=== PATIENT | male | born 1945 | race Caucasian/White ===

== ENCOUNTER → 2017-12-03 | Outpatient (CLI) | payer OTHER ==
[~2017-12-03] MED LIST: AMLO5TAB2 PO; OMEP20TA93 PO
== END ==
LOC: CPRE 09:49
PROVIDERS: ATTEND Orthopaedic Surgery
DX: T84.53XA Infection and inflammatory reaction due to internal right knee prosthesis, initial encounter (principal)

== ENCOUNTER 2017-12-12 07:06 | Inpatient (IN) | payer OTHER, MEDICARE ==
[~2017-12-12] VITALS: Ht 180.3 cm; Wt 95.4 kg
[2017-12-12] MEDS ORDERED: ceFAZolin 2 GM in NS 100 ML IV SCH (07:45)
[2017-12-12] MEDS ORDERED: DEXAMETHASONE SOD PHOS 20 MG/5 ML VIAL IV PUSH ONE (07:45)
[2017-12-12] MEDS ORDERED: CHLORHEXIDINE GLUCONATE 4% SOLN 120 ML BTL TOPICAL SCH (07:45)
[2017-12-12] MEDS ORDERED: SODIUM CHLORID 0.9% 500 ML IV PRN (07:45)
[2017-12-12] MEDS ORDERED: CHLORHEXIDINE GLUCONATE 2 % 1 PACK (2 CLOTHS) TOPICAL PRN (07:45)
[2017-12-12] MEDS ORDERED: LACTATED RINGER'S 1000 ML IV PRN (07:45)
[2017-12-12] MEDS ORDERED: POVIDONE IODINE 7.5% SCRUB 118 ML BOTTLE TOPICAL SCH (07:45)
[2017-12-12] MEDS ORDERED: POVIDONE IODINE 5% (ANTISEPSIS KIT) 4 APPLICATIONS EACH NARE PRN (07:45)
[2017-12-12] MEDS ORDERED: ROPIVACAINE PERI-ARTICULAR INJECTION. P-ARTICULR SCH ×5 (07:45)
[2017-12-12] MEDS ORDERED: TRANEXAMIC ACID INJ 890 MG in SODIUM CHLORIDE 0.9% INJ 100 ML IV SCH ×2 (07:45→15:00)
[2017-12-12] MEDS ORDERED: METOPROLOL TARTRATE 25 MG TAB PO PRN (07:45)
[2017-12-12] MEDS ORDERED: ceFAZolin 2 GM PREMIX 50 ML ONE (07:56)
[2017-12-12 09:29] VITALS: PULSE 87
[2017-12-12] MEDS ORDERED: MIDAZOLAM HCL 5 MG/5 ML VIAL ONE (09:33)
[2017-12-12] MEDS ORDERED: GENTAMICIN SULFATE 80 MG/2 ML VIAL ONE (09:49)
[2017-12-12] MEDS: VANCOMYCIN 1 GM/200 ML PREMIX ON-CALL IV SCH ×2 (10:06→10:08)
[2017-12-12] MEDS ORDERED: VANCOMYCIN HCL 1000 MG VIAL ONE (12:55)
[2017-12-12] MEDS ORDERED: MORPHINE SULFATE 4 MG/ML INJ IV PUSH PRN (14:15)
[2017-12-12] MEDS ORDERED: MAGNESIUM HYDROXIDE SUSP 30 ML CUP PO PRN (14:15)
[2017-12-12] MEDS ORDERED: NALOXONE HCL 0.4 MG/ML AMP IV PUSH PRN (14:15)
[2017-12-12] MEDS ORDERED: diphenhydrAMINE HCL 50 MG/ML VIAL IV PUSH PRN (14:15)
[2017-12-12] MEDS ORDERED: ONDANSETRON HCL 4 MG/2 ML VIAL IVP PRN (14:15)
[2017-12-12] MEDS ORDERED: BISACODYL 10 MG SUPP RECTAL PRN (14:15)
[2017-12-12] MEDS ORDERED: ALUMINUM/MAGNESIUM/SIMETH 30 ML CUP PO PRN (14:15)
[2017-12-12] MEDS ORDERED: ACETAMINOPHEN/HYDROcodone 325 MG/5 MG TAB PO PRN ×2 (14:15)
[2017-12-12] MEDS ORDERED: Post-op Orders (for Pharmacy) XX ONE (14:15)
--- NOTE | 2017-12-12 14:17 | PD.OP ---
cc: Cyrus Gomez MD Operative Report Date of Surgery: December 12, 2017 Preoperative Diagnosis: Right knee status post antibiotic spacer for TKA infection with stiffness Postoperative Diagnosis: Same Procedure: Right knee revision total knee arthroplasty. Right knee quadricepsplasty. Anesthesia: Adductor canal block and general Surgeon: Cyrus Gomez Software Engineer Advisor(s): LEILANI Dockery The surgical procedure was assisted by my Advanced Registered Nurse Practitioner. My CREDIT CARD ASSOCIATE presence was necessary throughout this case for the manipulation and positioning of the surgical extremity. My CREDIT CARD ASSOCIATE was assisting me throughout the duration of this procedure. The skill set of an Advance Registered Nurse Practitioner was medically necessary to complete this procedure. During the surgical case, the digital cartographic technician was working at the back table and the Advance Registered Nurse Practitioner was directly assisting me. Operation and Findings: See full operative note for details. Dict#: [id number] Cyrus Gomez MD December 12, 2017 14:17
[2017-12-12] MEDS ORDERED: PANTOPRAZOLE SOD 20 MG DELAYED RELEASE TAB PO PRN (14:30)
--- NOTE | 2017-12-12 15:07 | MP ---
cc: Cyrus Gomez MD DATE OF OPERATION: 12/12/2017 PREOPERATIVE DIAGNOSIS: Right knee status post antibiotic spacer for total knee arthroplasty infection with stiffness. POSTOPERATIVE DIAGNOSIS: Right knee status post antibiotic spacer for total knee arthroplasty infection with stiffness. PROCEDURE PERFORMED: 1. Right knee revision total knee arthroplasty. 2. Right knee quadriceps plasty. ANESTHESIA: Adductor canal block and general. SURGEON: Cyrus Gomez MD COMPRESSION MOLDING MACHINE SETTER: LEILANI Dockery The surgical procedure was assisted by my Advanced Registered Nurse Practitioner. My LEADERSHIP INTERN presence was necessary throughout this case for the manipulation and positioning of the surgical extremity. My LEADERSHIP INTERN was assisting me throughout the duration of this procedure. The skill set of an Advanced Registered Nurse Practitioner was medically necessary to complete this procedure. During the surgical case, the surgical orderly was working at the back table and the Advanced Registered Nurse Practitioner was directly assisting me. TOURNIQUET TIME: 80 minutes. IMPLANTS: DePuy TC3 revision total knee arthroplasty. 1. Femur was Sigma TC3 size 4 with a neutral adapter bolt, femoral adapter 5 degrees, distal augment 8 mm on the medial side, posterior augment 8 mm on the lateral side. [place] femoral sleeve, full porous, 46 mm. [place] stem, fluted, 115 x 18 mm. 2. Tibia rotating platform MBT revision system size 4, cemented with metaphyseal sleeve, porous, 53 with universal stem, fluted, 75 x 20 and rotating platform polyethylene size 4, which is a 12.5 thickness along with a cobalt chrome single cable. DESCRIPTION OF PROCEDURE: The patient was brought back to the operative theater. General anesthesia was administered after adductor canal block had been performed. The right lower extremity was prepped and draped in the usual sterile fashion. The leg was exsanguinated, tourniquet was raised. We made standard incision through the previous incision, which was curvilinear anteriorly. We reflected the flap laterally. We incised through deep tissue, found no fluid within the joint. No signs of infection. There were significant adhesions noted throughout the knee with significant adhesions of the quadriceps onto the anterior aspect of the femur with some heterotopic bone in that area. We did perform a quadriceps plasty after making a medial parapatellar arthrotomy. We reflected the quadriceps so that it was no longer significantly adherent to the distal femur. This did take quite a bit of dissection proximally and also even medially and laterally. We had to be careful as we got down towards the adductor canal region. We had full mobilization. As we were mobilizing the patella, we did perform a lateral release; however, we started to see that the patellar tendon was starting to begin to avulse from the tibial tubercle, and at this point, we did not have near enough mobilization or have adequate visualization. Therefore, we decided to move forward with an osteotomy of the proximal tibia. Osteotomy was performed with multiple drill holes through the tibial tubercle, and then we finished this with an osteotome, and we broke off a triangular wedge of the tubercle and this allowed us then to reflect the extensor mechanism out of position so we could obtain better visualization. We then removed the cement spacers off of the femur and the tibia. We found just a little bit of fluid behind each one of these, and we did send this for final culture. We took 2 samples, which were swabs, but then we also took a sample of tissue and sent this for pathology analysis, and the pathologist felt that there were no signs of acute inflammation. Ultimately, there were really no soft tissues that looked grossly inflamed and this was likely just some of the membrane that had been sitting behind the cement spacer. There was no destruction of any of the soft tissues. However, there was quite significant thickening of the tissues. We did need to reflect the gutters medially and laterally. We made sure to protect the medial and lateral collateral ligaments at all times. We went on to prepare the proximal tibia using reamers, and then we resected just a little bit of bone off of the previous osteotomy of the proximal tibia. This was done with the guide in the tibial shaft. We punched the proximal tibia for placement of the metaphyseal sleeve. We ended up going one size larger than our previous revision component in the metaphyseal sleeve on the tibia. We kept trial in position and then turned our attention to the distal femur. We did a distal femoral resection of just a couple millimeters past the previous resection and started to get some good bone distally. We created the chamfer cut. We did need augments as described in the component section of the dictation, and this was determined from the cuts off of the guide. We tested the knee using the epicondylar axis for rotation and found good fit of the component. Note that we did also ream into the femoral shaft and then also punched for the metaphyseal sleeve and got good fit with these, and then we trialed all the components together. The 12.5 mm thickness polyethylene gave full extension. The patient does have stiffness of the knee to flexion as to be expected. Wounds were thoroughly irrigated. Note that we did drop the tourniquet about fpc through this procedure. Hemostasis was achieved. We cemented in the final components in the appropriate rotation. We went with a 12.5 mm polyethylene. We repaired the osteotomy using a single cobalt chrome cable around the proximal tibia. Note that we were very careful as far as dissection proximally to make sure that we did not injure the peroneal nerve. With the knee in full extension, we tightened the cable. This gave excellent compression and anatomic reduction of the osteotomy site. We did augment this with a single Synthes 3.5 screw as well, which had very good purchase. The patient's range of motion was from 0 to about 80 degrees, then he started getting quite tight. We did do some repair over the lateral retinacular region, which did help produce some further stability on the lateral side of the knee. We closed the arthrotomy site with #2 Stratafix, with 2 of those. The patellofemoral joint had good tracking. I felt no instability about the knee through the range of motion. Initially, we thought about putting a drain in, but there was no active drainage. We decided to not put a drain in. We closed the skin with 2-0 Vicryl and telma. Overall, total blood loss was probably about 400 mL. POSTOPERATIVE PLAN: We will have the patient in a canvas knee splint for ambulation, and he can weightbear as tolerated within the canvas knee splint. Then, he will be able to remove the knee splint in order to work on range of motion exercises of the knee. DVT prophylaxis will be SCDs, HARPAL hose, early mobilization, Lovenox, followed by aspirin. MD BEATRICE Pepper/JEROME , 02:17 PM , 03:06 PM
[2017-12-12] MEDS: SODIUM CHLOR 0.9% 1000 ML INJ 1,000 ML IV SCH (15:10)
[2017-12-12] MEDS ORDERED: DO NOT ADM ANY ANTICOAGULANT DRUGS PRN (15:15)
--- NOTE | 2017-12-12 15:34 | RADRPT ---
EXAM DATE/TIME: 12/12/2017 14:52 [facility] COMPARISON: No previous studies available for comparison. INDICATIONS : Post op right knee surgery. MEDICAL HISTORY : none known SURGICAL HISTORY : none known ENCOUNTER: Initial ACUITY: 1 day PAIN SCORE: 0/10 LOCATION: Right knee FINDINGS: AP and lateral views of the knee following arthroplasty reveals a prosthesis in anatomic alignment. There is long stemmed femoral and tibial prosthesis. Fracture is not appreciated. Surgical drain is evident CONCLUSION: Status post total knee arthroplasty. Gustabo Garay MD FACR on December 12, 2017 at 15:31 Board Certified Radiologist. This report was verified electronically.
[2017-12-12] MEDS ORDERED: WALKER WHEELS/F1 MIS (15:47)
[2017-12-12] MEDS ORDERED: COMMODE 3-IN-11 MIS (15:47)
[2017-12-12] MEDS ORDERED: *morphine SULFATE 8 MG/ML PERIprocedure ONLY ONE ×2 (16:13→17:01)
[2017-12-12 20:00] VITALS: BP 125/86; PULSE 103; RESP 17; TEMP 97.1; O2SAT 96
--- NOTE | 2017-12-12 20:26 | PD.CONS ---
HPI Service [facility] Consult Requested By Dr Gomez Reason for Consult Medical management. 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 The patient presents again with repeated infection in the right knee (. The patient has been placed spacers with antibiotics and had been on IV antibiotics including vancomycin, Bactrim and rifampin as per patient's report. The patient is now admitted for elective right knee revision of the total knee arthroplasty and right knee quadricepsplasty. The patient is status post surgical procedure, states pain is very well controlled now is 2/10 intensity, pain is localized to the right knee, nonradiating. Moving extremity makes it worst. Lying is still on pain medications improved pain. The patient denies any chest pain, shortness of breath, nausea, vomiting, abdominal pain, dysuria. Review of Systems As per HPI, other systems reviewed by me and negative. Past Family Social History Allergies: Coded Allergies: No Known Allergies (Verified , 12/12/17) Past Medical History Hypertension Past Surgical History Previous orthopedic surgeries including arthroscopic surgery of the right knee. Previous placement of antibiotic disc and posterior right total knee replacement on 2011. Reported Medications Omeprazole 20 Mg Tab 20 Mg PO DAILY PRN Amlodipine (Amlodipine Besylate) 5 Mg Tab 5 Mg PO DAILY Active Ordered Medications Current Medications Medications (Trade) Dose Ordered Sig/Cj Route Start Time Stop Time Status Last Admin Lactated Ringer's 1,000 ml @ 30 mls/hr Q24H PRN IV 12/12/17 07:45 12/15/17 07:44 12/12/17 08:00 Sodium Chloride 500 ml @ 30 mls/hr [id number] PRN IV 12/12/17 07:45 12/15/17 07:44 (Lopressor) 25 mg [employer] PRN PO 12/12/17 07:45 12/15/17 07:44 (Betadine 5% Antisepsis Kit) 1 applic [employer] PRN EACH NARE 12/12/17 07:45 12/15/17 07:44 12/12/17 08:00 (Chlorhexidine 2% Cloth) 3 pack [employer] PRN TOPICAL 12/12/17 07:45 12/15/17 07:44 12/12/17 08:00 (Betadine 7.5% Scrub) 1 applic ONCE TOPICAL 12/12/17 07:45 12/15/17 07:44 12/12/17 08:00 (Hibiclens 4% Top Soln) 1 applic ONCE TOPICAL 12/12/17 07:45 12/15/17 07:44 Ropivacaine 24.63 ml/Ketorolac Tromethamine 30 mg/Epinephrine HCl 0.5 mg/ Clonidine 80 mcg/ Sodium Chloride 100 ml @ 200 mls/hr ONCE P-ARTICULR 12/12/17 07:45 12/13/17 07:44 12/12/17 13:01 Vancomycin/Sodium Chloride 200 ml @ 200 mls/hr [employer] IV 12/12/17 07:45 12/15/17 07:44 12/12/17 10:08 Cefazolin Sodium 2000 mg/Sodium Chloride 100 ml @ 200 mls/hr [employer] IV 12/12/17 07:45 12/15/17 07:44 12/12/17 10:07 (Norvasc) 5 mg DAILY PO 12/13/17 09:00 (Protonix) 20 mg DAILY PRN PO 12/12/17 14:30 Sodium Chloride 1,000 ml @ 100 mls/hr Q10H IV 12/12/17 14:30 12/12/17 15:10 Cefazolin Sodium 1000 mg/Sodium Chloride 100 ml @ 200 mls/hr Q6H IV 12/12/17 16:00 12/13/17 04:29 12/12/17 16:12 (Decadron Inj) 10 mg ONCE ONCE IV 12/13/17 07:45 12/13/17 07:46 (Lovenox Inj) 40 mg Q24H SQ 12/13/17 13:30 12/22/17 13:31 ([place] 5-325 Mg) 1 tab Q4H PRN PO 12/12/17 14:15 ([place] 5-325 Mg) 2 tab Q4H PRN PO 12/12/17 14:15 Tranexamic Acid 890 mg/Sodium Chloride 108.9 ml @ 200 mls/hr UNSCH IV 12/12/17 15:00 12/12/17 21:00 12/12/17 15:20 (Theragran M Tab) 1 tab BID PO 12/13/17 21:00 02/11/18 20:59 (Zofran Inj) 4 mg Q6H PRN IVP 12/12/17 14:15 (Colace) 100 mg BID PO 12/13/17 21:00 (Mag-Al Plus Susp Liq) 30 ml Q6H PRN PO 12/12/17 14:15 (Ambien) 5 mg HS PRN PO 12/12/17 21:00 (Dulcolax Supp) 10 mg DAILY PRN RECTAL 12/12/17 14:15 (Milk Of Magnesia Liq) 30 ml DAILY PRN PO 12/12/17 14:15 (Narcan Inj) 0.4 mg UNSCH PRN IV PUSH 12/12/17 14:15 (Benadryl Inj) 25 mg Q6H PRN IV PUSH 12/12/17 14:15 (Morphine Inj) 2 mg Q3H PRN IV PUSH 12/12/17 14:15 ([facility] [place] [facility]) ALL NURSING DEPARTME... UNSCH PRN .XX 12/12/17 15:15 12/13/17 15:14 Family History Father of an DE at age 62 also had a CVA. Social History Denies smoking, drinking alcohol or using illicit drugs. Physical Exam Vital Signs Vital Signs Date Time Temp Pulse Resp B/P (MAP) Pulse Ox O2 Delivery O2 Flow Rate FiO2 12/12/17 17:30 97.9 102 12 118/79 (92) 94 Room Air 12/12/17 16:45 101 12 119/81 (94) 100 Nasal Cannula 2 12/12/17 16:30 102 12 128/80 (96) 100 Nasal Cannula 2 12/12/17 16:15 101 12 127/79 (95) 100 Nasal Cannula 2 12/12/17 16:00 101 14 127/77 (94) 100 Nasal Cannula 2 12/12/17 15:45 101 13 126/77 (93) 100 Nasal Cannula 3 12/12/17 15:30 100 14 124/79 (94) 100 Nasal Cannula 3 12/12/17 15:15 100 14 114/76 (89) 100 Nasal Cannula 3 12/12/17 15:00 100 13 115/77 (90) 100 Nasal Cannula 3 12/12/17 14:45 100 12 110/74 (86) 96 Nasal Cannula 3 12/12/17 14:36 97.7 102 14 126/76 (93) 96 Nasal Cannula 3 12/12/17 10:05 100 Nasal Cannula 2 12/12/17 10:01 83 18 142/82 (102) 97 12/12/17 09:29 87 12/12/17 09:29 98 Nasal Cannula 2 12/12/17 08:19 98.7 90 20 138/95 (109) 97 Physical Exam GENERAL: This is a well-nourished, well-developed patient, in no apparent distress. SKIN: No rashes, ecchymoses or lesions. Cool and dry. HEAD: Atraumatic. Normocephalic. No temporal or scalp tenderness. EYES: Pupils equal round and reactive. Extraocular motions intact. No scleral icterus. No injection or drainage. ENT: Nose without bleeding, purulent drainage or septal hematoma. Throat without erythema, tonsillar hypertrophy or exudate. Uvula midline. Airway patent. NECK: Trachea midline. No JVD or lymphadenopathy. Supple, nontender, no meningeal signs. CARDIOVASCULAR: Regular rate and rhythm without murmurs, gallops, or rubs. RESPIRATORY: Clear to auscultation. Breath sounds equal bilaterally. No wheezes , rales, or rhonchi. GASTROINTESTINAL: Abdomen soft, non-tender, nondistended. No hepato-splenomegaly , or palpable masses. No guarding. MUSCULOSKELETAL: Extremities without clubbing, cyanosis, or edema. No joint tenderness, effusion, or edema noted. No calf tenderness. Negative Homans sign bilaterally. Right knee moderately swollen and tender to palpation. Range of motion limited due to pain. NEUROLOGICAL: Awake and alert. Cranial nerves II through XII intact. Motor and sensory grossly within normal limits. Five out of 5 muscle strength in all muscle groups. Normal speech. Laboratory Date/Time Source Procedure Growth Status 12/12/17 12:00 Abscess Knee Fungal Smear Pending Received 12/12/17 12:00 Abscess Knee Fungal Culture Pending Received Imaging Last Impressions Knee X-Ray 12/12/17 7981 Signed Impressions: Service Date/Time: Tuesday, December 12, 2017 14:52 - CONCLUSION: Status post total knee arthroplasty. Gustabo Garay MD FACR Assessment and Plan Problem List: (1) Status post revision of total knee ICD Code: Z96.659 - Presence of unspecified artificial knee joint (2) HTN (hypertension) ICD Code: I10 - Essential (primary) hypertension Assessment and Plan The patient status post right knee revision total knee arthroplasty. Right knee quadricepsplasty. Management as per orthopedic surgery recommendations. Patient currently in pain control with [place]. Continue home antihypertensive medications. The patient is on amlodipine 5 mg p.o. daily and monitor vital signs. DVT prophylaxis as per orthopedic surgery Code Status Full code Discussed Condition With Patient. Problem Qualifiers (1) Status post revision of total knee: Qualified Codes: Z96.651 - Presence of right artificial knee joint Israel Espinoza MD December 12, 2017 20:26
[2017-12-12] MEDS ORDERED: ZOLPIDEM TARTRATE 5 MG TAB PO PRN (21:00)
[2017-12-13] VITALS: BP 120/60; PULSE 99; RESP 19; TEMP 98.1; O2SAT 95
[2017-12-13] MEDS: SODIUM CHLOR 0.9% 1000 ML INJ 1,000 ML IV SCH ×3 (00:30→20:30)
[2017-12-13 04:00] VITALS: BP 129/71; PULSE 105; RESP 19; TEMP 98.3; O2SAT 97
[2017-12-13 06:46] LABS: HEMOGLOBIN 9.5 GM/DL (13.0-17.0); MEAN CELL VOLUME 87.7 FL (80.0-100.0); MEAN CORPUSCULAR HEMOGLOBIN 28.8 PG (27.0-34.0); MEAN CORPUSCULAR HGB CONC 32.8 % (32.0-36.0); MEAN PLATELET VOLUME 8.3 FL (7.0-11.0); PLATELET COUNT 241 TH/MM3 (150-450); RED BLOOD COUNT 3.31 MIL/MM3 (4.50-5.90); RED CELL DISTRIBUTION WIDTH 14.2 % (11.6-17.2); WHITE BLOOD COUNT 13.4 TH/MM3 (4.0-11.0)
[2017-12-13] MEDS: amLODIPine BESYLATE 5 MG TAB PO SCH (07:24)
[2017-12-13] MEDS ORDERED: DEXAMETHASONE SOD PHOS 20 MG/5 ML VIAL IV ONE (07:45)
[2017-12-13 08:08] VITALS: BP 143/81; PULSE 112; RESP 20; TEMP 98.8; O2SAT 20
[2017-12-13 11:42] VITALS: BP 126/69; PULSE 119; RESP 20; TEMP 97.1; O2SAT 94
[2017-12-13] MEDS ORDERED: ENOXAPARIN SODIUM 40 MG/0.4 ML SYRINGE SQ SCH (13:30)
--- NOTE | 2017-12-13 14:25 | HHI.PR ---
Subjective Remarks bp controlled Denies cp/sob pain controlled Denies nausea Denies diarrhea tachycardic Objective Vitals Vital Signs Date Time Temp Pulse Resp B/P (MAP) Pulse Ox O2 Delivery O2 Flow Rate FiO2 12/13/17 11:42 97.1 119 20 126/69 (88) 94 12/13/17 08:08 98.8 112 20 143/81 (101) 20 12/13/17 04:00 98.3 105 19 129/71 (90) 97 12/13/17 00:00 98.1 99 19 120/60 (80) 95 12/12/17 20:00 97.1 103 17 125/86 (99) 96 12/12/17 17:30 97.9 102 12 118/79 (92) 94 Room Air 12/12/17 16:45 101 12 119/81 (94) 100 Nasal Cannula 2 12/12/17 16:30 102 12 128/80 (96) 100 Nasal Cannula 2 12/12/17 16:15 101 12 127/79 (95) 100 Nasal Cannula 2 12/12/17 16:00 101 14 127/77 (94) 100 Nasal Cannula 2 12/12/17 15:45 101 13 126/77 (93) 100 Nasal Cannula 3 12/12/17 15:30 100 14 124/79 (94) 100 Nasal Cannula 3 12/12/17 15:15 100 14 114/76 (89) 100 Nasal Cannula 3 12/12/17 15:00 100 13 115/77 (90) 100 Nasal Cannula 3 12/12/17 14:45 100 12 110/74 (86) 96 Nasal Cannula 3 12/12/17 14:36 97.7 102 14 126/76 (93) 96 Nasal Cannula 3 I/O 12/12/17 12/12/17 12/12/17 12/13/17 12/13/17 12/13/17 07:00 15:00 23:00 07:00 15:00 23:00 Intake Total 3650 ml 300 ml 1100 ml Output Total 1150 ml 150 ml 400 ml Balance 2500 ml 150 ml 700 ml Intake IV Total 300 ml 1100 ml Other 3650 ml Output Urine Total 750 ml 150 ml 400 ml Estimated Blood Loss 400 ml # Bowel Movements 0 Result Diagram: 12/13/17 0535 Imaging Last Impressions Knee X-Ray 12/12/17 1402 Signed Impressions: Service Date/Time: Tuesday, December 12, 2017 14:52 - CONCLUSION: Status post total knee arthroplasty. Gustabo Garay MD FACR Objective Remarks AAOX3 Clear lungs BL Good pedal pulse BL, good capillary refill No edema in lower extremities Right knee with moderately swollen A/P Problem List: (1) Status post revision of total knee ICD Code: Z96.659 - Presence of unspecified artificial knee joint Plan: Management as per orthopedic surgery. Pain control as per orthopedic surgery. (2) HTN (hypertension) ICD Code: I10 - Essential (primary) hypertension Plan: Continue amlodipine 5 minutes p.o. daily. BP seems to be stable. (3) Tachycardia ICD Code: R00.0 - Tachycardia, unspecified Plan: Check EKG. Assessment and Plan DVT prophylaxis: Lovenox subcu. Problem Qualifiers (1) Status post revision of total knee: Qualified Codes: Z96.651 - Presence of right artificial knee joint Israel Espinoza MD December 13, 2017 14:25
[2017-12-13 20:00] VITALS: BP 114/74; PULSE 102; RESP 17; TEMP 98.7; O2SAT 95
--- NOTE | 2017-12-13 20:40 | HHI.FF ---
Face to Face Verification Diagnosis: (1) Status post revision of total knee Physical Therapy Gait training, Transfer training, bed to chair Knee: Total knee Right LE Weight Bearing: WB as tolerated Right LE Range of Motion: Active ROM Additional Instructions Patient should wear knee immobilizer while WB. and can take it off for AROM when nonweightbearing. Nursing Nursing: Alice teaching, Dressing changes Dressing Changes: Daily dressing change I have seen patient Imtiaz Thapa on 12/13/17. My clinical findings support the need for the requested home health care services because: Limited ability to care for self High risk of falls I certify that my clinical findings support that this patient is homebound because: Post-op weakness Unsteady gait/balance Rylan Peterson December 13, 2017 20:40
--- NOTE | 2017-12-13 20:46 | PD.ORT.PN ---
Subjective Post Op Day #: 1 Subjective Remarks Patient is resting comfortably in bed with minimal pain to the right knee. Objective Vitals Vital Signs Date Time Temp Pulse Resp B/P (MAP) Pulse Ox O2 Delivery O2 Flow Rate FiO2 12/13/17 11:42 97.1 119 20 126/69 (88) 94 12/13/17 08:08 98.8 112 20 143/81 (101) 20 12/13/17 04:00 98.3 105 19 129/71 (90) 97 12/13/17 00:00 98.1 99 19 120/60 (80) 95 I/O 12/12/17 12/12/17 12/12/17 12/13/17 12/13/17 12/13/17 07:00 15:00 23:00 07:00 15:00 23:00 Intake Total 3650 ml 300 ml 1100 ml 600 ml Output Total 1150 ml 150 ml 400 ml 1200 ml Balance 2500 ml 150 ml 700 ml -600 ml Intake Oral 600 ml IV Total 300 ml 1100 ml Other 3650 ml Output Urine Total 750 ml 150 ml 400 ml 1200 ml Estimated Blood Loss 400 ml # Voids 6 # Bowel Movements 0 Result Diagram: 12/13/17 0535 Procedures Right knee revision TKA Right knee quadricepsplasty Objective Remarks Patients Dressing is C/D/I. EHL/TA/G intact. 2+ pedal pulse. Calf is soft and nontender. + SILT distally. Assessment & Plan Ortho Post Op Day #: 1 Problem List: Assessment and Plan POD #1: Right knee revision TKA Right knee quadricepsplasty 1. WBAT with use of knee immobilizer. Can remove knee immobilizer for AROM. 2. Daily dressing changes starting POD #2. 3. Ice to the right knee PRN 4. Stable for discharge home with home health on Sunday. 5. F/U in the office with Dr. Gomez or LEILANI Burnham as previously scheduled. 6. We will follow intraoperative cultures. No growth as of 24 hours. Rylan Peterson December 13, 2017 20:46
[2017-12-13] MEDS: MULTIVITAMINS/MINERALS THERAPEUTIC TAB PO SCH (21:02)
[2017-12-13] MEDS: DOCUSATE SODIUM 100 MG CAP PO SCH (21:02)
[2017-12-14] VITALS: BP 116/74; PULSE 102; RESP 16; TEMP 98.3; O2SAT 94
[2017-12-14 06:12] LABS: HEMATOCRIT 25.8 % (39.0-51.0); HEMOGLOBIN 8.7 GM/DL (13.0-17.0); MEAN CORPUSCULAR HEMOGLOBIN 29.8 PG (27.0-34.0); MEAN CORPUSCULAR HGB CONC 33.8 % (32.0-36.0); MEAN PLATELET VOLUME 8.5 FL (7.0-11.0); PLATELET COUNT 202 TH/MM3 (150-450); RED BLOOD COUNT 2.93 MIL/MM3 (4.50-5.90); RED CELL DISTRIBUTION WIDTH 14.5 % (11.6-17.2); WHITE BLOOD COUNT 10.6 TH/MM3 (4.0-11.0)
[2017-12-14 06:51] LABS: BICARBONATE 25.4 MEQ/L (21.0-32.0); CALCIUM 7.2 MG/DL (8.5-10.1); CREATININE 1.24 MG/DL (0.60-1.30)
[2017-12-14 07:07] LABS: TOTAL PROTEIN 5.6 GM/DL (6.4-8.2)
[2017-12-14 08:00] VITALS: BP 128/86; PULSE 76; RESP 16; TEMP 98.4; O2SAT 95
[2017-12-14] MEDS: DOCUSATE SODIUM 100 MG CAP PO SCH (08:25)
[2017-12-14] MEDS: amLODIPine BESYLATE 5 MG TAB PO SCH (08:25)
[2017-12-14] MEDS: MULTIVITAMINS/MINERALS THERAPEUTIC TAB PO SCH (08:25)
[2017-12-14 17:00] VITALS: BP 171/91; PULSE 48; RESP 16; TEMP 97.6; O2SAT 100
--- NOTE | 2017-12-15 08:41 | EKG ---
Date Performed: 12/13/2017 Time Performed: 15:54:04 PTAGE: 72 years EKG: SINUS TACHYCARDIA WITH FREQUENT VENTRICULAR PREMATURE COMPLEXES RIGHT BUNDLE BRANCH BLOCK A BNORMAL ECG NO PREVIOUS TRACING DOCTOR: Naty Reese Interpretating Date/Time 12/15/2017 08:39:18
--- NOTE | 2017-12-16 15:07 | HHI.DS ---
Discharge Summary Admission Date December 12, 2017 at 07:06 Discharge Date: December 14, 2017 Admitting Diagnosis Right revision total knee arthroplasty Diagnosis: (1) Status post revision of total knee Diagnosis: Principal ICD Codes: Z96.659 - Presence of unspecified artificial knee joint Procedures Right knee revision TKA Right knee quadricepsplasty Brief History This is a 72 year old male patient CBC/BMP: 12/14/17 0448 12/14/17 0448 Significant Findings Laboratory Tests Test 12/14/17 04:48 Red Blood Count 2.93 MIL/MM3 (4.50-5.90) Hemoglobin 8.7 GM/DL (13.0-17.0) Hematocrit 25.8 % (39.0-51.0) Blood Urea Nitrogen 29 MG/DL (7-18) Random Glucose 117 MG/DL (74-106) Total Protein 5.6 GM/DL (6.4-8.2) Calcium Level 7.2 MG/DL (8.5-10.1) Chloride Level 111 MEQ/L (98-107) Estimat Glomerular Filtration Rate 57 ML/MIN (>89) Protein Corrected Calcium 8.0 MG/DL (8.5-10.1) PE at Discharge Patients Dressing is C/D/I. EHL/TA/G intact. 2+ pedal pulse. Calf is soft and nontender. + SILT distally. Hospital Course The patient was admitted to the hospital for removal of the previous antibiotic spacer and application of revision hardware for the right knee. The patient is WBAT on the RLE with the use of a knee immobilizer. Patient can come out of the knee immobilizer for AROM. The patient is on a regular diet. The patient is on Lovenox followed by ASA for DVT prophylaxis. The patient was discharged home with home health and will f/u in the office with Dr. Avila or LEILANI Burnham as previously scheduled. Pt Condition on Discharge: Stable Discharge Disposition: Disch w/ Home Health Serv Discharge Instructions Diet Instructions: As Tolerated, No Restrictions Activities You Can Perform: See Additionl Instruction Activities to Avoid: Strenuous Activity Additional Activity Instruc.: WBAT in Knee Immobilizer. Can come out of Knee Immobilizer for AROM Follow up Referrals: Appointment for Follow Up @ [facility] New Medications: Commode 3-in-1 (Commode 3-in-1) 1 Mis Mis EA .XX DIRECTED, #1 0 Refills Walker with Front Wheels (Walker with Front Wheels) 1 Mis Mis EA .XX DIRECTED, #1 0 Refills Continued Medications: Amlodipine (Amlodipine) 5 Mg Tab 5 MG PO DAILY for Blood Pressure Management, #30 TAB 0 Refills Omeprazole (Omeprazole) 20 Mg Tab 20 MG PO DAILY PRN for REFLUX, #30 TAB 0 Refills Rylan Peterson December 16, 2017 15:07
== END 2017-12-14 10:18 | disposition home health service (06) | DRG 468 ==
LOC: HSDI 07:06 → N06B 17:43
PROVIDERS: ADMIT Orthopaedic Surgery; ATTEND Orthopaedic Surgery
PROC: 0SPC08Z Removal of Spacer from Right Knee Joint, Open Approach (ICD-10-PCS; 2017-12-12)
PROC: 0KNQ0ZZ Release Right Upper Leg Muscle, Open Approach (ICD-10-PCS; 2017-12-12)
PROC: 3E0T3BZ Introduction of Anesthetic Agent into Peripheral Nerves and Plexi, Percutaneous Approach (ICD-10-PCS; 2017-12-12)
PROC: 0SRC0J9 Replacement of Right Knee Joint with Synthetic Substitute, Cemented, Open Approach (ICD-10-PCS; principal; 2017-12-12 10:15)
DX: Z47.33 Aftercare following explantation of knee joint prosthesis (principal); I10 Essential (primary) hypertension; R00.0 Tachycardia, unspecified; Z86.14 Personal history of Methicillin resistant Staphylococcus aureus infection
CPT/HCPCS: 73560; 80048; 84155; 85027; 86850; 86900; 86901; 87015; 87070; 87102; 87116; 87205; 87206; 88305; 88311; 88331; 93005; 94150; J0690; J0735; J1100; J1580; J1650; J1885; J2250; J2270; J2405; J2795; J3010; J3370; J7030; J7120

== ENCOUNTER 2018-01-09 08:34 | Inpatient (IN) | payer OTHER, MEDICARE ==
[~2018-01-09] VITALS: Ht 180.3 cm; Wt 81.9 kg
[~2018-01-09 08:34] MED LIST changes: +COMMODE 3-IN-11 MIS; +WALKER WHEELS/F1 MIS
[2018-01-09] MEDS ORDERED: CHLORHEXIDINE GLUCONATE 4% SOLN 120 ML BTL TOPICAL SCH (09:15)
[2018-01-09] MEDS ORDERED: CHLORHEXIDINE GLUCONATE 2 % 1 PACK (2 CLOTHS) TOPICAL PRN (09:15)
[2018-01-09] MEDS ORDERED: POVIDONE IODINE 5% (ANTISEPSIS KIT) 4 APPLICATIONS EACH NARE PRN (09:15)
[2018-01-09] MEDS ORDERED: LACTATED RINGER'S 1000 ML IV PRN (09:15)
[2018-01-09] MEDS ORDERED: METOPROLOL TARTRATE 25 MG TAB PO PRN (09:15)
[2018-01-09] MEDS ORDERED: DEXAMETHASONE SOD PHOS 20 MG/5 ML VIAL IV PUSH ONE (09:15)
[2018-01-09] MEDS ORDERED: ceFAZolin 2 GM PREMIX 50 ML IV SCH (09:15)
[2018-01-09] MEDS ORDERED: SODIUM CHLORID 0.9% 500 ML IV PRN (09:15)
[2018-01-09] MEDS ORDERED: POVIDONE IODINE 7.5% SCRUB 118 ML BOTTLE TOPICAL SCH (09:15)
--- NOTE | 2018-01-09 09:20 | HHI.DCPOC ---
Discharge Care Plan Diagnosis: (1) Infection of total right knee replacement Your Health Problems Are: Difficulty with ADL Swelling Leg Swelling Goals to Promote Your Health * To prevent worsening of your condition and complications * To maintain your health at the optimal level Directions to Meet Your Goals Take your medications as prescribed Follow your dietary instruction Follow activity as directed Keep your appointments as scheduled Take your immunizations and boosters as scheduled If your symptoms worsen call your PCP, if no PCP go to Urgent Care Center or Emergency Room Smoking is Dangerous to Your Health. Avoid second hand smoke Call the 24-hour hour crisis hotline for domestic abuse at Rylan Peterson Jan 09, 2018 09:20
[2018-01-09] MEDS ORDERED: ACETAMINOPHEN 1000 MG/100 ML 100 ML IV ONE (09:21)
--- NOTE | 2018-01-09 09:21 | HHI.FF ---
Face to Face Verification Diagnosis: (1) Infection of total right knee replacement Physical Therapy Gait training, Transfer training, bed to chair Knee: Total knee Right LE Weight Bearing: WB as tolerated Right LE Range of Motion: Active ROM Nursing Nursing: Alice teaching, Dressing changes Dressing Changes: Daily dressing change I have seen patient Imtiaz Thapa on 01/09/18. My clinical findings support the need for the requested home health care services because: Limited ability to care for self High risk of falls Injectable med education/admin I certify that my clinical findings support that this patient is homebound because: Post-op weakness Unsteady gait/balance Rylan Peterson Jan 09, 2018 09:21
[2018-01-09] MEDS ORDERED: ceFAZolin INJ 1,000 MG VIAL ONE (09:38)
[2018-01-09] MEDS ORDERED: GENTAMICIN SULFATE 80 MG/2 ML VIAL ONE (09:38)
[2018-01-09] MEDS ORDERED: VANCOMYCIN HCL 1000 MG VIAL ONE ×2 (09:46→11:55)
[2018-01-09] MEDS ORDERED: MINERAL OIL 10 ML VIAL ONE (09:52)
[2018-01-09] MEDS ORDERED: NEOMYCIN/POLYMYXIN 1 ML G.U. IRRIGANT ONE (09:53)
[2018-01-09] MEDS ORDERED: KETAMINE HCL 500 MG/10 ML VIAL ONE (10:15)
[2018-01-09] MEDS: SODIUM CHLOR 0.9% 1000 ML INJ 1,000 ML IV SCH ×2 (12:03→21:34)
[2018-01-09] MEDS ORDERED: MAGNESIUM HYDROXIDE SUSP 30 ML CUP PO PRN (12:15)
[2018-01-09] MEDS ORDERED: ALUMINUM/MAGNESIUM/SIMETH 30 ML CUP PO PRN (12:15)
[2018-01-09] MEDS ORDERED: NALOXONE HCL 0.4 MG/ML AMP IV PUSH PRN (12:15)
[2018-01-09] MEDS ORDERED: MORPHINE SULFATE 4 MG/ML INJ IV PUSH PRN (12:15)
[2018-01-09] MEDS ORDERED: Post-op Orders (for Pharmacy) XX ONE (12:15)
[2018-01-09] MEDS ORDERED: diphenhydrAMINE HCL 50 MG/ML VIAL IV PUSH PRN (12:15)
[2018-01-09] MEDS ORDERED: ACETAMINOPHEN/HYDROcodone 325 MG/5 MG TAB PO PRN ×2 (12:15)
[2018-01-09] MEDS ORDERED: TRANEXAMIC ACID INJ 870 MG in SODIUM CHLORIDE 0.9% INJ 100 ML IV SCH (12:15)
[2018-01-09] MEDS ORDERED: BISACODYL 10 MG SUPP RECTAL PRN (12:15)
--- NOTE | 2018-01-09 12:20 | PD.OP ---
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 My SWIMMING POOL PLASTERER HELPER presence was necessary throughout this case for the manipulation and positioning of the surgical extremity. My SWIMMING POOL PLASTERER HELPER was assisting me throughout the duration of this procedure. The skill set of an Advance Registered Nurse Practitioner was medically necessary to complete this procedure. During the surgical case, the surgical coordinator was working at the back table and the Advance Registered Nurse Practitioner was directly assisting me. Operation and Findings: Justification for procedure: Please see my office notes which are in the chart for further details. Essentially this patient had previous MRSA culture positive revision total knee arthroplasty and had undergone removal of the prosthesis with antibiotic spacer on July 282016. He underwent a revision total knee replacement with quadricepsplasty on December 12, 2017. The patient was followed very closely in the office and developed postoperative effusions. These were drained in the office. They started out having an appearance of hematoma and then change the fluid consistent more with seroma. The patient's knee was drained a two days ago and the fluid was becoming cloudy. This was sent for analysis showing gram-positive cocci in pairs along with significant amount of white cells. The patient's blood serum markers show significant inflammation as well. He was developing fevers. He understood the risks and benefits of surgical management. Antibiotics were held. The patient was brought back to the operative theater. General anesthesia was administered. Antibiotics were given after cultures were obtained. We made incision through the previous anteromedial incision. We identified approximately 600 cc of seropurulent fluid. We took multiple swab cultures at this point. Antibiotics were given. This fluid was completely evacuated. We found that the previous medial arthrotomy site was completely healed. The screw and cerclage wire were identified around the tibial tubercle and looked good. The previous lateral release was still open which communicated to the joint. This gave us an arthrotomy site for access to the joint. The visualized portion of the femoral component, polyethylene, and proximal tibial component were intact. There is normal alignment. I did not visualize any significant necrotic tissues. We debrided using a lap pad around all of the soft tissues, including deep within the joint. There was inflammatory type granulation tissue on the anterior aspect of the extensor mechanism and the underlying skin. This was well adherent to these tissues. There were no loculated areas of this infection. We then irrigated with 6 L of fluid throughout all the soft tissues and deep within the joint. We exchanged instruments and changed gloves and put new drapes down. We used a whole new clean table. We created 20 cc of stimulan beads that we placed 2 g of vancomycin into them. We put these beads within the joint including the medial gutter and then also into the larger lateral gutter region. We placed 2 drains. One was deep within the joint and the other was in the lateral gutter by the soft tissues more superficial. We closed skin with 2-0 Monocryl and telma. We sutured in the drains. Postoperative plan is for infectious disease consultation. We will have further discussions with the patient to discuss his treatment options are available at this time. He does already understand that eradication of this infection may be extremely difficult or even potentially impossible. We were discussed further options such as arthrotomy with repeat debridement and antibiotic beads, removal of the prosthesis and placement of permanent versus temporary cement spacer, etc. The patient may require chronic suppressive antibiotics, since this was the third failed revision due to infection. Cyrus Gomez MD Jan 09, 2018 12:20
[2018-01-09] MEDS ORDERED: ENOX40IN SQ (12:24)
[2018-01-09] MEDS ORDERED: ASPI-183 PO (12:24)
[2018-01-09] MEDS ORDERED: NORC5TAB PO (12:24)
[2018-01-09] MEDS ORDERED: DO NOT ADM ANY ANTICOAGULANT DRUGS PRN (12:45)
--- NOTE | 2018-01-09 12:54 | PD.CONS ---
HPI Service [facility] Consult Requested By Reason for Consult medical management Primary Care Physician Nereyda Cheung MD Diagnoses: History of Present Illness patient is a 72 y/o male with history of hypertension, s/p right knee revision total knee arthroplasty about a month ago underwent right knee arthrotomy and I/ D today due to right knee infection. he was sedated at the time of my evaluation. patient was seen with the RN at the bedside. reportedly he was tachycardic earlier this morning which has resolved. no other acute issues reported. Review of Systems ROS Limitations: Clinical Condition (sedated from the surgery.) Past Family Social History Allergies: Coded Allergies: No Known Allergies (Verified , 01/09/18) Past Medical History hypertension Past Surgical History right knee revision total knee arthroplasty last month. Reported Medications amlodipine. aspirin. Active Ordered Medications Inpatient Medications Acetaminophen/ Hydrocodone Bitart ([place] 5-325 Mg) 2 tab Q4H PRN PO PAIN SCALE 5 TO 10; Start 01/09/18 at 12:15; Status UNV Al Hydrox/Mg Hydrox/Simethicone (Mag-Al Plus Susp Liq) 30 ml Q6H PRN PO INDIGESTION; Start 01/09/18 at 12:15; Status UNV Amlodipine Besylate (Norvasc) 5 mg DAILY PO ; Start 01/10/18 at 09:00 Bisacodyl (Dulcolax Supp) 10 mg DAILY PRN NC CONSTIPATION; Start 01/09/18 at 12: 15; Status UNV Cefazolin Sodium 1000 mg/Sodium Chloride 100 ml @ 200 mls/hr Q6H IV ; Start 01/09/18 at 12:15; Stop 01/10/18 at 00:44; Status UNV Cefazolin Sodium/ Dextrose 50 ml @ 100 mls/hr PORTFOLIO SPECIALIST IV ; Start 01/09/18 at 09 :15; Stop 01/12/18 at 09:14 Chlorhexidine Gluconate (Chlorhexidine 2% Cloth) 3 pack PORTFOLIO SPECIALIST PRN TOPICAL SEE LABEL COMMENTS Last administered on 01/09/18at 09:00; Start 01/09/18 at 09:15; Stop 01/12/18 at 09:14 Chlorhexidine Gluconate (Hibiclens 4% Top Soln) 1 applic ONCE TOPICAL ; Start at 09:15; Stop 01/12/18 at 09:14 Dexamethasone Sodium Phosphate (Decadron Inj) 10 mg ONCE ONCE IV PUSH Last administered on 01/09/18at 09:38; Start 01/09/18 at 09:15; Stop 01/09/18 at 09:16; Status DC Diphenhydramine HCl (Benadryl Inj) 25 mg Q6H PRN IV PUSH ITCHING; Start at 12:15; Status UNV Docusate Sodium (Colace) 100 mg BID PO ; Start 01/10/18 at 21:00; Status UNV Enoxaparin Sodium (Lovenox Inj) 40 mg Q24H SQ ; Start 01/09/18 at 12:15; Stop at 12:16; Status UNV Lactated Ringer's 1,000 ml @ 30 mls/hr Q24H PRN IV SEE LABEL COMMENTS Last administered on 01/09/18at 09:30; Start 01/09/18 at 09:15; Stop 01/12/18 at 09:14 Magnesium Hydroxide (Milk Of Magnesia Liq) 30 ml DAILY PRN PO CONSTIPATION; Start 01/09/18 at 12:15; Status UNV Metoprolol Tartrate (Lopressor) 25 mg PORTFOLIO SPECIALIST PRN PO SEE LABEL COMMENTS; Start 01/09/18 at 09:15; Stop 01/12/18 at 09:14 Miscellaneous Information [place] ALL NURSING DEPARTME... UNSCH PRN .XX SEE LABEL COMMENTS; Start 01/09/18 at 12:45; Stop 01/10/18 at 12:44 Miscellaneous Information [place] STAT ONCE XX ; Start 01/09/18 at 12:15; Stop 01/09/18 at 12:16; Status UNV Morphine Sulfate (Morphine Inj) 2 mg Q3H PRN IV PUSH pain greater than 5; Start 01/09/18 at 12:15; Status UNV Multivitamins/ Minerals Therapeutic (Theragran M Tab) 1 tab BID PO ; Start at 21:00; Stop 03/11/18 at 20:59; Status UNV Naloxone HCl (Narcan Inj) 0.4 mg UNSCH PRN IV PUSH RESPIRATORY RATE LESS THAN 10; Start 01/09/18 at 12:15; Status UNV Ondansetron HCl (Zofran Inj) 4 mg Q6H PRN IVP NAUSEA OR VOMITING; Start at 12:15; Status UNV Pantoprazole Sodium (Protonix) 20 mg DAILY PRN PO REFLUX; Start 01/09/18 at 12: 30 Povidone Iodine (Betadine 5% Antisepsis Kit) 1 applic PORTFOLIO SPECIALIST PRN EACH NARE SEE LABEL COMMENTS Last administered on 01/09/18at 09:42; Start 01/09/18 at 09:15; Stop 01/12/18 at 09:14 Povidone Iodine (Betadine 7.5% Scrub) 1 applic ONCE TOPICAL ; Start 01/09/18 at 09:15; Stop 01/12/18 at 09:14 Sodium Chloride 1,000 ml @ 100 mls/hr Q10H IV ; Start 01/09/18 at 12:03; Status UNV Tranexamic Acid / Sodium Chloride 100 ml @ 200 mls/hr UNSCH IV ; Start 01/09/18 at 12:15; Stop 01/09/18 at 12:44; Status UNV Vancomycin HCl 1000 mg/Sodium Chloride 250 ml @ 250 mls/hr DAILY IV ; Start 01/10/18 at 09:00; Status UNV Zolpidem Tartrate (Ambien) 5 mg HS PRN PO SLEEP; Start 01/09/18 at 12:15; Status UNV Family History could not be obtained. Social History no smoking/ drinking per medical record. Physical Exam Vital Signs Vital Signs Date Time Temp Pulse Resp B/P (MAP) Pulse Ox O2 Delivery O2 Flow Rate FiO2 01/09/18 09:33 99.4 107 20 139/81 (100) 100 Physical Exam GENERAL: This is a well-nourished, well-developed patient, in no apparent distress. SKIN: No rashes, ecchymoses or lesions. Cool and dry. HEAD: Atraumatic. Normocephalic. No temporal or scalp tenderness. EYES: Pupils equal round and reactive. Extraocular motions intact. No scleral icterus. No injection or drainage. ENT: Nose without bleeding, purulent drainage or septal hematoma. Throat without erythema, tonsillar hypertrophy or exudate. Uvula midline. Airway patent. NECK: Trachea midline. No JVD or lymphadenopathy. Supple, nontender, no meningeal signs. CARDIOVASCULAR: Regular rate and rhythm without murmurs, gallops, or rubs. RESPIRATORY: Clear to auscultation. Breath sounds equal bilaterally. No wheezes , rales, or rhonchi. GASTROINTESTINAL: Abdomen soft, non-tender, nondistended. No hepato-splenomegaly , or palpable masses. No guarding. MUSCULOSKELETAL: right knee/ leg covered with clean dressing. NEUROLOGICAL: Awake and alert. Cranial nerves II through XII intact. Motor and sensory grossly within normal limits. Five out of 5 muscle strength in all muscle groups. Normal speech. Assessment and Plan Assessment and Plan A/P - s/p right knee arthrotomy and I/D- patient is s/p right knee revision right total knee arthroplasty about a month ago. continue with IV antibiotics and pain control- ID consulted- f/u with ortho. -hypertension; resumed amlodipine- will monitor and adjust the regimen as needed. -DVT prophylaxis; subq Lovenox- per ortho. thank you for the consult. Discussed Condition With the RN. Nacho Alexander MD Jan 09, 2018 12:54
[2018-01-09] MEDS ORDERED: ONDANSETRON ODT 4 MG TAB PO PRN (14:30)
[2018-01-09 16:00] VITALS: BP 132/64; PULSE 72; RESP 18; TEMP 97.6; O2SAT 100
[2018-01-09 20:00] VITALS: BP 120/69; PULSE 96; RESP 18; TEMP 98.9; O2SAT 97
[2018-01-10] VITALS: BP 101/56; PULSE 94; RESP 18; TEMP 97.8; O2SAT 95
[2018-01-10] MEDS: SODIUM CHLOR 0.9% 1000 ML INJ 1,000 ML IV SCH ×2 (00:18→21:01)
[2018-01-10 04:00] VITALS: BP 100/69; PULSE 85; RESP 18; TEMP 97.8; O2SAT 96
[2018-01-10 07:46] LABS: HEMATOCRIT 21.2 % (39.0-51.0); HEMOGLOBIN 7.4 GM/DL (13.0-17.0); MEAN CELL VOLUME 85.8 FL (80.0-100.0); MEAN CORPUSCULAR HEMOGLOBIN 29.7 PG (27.0-34.0); MEAN CORPUSCULAR HGB CONC 34.6 % (32.0-36.0); MEAN PLATELET VOLUME 8.3 FL (7.0-11.0); PLATELET COUNT 352 TH/MM3 (150-450); RED BLOOD COUNT 2.47 MIL/MM3 (4.50-5.90); RED CELL DISTRIBUTION WIDTH 15.1 % (11.6-17.2); WHITE BLOOD COUNT 12.9 TH/MM3 (4.0-11.0)
[2018-01-10 08:00] VITALS: BP 130/84; PULSE 89; RESP 18; TEMP 98.4; O2SAT 98
[2018-01-10 08:16] LABS: BICARBONATE 21.4 MEQ/L (21.0-32.0); CALCIUM 8.1 MG/DL (8.5-10.1); CREATININE 1.27 MG/DL (0.60-1.30)
[2018-01-10] MEDS: amLODIPine BESYLATE 5 MG TAB PO SCH (09:06)
[2018-01-10] MEDS: PANTOPRAZOLE SOD 20 MG DELAYED RELEASE TAB PO PRN (09:08)
[2018-01-10] MEDS: VANCOMYCIN INJ 1,000 MG in SODIUM CHLOR 0.9% 250 ML INJ 250 ML IV SCH ×2 (09:08→09:32)
--- NOTE | 2018-01-10 11:10 | HHI.PR ---
Subjective Remarks in no acute distress. looks comfortable and pain is controlled. no fever. Objective Vitals Vital Signs Date Time Temp Pulse Resp B/P (MAP) Pulse Ox O2 Delivery O2 Flow Rate FiO2 01/10/18 08:00 98.4 89 18 130/84 (99) 98 01/10/18 04:00 97.8 85 18 100/69 (79) 96 01/10/18 00:00 97.8 94 18 101/56 (71) 95 01/09/18 20:00 98.9 96 18 120/69 (86) 97 01/09/18 16:19 87 20 133/55 (81) 92 01/09/18 16:00 97.6 72 18 132/64 (86) 100 01/09/18 13:00 95 20 108/69 (82) 96 Nasal Cannula 3 01/09/18 12:45 91 20 112/68 (83) 94 Nasal Cannula 3 01/09/18 12:38 97.7 93 20 105/58 (74) 94 Nasal Cannula 3 I/O 01/09/18 01/09/18 01/09/18 01/10/18 01/10/18 01/10/18 07:00 15:00 23:00 07:00 15:00 23:00 Intake Total 1900 ml 920 ml Output Total 300 ml 560 ml 70 ml Balance 1600 ml 360 ml -70 ml Intake Oral 420 ml IV Total 1900 ml 500 ml Output Urine Total 200 ml 500 ml Drainage Total 60 ml 70 ml Estimated Blood Loss 100 ml # Voids 1 2 # Bowel Movements 1 Result Diagram: 01/10/18 0559 01/10/18 0559 Objective Remarks GENERAL: This is a well-nourished, well-developed patient, in no apparent distress. CARDIOVASCULAR: Regular rate and regular rhythm without murmurs, gallops, or rubs. RESPIRATORY: Clear to auscultation. Breath sounds equal bilaterally. No wheezes , rales, or rhonchi. GASTROINTESTINAL: Abdomen soft, non-tender, nondistended. Normal, active bowel sounds MUSCULOSKELETAL:right lower extremity covered with clean dressing with drain in place. NEURO: Alert & Oriented x4 to person, place, time, situation. Moves all ext x4 Medications and IVs Inpatient Medications Acetaminophen/ Hydrocodone Bitart ([place] 5-325 Mg) 2 tab Q4H PRN PO PAIN SCALE 5 TO 10; Start 01/09/18 at 12:15 Al Hydrox/Mg Hydrox/Simethicone (Mag-Al Plus Susp Liq) 30 ml Q6H PRN PO INDIGESTION; Start 01/09/18 at 12:15 Amlodipine Besylate (Norvasc) 5 mg DAILY PO Last administered on 01/10/18at 09:06 ; Start 01/10/18 at 09:00 Bisacodyl (Dulcolax Supp) 10 mg DAILY PRN RECTAL Severe constipation; Start 01/09/18 at 12:15 Cefazolin Sodium 1000 mg/Sodium Chloride 100 ml @ 200 mls/hr Q6H IV Last administered on 01/10/18at 05:25; Start 01/09/18 at 18:00; Stop 01/10/18 at 06:29; Status DC Cefazolin Sodium/ Dextrose 50 ml @ 100 mls/hr CONTRACTOR GENERAL ENGINEERING IV ; Start 01/09/18 at 09 :15; Stop 01/12/18 at 09:14 Chlorhexidine Gluconate (Chlorhexidine 2% Cloth) 3 pack CONTRACTOR GENERAL ENGINEERING PRN TOPICAL SEE LABEL COMMENTS Last administered on 01/09/18at 09:00; Start 01/09/18 at 09:15; Stop 01/12/18 at 09:14 Chlorhexidine Gluconate (Hibiclens 4% Top Soln) 1 applic ONCE TOPICAL ; Start at 09:15; Stop 01/12/18 at 09:14 Dexamethasone Sodium Phosphate (Decadron Inj) 10 mg ONCE ONCE IV PUSH Last administered on 01/09/18at 09:38; Start 01/09/18 at 09:15; Stop 01/09/18 at 09:16; Status DC Diphenhydramine HCl (Benadryl Inj) 25 mg Q6H PRN IV PUSH ITCHING; Start at 12:15 Docusate Sodium (Colace) 100 mg BID PO ; Start 01/10/18 at 21:00 Enoxaparin Sodium (Lovenox Inj) 40 mg Q24H SQ ; Start 01/10/18 at 12:00; Stop at 12:01 Lactated Ringer's 1,000 ml @ 30 mls/hr Q24H PRN IV SEE LABEL COMMENTS Last administered on 01/09/18at 09:30; Start 01/09/18 at 09:15; Stop 01/12/18 at 09:14 Magnesium Hydroxide (Milk Of Magnesia Liq) 30 ml DAILY PRN PO Mild-moderate constipation; Start 01/09/18 at 12:15 Metoprolol Tartrate (Lopressor) 25 mg CONTRACTOR GENERAL ENGINEERING PRN PO SEE LABEL COMMENTS; Start 01/09/18 at 09:15; Stop 01/12/18 at 09:14 Miscellaneous Information ([facility] [place] Nursing Information) ALL NURSING DEPARTME... UNSCH PRN .XX SEE LABEL COMMENTS; Start 01/09/18 at 12:45; Stop 01/10/18 at 12:44 Miscellaneous Information ([facility] Post-op Orders (for Pharmacy)) STAT ONCE XX ; Start 01/09/18 at 12:15; Stop 01/09/18 at 14:28; Status DC Morphine Sulfate (Morphine Inj) 2 mg Q3H PRN IV PUSH pain greater than 5; Start 01/09/18 at 12:15 Multivitamins/ Minerals Therapeutic (Theragran M Tab) 1 tab BID PO ; Start at 21:00; Stop 03/11/18 at 20:59 Naloxone HCl (Narcan Inj) 0.4 mg UNSCH PRN IV PUSH RESPIRATORY RATE LESS THAN 10; Start 01/09/18 at 12:15 Ondansetron HCl (Zofran Odt) 4 mg Q6H PRN PO NAUSEA OR VOMITING; Start at 14:30 Pantoprazole Sodium (Protonix) 20 mg DAILY PRN PO REFLUX Last administered on at 09:08; Start 01/09/18 at 12:30 Povidone Iodine (Betadine 5% Antisepsis Kit) 1 applic CONTRACTOR GENERAL ENGINEERING PRN EACH NARE SEE LABEL COMMENTS Last administered on 01/09/18at 09:42; Start 01/09/18 at 09:15; Stop 01/12/18 at 09:14 Povidone Iodine (Betadine 7.5% Scrub) 1 applic ONCE TOPICAL ; Start 01/09/18 at 09:15; Stop 01/12/18 at 09:14 Sodium Chloride 1,000 ml @ 100 mls/hr Q10H IV Last administered on 01/10/18at 00 :18; Start 01/09/18 at 12:03 Tranexamic Acid 870 mg/Sodium Chloride 108.7 ml @ 200 mls/hr UNSCH IV ; Start 01/09/18 at 12:15; Stop 01/09/18 at 18:00; Status DC Vancomycin HCl 1000 mg/Sodium Chloride 250 ml @ 250 mls/hr DAILY IV Last administered on 01/10/18at 09:32; Start 01/10/18 at 09:00 Zolpidem Tartrate (Ambien) 5 mg HS PRN PO SLEEP; Start 01/09/18 at 12:15 A/P Assessment and Plan A/P - right knee infection; s/p right knee arthrotomy and I/D on 01/09/18- patient is s/p right knee revision right total knee arthroplasty about a month ago. continue with IV antibiotics and pain control- ID consulted- f/u with ortho. -anemia; acute on chronic- post-op; will monitor for now; CBC tomorrow. -hypertension; resumed amlodipine- will monitor and adjust the regimen as needed. -DVT prophylaxis; subq Lovenox- per ortho. Nacho Alexander MD Jan 10, 2018 11:10
[2018-01-10] MEDS: ENOXAPARIN SODIUM 40 MG/0.4 ML SYRINGE SQ SCH (11:23)
[2018-01-10 12:00] VITALS: BP 143/65; PULSE 97; RESP 18; TEMP 98.3; O2SAT 96
--- NOTE | 2018-01-10 14:47 | PD.ID.CON ---
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 He was followed off abx x 2 months , got negative nuclear scan and was cleared for a new prosthesis beginning of December. End of December pt developped swelling, rednees and then fever up to 102 last weekend, admitted to hosp and has his knee I+D with retention of prosthesis yday Started on Vanco. c/o GI issues on rifampin (GERD- like smx) 3/3 op cultures are growing MRSA No fever WBC is 12.9 Review of Systems Except as stated in HPI: all other systems reviewed are Neg Past Family Social History Allergies: Coded Allergies: No Known Allergies (Verified , 01/09/18) Past Medical History hypertension Past Surgical History as above Active Ordered Medications Medications where reviewed in EMR Antibiotics Include: vancomycin Family History reviewed non contributory Social History No Tobacco. Ever Occ socila ETOH. No Illicit Drugs. Very athletic, exersices regularly Physical Exam Vital Signs Vital Signs Date Time Temp Pulse Resp B/P (MAP) Pulse Ox O2 Delivery O2 Flow Rate FiO2 01/10/18 12:00 98.3 97 18 143/65 (91) 96 01/10/18 08:00 98.4 89 18 130/84 (99) 98 01/10/18 04:00 97.8 85 18 100/69 (79) 96 01/10/18 00:00 97.8 94 18 101/56 (71) 95 01/09/18 20:00 98.9 96 18 120/69 (86) 97 01/09/18 16:19 87 20 133/55 (81) 92 01/09/18 16:00 97.6 72 18 132/64 (86) 100 Physical Exam CONSTITUTIONAL/GENERAL: This is an adequately nourished patient, in no apparent distress. TUBES/LINES/DRAINS: SKIN: No jaundice, rashes, or lesions. Skin temperature appropriate. Not diaphoretic. HEAD: Atraumatic. Normocephalic. EYES: Pupils equal and round and reactive. Extraocular motions intact. No scleral icterus. No injection or drainage. Fundi not examined. ENT: Hearing grossly normal. Nose without bleeding or purulent drainage. Throat without visible erythema, exudates, masses, or lesions. NECK: Trachea midline. Supple, nontender. No palpable thyroid enlargement or nodularity. CARDIOVASCULAR: Regular rate and rhythm without murmurs, gallops, or rubs. No JVD. Peripheral pulses symmetric. RESPIRATORY/CHEST: Symmetric, unlabored respirations. Clear to auscultation. Breath sounds equal bilaterally. No wheezes, rales, or rhonchi. GASTROINTESTINAL: Abdomen soft, non-tender, nondistended. No hepato-splenomegaly , or palpable masses. No guarding. Bowel sounds present. GENITOURINARY: Without palpable bladder distension. MUSCULOSKELETAL: Extremities without clubbing, cyanosis, or edema. RLE surg dressing with JPs x [address] with serosangious d/c No joint tenderness or effusion noted. No calf tenderness. No mottling or clubbing. LYMPHATICS: No palpable cervical or supraclavicular adenopathy. NEUROLOGICAL: Awake and alert. Motor and sensory grossly within normal limits. Follows commands. Cognitively sharp. Moves all extremities. PSYCHIATRIC: No obvious anxiety/depression. no apparent hallucinations or other psychotic thought process. Laboratory Laboratory Tests Test 01/10/18 05:59 White Blood Count 12.9 Red Blood Count 2.47 Hemoglobin 7.4 Hematocrit 21.2 Mean Corpuscular Volume 85.8 Mean Corpuscular Hemoglobin 29.7 Mean Corpuscular Hemoglobin Concent 34.6 Red Cell Distribution Width 15.1 Platelet Count 352 Mean Platelet Volume 8.3 Blood Urea Nitrogen 25 Creatinine 1.27 Random Glucose 151 Calcium Level 8.1 Sodium Level 144 Potassium Level 4.5 Chloride Level 112 Carbon Dioxide Level 21.4 Anion Gap 11 Estimat Glomerular Filtration Rate 56 Date/Time Source Procedure Growth Status 01/09/18 11:30 Abscess Knee Fungal Smear - Final NO FUNGAL ELEMENTS SEEN. 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 Failed - cont vanco ADD RIFAMPIN - will see how pt toelrates it this time MRI anticipate lenghy Iv abx followed by oral suppression PICC CRP ESR Aixa Pierce MD Jan 10, 2018 14:47
[2018-01-10 16:00] VITALS: BP 126/62; PULSE 86; RESP 18; TEMP 97.5; O2SAT 98
--- NOTE | 2018-01-10 18:45 | PD.ORT.PN ---
Subjective Post Op Day #: 1 Subjective Remarks Patient was seen on stretcher leaving elevator on his way to the an MRI ordered by Dr. Pierce. Patient states his pain and fevers are better today. Objective Vitals Vital Signs Date Time Temp Pulse Resp B/P (MAP) Pulse Ox O2 Delivery O2 Flow Rate FiO2 01/10/18 16:00 97.5 86 18 126/62 (83) 98 01/10/18 12:00 98.3 97 18 143/65 (91) 96 01/10/18 08:00 98.4 89 18 130/84 (99) 98 01/10/18 04:00 97.8 85 18 100/69 (79) 96 01/10/18 00:00 97.8 94 18 101/56 (71) 95 01/09/18 20:00 98.9 96 18 120/69 (86) 97 I/O 01/09/18 01/09/18 01/09/18 01/10/18 01/10/18 01/10/18 07:00 15:00 23:00 07:00 15:00 23:00 Intake Total 1900 ml 920 ml Output Total 300 ml 560 ml 70 ml Balance 1600 ml 360 ml -70 ml Intake Oral 420 ml IV Total 1900 ml 500 ml Output Urine Total 200 ml 500 ml Drainage Total 60 ml 70 ml Estimated Blood Loss 100 ml # Voids 1 2 # Bowel Movements 1 Result Diagram: 01/10/18 0559 01/10/18 0559 Procedures Right knee arthrotomy with irrigation and debridement and application of antibiotic beads Objective Remarks Dressing is C/D/I. EHL/TA/G intact. 2+ pedal pulse. Calf is soft and nontender. Drains x 2 are intact and draining a small amount of serosanguineous drainage. + SILT distally. CKS in place. Intraoperative cultures positive for MRSA. Assessment & Plan Ortho Post Op Day #: 1 Problem List: Assessment and Plan POD #1: Right knee arthrotomy with irrigation and debridement and application of antibiotic beads 1. WBAT RLE 2. Lovenox followed by ASA for DVT prophylaxis 3. Ice to the right knee PRN 4. ID to manage ABX. Intraoperative cultures positive for MRSA. 5. Will change dressing on Sunday. Maintain drains until less drainage. 6. Will discuss plan of care Sunday with patient. We may need to bring patient back to the operative theatre for additional surgery including irrigation, debridement, possible polyethylene exchange, and possible removal of hardware and placement of ABX spacer. Will evaluate MRI that was ordered by ID to assess for osteomyelitis. 7. Will follow anemia for need for transfusion. Rylan Peterson Jan 10, 2018 18:45
[2018-01-10 20:00] VITALS: BP 117/68; PULSE 96; RESP 17; TEMP 98; O2SAT 97
[2018-01-10] MEDS: DOCUSATE SODIUM 100 MG CAP PO SCH (21:00)
[2018-01-10] MEDS: RIFAMPIN 150 MG CAP PO SCH (21:04)
[2018-01-10] MEDS: MULTIVITAMINS/MINERALS THERAPEUTIC TAB PO SCH (21:04)
[2018-01-11] VITALS: BP 133/55; PULSE 97; RESP 16; TEMP 97.8; O2SAT 97
[2018-01-11] MEDS: ZOLPIDEM TARTRATE 5 MG TAB PO PRN ×2 (00:33→23:38)
[2018-01-11] MEDS: SODIUM CHLOR 0.9% 1000 ML INJ 1,000 ML IV SCH ×2 (00:34→21:08)
[2018-01-11 07:24] LABS: HEMATOCRIT 22.7 % (39.0-51.0); HEMOGLOBIN 7.4 GM/DL (13.0-17.0); MEAN CELL VOLUME 86.2 FL (80.0-100.0); MEAN CORPUSCULAR HEMOGLOBIN 28.2 PG (27.0-34.0); MEAN CORPUSCULAR HGB CONC 32.7 % (32.0-36.0); MEAN PLATELET VOLUME 7.8 FL (7.0-11.0); PLATELET COUNT 417 TH/MM3 (150-450); RED BLOOD COUNT 2.64 MIL/MM3 (4.50-5.90); RED CELL DISTRIBUTION WIDTH 15.2 % (11.6-17.2); WHITE BLOOD COUNT 15.9 TH/MM3 (4.0-11.0)
[2018-01-11 08:00] VITALS: BP 130/83; PULSE 70; RESP 18; TEMP 97.7; O2SAT 98
[2018-01-11 08:43] VITALS: O2SAT 98
[2018-01-11] MEDS: PANTOPRAZOLE SOD 20 MG DELAYED RELEASE TAB PO PRN ×2 (08:55→21:04)
[2018-01-11] MEDS: RIFAMPIN 150 MG CAP PO SCH ×2 (08:56→21:05)
[2018-01-11] MEDS: amLODIPine BESYLATE 5 MG TAB PO SCH (08:56)
[2018-01-11] MEDS: MULTIVITAMINS/MINERALS THERAPEUTIC TAB PO SCH ×2 (08:57→21:05)
[2018-01-11] MEDS: DOCUSATE SODIUM 100 MG CAP PO SCH ×2 (08:59→21:00)
--- NOTE | 2018-01-11 11:38 | HHI.PR ---
Subjective Remarks in no acute distress. looks comfortable. pain is controlled. no fever. Objective Vitals Vital Signs Date Time Temp Pulse Resp B/P (MAP) Pulse Ox O2 Delivery O2 Flow Rate FiO2 01/11/18 08:43 98 21 01/11/18 08:00 97.7 70 18 130/83 (99) 98 01/11/18 00:00 97.8 97 16 133/55 (81) 97 01/10/18 20:00 98.0 96 17 117/68 (84) 97 01/10/18 16:00 97.5 86 18 126/62 (83) 98 01/10/18 12:00 98.3 97 18 143/65 (91) 96 I/O 01/10/18 01/10/18 01/10/18 01/11/18 01/11/18 01/11/18 07:00 15:00 23:00 07:00 15:00 23:00 Intake Total 450 ml Output Total 70 ml 40 ml 400 ml Balance -70 ml -40 ml 50 ml Intake Oral 450 ml Output Urine Total 400 ml Drainage Total 70 ml 40 ml Result Diagram: 01/11/18 0600 01/10/18 0559 Objective Remarks GENERAL: This is a well-nourished, well-developed patient, in no apparent distress. CARDIOVASCULAR: Regular rate and regular rhythm without murmurs, gallops, or rubs. RESPIRATORY: Clear to auscultation. Breath sounds equal bilaterally. No wheezes , rales, or rhonchi. GASTROINTESTINAL: Abdomen soft, non-tender, nondistended. Normal, active bowel sounds MUSCULOSKELETAL:right lower extremity covered with clean dressing with drain in place. NEURO: Alert & Oriented x4 to person, place, time, situation. Moves all ext x4 Medications and IVs Inpatient Medications Acetaminophen/ Hydrocodone Bitart ([place] 5-325 Mg) 2 tab Q4H PRN PO PAIN SCALE 5 TO 10; Start 01/09/18 at 12:15 Al Hydrox/Mg Hydrox/Simethicone (Mag-Al Plus Susp Liq) 30 ml Q6H PRN PO INDIGESTION; Start 01/09/18 at 12:15 Amlodipine Besylate (Norvasc) 5 mg DAILY PO Last administered on 01/11/18at 08:56 ; Start 01/10/18 at 09:00 Bisacodyl (Dulcolax Supp) 10 mg DAILY PRN RECTAL Severe constipation; Start 01/09/18 at 12:15 Cefazolin Sodium 1000 mg/Sodium Chloride 100 ml @ 200 mls/hr Q6H IV Last administered on 01/10/18at 05:25; Start 01/09/18 at 18:00; Stop 01/10/18 at 06:29; Status DC Cefazolin Sodium/ Dextrose 50 ml @ 100 mls/hr [employer] CYT[employer]CH[employer] IV ; Start 01/09/18 at 09 :15; Stop 01/12/18 at 09:14 Chlorhexidine Gluconate (Chlorhexidine 2% Cloth) 3 pack [employer]IOR CYTOTECHNOLOGIST PRN TOPICAL SEE LABEL COMMENTS Last administered on 01/09/18at 09:00; Start 01/09/18 at 09:15; Stop 01/12/18 at 09:14 Chlorhexidine Gluconate (Hibiclens 4% Top Soln) 1 applic ONCE TOPICAL ; Start at 09:15; Stop 01/12/18 at 09:14 Dexamethasone Sodium Phosphate (Decadron Inj) 10 mg ONCE ONCE IV PUSH Last administered on 01/09/18at 09:38; Start 01/09/18 at 09:15; Stop 01/09/18 at 09:16; Status DC Diphenhydramine HCl (Benadryl Inj) 25 mg Q6H PRN IV PUSH ITCHING; Start at 12:15 Docusate Sodium (Colace) 100 mg BID PO ; Start 01/10/18 at 21:00 Enoxaparin Sodium (Lovenox Inj) 40 mg Q24H SQ Last administered on 01/10/18at 11: 23; Start 01/10/18 at 12:00; Stop 01/19/18 at 12:01 Lactated Ringer's 1,000 ml @ 30 mls/hr Q24H PRN IV SEE LABEL COMMENTS Last administered on 01/09/18at 09:30; Start 01/09/18 at 09:15; Stop 01/12/18 at 09:14 Magnesium Hydroxide (Milk Of Magnesia Liq) 30 ml DAILY PRN PO Mild-moderate constipation; Start 01/09/18 at 12:15 Metoprolol Tartrate (Lopressor) 25 mg [employer]ENIOR CYTOTECHNOLOGIST PRN PO SEE LABEL COMMENTS; Start 01/09/18 at 09:15; Stop 01/12/18 at 09:14 Miscellaneous Information ([facility] Nursing Information) ALL NURSING DEPARTME... UNSCH PRN .XX SEE LABEL COMMENTS; Start 01/09/18 at 12:45; Stop 01/10/18 at 12:44 ; Status DC Miscellaneous Information ([facility] Post-op Orders (for Pharmacy)) STAT ONCE XX ; Start 01/09/18 at 12:15; Stop 01/09/18 at 14:28; Status DC Morphine Sulfate (Morphine Inj) 2 mg Q3H PRN IV PUSH pain greater than 5; Start 01/09/18 at 12:15 Multivitamins/ Minerals Therapeutic (Theragran M Tab) 1 tab BID PO Last administered on 01/11/18at 08:57; Start 01/10/18 at 21:00; Stop 03/11/18 at 20:59 Naloxone HCl (Narcan Inj) 0.4 mg UNSCH PRN IV PUSH RESPIRATORY RATE LESS THAN 10; Start 01/09/18 at 12:15 Ondansetron HCl (Zofran Odt) 4 mg Q6H PRN PO NAUSEA OR VOMITING; Start at 14:30 Pantoprazole Sodium (Protonix) 20 mg DAILY PRN PO REFLUX Last administered on at 08:55; Start 01/09/18 at 12:30 Povidone Iodine (Betadine 5% Antisepsis Kit) 1 applic [employer]IOR CYTOTECHNOLOGIST PRN EACH NARE SEE LABEL COMMENTS Last administered on 01/09/18at 09:42; Start 01/09/18 at 09:15; Stop 01/12/18 at 09:14 Povidone Iodine (Betadine 7.5% Scrub) 1 applic ONCE TOPICAL ; Start 01/09/18 at 09:15; Stop 01/12/18 at 09:14 Rifampin (Rifampin) 300 mg Q12HR PO Last administered on 01/11/18at 08:56; Start 01/10/18 at 21:00 Sodium Chloride 1,000 ml @ 100 mls/hr Q10H IV Last administered on 01/10/18at 21 :01; Start 01/09/18 at 12:03 Tranexamic Acid 870 mg/Sodium Chloride 108.7 ml @ 200 mls/hr UNSCH IV ; Start 01/09/18 at 12:15; Stop 01/09/18 at 18:00; Status DC Vancomycin HCl 1000 mg/Sodium Chloride 250 ml @ 250 mls/hr DAILY IV Last administered on 01/10/18at 09:32; Start 01/10/18 at 09:00 Zolpidem Tartrate (Ambien) 5 mg HS PRN PO SLEEP Last administered on 01/11/18at 00:33; Start 01/09/18 at 12:15 A/P Assessment and Plan A/P - right knee infection; s/p right knee arthrotomy and I/D on 01/09/18- patient is s/p right knee revision right total knee arthroplasty about a month ago. wound culture with MRSA- continue with IV antibiotics and pain control- ID consulted- f/u with ortho. -anemia; acute on chronic- post-op; will monitor for now. -hypertension; resumed amlodipine- will monitor and adjust the regimen as needed. -DVT prophylaxis; subq Lovenox- per ortho. Discharge Planning when cleared by ortho and ID. Nacho Alexander MD Jan 11, 2018 11:38
[2018-01-11 12:00] VITALS: BP 137/72; PULSE 110; RESP 18; O2SAT 99
[2018-01-11] MEDS: ENOXAPARIN SODIUM 40 MG/0.4 ML SYRINGE SQ SCH (12:00)
--- NOTE | 2018-01-11 15:10 | PD.ORT.PN ---
Subjective Subjective Remarks Patient is feeling much better. He has been ambulating around the room. He has some slight soreness in his back from sitting in bed. He feels like the knee has improved significantly since having surgery. Objective Vitals Vital Signs Date Time Temp Pulse Resp B/P (MAP) Pulse Ox O2 Delivery O2 Flow Rate FiO2 01/11/18 12:00 110 18 137/72 (93) 99 01/11/18 08:43 98 21 01/11/18 08:00 97.7 70 18 130/83 (99) 98 01/11/18 00:00 97.8 97 16 133/55 (81) 97 01/10/18 20:00 98.0 96 17 117/68 (84) 97 01/10/18 16:00 97.5 86 18 126/62 (83) 98 I/O 01/10/18 01/10/18 01/10/18 01/11/18 01/11/18 01/11/18 07:00 15:00 23:00 07:00 15:00 23:00 Intake Total 450 ml Output Total 70 ml 40 ml 400 ml Balance -70 ml -40 ml 50 ml Intake Oral 450 ml Output Urine Total 400 ml Drainage Total 70 ml 40 ml Result Diagram: 01/11/18 0600 01/10/18 0559 Procedures Right knee arthrotomy with irrigation and debridement and application of antibiotic beads Objective Remarks Dressing is C/D/I. EHL/TA/G intact. 2+ pedal pulse. Calf is soft and nontender. Drains x 2 are intact and draining a small amount of essentially serous drainage. + SILT distally. CKS in place. Intraoperative cultures positive for MRSA. Assessment & Plan Assessment and Plan POD #2: Right knee arthrotomy with irrigation and debridement and application of antibiotic beads 1. WBAT RLE 2. Lovenox followed by ASA for DVT prophylaxis 3. Okay for gentle range of motion of the right knee. 4. Anemia was being followed by the internal medicine physician. The hematocrit has come up. They would like to continue with observation. 4. ID to manage ABX. Intraoperative cultures positive for MRSA. 5. Change dressing today on Sunday. Drains will be DC'd tomorrow on Sunday. 6. We discussed multiple options for recurrent infection including repeat arthrotomy with placement of antibiotic beads again versus resection arthroplasty with implantation of antibiotic spacer. Patient understands potential risks for ongoing infection since he is failed two previous two-stage revisions for infection. 7. If the antibiotics are arranged for tomorrow then okay to DC home tomorrow. 8. Discharge prescriptions are on the chart. Cyrus Gomez MD Jan 11, 2018 15:10
[2018-01-11 16:00] VITALS: BP 138/69; PULSE 75; RESP 18; TEMP 98; O2SAT 98
--- NOTE | 2018-01-11 18:40 | HHI.IDPN ---
Subjective Subjective Remarks MRI cancelled. too much metallic hardware Pt is doing OK grew out MRSDA Vanco SARWAT is 2 no fever tolerates rifampin Antibiotics vanco rifampin Allergies: Coded Allergies: No Known Allergies (Verified , 01/09/18) Objective . Vital Signs Date Time Temp Pulse Resp B/P (MAP) Pulse Ox O2 Delivery O2 Flow Rate FiO2 01/11/18 16:00 98.0 75 18 138/69 (92) 98 01/11/18 12:00 110 18 137/72 (93) 99 01/11/18 08:43 98 21 01/11/18 08:00 97.7 70 18 130/83 (99) 98 01/11/18 00:00 97.8 97 16 133/55 (81) 97 01/10/18 20:00 98.0 96 17 117/68 (84) 97 . Laboratory Tests Test 01/10/18 05:59 01/10/18 16:00 01/11/18 06:00 White Blood Count 12.9 TH/MM3 15.9 TH/MM3 Red Blood Count 2.47 MIL/MM3 2.64 MIL/MM3 Hemoglobin 7.4 GM/DL 7.4 GM/DL Hematocrit 21.2 % 22.7 % Mean Corpuscular Volume 85.8 FL 86.2 FL Mean Corpuscular Hemoglobin 29.7 PG 28.2 PG Mean Corpuscular Hemoglobin Concent 34.6 % 32.7 % Red Cell Distribution Width 15.1 % 15.2 % Platelet Count 352 TH/MM3 417 TH/MM3 Mean Platelet Volume 8.3 FL 7.8 FL Erythrocyte Sedimentation Rate GREATER THAN 140 mm/hr Laboratory Tests Test 01/10/18 05:59 01/10/18 16:00 Blood Urea Nitrogen 25 MG/DL Creatinine 1.27 MG/DL Random Glucose 151 MG/DL Calcium Level 8.1 MG/DL Sodium Level 144 MEQ/L Potassium Level 4.5 MEQ/L Chloride Level 112 MEQ/L Carbon Dioxide Level 21.4 MEQ/L Anion Gap 11 MEQ/L Estimat Glomerular Filtration Rate 56 ML/MIN C-Reactive Protein 11.40 MG/DL Microbiology Date/Time Source Procedure Growth Status 01/09/18 11:30 Abscess Knee Fungal Smear - Final NO FUNGAL ELEMENTS SEEN. Resulted 01/09/18 11:30 Abscess Knee Fungal Culture Pending Resulted 01/09/18 11:30 Abscess Knee Acid Fast Stain - Final NO ACID FAST BACILLI SEEN Resulted 01/09/18 11:30 Abscess Knee Mycobacterial Culture Pending Resulted 01/09/18 11:30 Abscess Knee Gram Stain - Final Complete 01/09/18 11:30 Wound Culture - Final S. Aureus Mrsa Complete 01/09/18 11:30 Abscess Knee Fungal Smear - Final NO FUNGAL ELEMENTS SEEN. Resulted 01/09/18 11:30 Abscess Knee Fungal Culture Pending Resulted 01/09/18 11:30 Abscess Knee Acid Fast Stain - Final NO ACID FAST BACILLI SEEN Resulted 01/09/18 11:30 Abscess Knee Mycobacterial Culture Pending Resulted 01/09/18 11:30 Abscess Knee Gram Stain - Final Complete 01/09/18 11:30 Wound Culture - Final S. Aureus Mrsa Complete 01/09/18 11:30 Abscess Knee Fungal Smear - Final NO FUNGAL ELEMENTS SEEN. Resulted 01/09/18 11:30 Abscess Knee Fungal Culture Pending Resulted 01/09/18 11:30 Abscess Knee Acid Fast Stain - Final NO ACID FAST BACILLI SEEN Resulted 01/09/18 11:30 Abscess Knee Mycobacterial Culture Pending Resulted 01/09/18 11:30 Abscess Knee Gram Stain - Final Complete 01/09/18 11:30 Wound Culture - Final S. Aureus Mrsa Complete Physical Exam CONSTITUTIONAL/GENERAL: This is an adequately nourished patient, in no apparent distress. TUBES/LINES/DRAINS: SKIN: No jaundice, rashes, or lesions. Skin temperature appropriate. Not diaphoretic. ENT: Hearing grossly normal. Nose without bleeding or purulent drainage. Throat without visible erythema, exudates, masses, or lesions. CARDIOVASCULAR: Regular rate and rhythm without murmurs, gallops, or rubs. No JVD. Peripheral pulses symmetric. RESPIRATORY/CHEST: Symmetric, unlabored respirations. Clear to auscultation. Breath sounds equal bilaterally. No wheezes, rales, or rhonchi. GASTROINTESTINAL: Abdomen soft, non-tender, nondistended. No hepato-splenomegaly , or palpable masses. No guarding. Bowel sounds present. MUSCULOSKELETAL: Extremities without clubbing, cyanosis, or edema. RLE surg dressing with JPs x [address] with serosangious d/c No joint tenderness or effusion noted. No calf tenderness. No mottling or clubbing. NEUROLOGICAL: Awake and alert. Motor and sensory grossly within normal limits. Follows commands. Cognitively sharp. Moves all extremities. PSYCHIATRIC: No obvious anxiety/depression. no apparent hallucinations or other psychotic thought process. 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 Multiple treatment failures with vancomycin SARWAT of 2 to vancomycin This is potentially a nieto threatening infection MRI not possible 2/2 metallic articfact, nuclear scan 2 weeks ago negative, no need to repeat Probably underlying osteomyelitis Multiple revisions of TKA. Failed - change vancomycin to daptomycin 10-12 mg/kg cont RIFAMPIN - fu CBC, CMP, total CKs cure rate much higher with 2 stage procedure anticipate lenghy Iv abx followed by oral suppression PICC pt will víctor to follow by ID specialist. He does not want to go back to Dr Talley. He scheduled dora with Dr Carranza on 01/24 Aixa Pierce MD Jan 11, 2018 18:40
--- NOTE | 2018-01-11 18:47 | HHI.FF ---
Infusion Therapy Location of Infusion Therapy: [facility] IV Infusion Order Patient Information Patient Weight 90.7 kg Diagnosis: Coded Allergies: No Known Allergies (Verified , 01/09/18) Administer Medication Daptomycin 1 gram IV q 24 hours Start Treatment: Jan 11, 2018 Stop Treatment: Mar 07, 2018 Additional Information Venous access: PICC Line Additional Instructions [x] Peripheral flush and dressing changes per protocol [x] Implanted port and central pipeline superintendent division: * Implanted port: 10 ml Normal Saline followed by 5 ml Heparin 100 units/ml Heparin flush after each use and monthly to maintain. [] May leave port accessed during therapy. [] May leave peripheral site accessed for duration of therapy. [x] If patient has SOB or respiratory distress, check oxygen saturation. If less than 90% or clinical signs of respiratory distress, administer oxygen at 2 L/min. via nasal cannula and notify physician. [x] Anaphylaxis/Reaction orders: * Stop infusion. * Keep IV line open with saline flush. * Notify physician. * Monitor vital signs every 15 minutes until symptoms resolve. * Check Oxygen saturation; Oxygen at 2 L/min. via nasal cannula if less than 90% or clinical signs of respiratory distress. * Administer diphenhydramine (Benadryl) 25 mg IV STAT, (unless patient has received as pre-med). May repeat once, if necessary. * Solu-Cortef 250 mg IVP over 30-60 seconds, use 100 mg vials for each dissolution. * Epinephrine (1mg/1 ml) 0.3 mg subcutaneously or IVP now with any signs of respiratory distress. * Check with physician for new additional pre-med orders if patient is re- challenged or re-treated. [x] May remove PICC line when treatment complete, after confirming with Physician. [x] If the patient is admitted to the hospital, the ED, or transferred via [facility] , complete transfer form including medication reconciliation order sheet. Laboratory Tests Weekly Labs: CBC w/diff, CMP, CRP, SED Rate, Serum CK Levels Aixa Pierce MD Jan 11, 2018 18:47
[2018-01-11] MEDS ORDERED: DAPT500P IV (18:48)
[2018-01-11] MEDS ORDERED: SOLU250I IV PUSH (18:48)
[2018-01-11] MEDS ORDERED: EPIN1INJ21 IV PUSH (18:48)
[2018-01-11] MEDS ORDERED: EPIN1INJ21 SQ (18:48)
[2018-01-11] MEDS ORDERED: RIFA300C2 PO (18:49)
[2018-01-11 20:00] VITALS: BP 128/84; PULSE 93; RESP 18; TEMP 98; O2SAT 98
[2018-01-11] MEDS: DAPTOmycin INJ 1,000 MG in SODIUM CHLORIDE 0.9% INJ 100 ML IV SCH (21:05)
[2018-01-12 04:00] VITALS: BP 127/71; PULSE 109; RESP 20; TEMP 101; O2SAT 94
[2018-01-12] MEDS: ACETAMINOPHEN 325 MG TAB PO PRN ×2 (04:50→15:34)
[2018-01-12 05:07] LABS: BILIRUBIN, URINE NEG (NEG); BLOOD, URINE NEG (NEG); GLUCOSE,URINE NEG (NEG); KETONE, URINE NEG (NEG); NITRITE,URINE NEG (NEG); URINE COLOR LIGHT-YELLOW (YELLW/STRAW); URINE LEUKOCYTE ESTERASE NEG (NEG)
--- NOTE | 2018-01-12 07:44 | PD.ORT.PN ---
Subjective Subjective Remarks POD 3 s/p I&D washout of right knee doing well. pain controlled. states doing well Objective Vitals Vital Signs Date Time Temp Pulse Resp B/P (MAP) Pulse Ox O2 Delivery O2 Flow Rate FiO2 01/12/18 04:00 101.0 109 20 127/71 (89) 94 01/11/18 20:00 98.0 93 18 128/84 (99) 98 01/11/18 16:00 98.0 75 18 138/69 (92) 98 01/11/18 12:00 110 18 137/72 (93) 99 01/11/18 08:43 98 21 01/11/18 08:00 97.7 70 18 130/83 (99) 98 I/O 01/11/18 01/11/18 01/11/18 01/12/18 01/12/18 01/12/18 07:00 15:00 23:00 07:00 15:00 23:00 Intake Total 450 ml 250 ml Output Total 400 ml 5 ml 200 ml Balance 50 ml 245 ml -200 ml Intake Oral 450 ml IV Total 250 ml Output Urine Total 400 ml 200 ml Drainage Total 5 ml # Voids 5 Result Diagram: 01/11/18 0600 01/10/18 0559 Procedures Right knee arthrotomy with irrigation and debridement and application of antibiotic beads Objective Remarks Dressing is C/D/I. EHL/TA/G intact. 2+ pedal pulse. Calf is soft and nontender. Drains x 2 are intact and draining a small amount of essentially serous drainage. + SILT distally. CKS in place. Intraoperative cultures positive for MRSA. Assessment & Plan Assessment and Plan POD #3: Right knee arthrotomy with irrigation and debridement and application of antibiotic beads 1. WBAT RLE 2. Lovenox followed by ASA for DVT prophylaxis 3. Okay for gentle range of motion of the right knee. 4. Anemia was being followed by the internal medicine physician. The hematocrit has come up. They would like to continue with observation. 4. ID to manage ABX. Intraoperative cultures positive for MRSA. 5. Change dressing today on Sunday. Drains DC'd today at bedside. 6. We discussed multiple options for recurrent infection including repeat arthrotomy with placement of antibiotic beads again versus resection arthroplasty with implantation of antibiotic spacer. Patient understands potential risks for ongoing infection since he is failed two previous two-stage revisions for infection. 7. DC home when Abx arranged by infectious disease. 8. Discharge prescriptions are on the chart. Ervin Box/First [employer] WARNER Jan 12, 2018 07:44
[2018-01-12 07:55] VITALS: BP 116/78; PULSE 73; RESP 20; TEMP 98.7; O2SAT 98
[2018-01-12] MEDS: amLODIPine BESYLATE 5 MG TAB PO SCH (08:18)
[2018-01-12] MEDS: MULTIVITAMINS/MINERALS THERAPEUTIC TAB PO SCH ×2 (08:18→20:47)
[2018-01-12] MEDS: RIFAMPIN 150 MG CAP PO SCH ×2 (08:18→20:46)
[2018-01-12] MEDS: DOCUSATE SODIUM 100 MG CAP PO SCH ×2 (08:19→20:47)
[2018-01-12 08:24] LABS: HEMATOCRIT 28.2 % (39.0-51.0); HEMOGLOBIN 9.1 GM/DL (13.0-17.0); MEAN CELL VOLUME 84.5 FL (80.0-100.0); MEAN CORPUSCULAR HEMOGLOBIN 27.4 PG (27.0-34.0); MEAN CORPUSCULAR HGB CONC 32.4 % (32.0-36.0); MEAN PLATELET VOLUME 8.2 FL (7.0-11.0); PLATELET COUNT 594 TH/MM3 (150-450); RED BLOOD COUNT 3.33 MIL/MM3 (4.50-5.90); WHITE BLOOD COUNT 16.8 TH/MM3 (4.0-11.0)
[2018-01-12 08:26] LABS: ALBUMIN 2.4 GM/DL (3.4-5.0); ALKALINE PHOSPHATASE 98 U/L (45-117); ALT (GPT) 56 U/L (12-78); AST (GOT) 31 U/L (15-37); BICARBONATE 21.6 MEQ/L (21.0-32.0); CALCIUM 8.3 MG/DL (8.5-10.1); CHLORIDE 105 MEQ/L (98-107); CREATININE 1.31 MG/DL (0.60-1.30); GLOMERULAR FILTRATION RATE 54 ML/MIN (>89); GLUCOSE,RANDOM 99 MG/DL (74-106); SODIUM (NA) 140 MEQ/L (136-145); TOTAL BILIRUBIN ADULT 0.4 MG/DL (0.2-1.0); TOTAL PROTEIN 6.6 GM/DL (6.4-8.2)
[2018-01-12 08:35] LABS: BLOOD UREA NITROGEN 22 MG/DL (7-18)
[2018-01-12] MEDS: SODIUM CHLOR 0.9% 1000 ML INJ 1,000 ML IV SCH ×2 (08:58→20:03)
--- NOTE | 2018-01-12 10:35 | HHI.PR ---
Subjective Remarks in no acute distress. pain is controlled. had a fever spike earlier today. Objective Vitals Vital Signs Date Time Temp Pulse Resp B/P (MAP) Pulse Ox O2 Delivery O2 Flow Rate FiO2 01/12/18 07:55 98.7 73 20 116/78 (91) 98 01/12/18 04:00 101.0 109 20 127/71 (89) 94 01/11/18 20:00 98.0 93 18 128/84 (99) 98 01/11/18 16:00 98.0 75 18 138/69 (92) 98 01/11/18 12:00 110 18 137/72 (93) 99 I/O 01/11/18 01/11/18 01/11/18 01/12/18 01/12/18 01/12/18 07:00 15:00 23:00 07:00 15:00 23:00 Intake Total 450 ml 250 ml Output Total 400 ml 5 ml 200 ml Balance 50 ml 245 ml -200 ml Intake Oral 450 ml IV Total 250 ml Output Urine Total 400 ml 200 ml Drainage Total 5 ml # Voids 5 Result Diagram: 01/12/18 0723 01/12/18 0723 Objective Remarks GENERAL: This is a well-nourished, well-developed patient, in no apparent distress. CARDIOVASCULAR: Regular rate and regular rhythm without murmurs, gallops, or rubs. RESPIRATORY: Clear to auscultation. Breath sounds equal bilaterally. No wheezes , rales, or rhonchi. GASTROINTESTINAL: Abdomen soft, non-tender, nondistended. Normal, active bowel sounds MUSCULOSKELETAL:right lower extremity covered with clean dressing - NEURO: Alert & Oriented x4 to person, place, time, situation. Moves all ext x4 Medications and IVs Inpatient Medications Acetaminophen (Tylenol) 650 mg Q4H PRN PO fever Last administered on 01/12/18at 04:50; Start 01/12/18 at 04:15 Acetaminophen/ Hydrocodone Bitart ([place] 5-325 Mg) 2 tab Q4H PRN PO PAIN SCALE 5 TO 10; Start 01/09/18 at 12:15 Al Hydrox/Mg Hydrox/Simethicone (Mag-Al Plus Susp Liq) 30 ml Q6H PRN PO INDIGESTION; Start 01/09/18 at 12:15 Amlodipine Besylate (Norvasc) 5 mg DAILY PO Last administered on 01/12/18at 08:18 ; Start 01/10/18 at 09:00 Bisacodyl (Dulcolax Supp) 10 mg DAILY PRN RECTAL Severe constipation; Start 01/09/18 at 12:15 Cefazolin Sodium 1000 mg/Sodium Chloride 100 ml @ 200 mls/hr Q6H IV Last administered on 01/10/18at 05:25; Start 01/09/18 at 18:00; Stop 01/10/18 at 06:29; Status DC Cefazolin Sodium/ Dextrose 50 ml @ 100 mls/hr BULL BUCKER IV ; Start 01/09/18 at 09 :15; Stop 01/12/18 at 09:14; Status DC Chlorhexidine Gluconate (Chlorhexidine 2% Cloth) 3 pack BULL BUCKER PRN TOPICAL SEE LABEL COMMENTS Last administered on 01/09/18at 09:00; Start 01/09/18 at 09:15; Stop 01/12/18 at 09:14; Status DC Chlorhexidine Gluconate (Hibiclens 4% Top Soln) 1 applic ONCE TOPICAL ; Start at 09:15; Stop 01/12/18 at 09:14; Status DC Daptomycin 1000 mg/Sodium Chloride 100 ml @ 200 mls/hr Q24H IV Last administered on 01/11/18at 21:05; Start 01/11/18 at 21:00 Dexamethasone Sodium Phosphate (Decadron Inj) 10 mg ONCE ONCE IV PUSH Last administered on 01/09/18at 09:38; Start 01/09/18 at 09:15; Stop 01/09/18 at 09:16; Status DC Diphenhydramine HCl (Benadryl Inj) 25 mg Q6H PRN IV PUSH ITCHING; Start at 12:15 Docusate Sodium (Colace) 100 mg BID PO ; Start 01/10/18 at 21:00 Enoxaparin Sodium (Lovenox Inj) 40 mg Q24H SQ Last administered on 01/11/18at 12: 00; Start 01/10/18 at 12:00; Stop 01/19/18 at 12:01 Lactated Ringer's 1,000 ml @ 30 mls/hr Q24H PRN IV SEE LABEL COMMENTS Last administered on 01/09/18at 09:30; Start 01/09/18 at 09:15; Stop 01/12/18 at 09:14; Status DC Magnesium Hydroxide (Milk Of Magnesia Liq) 30 ml DAILY PRN PO Mild-moderate constipation; Start 01/09/18 at 12:15 Metoprolol Tartrate (Lopressor) 25 mg BULL BUCKER PRN PO SEE LABEL COMMENTS; Start 01/09/18 at 09:15; Stop 01/12/18 at 09:14; Status DC Miscellaneous Information ([facility] Nursing Information) ALL NURSING DEPARTME... UNSCH PRN .XX SEE LABEL COMMENTS; Start 01/09/18 at 12:45; Stop 01/10/18 at 12:44 ; Status DC Miscellaneous Information ([facility] Post-op Orders (for Pharmacy)) STAT ONCE XX ; Start 01/09/18 at 12:15; Stop 01/09/18 at 14:28; Status DC Morphine Sulfate (Morphine Inj) 2 mg Q3H PRN IV PUSH pain greater than 5; Start 01/09/18 at 12:15 Multivitamins/ Minerals Therapeutic (Theragran M Tab) 1 tab BID PO Last administered on 01/12/18at 08:18; Start 01/10/18 at 21:00; Stop 03/11/18 at 20:59 Naloxone HCl (Narcan Inj) 0.4 mg UNSCH PRN IV PUSH RESPIRATORY RATE LESS THAN 10; Start 01/09/18 at 12:15 Ondansetron HCl (Zofran Odt) 4 mg Q6H PRN PO NAUSEA OR VOMITING; Start at 14:30 Pantoprazole Sodium (Protonix) 20 mg DAILY PRN PO REFLUX Last administered on at 21:04; Start 01/09/18 at 12:30 Povidone Iodine (Betadine 5% Antisepsis Kit) 1 applic BULL BUCKER PRN EACH NARE SEE LABEL COMMENTS Last administered on 01/09/18at 09:42; Start 01/09/18 at 09:15; Stop 01/12/18 at 09:14; Status DC Povidone Iodine (Betadine 7.5% Scrub) 1 applic ONCE TOPICAL ; Start 01/09/18 at 09:15; Stop 01/12/18 at 09:14; Status DC Rifampin (Rifampin) 300 mg Q12HR PO Last administered on 01/12/18at 08:18; Start 01/10/18 at 21:00 Sodium Chloride 1,000 ml @ 100 mls/hr Q10H IV Last administered on 01/11/18at 21 :08; Start 01/09/18 at 12:03 Tranexamic Acid 870 mg/Sodium Chloride 108.7 ml @ 200 mls/hr UNSCH IV ; Start 01/09/18 at 12:15; Stop 01/09/18 at 18:00; Status DC Vancomycin HCl 1000 mg/Sodium Chloride 250 ml @ 250 mls/hr DAILY IV Last administered on 01/10/18at 09:32; Start 01/10/18 at 09:00; Stop 01/11/18 at 18:42; Status DC Zolpidem Tartrate (Ambien) 5 mg HS PRN PO SLEEP Last administered on 01/11/18at 23:38; Start 01/09/18 at 12:15 A/P Assessment and Plan A/P - right knee infection; s/p right knee arthrotomy and I/D on 01/09/18- patient is s/p right knee revision right total knee arthroplasty about a month ago. wound culture with MRSA- continue with IV antibiotics; currently on Daptomycin and Po Rifampin- continue with pain control- ID consulted- f/u with ortho. -anemia; acute on chronic- post-op; stable- will monitor for now. -hypertension; resumed amlodipine- will monitor and adjust the regimen as needed. -DVT prophylaxis; subq Lovenox- per ortho. Discharge Planning when cleared by ortho and ID. Nacho Alexander MD Jan 12, 2018 10:35
[2018-01-12 11:47] VITALS: BP 116/68; PULSE 102; RESP 20; TEMP 99.5; O2SAT 97
[2018-01-12] MEDS: ENOXAPARIN SODIUM 40 MG/0.4 ML SYRINGE SQ SCH (11:50)
[2018-01-12 15:53] VITALS: BP 137/92; PULSE 102; RESP 20; TEMP 101.1; O2SAT 96
[2018-01-12 20:00] VITALS: BP 120/70; PULSE 94; RESP 17; TEMP 99.3; O2SAT 94
[2018-01-12] MEDS: DAPTOmycin INJ 1,000 MG in SODIUM CHLORIDE 0.9% INJ 100 ML IV SCH (20:47)
--- NOTE | 2018-01-12 21:50 | HHI.IDPN ---
Subjective Subjective Remarks MRI cancelled. too much metallic hardware Pt is febrile x 2 days grew out MRSA Vanco SARWAT is 2 Antibiotics dapto rifampin Allergies: Coded Allergies: No Known Allergies (Verified , 01/09/18) Objective . Vital Signs Date Time Temp Pulse Resp B/P (MAP) Pulse Ox O2 Delivery O2 Flow Rate FiO2 01/12/18 20:00 99.3 94 17 120/70 (87) 94 01/12/18 15:53 101.1 102 20 137/92 (107) 96 01/12/18 11:47 99.5 102 20 116/68 (84) 97 01/12/18 07:55 98.7 73 20 116/78 (91) 98 01/12/18 04:00 101.0 109 20 127/71 (89) 94 01/12/18 01/12/18 01/13/18 15:00 23:00 07:00 Intake Total 480 ml Output Total 400 ml Balance 80 ml Intake Oral 480 ml Output Urine Total 400 ml # Bowel Movements 1 . Laboratory Tests Test 01/11/18 06:00 01/12/18 07:23 White Blood Count 15.9 TH/MM3 16.8 TH/MM3 Red Blood Count 2.64 MIL/MM3 3.33 MIL/MM3 Hemoglobin 7.4 GM/DL 9.1 GM/DL Hematocrit 22.7 % 28.2 % Mean Corpuscular Volume 86.2 FL 84.5 FL Mean Corpuscular Hemoglobin 28.2 PG 27.4 PG Mean Corpuscular Hemoglobin Concent 32.7 % 32.4 % Red Cell Distribution Width 15.2 % 15.0 % Platelet Count 417 TH/MM3 594 TH/MM3 Mean Platelet Volume 7.8 FL 8.2 FL Hematology Comments Laboratory Tests Test 01/12/18 07:23 Blood Urea Nitrogen 22 MG/DL Creatinine 1.31 MG/DL Random Glucose 99 MG/DL Total Protein 6.6 GM/DL Albumin 2.4 GM/DL Calcium Level 8.3 MG/DL Alkaline Phosphatase 98 U/L Aspartate Amino Transf (AST/SGOT) 31 U/L Alanine Aminotransferase (ALT/SGPT) 56 U/L Total Bilirubin 0.4 MG/DL Sodium Level 140 MEQ/L Potassium Level 3.6 MEQ/L Chloride Level 105 MEQ/L Carbon Dioxide Level 21.6 MEQ/L Anion Gap 13 MEQ/L Estimat Glomerular Filtration Rate 54 ML/MIN Total Creatine Kinase 29 U/L C-Reactive Protein 5.70 MG/DL Microbiology Date/Time Source Procedure Growth Status 01/12/18 12:34 Blood Peripheral Aerobic Blood Culture Pending Received 01/12/18 12:34 Blood Peripheral Anaerobic Blood Culture Pending Received 01/12/18 12:29 Blood Peripheral Aerobic Blood Culture Pending Received 01/12/18 12:29 Blood Peripheral Anaerobic Blood Culture Pending Received Physical Exam CONSTITUTIONAL/GENERAL: This is an adequately nourished patient, in no apparent distress. TUBES/LINES/DRAINS: SKIN: No jaundice, rashes, or lesions. Skin temperature appropriate. Not diaphoretic. ENT: Hearing grossly normal. Nose without bleeding or purulent drainage. Throat without visible erythema, exudates, masses, or lesions. CARDIOVASCULAR: Regular rate and rhythm without murmurs, gallops, or rubs. No JVD. Peripheral pulses symmetric. RESPIRATORY/CHEST: Symmetric, unlabored respirations. Clear to auscultation. Breath sounds equal bilaterally. No wheezes, rales, or rhonchi. GASTROINTESTINAL: Abdomen soft, non-tender, nondistended. No hepato-splenomegaly , or palpable masses. No guarding. Bowel sounds present. MUSCULOSKELETAL: Extremities without clubbing, cyanosis, or edema. RLE Thigh previous SAL is draining large amount of pus Lower part of incision also with dehisence , large amount of purosangious d/c NEUROLOGICAL: Awake and alert. Motor and sensory grossly within normal limits. Follows commands. Cognitively sharp. Moves all extremities. PSYCHIATRIC: No obvious anxiety/depression. no apparent hallucinations or other psychotic thought process. 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 Multiple treatment failures with vancomycin SARWAT of 2 to vancomycin This is a limb threatening infection MRI not possible 2/2 metallic articfact, nuclear scan 2 weeks ago negative, no need to repeat Probably underlying osteomyelitis Multiple revisions of TKA. Failed Failed I+D Fever, suspect sepsis from the knee Worsening leukocytosis - cont daptomycin 10-12 mg/kg + RIFAMPIN - - fu CBC, CMP, total CKs it appears the prosthesis needs to come out Blood clx x2 ? CT knee Aixa Pierce MD Jan 12, 2018 21:49
[2018-01-13] VITALS (7 sets, daily range): BP systolic 113–137; BP diastolic 67–82; PULSE 95–109; RESP 18–20; TEMP 97.9–100.7; O2SAT 95–97
[2018-01-13] MEDS: SODIUM CHLOR 0.9% 1000 ML INJ 1,000 ML IV SCH ×2 (06:03→11:57)
--- NOTE | 2018-01-13 07:15 | PD.ORT.PN ---
Subjective Subjective Remarks POD 4 s/p I&D washout of right knee doing well. pain controlled. states doing well Objective Vitals Vital Signs Date Time Temp Pulse Resp B/P (MAP) Pulse Ox O2 Delivery O2 Flow Rate FiO2 01/13/18 04:59 97.9 97 20 137/82 (100) 95 01/13/18 00:20 100.2 103 20 131/82 (98) 97 01/12/18 20:00 99.3 94 17 120/70 (87) 94 01/12/18 15:53 101.1 102 20 137/92 (107) 96 01/12/18 11:47 99.5 102 20 116/68 (84) 97 01/12/18 07:55 98.7 73 20 116/78 (91) 98 I/O 01/12/18 01/12/18 01/12/18 01/13/18 01/13/18 01/13/18 07:00 15:00 23:00 07:00 15:00 23:00 Intake Total 480 ml Output Total 200 ml 400 ml 600 ml Balance -200 ml 80 ml -600 ml Intake Oral 480 ml Output Urine Total 200 ml 400 ml 600 ml # Voids 5 # Bowel Movements 1 Result Diagram: 01/12/18 0723 01/12/18 0723 Procedures Right knee arthrotomy with irrigation and debridement and application of antibiotic beads Objective Remarks Dressing is C/D/I. EHL/TA/G intact. 2+ pedal pulse. Calf is soft and nontender. Drains x 2 are intact and draining a small amount of essentially serous drainage. + SILT distally. CKS in place. Intraoperative cultures positive for MRSA. Assessment & Plan Assessment and Plan POD #4: Right knee arthrotomy with irrigation and debridement and application of antibiotic beads 1. WBAT RLE 2. Lovenox followed by ASA for DVT prophylaxis 3. Okay for gentle range of motion of the right knee. 4. Anemia was being followed by the internal medicine physician. The hematocrit has come up. They would like to continue with observation. 4. ID to manage ABX. Intraoperative cultures positive for MRSA. 5. Change dressing today on Sunday. Drains DC'd today at bedside. 6. We discussed multiple options for recurrent infection including repeat arthrotomy with placement of antibiotic beads again versus resection arthroplasty with implantation of antibiotic spacer. Patient understands potential risks for ongoing infection since he is failed two previous two-stage revisions for infection. 7. DC home when Abx arranged by infectious disease. 8. Discharge prescriptions are on the chart. 9. Infx Dz hesitant to place picc line yesterday due to fevers being present. will re-eval today. Ervin Box/[employer] WARNER Jan 13, 2018 07:15
[2018-01-13] MEDS: DOCUSATE SODIUM 100 MG CAP PO SCH ×2 (07:42→21:00)
[2018-01-13] MEDS: MULTIVITAMINS/MINERALS THERAPEUTIC TAB PO SCH ×2 (07:58→21:31)
[2018-01-13] MEDS: amLODIPine BESYLATE 5 MG TAB PO SCH (07:58)
[2018-01-13] MEDS: RIFAMPIN 150 MG CAP PO SCH ×2 (07:58→21:33)
[2018-01-13 09:26] LABS: BICARBONATE 26.4 MEQ/L (21.0-32.0); CALCIUM 8.3 MG/DL (8.5-10.1); CREATININE 1.29 MG/DL (0.60-1.30)
[2018-01-13] MEDS: ENOXAPARIN SODIUM 40 MG/0.4 ML SYRINGE SQ SCH (11:57)
[2018-01-13] MEDS: ACETAMINOPHEN 325 MG TAB PO PRN (11:57)
--- NOTE | 2018-01-13 14:36 | HHI.PR ---
Subjective Remarks The patient still having fevers. T-max of 100.7. Complains of pain in right knee which is controlled. WBC noted to be trending up. Objective Vitals Vital Signs Date Time Temp Pulse Resp B/P (MAP) Pulse Ox O2 Delivery O2 Flow Rate FiO2 01/13/18 12:30 109 20 116/74 (88) 95 01/13/18 11:57 100.7 01/13/18 08:00 98.6 102 20 113/67 (82) 97 01/13/18 04:59 97.9 97 20 137/82 (100) 95 01/13/18 00:20 100.2 103 20 131/82 (98) 97 01/12/18 20:00 99.3 94 17 120/70 (87) 94 01/12/18 15:53 101.1 102 20 137/92 (107) 96 I/O 01/12/18 01/12/18 01/12/18 01/13/18 01/13/18 01/13/18 07:00 15:00 23:00 07:00 15:00 23:00 Intake Total 480 ml Output Total 200 ml 400 ml 600 ml Balance -200 ml 80 ml -600 ml Intake Oral 480 ml Output Urine Total 200 ml 400 ml 600 ml # Voids 5 # Bowel Movements 1 Result Diagram: 01/12/18 0723 01/13/18 0833 Objective Remarks GENERAL: This is a well-nourished, well-developed patient, in no apparent distress. CARDIOVASCULAR: Regular rate and regular rhythm without murmurs, gallops, or rubs. RESPIRATORY: Clear to auscultation. Breath sounds equal bilaterally. No wheezes , rales, or rhonchi. GASTROINTESTINAL: Abdomen soft, non-tender, nondistended. Normal, active bowel sounds MUSCULOSKELETAL:right lower extremity covered with clean dressing - NEURO: Alert & Oriented x4 to person, place, time, situation. 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 ICD Code: T84.53XA - Infection and inflammatory reaction due to internal right knee prosthesis, initial encounter Plan: s/p right knee arthrotomy and I/D on 01/09/18- patient is s/p right knee revision right total knee arthroplasty about a month ago. wound culture with MRSA- continue with IV antibiotics; currently on Daptomycin and Po Rifampin- continue with pain control- ID consulted- f/u with ortho. Surgical options discussed by orthopedic surgery with patient. The pelvic surgery has cleared the patient to be discharged on antibiotics as per infectious disease recommendations. Probably underlying osteomyelitis. Multiple revisions of TKA have failed. Patient has worsening leukocytosis, fever and sepsis suspected from the right knee. I do recommend continuation of daptomycin plus rifampin. Follow-up further ID recommendations. (2) HTN (hypertension) ICD Code: I10 - Essential (primary) hypertension Plan: Blood pressure seems to be stable. Continue amlodipine. Continue to monitor vital signs. (3) Status post revision of total knee ICD Code: Z96.659 - Presence of unspecified artificial knee joint Plan: As above. Assessment and Plan DVT prophylaxis. Lovenox and aspirin as per orthopedic surgery. Discharge Planning Continue to monitor and the medical floor. The patient still having fevers. Patient will need to be cleared by infectious disease prior to discharge. Problem Qualifiers (1) HTN (hypertension): Qualified Codes: I10 - Essential (primary) hypertension (2) Status post revision of total knee: Qualified Codes: Z96.651 - Presence of right artificial knee joint Israel Espinoza MD Jan 13, 2018 14:36
[2018-01-13] MEDS ORDERED: IOHEXOL 350 MG/ML 10 ML VIAL (for RAD DIAG) IVCONTRAST ONE (19:20)
--- NOTE | 2018-01-13 19:47 | RADRPT ---
EXAM DATE: 01/13/2018 7:27 PM EDT AGE/SEX: 72 years / Male INDICATIONS: Right knee pain. CLINICAL DATA: This is the patient's initial encounter. Patient reports that signs and symptoms have been present for 1 day and indicates a pain score of 5/10. MEDICAL/SURGICAL HISTORY: Hypertension. . knee surgery RADIATION DOSE: 21.86 CTDI (mGy) COMPARISON: No prior exams available for comparison. TECHNIQUE: Multiple contiguous axial images were acquired using a multirow detector CT scanner after the intravenous administration of 93 ml Omnipaque 350 (iohexol) nonionic water-soluble contrast as a single exam dose. Multiplanar reconstruction was performed in the sagittal and coronal planes. Usi ng automated exposure control and adjustment of the mA and/or kV according to patient size, radiation dose was kept as low as reasonably achievable to obtain optimal diagnostic quality images. FINDINGS: There are postoperative changes of right total knee replacement. Skin telma are present anteriorly. There are antibiotic beads present anterior and lateral to the distal femur. There is a sheath like area enhancing fluid in the anterior subcutaneous tissues beneath the skin sta ples. This measures up to about 1 cm in thickness and extends over a length of up to about 12 cm. Thi s could represent a subcutaneous abscess given the presence of multiple locules of air. Portions of the proximal tibia are obscured by hardware. There is also pretibial fluid and some locul ated air also measuring about a centimeter in thickness and extending over a length of around 6 cm. C hronic periosteal reaction is noted in the distal femur. CONCLUSION: 1. There is loculated fluid in the anterior distal thigh predominantly beneath the skin telma that has some rim enhancement and multiple locules of air and could represent a subcutaneous abscess. Sim ilar fluid collection is also present in the anterior pretibial soft tissues also worrisome for infec tion. There is previous total knee replacement with antibiotic beads present in the soft tissues. Electronically signed by: Eriberto Ramon MD 01/13/2018 7:46 PM EDT
[2018-01-13] MEDS: DAPTOmycin INJ 1,000 MG in SODIUM CHLORIDE 0.9% INJ 100 ML IV SCH (21:31)
[2018-01-14 00:30] VITALS: BP 128/80; PULSE 83; RESP 18; TEMP 99.3; O2SAT 98
[2018-01-14] MEDS: SODIUM CHLOR 0.9% 1000 ML INJ 1,000 ML IV SCH ×3 (02:03→23:04)
[2018-01-14 05:08] VITALS: BP 120/75; PULSE 93; RESP 18; TEMP 98.4; O2SAT 95
[2018-01-14 07:00] VITALS: BP 127/79; PULSE 104; RESP 18; TEMP 98.6; O2SAT 95
[2018-01-14] MEDS: DOCUSATE SODIUM 100 MG CAP PO SCH ×2 (08:09→21:16)
[2018-01-14] MEDS: MULTIVITAMINS/MINERALS THERAPEUTIC TAB PO SCH ×2 (08:10→21:16)
[2018-01-14] MEDS: amLODIPine BESYLATE 5 MG TAB PO SCH (08:10)
[2018-01-14] MEDS: RIFAMPIN 150 MG CAP PO SCH ×2 (08:11→21:16)
[2018-01-14 11:12] LABS: AUTOMATED NEUTROPHIL # 11.3 TH/MM3 (1.8-7.7); BASOPHIL # 0.1 TH/MM3 (0-0.2); BASOPHIL % 0.4 % (0.0-2.0); EOSINOPHIL # 0.2 TH/MM3 (0-0.4); EOSINOPHIL % 1.4 % (0.0-4.0); HEMATOCRIT 25.9 % (39.0-51.0); HEMOGLOBIN 8.5 GM/DL (13.0-17.0); LYMPH % 10.8 % (9.0-44.0); LYMPHOCYTE # 1.5 TH/MM3 (1.0-4.8); MEAN CELL VOLUME 84.7 FL (80.0-100.0); MEAN CORPUSCULAR HEMOGLOBIN 27.7 PG (27.0-34.0); MEAN CORPUSCULAR HGB CONC 32.7 % (32.0-36.0); MEAN PLATELET VOLUME 7.6 FL (7.0-11.0); MONO % 4.7 % (0.0-8.0); MONOCYTE # 0.6 TH/MM3 (0-0.9); NEUT % 82.7 % (16.0-70.0); PLATELET COUNT 637 TH/MM3 (150-450); RED BLOOD COUNT 3.06 MIL/MM3 (4.50-5.90); RED CELL DISTRIBUTION WIDTH 14.9 % (11.6-17.2); WHITE BLOOD COUNT 13.7 TH/MM3 (4.0-11.0)
[2018-01-14] MEDS: ENOXAPARIN SODIUM 40 MG/0.4 ML SYRINGE SQ SCH (11:31)
[2018-01-14 11:51] LABS: ALBUMIN 2.1 GM/DL (3.4-5.0); BICARBONATE 25.8 MEQ/L (21.0-32.0); BLOOD UREA NITROGEN 18 MG/DL (7-18); CALCIUM 8.2 MG/DL (8.5-10.1); CHLORIDE 103 MEQ/L (98-107); GLOMERULAR FILTRATION RATE 74 ML/MIN (>89); GLUCOSE,RANDOM 80 MG/DL (74-106); MAGNESIUM 2.2 MG/DL (1.5-2.5); SODIUM (NA) 139 MEQ/L (136-145)
[2018-01-14 11:53] VITALS: BP 116/61; PULSE 104; RESP 18; TEMP 98.9; O2SAT 97
[2018-01-14 11:54] LABS: ALKALINE PHOSPHATASE 94 U/L (45-117); ALT (GPT) 34 U/L (12-78); AST (GOT) 14 U/L (15-37); PHOSPHORUS 2.8 MG/DL (2.5-4.9); TOTAL BILIRUBIN ADULT 0.3 MG/DL (0.2-1.0); TOTAL PROTEIN 6.3 GM/DL (6.4-8.2)
[2018-01-14 11:55] LABS: LYMPHOCYTES 8 % (9-44); MONOCYTES 7 % (0-8); MYELOCYTES 1 % (0-0); NEUTROPHIL # MANUAL DIFF 11.5 TH/MM3 (1.8-7.7); OVALOCYTES 1+ (NORMAL); POLYS (SEG NEUTROPHILS) 83 % (16-70)
--- NOTE | 2018-01-14 12:51 | PD.ORT.PN ---
Subjective Post Op Day #: 5 Subjective Remarks Patient states he ran low grade fevers over the weekend but states this is better today. Patient states the pain in his knee is improving. Objective Vitals Vital Signs Date Time Temp Pulse Resp B/P (MAP) Pulse Ox O2 Delivery O2 Flow Rate FiO2 01/14/18 11:53 98.9 104 18 116/61 (79) 97 01/14/18 07:00 98.6 104 18 127/79 (95) 95 01/14/18 05:08 98.4 93 18 120/75 (90) 95 01/14/18 00:30 99.3 83 18 128/80 (96) 98 01/13/18 20:10 99.2 95 18 113/69 (84) 97 01/13/18 16:00 98.9 96 20 125/72 (89) 97 I/O 01/13/18 01/13/18 01/13/18 01/14/18 01/14/18 01/14/18 07:00 15:00 23:00 07:00 15:00 23:00 Intake Total 480 ml Output Total 600 ml 300 ml 200 ml 100 ml 400 ml Balance -600 ml 180 ml -200 ml -100 ml -400 ml Intake Oral 480 ml Output Urine Total 600 ml 300 ml 200 ml 100 ml 400 ml # Voids 1 # Bowel Movements 1 Result Diagram: 01/14/18 0853 01/14/18 0853 Procedures Right knee arthrotomy with irrigation and debridement and application of antibiotic beads Objective Remarks Dressing is C/D/I. EHL/TA/G intact. 2+ pedal pulse. Calf is soft and nontender. + SILT distally. Minimal erythema. Intraoperative cultures positive for MRSA. Assessment & Plan Ortho Post Op Day #: 5 Problem List: Assessment and Plan POD #5: Right knee arthrotomy with irrigation and debridement and application of antibiotic beads 1. WBAT RLE 2. Lovenox followed by ASA for DVT prophylaxis. Hold Lovenox on 01/15/18 until 23 hours post op from Sunday's surgery. 3. Okay for gentle range of motion of the right knee. 4. Anemia being followed by the internal medicine physician. H&H stable today. They would like to continue with observation. 4. ID to manage ABX. Intraoperative cultures positive for MRSA. 5. Change dressing daily. 6. We discussed multiple options for recurrent infection including repeat arthrotomy with placement of antibiotic beads again versus resection arthroplasty with implantation of antibiotic spacer. Patient understands potential risks for ongoing infection since he is failed two previous two-stage revisions for infection. Consultation today with Dr. Pierce regarding plan of care. 7. No picc line as of today. Plan will be to keep patient in the hospital for return surgery on Sunday. Ortho to follow. Patient will be NPO after midnight Sunday. Rylan Peterson Jan 14, 2018 12:51
--- NOTE | 2018-01-14 14:04 | HHI.PR ---
Subjective Remarks Pain controlled, the patient denies chest pain or shortness of breath. No further fevers reported as per RN. The patient denies chills. Objective Vitals Vital Signs Date Time Temp Pulse Resp B/P (MAP) Pulse Ox O2 Delivery O2 Flow Rate FiO2 01/14/18 11:53 98.9 104 18 116/61 (79) 97 01/14/18 07:00 98.6 104 18 127/79 (95) 95 01/14/18 05:08 98.4 93 18 120/75 (90) 95 01/14/18 00:30 99.3 83 18 128/80 (96) 98 01/13/18 20:10 99.2 95 18 113/69 (84) 97 01/13/18 16:00 98.9 96 20 125/72 (89) 97 I/O 01/13/18 01/13/18 01/13/18 01/14/18 01/14/18 01/14/18 07:00 15:00 23:00 07:00 15:00 23:00 Intake Total 480 ml Output Total 600 ml 300 ml 200 ml 100 ml 400 ml Balance -600 ml 180 ml -200 ml -100 ml -400 ml Intake Oral 480 ml Output Urine Total 600 ml 300 ml 200 ml 100 ml 400 ml # Voids 1 # Bowel Movements 1 Result Diagram: 01/14/18 0853 01/14/18 0853 Imaging Last Impressions Lower Extremity CT 01/13/18 0000 Signed Impressions: CONCLUSION: 1. There is loculated fluid in the anterior distal thigh predominantly beneath the skin telma that has some rim enhancement and multiple locules of air and could represent a subcutaneous abscess. Similar fluid collection is also prese nt in the anterior pretibial soft tissues also worrisome for infection. There i s previous total knee replacement with antibiotic beads present in the soft tis sues. Objective Remarks GENERAL: This is a well-nourished, well-developed patient, in no apparent distress. CARDIOVASCULAR: Regular rate and regular rhythm without murmurs, gallops, or rubs. RESPIRATORY: Clear to auscultation. Breath sounds equal bilaterally. No wheezes , rales, or rhonchi. GASTROINTESTINAL: Abdomen soft, non-tender, nondistended. Normal, active bowel sounds MUSCULOSKELETAL:right lower extremity covered with clean dressing - NEURO: Alert & Oriented x4 to person, place, time, situation. 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 ICD Code: T84.53XA - Infection and inflammatory reaction due to internal right knee prosthesis, initial encounter Plan: s/p right knee arthrotomy and I/D on 01/09/18- patient is s/p right knee revision right total knee arthroplasty about a month ago. wound culture with MRSA- continue with IV antibiotics; currently on Daptomycin and Po Rifampin- continue with pain control- ID consulted- f/u with ortho. Surgical options discussed by orthopedic surgery with patient. The pelvic surgery has cleared the patient to be discharged on antibiotics as per infectious disease recommendations. Probably underlying osteomyelitis. Multiple revisions of TKA have failed. Patient has worsening leukocytosis, fever and sepsis suspected from the right knee. ID recommends continuation of daptomycin plus rifampin. Follow-up further ID recommendations. 01/14 continue antibiotics as per ID recommendation. CT of the right lower extremity shows a loculated fluid in the anterior distal thigh predominantly beneath the skin telma that has some enhancement and multiple locules of air could represent a subcutaneous abscess. There is a similar fluid collection in the anterior pretibial soft tissues. Orthopedic surgery is planning to take the patient for repeat surgical intervention on Sunday. N.p.o. on Sunday night. (2) HTN (hypertension) ICD Code: I10 - Essential (primary) hypertension Plan: Blood pressure seems to be stable. Continue amlodipine. Continue to monitor vital signs. (3) Status post revision of total knee ICD Code: Z96.659 - Presence of unspecified artificial knee joint Plan: As above. Assessment and Plan DVT prophylaxis. Lovenox and aspirin as per orthopedic surgery. Discharge Planning Continue to monitor and the medical floor. Patient for repeat surgical procedure on Sunday. Problem Qualifiers (1) HTN (hypertension): Qualified Codes: I10 - Essential (primary) hypertension (2) Status post revision of total knee: Qualified Codes: Z96.651 - Presence of right artificial knee joint Israel Espinoza MD Jan 14, 2018 14:04
[2018-01-14] MEDS: ACETAMINOPHEN 325 MG TAB PO PRN (15:30)
[2018-01-14 16:13] VITALS: BP 111/71; PULSE 95; RESP 18; TEMP 99.3; O2SAT 97
[2018-01-14 20:00] VITALS: BP 118/57; PULSE 93; RESP 18; TEMP 98.5; O2SAT 97
[2018-01-14] MEDS: DAPTOmycin INJ 1,000 MG in SODIUM CHLORIDE 0.9% INJ 100 ML IV SCH (21:16)
--- NOTE | 2018-01-14 23:47 | HHI.IDPN ---
Subjective Subjective Remarks CT reviewed with radiolist yday: large amount of fluid collection with air + cont to have low grade fever co pain large amount of drainage Antibiotics dapto rifampin Allergies: Coded Allergies: No Known Allergies (Verified , 01/09/18) Objective . Vital Signs Date Time Temp Pulse Resp B/P (MAP) Pulse Ox O2 Delivery O2 Flow Rate FiO2 01/14/18 20:00 98.5 93 18 118/57 (77) 97 01/14/18 16:13 99.3 95 18 111/71 (84) 97 01/14/18 11:53 98.9 104 18 116/61 (79) 97 01/14/18 07:00 98.6 104 18 127/79 (95) 95 01/14/18 05:08 98.4 93 18 120/75 (90) 95 01/14/18 00:30 99.3 83 18 128/80 (96) 98 01/14/18 01/14/18 01/15/18 15:00 23:00 07:00 Output Total 400 ml Balance -400 ml Output Urine Total 400 ml # Voids 1 . Laboratory Tests Test 01/14/18 08:53 White Blood Count 13.7 TH/MM3 Red Blood Count 3.06 MIL/MM3 Hemoglobin 8.5 GM/DL Hematocrit 25.9 % Mean Corpuscular Volume 84.7 FL Mean Corpuscular Hemoglobin 27.7 PG Mean Corpuscular Hemoglobin Concent 32.7 % Red Cell Distribution Width 14.9 % Platelet Count 637 TH/MM3 Mean Platelet Volume 7.6 FL Neutrophils (%) (Auto) 82.7 % Lymphocytes (%) (Auto) 10.8 % Monocytes (%) (Auto) 4.7 % Eosinophils (%) (Auto) 1.4 % Basophils (%) (Auto) 0.4 % Neutrophils # (Auto) 11.3 TH/MM3 Lymphocytes # (Auto) 1.5 TH/MM3 Monocytes # (Auto) 0.6 TH/MM3 Eosinophils # (Auto) 0.2 TH/MM3 Basophils # (Auto) 0.1 TH/MM3 CBC Comment AUTO DIFF Differential Total Cells Counted 100 Neutrophils % (Manual) 83 % Lymphocytes % 8 % Monocytes % 7 % Eosinophils % 1 % Neutrophils # (Manual) 11.5 TH/MM3 Myelocytes 1 % Differential Comment FINAL DIFF MANUAL Platelet Estimate HIGH Platelet Morphology Comment NORMAL Ovalocytes 1+ Laboratory Tests Test 01/13/18 08:33 01/14/18 08:53 Blood Urea Nitrogen 19 MG/DL 18 MG/DL Creatinine 1.29 MG/DL 1.00 MG/DL Random Glucose 114 MG/DL 80 MG/DL Calcium Level 8.3 MG/DL 8.2 MG/DL Sodium Level 139 MEQ/L 139 MEQ/L Potassium Level 4.2 MEQ/L 4.1 MEQ/L Chloride Level 103 MEQ/L 103 MEQ/L Carbon Dioxide Level 26.4 MEQ/L 25.8 MEQ/L Anion Gap 10 MEQ/L 10 MEQ/L Estimat Glomerular Filtration Rate 55 ML/MIN 74 ML/MIN Total Protein 6.3 GM/DL Albumin 2.1 GM/DL Phosphorus Level 2.8 MG/DL Magnesium Level 2.2 MG/DL Alkaline Phosphatase 94 U/L Aspartate Amino Transf (AST/SGOT) 14 U/L Alanine Aminotransferase (ALT/SGPT) 34 U/L Total Bilirubin 0.3 MG/DL Microbiology Date/Time Source Procedure Growth Status 01/12/18 12:34 Blood Peripheral Aerobic Blood Culture - Preliminary NO GROWTH IN 2 DAYS Resulted 01/12/18 12:34 Blood Peripheral Anaerobic Blood Culture - Preliminary NO GROWTH IN 2 DAYS Resulted 01/12/18 12:29 Blood Peripheral Aerobic Blood Culture - Preliminary NO GROWTH IN 2 DAYS Resulted 01/12/18 12:29 Blood Peripheral Anaerobic Blood Culture - Preliminary NO GROWTH IN 2 DAYS Resulted Physical Exam CONSTITUTIONAL/GENERAL: This is an adequately nourished patient, in no apparent distress. TUBES/LINES/DRAINS: SKIN: No jaundice, rashes, or lesions. Skin temperature appropriate. Not diaphoretic. ENT: Hearing grossly normal. Nose without bleeding or purulent drainage. Throat without visible erythema, exudates, masses, or lesions. CARDIOVASCULAR: Regular rate and rhythm without murmurs, gallops, or rubs. No JVD. Peripheral pulses symmetric. RESPIRATORY/CHEST: Symmetric, unlabored respirations. Clear to auscultation. Breath sounds equal bilaterally. No wheezes, rales, or rhonchi. GASTROINTESTINAL: Abdomen soft, non-tender, nondistended. No hepato-splenomegaly , or palpable masses. No guarding. Bowel sounds present. MUSCULOSKELETAL: Extremities without clubbing, cyanosis, or edema. RLE Lower part of incision also with dehisence wound appears very deep, very large amount of purosangious d/c NEUROLOGICAL: Awake and alert. Motor and sensory grossly within normal limits. Follows commands. Cognitively sharp. Moves all extremities. PSYCHIATRIC: No obvious anxiety/depression. no apparent hallucinations or other psychotic thought process. 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 Failed Failed I+D Fever, suspect sepsis from the knee Worsening leukocytosis - cont daptomycin 10-12 mg/kg + RIFAMPIN - - fu CBC, CMP, total CKs it appears the prosthesis needs to come out in order to control the infection. Failuer to source control may result into further infection speread with possiblity of endocarditis , spine infx Blood clx x2 repeat wound clx dw Dr Gomez: reconstruction may not be feasible, in this case pt will end up with arthrodesis vs Aixa Martinez MD Jan 14, 2018 23:46
[2018-01-15] MEDS: ACETAMINOPHEN 325 MG TAB PO PRN (00:28)
[2018-01-15 00:32] VITALS: TEMP 99.2
[2018-01-15] MEDS: ZOLPIDEM TARTRATE 5 MG TAB PO PRN (00:59)
[2018-01-15 04:00] VITALS: BP 125/80; PULSE 94; RESP 18; TEMP 98; O2SAT 96
[2018-01-15 08:00] VITALS: BP 133/82; PULSE 85; RESP 17; TEMP 97.8; O2SAT 99
[2018-01-15] MEDS: SODIUM CHLOR 0.9% 1000 ML INJ 1,000 ML IV SCH ×2 (08:03→17:18)
[2018-01-15] MEDS: DOCUSATE SODIUM 100 MG CAP PO SCH ×2 (09:00→21:01)
[2018-01-15] MEDS: amLODIPine BESYLATE 5 MG TAB PO SCH (09:52)
[2018-01-15] MEDS: MULTIVITAMINS/MINERALS THERAPEUTIC TAB PO SCH ×2 (09:52→21:00)
[2018-01-15] MEDS: RIFAMPIN 150 MG CAP PO SCH ×2 (09:53→21:00)
[2018-01-15 12:00] VITALS: BP 140/98; PULSE 95; RESP 19; TEMP 98.6; O2SAT 96
--- NOTE | 2018-01-15 13:20 | HHI.PR ---
Subjective Remarks Patient c/o swelling and pain in right knee. Denies fevers or chills. Denies diarrhea Denies cp/sob eating well. Objective Vitals Vital Signs Date Time Temp Pulse Resp B/P (MAP) Pulse Ox O2 Delivery O2 Flow Rate FiO2 01/15/18 08:00 97.8 85 17 133/82 (99) 99 01/15/18 04:00 98.0 94 18 125/80 (95) 96 01/15/18 00:32 99.2 01/14/18 20:00 98.5 93 18 118/57 (77) 97 01/14/18 16:13 99.3 95 18 111/71 (84) 97 I/O 01/14/18 01/14/18 01/14/18 01/15/18 01/15/18 01/15/18 07:00 15:00 23:00 07:00 15:00 23:00 Intake Total 300 ml Output Total 100 ml 400 ml 50 ml Balance -100 ml -400 ml 250 ml IV Total 300 ml Output Urine Total 100 ml 400 ml 50 ml # Voids 1 2 Result Diagram: 01/14/18 0853 01/14/18 0853 Imaging Last 72 hours Impressions Lower Extremity CT 01/13/18 0000 Signed Impressions: CONCLUSION: 1. There is loculated fluid in the anterior distal thigh predominantly beneath the skin telma that has some rim enhancement and multiple locules of air and could represent a subcutaneous abscess. Similar fluid collection is also prese nt in the anterior pretibial soft tissues also worrisome for infection. There i s previous total knee replacement with antibiotic beads present in the soft tis sues. Objective Remarks GENERAL: This is a well-nourished, well-developed patient, in no apparent distress. CARDIOVASCULAR: Regular rate and regular rhythm without murmurs, gallops, or rubs. RESPIRATORY: Clear to auscultation. Breath sounds equal bilaterally. No wheezes , rales, or rhonchi. GASTROINTESTINAL: Abdomen soft, non-tender, nondistended. Normal, active bowel sounds MUSCULOSKELETAL:right lower extremity with wound with purulent drainage over lower incision. Swollen, tender and warm to palpation. NEURO: Alert & Oriented x4 to person, place, time, situation. 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 ICD Code: T84.53XA - Infection and inflammatory reaction due to internal right knee prosthesis, initial encounter (2) HTN (hypertension) ICD Code: I10 - Essential (primary) hypertension (3) Status post revision of total knee ICD Code: Z96.659 - Presence of unspecified artificial knee joint Assessment and Plan (1) Infection of total right knee replacement ICD Code: T84.53XA - Infection and inflammatory reaction due to internal right knee prosthesis, initial encounter Plan: s/p right knee arthrotomy and I/D on 01/09/18- patient is s/p right knee revision right total knee arthroplasty about a month ago. wound culture with MRSA- continue with IV antibiotics; currently on Daptomycin and Po Rifampin- continue with pain control- ID consulted- f/u with ortho. Surgical options discussed by orthopedic surgery with patient. The pelvic surgery has cleared the patient to be discharged on antibiotics as per infectious disease recommendations. Probably underlying osteomyelitis. Multiple revisions of TKA have failed. Patient has worsening leukocytosis, fever and sepsis suspected from the right knee. ID recommends continuation of daptomycin plus rifampin. Follow-up further ID recommendations. 01/14 continue antibiotics as per ID recommendation. CT of the right lower extremity shows a loculated fluid in the anterior distal thigh predominantly beneath the skin telma that has some enhancement and multiple locules of air could represent a subcutaneous abscess. There is a similar fluid collection in the anterior pretibial soft tissues. Orthopedic surgery is planning to take the patient for repeat surgical intervention on Sunday. N.p.o. on Sunday night. (2) HTN (hypertension) ICD Code: I10 - Essential (primary) hypertension Plan: Blood pressure seems to be stable. Continue amlodipine. Continue to monitor vital signs. (3) Status post revision of total knee ICD Code: Z96.659 - Presence of unspecified artificial knee joint Plan: As above. DVT prophylaxis. Lovenox and aspirin as per orthopedic surgery. Discharge Planning Continue to monitor and the medical floor. Patient for repeat surgical procedure on Sunday. Problem Qualifiers (1) HTN (hypertension): Qualified Codes: I10 - Essential (primary) hypertension (2) Status post revision of total knee: Qualified Codes: Z96.651 - Presence of right artificial knee joint Israel Espinoza MD Jan 15, 2018 13:20
[2018-01-15 16:00] VITALS: BP 128/74; PULSE 78; RESP 19; TEMP 98.4; O2SAT 98
--- NOTE | 2018-01-15 18:15 | PD.ORT.PN ---
Subjective Subjective Remarks Patient is feeling good with no pain about the knee but he is having drainage from the knee. Objective Vitals Vital Signs Date Time Temp Pulse Resp B/P (MAP) Pulse Ox O2 Delivery O2 Flow Rate FiO2 01/15/18 12:00 98.6 95 19 140/98 (112) 96 01/15/18 08:00 97.8 85 17 133/82 (99) 99 01/15/18 04:00 98.0 94 18 125/80 (95) 96 01/15/18 00:32 99.2 01/14/18 20:00 98.5 93 18 118/57 (77) 97 I/O 01/14/18 01/14/18 01/14/18 01/15/18 01/15/18 01/15/18 07:00 15:00 23:00 07:00 15:00 23:00 Intake Total 300 ml Output Total 100 ml 400 ml 50 ml Balance -100 ml -400 ml 250 ml IV Total 300 ml Output Urine Total 100 ml 400 ml 50 ml # Voids 1 2 Result Diagram: 01/14/18 0853 01/14/18 0853 Procedures Right knee arthrotomy with irrigation and debridement and application of antibiotic beads Objective Remarks Dressing is C/D/I. EHL/TA/G intact. 2+ pedal pulse. Calf is soft and nontender. + SILT distally. Mild erythema about the distal calf. There is 2+ pitting edema. Intraoperative cultures positive for MRSA. Assessment & Plan Assessment and Plan POD #6: Right knee arthrotomy with irrigation and debridement and application of antibiotic beads 1. WBAT RLE 2. Hold Lovenox on 01/15/18 until 23 hours post op from Sunday's surgery. 3. Anemia being followed by the internal medicine physician. H&H stable today. They would like to continue with observation. 4. ID to manage ABX. Intraoperative cultures positive for MRSA. 5. Change dressing daily. 6. I had an extensive conversation with the patient today about his future treatment options for the knee. I did explain to the patient that I had an opportunity to consult an outside revision knee specialist with whom I reviewed the entire clinical course of this patient from his first surgeries to current surgery. I discussed with the patient the option of recurrent debridement with polyethylene exchange and chronic suppressive antibiotics. However, since the patient is draining from the knee the chance of this type of procedure does have significant failure rate. At this point the patient says that he wants to try to move on from this problem as soon as possible with as definitive of a treatment as possible. Therefore, the patient has chosen not to have the repeat arthrotomy with polyethylene exchange and retention of the prosthesis. The patient wants to move forward with removal of the entire prosthesis with debridement for osteomyelitis and implantation of antibiotic spacer with antibiotic beads. The patient understands that it is my opinion and also the opinion of the outside revision specialist that following this procedure this patient would not be potentially reconstructable for further knee replacement implantation. He understands that this antibiotic spacer would potentially be a permanent implant in the patient. He understands that there is an option of a knee arthrodesis as well. This could be contemplated in the future if the patient has complete eradication of his infection. It is possible the patient could continue to have ongoing pain/infection even despite the current proposed procedure tomorrow. If that were to happen he could require further debridements in the near future, with exchanges of antibiotic spacer. He understands the risks and general management. He understands risks include injury to nerves, blood vessels, bleeding, continued infection, instability of the knee,, blood clots, wound complications, pulmonary embolus, heart attack, stroke, and . The patient wants to move forward with surgical management tomorrow. Cyrus Gomez MD Jan 15, 2018 18:15
[2018-01-15] MEDS ORDERED: METOPROLOL TARTRATE 25 MG TAB PO PRN (19:15)
[2018-01-15] MEDS ORDERED: LACTATED RINGER'S 1000 ML IV PRN (19:15)
[2018-01-15] MEDS ORDERED: CHLORHEXIDINE GLUCONATE 2 % 1 PACK (2 CLOTHS) TOPICAL PRN (19:15)
[2018-01-15] MEDS ORDERED: POVIDONE IODINE 5% (ANTISEPSIS KIT) 4 APPLICATIONS EACH NARE PRN (19:15)
[2018-01-15] MEDS ORDERED: SODIUM CHLORID 0.9% 500 ML IV PRN (19:15)
[2018-01-15 20:00] VITALS: BP 121/76; PULSE 91; RESP 20; TEMP 98.4; O2SAT 99
[2018-01-15] MEDS: DAPTOmycin INJ 1,000 MG in SODIUM CHLORIDE 0.9% INJ 100 ML IV SCH (20:57)
[2018-01-16] VITALS (9 sets, daily range): BP systolic 83–128; BP diastolic 51–88; PULSE 88–110; RESP 15–24; TEMP 98–99.2; O2SAT 94–100
[2018-01-16] MEDS: SODIUM CHLOR 0.9% 1000 ML INJ 1,000 ML IV SCH ×2 (04:03→08:29)
[2018-01-16 07:20] LABS: AUTOMATED NEUTROPHIL # 7.3 TH/MM3 (1.8-7.7); BASOPHIL % 0.5 % (0.0-2.0); EOSINOPHIL # 0.4 TH/MM3 (0-0.4); EOSINOPHIL % 3.8 % (0.0-4.0); HEMATOCRIT 23.5 % (39.0-51.0); LYMPHOCYTE # 1.5 TH/MM3 (1.0-4.8); MEAN CELL VOLUME 84.4 FL (80.0-100.0); MEAN CORPUSCULAR HEMOGLOBIN 28.6 PG (27.0-34.0); MEAN CORPUSCULAR HGB CONC 33.9 % (32.0-36.0); MEAN PLATELET VOLUME 7.4 FL (7.0-11.0); MONO % 7.2 % (0.0-8.0); MONOCYTE # 0.7 TH/MM3 (0-0.9); NEUT % 73.5 % (16.0-70.0); PLATELET COUNT 583 TH/MM3 (150-450); RED BLOOD COUNT 2.79 MIL/MM3 (4.50-5.90); RED CELL DISTRIBUTION WIDTH 15.2 % (11.6-17.2); WHITE BLOOD COUNT 9.9 TH/MM3 (4.0-11.0)
[2018-01-16 07:33] LABS: ALT (GPT) 40 U/L (12-78); AST (GOT) 19 U/L (15-37); BICARBONATE 25.9 MEQ/L (21.0-32.0); BLOOD UREA NITROGEN 17 MG/DL (7-18); CALCIUM 8.2 MG/DL (8.5-10.1); CHLORIDE 105 MEQ/L (98-107); CREATININE 1.04 MG/DL (0.60-1.30); GLOMERULAR FILTRATION RATE 70 ML/MIN (>89); GLUCOSE,RANDOM 88 MG/DL (74-106); SODIUM (NA) 140 MEQ/L (136-145)
[2018-01-16 07:35] LABS: ALKALINE PHOSPHATASE 78 U/L (45-117); TOTAL BILIRUBIN ADULT 0.2 MG/DL (0.2-1.0); TOTAL PROTEIN 6.2 GM/DL (6.4-8.2)
[2018-01-16] MEDS: MULTIVITAMINS/MINERALS THERAPEUTIC TAB PO SCH ×2 (08:23→19:46)
[2018-01-16] MEDS: RIFAMPIN 150 MG CAP PO SCH ×2 (08:23→19:46)
[2018-01-16] MEDS: amLODIPine BESYLATE 5 MG TAB PO SCH (08:24)
[2018-01-16] MEDS: DOCUSATE SODIUM 100 MG CAP PO SCH ×2 (08:24→21:00)
[2018-01-16] MEDS ORDERED: VANCOMYCIN HCL 1000 MG VIAL ONE (08:34)
[2018-01-16] MEDS ORDERED: ceFAZolin 2 GM PREMIX 50 ML ONE (08:36)
[2018-01-16] MEDS ORDERED: GENTAMICIN SULFATE 80 MG/2 ML VIAL ONE ×2 (09:33→12:08)
--- NOTE | 2018-01-16 11:08 | HHI.PR ---
Subjective Remarks Deferred entry, the patient was seen at 9 AM prior to surgical procedure. The patient denies fevers or chills. Pain is controlled Denies chest pain or shortness of breath. Objective Vitals Vital Signs Date Time Temp Pulse Resp B/P (MAP) Pulse Ox O2 Delivery O2 Flow Rate FiO2 01/16/18 08:34 98.4 91 128/88 (101) 96 01/16/18 00:00 98.7 90 22 119/65 (83) 01/15/18 20:00 98.4 91 20 121/76 (91) 99 01/15/18 16:00 98.4 78 19 128/74 (92) 98 01/15/18 12:00 98.6 95 19 140/98 (112) 96 I/O 01/15/18 01/15/18 01/15/18 01/16/18 01/16/18 01/16/18 07:00 15:00 23:00 07:00 15:00 23:00 Intake Total 300 ml 240 ml Output Total 50 ml 300 ml Balance 250 ml -60 ml Intake Oral 240 ml IV Total 300 ml Output Urine Total 50 ml 300 ml # Voids 2 0 Result Diagram: 01/16/18 0555 01/16/18 0555 Imaging Last Impressions Lower Extremity CT 01/13/18 0000 Signed Impressions: CONCLUSION: 1. There is loculated fluid in the anterior distal thigh predominantly beneath the skin telma that has some rim enhancement and multiple locules of air and could represent a subcutaneous abscess. Similar fluid collection is also prese nt in the anterior pretibial soft tissues also worrisome for infection. There i s previous total knee replacement with antibiotic beads present in the soft tis sues. Objective Remarks GENERAL: This is a well-nourished, well-developed patient, in no apparent distress. CARDIOVASCULAR: Regular rate and regular rhythm without murmurs, gallops, or rubs. RESPIRATORY: Clear to auscultation. Breath sounds equal bilaterally. No wheezes , rales, or rhonchi. GASTROINTESTINAL: Abdomen soft, non-tender, nondistended. Normal, active bowel sounds MUSCULOSKELETAL:right lower extremity with wound with purulent drainage over lower incision. Swollen, tender and warm to palpation. NEURO: Alert & Oriented x4 to person, place, time, situation. 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 ICD Code: T84.53XA - Infection and inflammatory reaction due to internal right knee prosthesis, initial encounter (2) HTN (hypertension) ICD Code: I10 - Essential (primary) hypertension (3) Status post revision of total knee ICD Code: Z96.659 - Presence of unspecified artificial knee joint Assessment and Plan (1) Infection of total right knee replacement ICD Code: T84.53XA - Infection and inflammatory reaction due to internal right knee prosthesis, initial encounter Plan: s/p right knee arthrotomy and I/D on 01/09/18- patient is s/p right knee revision right total knee arthroplasty about a month ago. Wound culture with MRSA- continue with IV antibiotics; currently on Daptomycin and Po Rifampin- continue with pain control- ID consulted- f/u with ortho. ID was consulted. Patient with probably underlying osteomyelitis status post multiple revisions of total knee arthroplasty have failed. Patient was found to be worsening with worsening leukocytosis, fever and sepsis suspected from the right knee. ID recommended continuation of IV daptomycin and rifampin. CT of the right lower extremity showed a loculated fluid in the anterior distal thigh predominantly beneath the skin telma that has some enhancement and multiple locules of air that could represent a subcutaneous abscess. Also similar fluid collection was found in the anterior pretibial soft tissues. Orthopedic surgery discussed options with patient who chose to have the hardware removed.Probably underlying osteomyelitis. Multiple revisions of TKA have failed. 01/16 patient is for OR today. (2) HTN (hypertension) Plan: Blood pressure seems to be stable. Continue amlodipine. Continue to monitor vital signs. (3) Status post revision of total knee ICD Code: Z96.659 - Presence of unspecified artificial knee joint Plan: As above. DVT prophylaxis. Lovenox and aspirin as per orthopedic surgery. Discharge Planning For Or today. Problem Qualifiers (1) HTN (hypertension): Qualified Codes: I10 - Essential (primary) hypertension (2) Status post revision of total knee: Qualified Codes: Z96.651 - Presence of right artificial knee joint Israel Espinoza MD Jan 16, 2018 11:08
[2018-01-16] MEDS ORDERED: PHENYLEPH/NS 1000 MCG/10 ML SYR IV ONE (12:00)
[2018-01-16] MEDS ORDERED: PROPOFOL 200 MG/20 ML AMP IV ONE (12:00)
[2018-01-16] MEDS ORDERED: LIDOCAINE HCL 1% PF 5 ML SYRINGE OTHER ONE (12:00)
[2018-01-16] MEDS ORDERED: ROCURONIUM INJ 50 MG/5 ML SYRINGE IV PUSH ONE (12:00)
[2018-01-16] MEDS ORDERED: METOPROLOL TARTRATE 5 MG/5 ML VIAL IV ONE (12:00)
[2018-01-16] MEDS ORDERED: LACTATED RINGER'S 1000 ML INJ 1,000 ML IV ONE (12:00)
[2018-01-16] MEDS ORDERED: ePHEDrine/NS 25 MG/5 ML SYRINGE IV ONE (12:00)
[2018-01-16] MEDS ORDERED: ONDANSETRON HCL 4 MG/2 ML VIAL IV ONE (12:00)
[2018-01-16] MEDS ORDERED: DEXAMETHASONE SOD PHOS 4 MG/ML VIAL IV ONE (12:00)
[2018-01-16 12:38] LABS: HEMATOCRIT 21.7 % (39.0-51.0); HEMOGLOBIN 7.2 GM/DL (13.0-17.0)
[2018-01-16] MEDS ORDERED: TRANEXAMIC ACID INJ 1,000 MG in SODIUM CHLORIDE 0.9% INJ 100 ML IV SCH (13:30)
[2018-01-16] MEDS ORDERED: *morphine SULFATE 8 MG/ML PERIprocedure ONLY ONE ×2 (13:43→14:01)
--- NOTE | 2018-01-16 13:47 | PD.OP ---
cc: Cyrus Gomez MD Operative Report Date of Surgery: Jan 16, 2018 Preoperative Diagnosis: Right knee recurrent infection status post revision total knee arthroplasty. Postoperative Diagnosis: Same Procedure: Right knee resection arthroplasty of revision knee replacement, with implantation of antibiotic cement spacer and antibiotic beads Surgeon: Cyrus Gomez Shop Supervisor(s): LEILANI Dockery The surgical procedure was assisted by my Advanced Registered Nurse Practitioner. My QUILL LAYER presence was necessary throughout this case for the manipulation and positioning of the surgical extremity. My QUILL LAYER was assisting me throughout the duration of this procedure. The skill set of an Advance Registered Nurse Practitioner was medically necessary to complete this procedure. During the surgical case, the plumbing service technician was working at the back table and the Advance Registered Nurse Practitioner was directly assisting me. Operation and Findings: The surgery was part of a planned, staged procedure for the right knee. Please see my progress notes from yesterday for description of decision making involved with the type of surgery to move forward with. Note that this was a team approach including infectious disease as well. The patient was brought back to the operative theater. General anesthesia was administered. The patient was draining from the inferior portion of the wound. The rest of the wound was intact. The right lower extremity was prepped and draped in usual sterile fashion. We went and made incision through the previous incision. We took 3 cultures of the fluid that was within the superficial tissue. This fluid was seropurulent. There was approximately 30 cc of fluid. The previous granulation tissue of the soft tissues superficially looked less inflamed. I did not find any specific abscess. Previous antibiotic beads were identified and evacuated. We removed the previous screw from the tibial tubercle osteotomy along with the cerclage wire. The osteotomy site remained intact during the case but did not appear to be completely healed. After removing the cerclage wire the extensor mechanism was found to be very tenuous and avulsed even with very gentle handling. We lifted up the flap of the extensor mechanism, by creating a medial parapatellar arthrotomy incision with previous lateral release noted.. The knee replacement was found to be intact. We removed the tibial component followed by the femoral component in standard fashion with osteotomes. We lost very little bone from doing this. We found that the posterior capsular tissue did have some moderate inflammatory tissue. We debrided this all. We took a culture from the tibia and from the femur in the metaphyseal region. No purulence or overt signs of infection were noted here. We thoroughly debrided all of the exposed bone including the intramedullary canal using brushes, curettes, rongeur, and sharp debridement. There was no overtly necrotic tissue. We irrigated with 6 L of saline with antibiotics at this point. the patient was given intravenous antibiotics. At this time we all exchanged gowns, gloves, and applied new drapes and covering around the lower extremity. We used all new instruments. We sized the tibia and femur for the antibiotic spacer. We placed approximately 15 cc of stimulan with vancomycin into the femur which was performed into oval bullets , and the remaining 5 cc was placed into the tibial shaft region. We had another batch of 20 cc of stimulant with vancomycin that we later placed into the lateral pouch region. We used 4 g of vancomycin into 4 bags of cement which was used to cement in the antibiotic spacer. The spacer used was a large remedy tibial component with a single wedge and a large femoral component. The patient had full extension with good stability to varus and valgus stress testing with the spacer in place. Note that we did cement in 2 PDS sutures into the tibial component which was used for extensor mechanism repair. Tourniquet was released and hemostasis was achieved. We did again irrigate the knee. The beads were placed as previously described laterally. We closed the medial parapatellar arthrotomy site. We found that the skin swelled quite a bit during the surgery and we were unable to close the wound other than some small areas proximally and distally. The patient did have exposed anterior tibia at the bottom of the wound by the tubercle region. We applied a wound VAC anteriorly. After surgery, I contacted Dr. Wright, plastic surgeon, to ask for him to help establish a plan of care as far as wound coverage for the knee. The patient will be toe-touch weightbearing. The patient will be in a knee immobilizer at all times. The patient will continue with IV antibiotics per infectious disease. The patient will be placed on Lovenox followed by aspirin for DVT prophylaxis. Cyrus Gomez MD Jan 16, 2018 13:47
[2018-01-16] MEDS ORDERED: WHEEMIS3 (14:02)
--- NOTE | 2018-01-16 14:27 | RADRPT ---
EXAM DATE: 01/16/2018 2:22 PM EDT AGE/SEX: 72 years / Male INDICATIONS: Post-op right knee. CLINICAL DATA: This is the patient's initial encounter. Patient reports that signs and symptoms have been present for 1 day and indicates a pain score of 10/10. MEDICAL/SURGICAL HISTORY: None. Total knee replacement, right. Joint replacement of right knee. COMPAR[place] [facility] [place]1 [place] 2 V[place] 12/12/2017. . FINDINGS: Patient is status post removal of a total arthroplasty with replacement of antibiotic impregnated spa cer and beads. Alignment is anatomic. CONCLUSION: Removal total arthroplasty as above. Electronically signed by: Gustabo Garay MD 01/16/2018 2:26 PM EDT
[2018-01-16] MEDS: DAPTOmycin INJ 1,000 MG in SODIUM CHLORIDE 0.9% INJ 100 ML IV SCH (19:45)
[2018-01-17] MEDS: SODIUM CHLOR 0.9% 1000 ML INJ 1,000 ML IV SCH ×3 (00:03→20:56)
[2018-01-17 04:12] LABS: HEMATOCRIT 24.6 % (39.0-51.0); HEMOGLOBIN 8.2 GM/DL (13.0-17.0); MEAN CELL VOLUME 84.7 FL (80.0-100.0); MEAN CORPUSCULAR HEMOGLOBIN 28.2 PG (27.0-34.0); MEAN CORPUSCULAR HGB CONC 33.2 % (32.0-36.0); MEAN PLATELET VOLUME 7.2 FL (7.0-11.0); PLATELET COUNT 518 TH/MM3 (150-450); RED BLOOD COUNT 2.91 MIL/MM3 (4.50-5.90); RED CELL DISTRIBUTION WIDTH 14.8 % (11.6-17.2); WHITE BLOOD COUNT 16.8 TH/MM3 (4.0-11.0)
[2018-01-17 04:38] LABS: % SATURATION IRON PROFILE 10.6 % (20-50); BICARBONATE 25.5 MEQ/L (21.0-32.0); BLOOD UREA NITROGEN 17 MG/DL (7-18); CALCIUM 7.8 MG/DL (8.5-10.1); CHLORIDE 105 MEQ/L (98-107); CREATININE 1.28 MG/DL (0.60-1.30); GLOMERULAR FILTRATION RATE 55 ML/MIN (>89); GLUCOSE,RANDOM 118 MG/DL (74-106); IRON (FE) 21 MCG/DL (65-175); MAGNESIUM 2.2 MG/DL (1.5-2.5); PHOSPHORUS 3.5 MG/DL (2.5-4.9); SODIUM (NA) 140 MEQ/L (136-145); TOTAL IRON BINDING CAPACITY 197 MCG/DL (250-450)
[2018-01-17] MEDS: amLODIPine BESYLATE 5 MG TAB PO SCH (08:29)
[2018-01-17 08:33] VITALS: BP 96/60; PULSE 113; RESP 20; TEMP 98.7; O2SAT 97
[2018-01-17] MEDS: MULTIVITAMINS/MINERALS THERAPEUTIC TAB PO SCH ×2 (08:37→20:54)
[2018-01-17] MEDS: DOCUSATE SODIUM 100 MG CAP PO SCH ×2 (08:37→20:55)
[2018-01-17] MEDS: RIFAMPIN 150 MG CAP PO SCH ×2 (08:45→20:54)
[2018-01-17 12:00] VITALS: BP 103/59; PULSE 95; RESP 20; TEMP 99.1; O2SAT 96
[2018-01-17] MEDS: ENOXAPARIN SODIUM 40 MG/0.4 ML SYRINGE SQ SCH (12:44)
--- NOTE | 2018-01-17 14:07 | HHI.PR ---
Subjective Remarks pain controlled Denies cp./sob Afebrile Objective Vitals Vital Signs Date Time Temp Pulse Resp B/P (MAP) Pulse Ox O2 Delivery O2 Flow Rate FiO2 01/17/18 12:00 99.1 95 20 103/59 (74) 96 01/17/18 08:33 98.7 113 20 96/60 (72) 97 01/16/18 22:00 99.2 110 18 104/62 (76) 97 01/16/18 16:29 98.1 97 18 97/65 (76) 100 01/16/18 16:08 98.0 98 18 104/60 (75) 96 01/16/18 16:00 98.1 103 18 100/66 (77) 98 01/16/18 15:47 98.1 103 16 100/66 (77) 98 01/16/18 14:45 90 13 104/55 (71) 100 Nasal Cannula 3 01/16/18 14:31 98.1 91 15 98/52 (67) 100 Nasal Cannula 3 01/16/18 14:30 98.2 89 24 98/52 100 01/16/18 14:16 98.4 88 15 83/51 94 01/16/18 14:15 88 17 83/51 (62) 93 Nasal Cannula 3 I/O 01/16/18 01/16/18 01/16/18 01/17/18 01/17/18 01/17/18 06:59 14:59 22:59 06:59 14:59 22:59 Intake Total 240 ml 2000 ml 800 ml Output Total 300 ml 900 ml 450 ml Balance -60 ml 1100 ml 800 ml -450 ml Intake Oral 240 ml Packed Cells 800 ml Other 2000 ml Output Urine Total 300 ml 300 ml 450 ml Estimated Blood Loss 600 ml # Voids 0 Result Diagram: 01/17/18 0334 01/17/18 0334 Imaging Last 72 hours Impressions Knee X-Ray 01/16/18 1319 Signed Impressions: CONCLUSION: Removal total arthroplasty as above. Objective Remarks GENERAL: This is a well-nourished, well-developed patient, in no apparent distress. CARDIOVASCULAR: Regular rate and regular rhythm without murmurs, gallops, or rubs. RESPIRATORY: Clear to auscultation. Breath sounds equal bilaterally. No wheezes , rales, or rhonchi. GASTROINTESTINAL: Abdomen soft, non-tender, nondistended. Normal, active bowel sounds MUSCULOSKELETAL:right lower extremity with wound vac in place. NEURO: Alert & Oriented x4 to person, place, time, situation. 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 ICD Code: T84.53XA - Infection and inflammatory reaction due to internal right knee prosthesis, initial encounter (2) HTN (hypertension) ICD Code: I10 - Essential (primary) hypertension (3) Status post revision of total knee ICD Code: Z96.659 - Presence of unspecified artificial knee joint Assessment and Plan (1) Infection of total right knee replacement ICD Code: T84.53XA - Infection and inflammatory reaction due to internal right knee prosthesis, initial encounter Plan: s/p right knee arthrotomy and I/D on 01/09/18- patient is s/p right knee revision right total knee arthroplasty about a month ago. Wound culture with MRSA- continue with IV antibiotics; currently on Daptomycin and Po Rifampin- continue with pain control- ID consulted- f/u with ortho. ID was consulted. Patient with probably underlying osteomyelitis status post multiple revisions of total knee arthroplasty have failed. Patient was found to be worsening with worsening leukocytosis, fever and sepsis suspected from the right knee. ID recommended continuation of IV daptomycin and rifampin. CT of the right lower extremity showed a loculated fluid in the anterior distal thigh predominantly beneath the skin telma that has some enhancement and multiple locules of air that could represent a subcutaneous abscess. Also similar fluid collection was found in the anterior pretibial soft tissues. Orthopedic surgery discussed options with patient who chose to have the hardware removed.Probably underlying osteomyelitis. Multiple revisions of TKA have failed. 01/17 as opposed right knee resection arthroplasty of revision knee replacement, with implantation of antibiotic cement spacer and antibiotic beads. Management as per orthopedic surgery. Pain control as per orthopedic surgery. Wound VAC in place. (2) HTN (hypertension) Plan: Blood pressure seems to be stable. Continue amlodipine. Continue to monitor vital signs. (3) Status post revision of total knee ICD Code: Z96.659 - Presence of unspecified artificial knee joint Plan: As above. DVT prophylaxis. Lovenox and aspirin as per orthopedic surgery. Discharge Planning For Or today. Problem Qualifiers (1) Infection of total right knee replacement: Qualified Codes: T84.53XD - Infection and inflammatory reaction due to internal right knee prosthesis, subsequent encounter (2) HTN (hypertension): Qualified Codes: I10 - Essential (primary) hypertension (3) Status post revision of total knee: Qualified Codes: Z96.651 - Presence of right artificial knee joint Israel Espinoza MD Jan 17, 2018 14:07
[2018-01-17 16:00] VITALS: BP 122/59; PULSE 99; RESP 20; TEMP 100.1; O2SAT 96
[2018-01-17] MEDS: ACETAMINOPHEN 325 MG TAB PO PRN (17:00)
--- NOTE | 2018-01-17 18:07 | PD.ORT.PN ---
Subjective Subjective Remarks Patient's pain is controlled from the right knee. He says he is ambulating. Objective Vitals Vital Signs Date Time Temp Pulse Resp B/P (MAP) Pulse Ox O2 Delivery O2 Flow Rate FiO2 01/17/18 16:00 100.1 99 20 122/59 (80) 96 01/17/18 12:00 99.1 95 20 103/59 (74) 96 01/17/18 08:33 98.7 113 20 96/60 (72) 97 01/16/18 22:00 99.2 110 18 104/62 (76) 97 I/O 01/16/18 01/16/18 01/16/18 01/17/18 01/17/18 01/17/18 07:00 15:00 23:00 07:00 15:00 23:00 Intake Total 240 ml 2000 ml 800 ml 780 ml Output Total 300 ml 900 ml 450 ml 600 ml Balance -60 ml 1100 ml 800 ml -450 ml 180 ml Intake Oral 240 ml 780 ml Packed Cells 800 ml Other 2000 ml Output Urine Total 300 ml 300 ml 450 ml 600 ml Estimated Blood Loss 600 ml # Voids 0 Result Diagram: 01/17/18 0334 01/17/18 0334 Procedures Right knee arthrotomy with irrigation and debridement and application of antibiotic beads Objective Remarks Wound VAC is intact anteriorly. No surrounding erythema. knee immobilizer is in place. Moderate swelling of the knee. Stable mild to moderate pitting edema lower extremity. Moves toes actively. Assessment & Plan Assessment and Plan POD #7: Right knee arthrotomy with irrigation and debridement and application of antibiotic beads POD #1: Right knee resection arthroplasty with implantation of antibiotic spacer and antibiotic beads. 1. Toe-touch weightbearing 2. Lovenox restarted. Prescription for Lovenox and aspirin in the chart for when discharged. 3. Patient was transfused 2 units of red blood cells after surgery. Hematocrit is stable. 4. ID to manage ABX, including likely need for PICC line. Intraoperative cultures positive for MRSA. 5. I contacted the plastic surgeon Dr. Wright yesterday. He expressed interest in seeing the wound. the first wound VAC dressing will be done tomorrow. I have written an order for the nurse to contact the plastic surgeon prior to doing the dressing change to coordinate with him. Ultimately, the next plan will need to be created between the plastic surgeon and the patient as far as coverage of the anterior wound. Ultimately having the coverage done sooner rather than later would be potentially more beneficial to reduce chance of developing osteomyelitis. 6. Just in case the patient is discharged with the wound VAC I have filled out a form in the chart for this. 7. My partner to follow tomorrow and over the weekend. Cyrus Gomez MD Jan 17, 2018 18:07
[2018-01-17 20:00] VITALS: BP 116/64; PULSE 99; RESP 16; TEMP 98.4; O2SAT 94
[2018-01-17] MEDS: ZOLPIDEM TARTRATE 5 MG TAB PO PRN (20:54)
[2018-01-17] MEDS: DAPTOmycin INJ 1,000 MG in SODIUM CHLORIDE 0.9% INJ 100 ML IV SCH (20:55)
[2018-01-18] VITALS: BP 142/90; PULSE 98; RESP 15; TEMP 99.2; O2SAT 97
[2018-01-18 04:00] VITALS: BP 127/76; PULSE 69; RESP 15; TEMP 99.6; O2SAT 96
[2018-01-18] MEDS: SODIUM CHLOR 0.9% 1000 ML INJ 1,000 ML IV SCH ×3 (06:03→22:17)
--- NOTE | 2018-01-18 07:53 | PD.ORT.PN ---
Subjective Post Op Day #: 2 Subjective Remarks pain tolerable. eager for wound vac change and consult with plastics. Objective Vitals Vital Signs Date Time Temp Pulse Resp B/P (MAP) Pulse Ox O2 Delivery O2 Flow Rate FiO2 01/18/18 04:00 99.6 69 15 127/76 (93) 96 01/18/18 00:00 99.2 98 15 142/90 (107) 97 01/17/18 20:00 98.4 99 16 116/64 (81) 94 01/17/18 16:00 100.1 99 20 122/59 (80) 96 01/17/18 12:00 99.1 95 20 103/59 (74) 96 01/17/18 08:33 98.7 113 20 96/60 (72) 97 I/O 01/17/18 01/17/18 01/17/18 01/18/18 01/18/18 01/18/18 07:00 15:00 23:00 07:00 15:00 23:00 Intake Total 780 ml 600 ml Output Total 450 ml 600 ml 500 ml Balance -450 ml 180 ml 100 ml Intake Oral 780 ml 600 ml Output Urine Total 450 ml 600 ml 500 ml Result Diagram: 01/17/18 0334 01/17/18 0334 Procedures Right knee arthrotomy with irrigation and debridement and application of antibiotic beads Objective Remarks Wound VAC is intact anteriorly. No surrounding erythema. knee immobilizer is in place. Moderate swelling of the knee. Stable mild to moderate pitting edema lower extremity. Moves toes actively. Assessment & Plan Assessment and Plan POD #8: Right knee arthrotomy with irrigation and debridement and application of antibiotic beads POD #2: Right knee resection arthroplasty with implantation of antibiotic spacer and antibiotic beads. 1. Toe-touch weightbearing 2. Lovenox restarted. Prescription for Lovenox and aspirin in the chart for when discharged. 3. Patient was transfused 2 units of red blood cells after surgery. Hematocrit is stable. 4. ID to manage ABX, including likely need for PICC line. Intraoperative cultures positive for MRSA. 5. Dr. Gomez contacted the plastic surgeon Dr. Wright on Sunday. He expressed interest in seeing the wound. the first wound VAC dressing will be done Sunday. I have written an order for the nurse to contact the plastic surgeon prior to doing the dressing change to coordinate with him. Ultimately, the next plan will need to be created between the plastic surgeon and the patient as far as coverage of the anterior wound. Ultimately having the coverage done sooner rather than later would be potentially more beneficial to reduce chance of developing osteomyelitis. 6. Just in case the patient is discharged with the wound VAC Dr. Gomez has filled out a form in the chart for this. 7. Dr. Lyon to follow over the weekend. Isaiah Sagastume Jan 18, 2018 07:53
[2018-01-18 08:21] VITALS: BP 111/63; PULSE 110; RESP 18; TEMP 98.1; O2SAT 95
[2018-01-18] MEDS: DOCUSATE SODIUM 100 MG CAP PO SCH ×2 (08:43→21:25)
[2018-01-18] MEDS: MULTIVITAMINS/MINERALS THERAPEUTIC TAB PO SCH ×2 (08:43→21:25)
[2018-01-18] MEDS: RIFAMPIN 150 MG CAP PO SCH ×2 (08:43→21:26)
[2018-01-18] MEDS: amLODIPine BESYLATE 5 MG TAB PO SCH (08:44)
--- NOTE | 2018-01-18 10:19 | HHI.PR ---
Subjective Remarks Patient's WBC is trending up. Patient is also tachycardic. The patient states his pain is controlled. Denies chest pain or shortness of breath. Denies abdominal pain, nausea, vomiting or diarrhea. Objective Vitals Vital Signs Date Time Temp Pulse Resp B/P (MAP) Pulse Ox O2 Delivery O2 Flow Rate FiO2 01/18/18 08:21 98.1 110 18 111/63 (79) 95 01/18/18 04:00 99.6 69 15 127/76 (93) 96 01/18/18 00:00 99.2 98 15 142/90 (107) 97 01/17/18 20:00 98.4 99 16 116/64 (81) 94 01/17/18 16:00 100.1 99 20 122/59 (80) 96 01/17/18 12:00 99.1 95 20 103/59 (74) 96 I/O 01/17/18 01/17/18 01/17/18 01/18/18 01/18/18 01/18/18 07:00 15:00 23:00 07:00 15:00 23:00 Intake Total 780 ml 600 ml Output Total 450 ml 600 ml 500 ml Balance -450 ml 180 ml 100 ml Intake Oral 780 ml 600 ml Output Urine Total 450 ml 600 ml 500 ml Result Diagram: 01/17/18 0334 01/17/18 0334 Imaging Last Impressions Knee X-Ray 01/16/18 1319 Signed Impressions: CONCLUSION: Removal total arthroplasty as above. Lower Extremity CT 01/13/18 0000 Signed Impressions: CONCLUSION: 1. There is loculated fluid in the anterior distal thigh predominantly beneath the skin telma that has some rim enhancement and multiple locules of air and could represent a subcutaneous abscess. Similar fluid collection is also prese nt in the anterior pretibial soft tissues also worrisome for infection. There i s previous total knee replacement with antibiotic beads present in the soft tis sues. Objective Remarks GENERAL: This is a well-nourished, well-developed patient, in no apparent distress. CARDIOVASCULAR: Regular rate and regular rhythm without murmurs, gallops, or rubs. RESPIRATORY: Clear to auscultation. Breath sounds equal bilaterally. No wheezes , rales, or rhonchi. GASTROINTESTINAL: Abdomen soft, non-tender, nondistended. Normal, active bowel sounds MUSCULOSKELETAL: Right knee with open wound which shows red beefy tissues, no drainage observed. NEURO: Alert & Oriented x4 to person, place, time, situation. Moves all ext x4 Procedures Right knee resection arthroplasty of revision knee replacement, with implantation of antibiotic cement spacer and antibiotic beads 01/16 A/P Problem List: (1) Infection of total right knee replacement ICD Code: T84.53XA - Infection and inflammatory reaction due to internal right knee prosthesis, initial encounter (2) HTN (hypertension) ICD Code: I10 - Essential (primary) hypertension (3) Status post revision of total knee ICD Code: Z96.659 - Presence of unspecified artificial knee joint (4) Sepsis ICD Code: A41.9 - Sepsis, unspecified organism Plan: Sepsis present on admission, patient with leukocytosis and heart rate more than 90. Continue IV antibiotics as per ID, continue IV fluids. UA negative on admission 01/18 WBC trending up from 9.9/13-16.8 on 01/17. (5) Postoperative anemia due to acute blood loss ICD Code: D62 - Acute posthemorrhagic anemia Status: Acute Plan: Hemoglobin dropped 8.0-7.2 after surgical procedure. The patient is status post transfusion of 2 units of packed red blood cells with appropriate hemoglobin response. Today's labs pending. Assessment and Plan (1) Infection of total right knee replacement ICD Code: T84.53XA - Infection and inflammatory reaction due to internal right knee prosthesis, initial encounter Plan: s/p right knee arthrotomy and I/D on 01/09/18- patient is s/p right knee revision right total knee arthroplasty about a month ago. Wound culture with MRSA- continue with IV antibiotics; currently on Daptomycin and Po Rifampin- continue with pain control- ID consulted- f/u with ortho. ID was consulted. Patient with probably underlying osteomyelitis status post multiple revisions of total knee arthroplasty have failed. Patient was found to be worsening with worsening leukocytosis, fever and sepsis suspected from the right knee. ID recommended continuation of IV daptomycin and rifampin. CT of the right lower extremity showed a loculated fluid in the anterior distal thigh predominantly beneath the skin telma that has some enhancement and multiple locules of air that could represent a subcutaneous abscess. Also similar fluid collection was found in the anterior pretibial soft tissues. Orthopedic surgery discussed options with patient who chose to have the hardware removed.Probably underlying osteomyelitis. Multiple revisions of TKA have failed. 01/17 as opposed right knee resection arthroplasty of revision knee replacement, with implantation of antibiotic cement spacer and antibiotic beads. Management as per orthopedic surgery. Pain control as per orthopedic surgery. Wound VAC in place. (2) HTN (hypertension) Plan: Blood pressure seems to be stable. Continue amlodipine. Continue to monitor vital signs. (3) Status post revision of total knee ICD Code: Z96.659 - Presence of unspecified artificial knee joint Plan: As above. DVT prophylaxis. Lovenox and aspirin as per orthopedic surgery. Discharge Planning For [place] today. Problem Qualifiers (1) Infection of total right knee replacement: Qualified Codes: T84.53XD - Infection and inflammatory reaction due to internal right knee prosthesis, subsequent encounter (2) HTN (hypertension): Qualified Codes: I10 - Essential (primary) hypertension (3) Status post revision of total knee: Qualified Codes: Z96.651 - Presence of right artificial knee joint (4) Sepsis: Qualified Codes: A41.02 - Sepsis due to methicillin resistant Staphylococcus aureus Israel Espinoza MD Jan 18, 2018 10:19
[2018-01-18 12:22] LABS: MEAN CELL VOLUME 85.2 FL (80.0-100.0); MEAN CORPUSCULAR HEMOGLOBIN 28.3 PG (27.0-34.0); MEAN CORPUSCULAR HGB CONC 33.2 % (32.0-36.0); MEAN PLATELET VOLUME 7.2 FL (7.0-11.0); PLATELET COUNT 478 TH/MM3 (150-450); RED BLOOD COUNT 2.82 MIL/MM3 (4.50-5.90); RED CELL DISTRIBUTION WIDTH 14.7 % (11.6-17.2)
[2018-01-18 12:25] VITALS: BP 135/63; PULSE 103; RESP 18; TEMP 97.8; O2SAT 98
[2018-01-18] MEDS: ENOXAPARIN SODIUM 40 MG/0.4 ML SYRINGE SQ SCH (13:10)
[2018-01-18 20:00] VITALS: BP 123/78; PULSE 104; RESP 17; TEMP 98.9; O2SAT 97
[2018-01-18] MEDS: DAPTOmycin INJ 1,000 MG in SODIUM CHLORIDE 0.9% INJ 100 ML IV SCH (21:25)
[2018-01-19] VITALS (11 sets, daily range): BP systolic 111–130; BP diastolic 58–85; PULSE 83–110; RESP 17–18; TEMP 97.9–99.3; O2SAT 95–99
[2018-01-19 08:12] LABS: HEMATOCRIT 22.2 % (39.0-51.0); HEMOGLOBIN 7.4 GM/DL (13.0-17.0); MEAN CELL VOLUME 84.7 FL (80.0-100.0); MEAN CORPUSCULAR HEMOGLOBIN 28.3 PG (27.0-34.0); MEAN CORPUSCULAR HGB CONC 33.5 % (32.0-36.0); MEAN PLATELET VOLUME 7.7 FL (7.0-11.0); PLATELET COUNT 475 TH/MM3 (150-450); RED BLOOD COUNT 2.63 MIL/MM3 (4.50-5.90); WHITE BLOOD COUNT 10.6 TH/MM3 (4.0-11.0)
[2018-01-19 08:43] LABS: BICARBONATE 25.1 MEQ/L (21.0-32.0); CALCIUM 7.9 MG/DL (8.5-10.1); CREATININE 1.03 MG/DL (0.60-1.30)
[2018-01-19] MEDS: MULTIVITAMINS/MINERALS THERAPEUTIC TAB PO SCH ×2 (08:47→21:39)
[2018-01-19] MEDS: amLODIPine BESYLATE 5 MG TAB PO SCH (08:47)
[2018-01-19] MEDS: DOCUSATE SODIUM 100 MG CAP PO SCH ×2 (08:47→21:00)
[2018-01-19] MEDS: RIFAMPIN 150 MG CAP PO SCH ×2 (08:48→21:40)
--- NOTE | 2018-01-19 10:49 | PD.ORT.PN ---
Subjective Subjective Remarks pain tolerable. saw plastics yesterday during vac change. awaiting referral to [facility] for possible skin graft. Objective Vitals Vital Signs Date Time Temp Pulse Resp B/P (MAP) Pulse Ox O2 Delivery O2 Flow Rate FiO2 01/19/18 08:26 97.9 106 18 122/71 (88) 95 01/19/18 04:00 98.3 105 17 122/76 (91) 98 01/18/18 20:00 98.9 104 17 123/78 (93) 97 01/18/18 12:25 97.8 103 18 135/63 (87) 98 I/O 01/18/18 01/18/18 01/18/18 01/19/18 01/19/18 01/19/18 07:00 15:00 23:00 07:00 15:00 23:00 Intake Total 600 ml Output Total 500 ml 150 ml 150 ml Balance 100 ml -150 ml -150 ml Intake Oral 600 ml Output Urine Total 500 ml 150 ml Drainage Total 150 ml Result Diagram: 01/19/1846 01/19/18 0646 Procedures Right knee arthrotomy with irrigation and debridement and application of antibiotic beads Objective Remarks Wound VAC is intact anteriorly. No surrounding erythema. knee immobilizer is in place. Moderate swelling of the knee. Stable mild to moderate pitting edema lower extremity. Moves toes actively. Assessment & Plan Assessment and Plan POD #9: Right knee arthrotomy with irrigation and debridement and application of antibiotic beads POD #3: Right knee resection arthroplasty with implantation of antibiotic spacer and antibiotic beads. 1. Toe-touch weightbearing 2. Lovenox restarted. Prescription for Lovenox and aspirin in the chart for when discharged. 3. Patient was transfused 2 units of red blood cells after surgery. Anemia - symptomatic. transfuse 2 units PRBCs while awaiting possible transfer to [facility] for skin graft 4. ID to manage ABX, including likely need for PICC line. Intraoperative cultures positive for MRSA. 5. Dr. Gomez contacted the plastic surgeon Dr. Wright on Sunday. He expressed interest in seeing the wound. the first wound VAC dressing will be done Sunday. I have written an order for the nurse to contact the plastic surgeon prior to doing the dressing change to coordinate with him. Ultimately, the next plan will need to be created between the plastic surgeon and the patient as far as coverage of the anterior wound. Ultimately having the coverage done sooner rather than later would be potentially more beneficial to reduce chance of developing osteomyelitis. 6. Just in case the patient is discharged with the wound VAC Dr. Gomez has filled out a form in the chart for this. 7. Plastic Surgery evaluated patient yesterday. Rec transfer to [facility] for skin graft/flap. awaiting transfer 8. Dr. Lyon following for ortho this weekend. Isaiah Sagastume Jan 19, 2018 10:49
[2018-01-19] MEDS: SODIUM CHLOR 0.9% 1000 ML INJ 1,000 ML IV SCH ×2 (13:21→22:03)
[2018-01-19] MEDS: ENOXAPARIN SODIUM 40 MG/0.4 ML SYRINGE SQ SCH (13:21)
--- NOTE | 2018-01-19 13:26 | HHI.PR ---
Subjective Remarks Follow-up infection of her right total knee replacement January 19, 2018-patient seen and examined, patient denies any significant right knee pain. Wound VAC was changed yesterday. Patient is awaiting referral to [facility] for possible skin graft next week Objective Vitals Vital Signs Date Time Temp Pulse Resp B/P (MAP) Pulse Ox O2 Delivery O2 Flow Rate FiO2 01/19/18 12:03 98.3 109 18 113/64 (80) 98 01/19/18 08:26 97.9 106 18 122/71 (88) 95 01/19/18 04:00 98.3 105 17 122/76 (91) 98 01/18/18 20:00 98.9 104 17 123/78 (93) 97 I/O 01/18/18 01/18/18 01/18/18 01/19/18 01/19/18 01/19/18 06:59 14:59 22:59 06:59 14:59 22:59 Intake Total 600 ml Output Total 500 ml 150 ml 150 ml Balance 100 ml -150 ml -150 ml Intake Oral 600 ml Output Urine Total 500 ml 150 ml Drainage Total 150 ml Result Diagram: 01/19/18 0646 01/19/18 0646 Imaging Last Impressions Knee X-Ray 01/16/18 1319 Signed Impressions: CONCLUSION: Removal total arthroplasty as above. Lower Extremity CT 01/13/18 0000 Signed Impressions: CONCLUSION: 1. There is loculated fluid in the anterior distal thigh predominantly beneath the skin telma that has some rim enhancement and multiple locules of air and could represent a subcutaneous abscess. Similar fluid collection is also prese nt in the anterior pretibial soft tissues also worrisome for infection. There i s previous total knee replacement with antibiotic beads present in the soft tis sues. Objective Remarks GENERAL: NAD SKIN: Warm and dry. HEAD: Normocephalic. EYES: No scleral icterus. No injection or drainage. NECK: Supple, trachea midline. No JVD or lymphadenopathy. CARDIOVASCULAR: Regular rate and rhythm without murmurs, gallops, or rubs. RESPIRATORY: Breath sounds equal bilaterally. No accessory muscle use. GASTROINTESTINAL: Abdomen soft, non-tender, nondistended. MUSCULOSKELETAL: No cyanosis, or edema. Wound VAC in place right knee- neurovascular intact BACK: Nontender without obvious deformity. No CVA tenderness. Procedures Right knee resection arthroplasty of revision knee replacement, with implantation of antibiotic cement spacer and antibiotic beads 01/16 A/P Problem List: (1) Infection of total right knee replacement ICD Code: T84.53XA - Infection and inflammatory reaction due to internal right knee prosthesis, initial encounter (2) HTN (hypertension) ICD Code: I10 - Essential (primary) hypertension (3) Status post revision of total knee ICD Code: Z96.659 - Presence of unspecified artificial knee joint (4) Sepsis ICD Code: A41.9 - Sepsis, unspecified organism (5) Postoperative anemia due to acute blood loss ICD Code: D62 - Acute posthemorrhagic anemia Status: Acute Assessment and Plan 72-year-old man with Sepsis: Secondary to infected right knee replacement Now resolved Infected right knee replacement s/p Right knee arthrotomy with irrigation and debridement and application of antibiotic beads s/p Right knee resection arthroplasty with implantation of antibiotic spacer and antibiotic beads. Status post wound VAC placement Currently on IV Cubicin daily and rifampin 300 mg p.o. every 12 hours per ID Management per plastic and orthopedic surgery Awaiting referral to [facility] for possible skin graft next week Anemia of acute blood loss Despite 2 unit blood transfusion, H&H 7.4/22.2, therefore will transfuse 2 units packed red blood cell today January 19, 2018 Hypertension Continue with Norvasc DVT prophylaxis. Lovenox and aspirin as per orthopedic surgery. Problem Qualifiers (1) Infection of total right knee replacement: Qualified Codes: T84.53XD - Infection and inflammatory reaction due to internal right knee prosthesis, subsequent encounter (2) HTN (hypertension): Qualified Codes: I10 - Essential (primary) hypertension (3) Status post revision of total knee: Qualified Codes: Z96.651 - Presence of right artificial knee joint (4) Sepsis: Qualified Codes: A41.02 - Sepsis due to methicillin resistant Staphylococcus aureus Eric Moore MD Jan 19, 2018 13:26
[2018-01-19] MEDS ORDERED: ACETAMINOPHEN 325 MG TAB PO PRN (13:45)
[2018-01-19] MEDS ORDERED: FUROSEMIDE 20 MG/2 ML VIAL IV PUSH ONE (13:45)
[2018-01-19] MEDS ORDERED: SODIUM CHLOR 0.9% 250 ML INJ 250 ML IV ONE (13:45)
[2018-01-19] MEDS: diphenhydrAMINE HCL 25 MG CAP PO PRN ×2 (15:08→22:42)
[2018-01-19] MEDS: DAPTOmycin INJ 1,000 MG in SODIUM CHLORIDE 0.9% INJ 100 ML IV SCH (21:39)
[2018-01-19] MEDS: ACETAMINOPHEN 325 MG TAB PO PRN (22:43)
[2018-01-20 01:25] VITALS: BP 129/80; PULSE 94; RESP 20; TEMP 99; O2SAT 94
[2018-01-20 08:25] VITALS: BP 127/78; PULSE 93; RESP 18; TEMP 98.4; O2SAT 95
[2018-01-20 08:25] LABS: AUTOMATED NEUTROPHIL # 6.7 TH/MM3 (1.8-7.7); BASOPHIL # 0.2 TH/MM3 (0-0.2); BASOPHIL % 1.6 % (0.0-2.0); EOSINOPHIL # 0.3 TH/MM3 (0-0.4); EOSINOPHIL % 3.5 % (0.0-4.0); HEMATOCRIT 28.3 % (39.0-51.0); HEMOGLOBIN 9.4 GM/DL (13.0-17.0); LYMPH % 15.6 % (9.0-44.0); LYMPHOCYTE # 1.5 TH/MM3 (1.0-4.8); MEAN CELL VOLUME 84.7 FL (80.0-100.0); MEAN CORPUSCULAR HGB CONC 33.1 % (32.0-36.0); MEAN PLATELET VOLUME 7.6 FL (7.0-11.0); MONO % 8.5 % (0.0-8.0); MONOCYTE # 0.8 TH/MM3 (0-0.9); NEUT % 70.8 % (16.0-70.0); PLATELET COUNT 524 TH/MM3 (150-450); RED BLOOD COUNT 3.35 MIL/MM3 (4.50-5.90); RED CELL DISTRIBUTION WIDTH 15.4 % (11.6-17.2); WHITE BLOOD COUNT 9.5 TH/MM3 (4.0-11.0)
[2018-01-20] MEDS: RIFAMPIN 150 MG CAP PO SCH ×2 (08:26→20:04)
[2018-01-20] MEDS: MULTIVITAMINS/MINERALS THERAPEUTIC TAB PO SCH ×2 (08:26→20:05)
[2018-01-20] MEDS: DOCUSATE SODIUM 100 MG CAP PO SCH ×2 (08:26→20:06)
[2018-01-20] MEDS: amLODIPine BESYLATE 5 MG TAB PO SCH (08:26)
[2018-01-20] MEDS: SODIUM CHLOR 0.9% 1000 ML INJ 1,000 ML IV SCH ×2 (08:29→18:03)
[2018-01-20 08:49] LABS: BICARBONATE 24.9 MEQ/L (21.0-32.0); CALCIUM 8.1 MG/DL (8.5-10.1); CREATININE 1.13 MG/DL (0.60-1.30)
--- NOTE | 2018-01-20 10:05 | HHI.PR ---
Subjective Remarks Follow-up infection of her right total knee replacement January 19, 2018-patient seen and examined, patient denies any significant right knee pain. Wound VAC was changed yesterday. Patient is awaiting referral to [facility] for possible skin graft next week January 20, 2018-patient seen and examined, responding well to blood transfusion yesterday. Currently afebrile. Plan for skin graft flap January here at [facility] Objective Vitals Vital Signs Date Time Temp Pulse Resp B/P (MAP) Pulse Ox O2 Delivery O2 Flow Rate FiO2 01/20/18 08:25 98.4 93 18 127/78 (94) 95 01/20/18 01:25 99.0 94 20 129/80 94 01/19/18 23:55 99.0 94 18 127/78 (94) 95 01/19/18 23:00 99.3 83 18 123/85 96 01/19/18 22:50 99.3 84 18 123/85 (98) 96 01/19/18 20:00 98.3 100 18 121/68 (85) 97 01/19/18 16:31 98.1 88 18 130/60 (83) 99 01/19/18 16:15 98.9 110 18 118/58 96 01/19/18 16:00 98.4 105 111/69 95 01/19/18 15:45 98.1 97 18 130/60 99 01/19/18 12:03 98.3 109 18 113/64 (80) 98 I/O 01/19/18 01/19/18 01/19/18 01/20/18 01/20/18 01/20/18 07:00 15:00 23:00 07:00 15:00 23:00 Intake Total 420 ml 410 ml Output Total 150 ml 150 ml 900 ml Balance -150 ml -150 ml 420 ml -490 ml Packed Cells 400 ml 400 ml Blood Product IV Normal Saline Flush 20 ml 10 ml Output Urine Total 150 ml 900 ml Drainage Total 150 ml # Voids 3 Result Diagram: 01/20/1860601/20/18606 Objective Remarks GENERAL: NAD SKIN: Warm and dry. HEAD: Normocephalic. EYES: No scleral icterus. No injection or drainage. NECK: Supple, trachea midline. No JVD or lymphadenopathy. CARDIOVASCULAR: Regular rate and rhythm without murmurs, gallops, or rubs. RESPIRATORY: Breath sounds equal bilaterally. No accessory muscle use. GASTROINTESTINAL: Abdomen soft, non-tender, nondistended. MUSCULOSKELETAL: No cyanosis, or edema. Wound VAC in place right knee- neurovascular intact BACK: Nontender without obvious deformity. No CVA tenderness. Procedures Right knee resection arthroplasty of revision knee replacement, with implantation of antibiotic cement spacer and antibiotic beads 01/16 A/P Problem List: (1) Infection of total right knee replacement ICD Code: T84.53XA - Infection and inflammatory reaction due to internal right knee prosthesis, initial encounter (2) HTN (hypertension) ICD Code: I10 - Essential (primary) hypertension (3) Status post revision of total knee ICD Code: Z96.659 - Presence of unspecified artificial knee joint (4) Sepsis ICD Code: A41.9 - Sepsis, unspecified organism (5) Postoperative anemia due to acute blood loss ICD Code: D62 - Acute posthemorrhagic anemia Status: Acute Assessment and Plan 72-year-old man with Sepsis: Secondary to infected right knee replacement Now resolved Infected right knee replacement s/p Right knee arthrotomy with irrigation and debridement and application of antibiotic beads s/p Right knee resection arthroplasty with implantation of antibiotic spacer and antibiotic beads. Status post wound VAC placement Currently on IV Cubicin daily and rifampin 300 mg p.o. every 12 hours per ID Management per plastic and orthopedic surgery Plan for skin graft at [facility] next week Sunday, January 22, 2018 Anemia of acute blood loss H&H improved status post 2 unit packed red blood cell yesterday January 19, 2018 Hypertension Continue with Norvasc DVT prophylaxis. Lovenox and aspirin as per orthopedic surgery. Problem Qualifiers (1) Infection of total right knee replacement: Qualified Codes: T84.53XD - Infection and inflammatory reaction due to internal right knee prosthesis, subsequent encounter (2) HTN (hypertension): Qualified Codes: I10 - Essential (primary) hypertension (3) Status post revision of total knee: Qualified Codes: Z96.651 - Presence of right artificial knee joint (4) Sepsis: Qualified Codes: A41.02 - Sepsis due to methicillin resistant Staphylococcus aureus Eric Moore MD Jan 20, 2018 10:05
--- NOTE | 2018-01-20 11:44 | PD.ORT.PN ---
Subjective Subjective Remarks pain tolerable. saw plastics Sunday during vac change and again yesterday. scheduled for skin graft Sunday here. Objective Vitals Vital Signs Date Time Temp Pulse Resp B/P (MAP) Pulse Ox O2 Delivery O2 Flow Rate FiO2 01/20/18 08:25 98.4 93 18 127/78 (94) 95 01/20/18 01:25 99.0 94 20 129/80 94 01/19/18 23:55 99.0 94 18 127/78 (94) 95 01/19/18 23:00 99.3 83 18 123/85 96 01/19/18 22:50 99.3 84 18 123/85 (98) 96 01/19/18 20:00 98.3 100 18 121/68 (85) 97 01/19/18 16:31 98.1 88 18 130/60 (83) 99 01/19/18 16:15 98.9 110 18 118/58 96 01/19/18 16:00 98.4 105 111/69 95 01/19/18 15:45 98.1 97 18 130/60 99 01/19/18 12:03 98.3 109 18 113/64 (80) 98 I/O 01/19/18 01/19/18 01/19/18 01/20/18 01/20/18 01/20/18 07:00 15:00 23:00 07:00 15:00 23:00 Intake Total 420 ml 410 ml Output Total 150 ml 150 ml 900 ml Balance -150 ml -150 ml 420 ml -490 ml Packed Cells 400 ml 400 ml Blood Product IV Normal Saline Flush 20 ml 10 ml Output Urine Total 150 ml 900 ml Drainage Total 150 ml # Voids 3 Result Diagram: 01/20/18 0607 01/20/18 0607 Procedures Right knee arthrotomy with irrigation and debridement and application of antibiotic beads Objective Remarks Wound VAC is intact anteriorly. No surrounding erythema. knee immobilizer is in place. Moderate swelling of the knee. Stable mild to moderate pitting edema lower extremity. Moves toes actively. Assessment & Plan Assessment and Plan POD #10: Right knee arthrotomy with irrigation and debridement and application of antibiotic beads POD #4: Right knee resection arthroplasty with implantation of antibiotic spacer and antibiotic beads. 1. Toe-touch weightbearing 2. Lovenox restarted. Prescription for Lovenox and aspirin in the chart for when discharged. 3. Patient was transfused 2 units of red blood cells after surgery. Anemia - symptomatic. transfused 2 units PRBCs Sunday as well. 4. ID to manage ABX, including likely need for PICC line. Intraoperative cultures positive for MRSA. 5. Dr. Gomez contacted the plastic surgeon Dr. Wright on Sunday. He expressed interest in seeing the wound. the first wound VAC dressing will be done Sunday. I have written an order for the nurse to contact the plastic surgeon prior to doing the dressing change to coordinate with him. Ultimately, the next plan will need to be created between the plastic surgeon and the patient as far as coverage of the anterior wound. Ultimately having the coverage done sooner rather than later would be potentially more beneficial to reduce chance of developing osteomyelitis. 6. Just in case the patient is discharged with the wound VAC Dr. Gomez has filled out a form in the chart for this. 7. Plastic Surgery evaluated patient Sunday and is scheduled for skin graft Sunday 8. Dr. Lyon following for ortho this weekend. Isaiah Sagastume Jan 20, 2018 11:44
[2018-01-20 12:35] VITALS: BP 110/76; PULSE 101; RESP 18; TEMP 98.6; O2SAT 96
[2018-01-20] MEDS: ENOXAPARIN SODIUM 40 MG/0.4 ML SYRINGE SQ SCH (13:39)
[2018-01-20 17:21] VITALS: BP 128/66; PULSE 98; RESP 18; TEMP 98.3; O2SAT 96
[2018-01-20] MEDS: DAPTOmycin INJ 1,000 MG in SODIUM CHLORIDE 0.9% INJ 100 ML IV SCH (19:59)
[2018-01-20 20:00] VITALS: BP 131/71; PULSE 100; RESP 18; TEMP 99.8; O2SAT 96
[2018-01-21] VITALS: BP 128/68; PULSE 97; RESP 18; TEMP 98.9; O2SAT 96
[2018-01-21] MEDS: ZOLPIDEM TARTRATE 5 MG TAB PO PRN (00:28)
[2018-01-21 04:00] VITALS: BP 120/58; PULSE 95; RESP 18; TEMP 98.1; O2SAT 98
[2018-01-21] MEDS: SODIUM CHLOR 0.9% 1000 ML INJ 1,000 ML IV SCH ×2 (04:07→12:53)
[2018-01-21 08:00] VITALS: BP 126/72; PULSE 106; RESP 19; TEMP 98.8; O2SAT 95
[2018-01-21] MEDS: MULTIVITAMINS/MINERALS THERAPEUTIC TAB PO SCH ×2 (08:32→23:00)
[2018-01-21] MEDS: RIFAMPIN 150 MG CAP PO SCH ×2 (08:33→22:59)
[2018-01-21] MEDS: DOCUSATE SODIUM 100 MG CAP PO SCH ×2 (08:33→21:00)
[2018-01-21] MEDS: amLODIPine BESYLATE 5 MG TAB PO SCH (08:33)
--- NOTE | 2018-01-21 09:01 | HHI.PR ---
Subjective Remarks Follow-up infection of her right total knee replacement January 19, 2018-patient seen and examined, patient denies any significant right knee pain. Wound VAC was changed yesterday. Patient is awaiting referral to [facility] for possible skin graft next week January 20, 2018-patient seen and examined, responding well to blood transfusion yesterday. Currently afebrile. Plan for skin graft flap January here at [place] January 21, 2018-patient seen and examined, states he is feeling much better today , vitals stable. No significant pain to right knee Objective Vitals Vital Signs Date Time Temp Pulse Resp B/P (MAP) Pulse Ox O2 Delivery O2 Flow Rate FiO2 01/21/18 08:00 98.8 106 19 126/72 (90) 95 01/21/18 04:00 98.1 95 18 120/58 (78) 98 01/21/18 00:00 98.9 97 18 128/68 (88) 96 01/21/18 00:00 98.9 97 18 128/68 (88) 96 01/20/18 20:00 99.8 100 18 131/71 (91) 96 01/20/18 17:21 98.3 98 18 128/66 (86) 96 01/20/18 12:35 98.6 101 18 110/76 (87) 96 I/O 01/20/18 01/20/18 01/20/18 01/21/18 01/21/18 01/21/18 07:00 15:00 23:00 07:00 15:00 23:00 Intake Total 410 ml Output Total 900 ml 250 ml 600 ml Balance -490 ml -250 ml -600 ml Packed Cells 400 ml Blood Product IV Normal Saline Flush 10 ml Output Urine Total 900 ml 600 ml Drainage Total 250 ml Result Diagram: 01/20/18 0607 01/20/18 0607 Objective Remarks GENERAL: NAD SKIN: Warm and dry. HEAD: Normocephalic. EYES: No scleral icterus. No injection or drainage. NECK: Supple, trachea midline. No JVD or lymphadenopathy. CARDIOVASCULAR: Regular rate and rhythm without murmurs, gallops, or rubs. RESPIRATORY: Breath sounds equal bilaterally. No accessory muscle use. GASTROINTESTINAL: Abdomen soft, non-tender, nondistended. MUSCULOSKELETAL: No cyanosis, or edema. Wound VAC in place right knee- neurovascular intact BACK: Nontender without obvious deformity. No CVA tenderness. Procedures Right knee resection arthroplasty of revision knee replacement, with implantation of antibiotic cement spacer and antibiotic beads 01/16 A/P Problem List: (1) Infection of total right knee replacement ICD Code: T84.53XA - Infection and inflammatory reaction due to internal right knee prosthesis, initial encounter (2) HTN (hypertension) ICD Code: I10 - Essential (primary) hypertension (3) Status post revision of total knee ICD Code: Z96.659 - Presence of unspecified artificial knee joint (4) Sepsis ICD Code: A41.9 - Sepsis, unspecified organism (5) Postoperative anemia due to acute blood loss ICD Code: D62 - Acute posthemorrhagic anemia Status: Acute Assessment and Plan 72-year-old man with Sepsis: Secondary to infected right knee replacement Now resolved Infected right knee replacement s/p Right knee arthrotomy with irrigation and debridement and application of antibiotic beads s/p Right knee resection arthroplasty with implantation of antibiotic spacer and antibiotic beads. Status post wound VAC placement Currently on IV Cubicin daily and rifampin 300 mg p.o. every 12 hours per ID Management per plastic and orthopedic surgery Plan for skin graft tomorrow Sunday, January 22, 2018 Anemia of acute blood loss H&H improved status post 2 unit packed red blood cell January 19, 2018 Hypertension Continue with Norvasc DVT prophylaxis. Lovenox and aspirin as per orthopedic surgery. Problem Qualifiers (1) Infection of total right knee replacement: Qualified Codes: T84.53XD - Infection and inflammatory reaction due to internal right knee prosthesis, subsequent encounter (2) HTN (hypertension): Qualified Codes: I10 - Essential (primary) hypertension (3) Status post revision of total knee: Qualified Codes: Z96.651 - Presence of right artificial knee joint (4) Sepsis: Qualified Codes: A41.02 - Sepsis due to methicillin resistant Staphylococcus aureus Eric Moore MD Jan 21, 2018 09:01
[2018-01-21 11:43] VITALS: BP 122/76; PULSE 93; RESP 19; TEMP 98.3; O2SAT 98
--- NOTE | 2018-01-21 12:32 | PD.ORT.PN ---
Subjective Subjective Remarks The patient states he is feeling better today. Patient reports the plan is for him to have a skin graft from his calf and hip to close his surgical right knee wound tomorrow. Objective Vitals Vital Signs Date Time Temp Pulse Resp B/P (MAP) Pulse Ox O2 Delivery O2 Flow Rate FiO2 01/21/18 11:43 98.3 93 19 122/76 (91) 98 01/21/18 08:00 98.8 106 19 126/72 (90) 95 01/21/18 04:00 98.1 95 18 120/58 (78) 98 01/21/18 00:00 98.9 97 18 128/68 (88) 96 01/21/18 00:00 98.9 97 18 128/68 (88) 96 01/20/18 20:00 99.8 100 18 131/71 (91) 96 01/20/18 17:21 98.3 98 18 128/66 (86) 96 01/20/18 12:35 98.6 101 18 110/76 (87) 96 I/O 01/20/18 01/20/18 01/20/18 01/21/18 01/21/18 01/21/18 07:00 15:00 23:00 07:00 15:00 23:00 Intake Total 410 ml Output Total 900 ml 250 ml 600 ml Balance -490 ml -250 ml -600 ml Packed Cells 400 ml Blood Product IV Normal Saline Flush 10 ml Output Urine Total 900 ml 600 ml Drainage Total 250 ml Result Diagram: 01/20/18 0607 01/20/18 0607 Procedures Right knee arthrotomy with irrigation and debridement and application of antibiotic beads Objective Remarks Wound VAC is intact anteriorly. No surrounding erythema. Moderate swelling of the knee. Stable mild pitting edema lower extremity. Moves toes actively. Assessment & Plan Assessment and Plan POD #11: Right knee arthrotomy with irrigation and debridement and application of antibiotic beads POD #5: Right knee resection arthroplasty with implantation of antibiotic spacer and antibiotic beads. 1. Toe-touch weightbearing 2. Lovenox restarted but will be placed on hold for planned return to surgery tomorrow with plastics for closure of surgical wound with skin grafting. Prescription for Lovenox and aspirin in the chart for when discharged. 3. Patient was transfused 2 units of red blood cells after surgery. Anemia - symptomatic. transfused 2 units PRBCs Sunday as well. Anemia improving. 4. ID to manage ABX, including likely need for PICC line. Intraoperative cultures positive for MRSA. ID reconsulted for discharge planning, as last note was 01/[address] Gomez contacted the plastic surgeon Dr. Wright on Sunday. He expressed interest in seeing the wound. the first wound VAC dressing was done Sunday. 6. Just in case the patient is discharged with the wound VAC Dr. Gomez has filled out a form in the chart for this. Rylan Peterson Jan 21, 2018 12:32
[2018-01-21 15:41] VITALS: BP 124/81; PULSE 96; RESP 19; TEMP 98.5; O2SAT 98
--- NOTE | 2018-01-21 17:55 | HHI.IDPN ---
Subjective Subjective Remarks sp removal of all comnponents of infectd prosthesis Plastic surgery was consulted for flap VAC placed no fever Antibiotics dapto rifampin Allergies: Coded Allergies: No Known Allergies (Verified , 01/09/18) Objective . Vital Signs Date Time Temp Pulse Resp B/P (MAP) Pulse Ox O2 Delivery O2 Flow Rate FiO2 01/21/18 15:41 98.5 96 19 124/81 (95) 98 01/21/18 11:43 98.3 93 19 122/76 (91) 98 01/21/18 08:00 98.8 106 19 126/72 (90) 95 01/21/18 04:00 98.1 95 18 120/58 (78) 98 01/21/18 00:00 98.9 97 18 128/68 (88) 96 01/21/18 00:00 98.9 97 18 128/68 (88) 96 01/20/18 20:00 99.8 100 18 131/71 (91) 96 01/21/18 01/21/18 01/22/18 15:00 23:00 07:00 Output Total 600 ml 500 ml Balance -600 ml -500 ml Output Urine Total 600 ml 500 ml . Laboratory Tests Test 01/20/18 06:07 White Blood Count 9.5 TH/MM3 Red Blood Count 3.35 MIL/MM3 Hemoglobin 9.4 GM/DL Hematocrit 28.3 % Mean Corpuscular Volume 84.7 FL Mean Corpuscular Hemoglobin 28.0 PG Mean Corpuscular Hemoglobin Concent 33.1 % Red Cell Distribution Width 15.4 % Platelet Count 524 TH/MM3 Mean Platelet Volume 7.6 FL Neutrophils (%) (Auto) 70.8 % Lymphocytes (%) (Auto) 15.6 % Monocytes (%) (Auto) 8.5 % Eosinophils (%) (Auto) 3.5 % Basophils (%) (Auto) 1.6 % Neutrophils # (Auto) 6.7 TH/MM3 Lymphocytes # (Auto) 1.5 TH/MM3 Monocytes # (Auto) 0.8 TH/MM3 Eosinophils # (Auto) 0.3 TH/MM3 Basophils # (Auto) 0.2 TH/MM3 CBC Comment DIFF FINAL Differential Comment Laboratory Tests Test 01/20/18 06:07 Blood Urea Nitrogen 13 MG/DL Creatinine 1.13 MG/DL Random Glucose 83 MG/DL Calcium Level 8.1 MG/DL Sodium Level 139 MEQ/L Potassium Level 3.8 MEQ/L Chloride Level 104 MEQ/L Carbon Dioxide Level 24.9 MEQ/L Anion Gap 10 MEQ/L Estimat Glomerular Filtration Rate 64 ML/MIN Physical Exam CONSTITUTIONAL/GENERAL: This is an adequately nourished patient, in no apparent distress. TUBES/LINES/DRAINS: SKIN: No jaundice, rashes, or lesions. CARDIOVASCULAR: Regular rate and rhythm without murmurs, gallops, or rubs. No JVD. Peripheral pulses symmetric. RESPIRATORY/CHEST: Symmetric, unlabored respirations. Clear to auscultation. Breath sounds equal bilaterally. No wheezes, rales, or rhonchi. GASTROINTESTINAL: Abdomen soft, non-tender, nondistended. No hepato-splenomegaly , or palpable masses. No guarding. Bowel sounds present. MUSCULOSKELETAL: Extremities without clubbing, cyanosis, or edema. RLE VAC in place over large defect of the knee + edema erythema noted on the lower leg NEUROLOGICAL: Awake and alert. Motor and sensory grossly within normal limits. Follows commands. Cognitively sharp. Moves all extremities. PSYCHIATRIC: No obvious anxiety/depression. no apparent hallucinations or other psychotic thought process. 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 Failed Failed I+D Fever, suspect sepsis from the knee leukocytosis - cont daptomycin 10-12 mg/kg + RIFAMPIN - - fu CBC, CMP, total CKs repeat op wound clx tomorrow Aixa Pierce MD Jan 21, 2018 17:55
[2018-01-21] MEDS ORDERED: LACTATED RINGER'S 1000 ML IV PRN (19:00)
[2018-01-21] MEDS ORDERED: METOPROLOL TARTRATE 25 MG TAB PO PRN (19:00)
[2018-01-21] MEDS ORDERED: POVIDONE IODINE 5% (ANTISEPSIS KIT) 4 APPLICATIONS EACH NARE PRN (19:00)
[2018-01-21] MEDS ORDERED: SODIUM CHLORID 0.9% 500 ML IV PRN (19:00)
[2018-01-21] MEDS ORDERED: CHLORHEXIDINE GLUCONATE 2 % 1 PACK (2 CLOTHS) TOPICAL PRN (19:00)
[2018-01-21 21:00] VITALS: BP 122/73; PULSE 110; RESP 18; TEMP 99.2; O2SAT 95
[2018-01-21] MEDS: DAPTOmycin INJ 1,000 MG in SODIUM CHLORIDE 0.9% INJ 100 ML IV SCH (22:59)
[2018-01-22] MEDS: DEXT 5%-NACL 0.9% 1000 ML INJ 1,000 ML IV SCH ×3 (00:08→20:00)
[2018-01-22 00:41] VITALS: BP 126/78; PULSE 101; RESP 18; TEMP 99.8; O2SAT 97
[2018-01-22 04:39] VITALS: BP 122/55; PULSE 94; RESP 18; TEMP 98.4; O2SAT 97
[2018-01-22] MEDS ORDERED: MINERAL OIL 10 ML VIAL ONE (07:42)
[2018-01-22 08:00] VITALS: BP 120/70; PULSE 96; RESP 18; TEMP 98.7; O2SAT 97
[2018-01-22] MEDS ORDERED: LIDOCAINE 1%/EPINEPHrine 1:100,000 SOLN 50 ML VIAL ONE (08:07)
[2018-01-22] MEDS: amLODIPine BESYLATE 5 MG TAB PO SCH (08:32)
[2018-01-22] MEDS ORDERED: GENTAMICIN SULFATE 80 MG/2 ML VIAL ONE (08:34)
[2018-01-22] MEDS: DOCUSATE SODIUM 100 MG CAP PO SCH ×2 (08:59→21:00)
[2018-01-22] MEDS: RIFAMPIN 150 MG CAP PO SCH ×2 (08:59→22:20)
[2018-01-22] MEDS: MULTIVITAMINS/MINERALS THERAPEUTIC TAB PO SCH ×2 (09:00→22:20)
--- NOTE | 2018-01-22 10:13 | HHI.PR ---
Subjective Remarks Follow-up infection of her right total knee replacement January 19, 2018-patient seen and examined, patient denies any significant right knee pain. Wound VAC was changed yesterday. Patient is awaiting referral to [facility] for possible skin graft next week January 20, 2018-patient seen and examined, responding well to blood transfusion yesterday. Currently afebrile. Plan for skin graft flap January here at [facility] January 21, 2018-patient seen and examined, states he is feeling much better today , vitals stable. No significant pain to right knee January 22, 2018-patient seen and examined, currently n.p.o. pending skin graft flap of his right knee today Objective Vitals Vital Signs Date Time Temp Pulse Resp B/P (MAP) Pulse Ox O2 Delivery O2 Flow Rate FiO2 01/22/18 08:00 98.7 96 18 120/70 (87) 97 01/22/18 04:39 98.4 94 18 122/55 (77) 97 01/22/18 00:41 99.8 101 18 126/78 (94) 97 01/21/18 21:00 99.2 110 18 122/73 (89) 95 01/21/18 15:41 98.5 96 19 124/81 (95) 98 01/21/18 11:43 98.3 93 19 122/76 (91) 98 I/O 01/21/18 01/21/18 01/21/18 01/22/18 01/22/18 01/22/18 07:00 15:00 23:00 07:00 15:00 23:00 Output Total 600 ml 500 ml 700 ml Balance -600 ml -500 ml -700 ml Output Urine Total 600 ml 500 ml 700 ml Result Diagram: 01/20/1860601/20/18 06 Objective Remarks GENERAL: NAD SKIN: Warm and dry. HEAD: Normocephalic. EYES: No scleral icterus. No injection or drainage. NECK: Supple, trachea midline. No JVD or lymphadenopathy. CARDIOVASCULAR: Regular rate and rhythm without murmurs, gallops, or rubs. RESPIRATORY: Breath sounds equal bilaterally. No accessory muscle use. GASTROINTESTINAL: Abdomen soft, non-tender, nondistended. MUSCULOSKELETAL: No cyanosis, or edema. Wound VAC in place right knee- neurovascular intact BACK: Nontender without obvious deformity. No CVA tenderness. Procedures Right knee resection arthroplasty of revision knee replacement, with implantation of antibiotic cement spacer and antibiotic beads 01/16 A/P Problem List: (1) Infection of total right knee replacement ICD Code: T84.53XA - Infection and inflammatory reaction due to internal right knee prosthesis, initial encounter (2) HTN (hypertension) ICD Code: I10 - Essential (primary) hypertension (3) Status post revision of total knee ICD Code: Z96.659 - Presence of unspecified artificial knee joint (4) Sepsis ICD Code: A41.9 - Sepsis, unspecified organism (5) Postoperative anemia due to acute blood loss ICD Code: D62 - Acute posthemorrhagic anemia Status: Acute Assessment and Plan 72-year-old man with Sepsis: Secondary to infected right knee replacement Now resolved Infected right knee replacement s/p Right knee arthrotomy with irrigation and debridement and application of antibiotic beads s/p Right knee resection arthroplasty with implantation of antibiotic spacer and antibiotic beads. Status post wound VAC placement Currently on IV Cubicin daily and rifampin 300 mg p.o. every 12 hours per ID Management per plastic and orthopedic surgery Plan for skin graft today Monday, January 22, 2018 Anemia of acute blood loss H&H improved status post 2 unit packed red blood cell January 19, 2018 Hypertension Continue with Norvasc DVT prophylaxis. Lovenox and aspirin as per orthopedic surgery. Problem Qualifiers (1) Infection of total right knee replacement: Qualified Codes: T84.53XD - Infection and inflammatory reaction due to internal right knee prosthesis, subsequent encounter (2) HTN (hypertension): Qualified Codes: I10 - Essential (primary) hypertension (3) Status post revision of total knee: Qualified Codes: Z96.651 - Presence of right artificial knee joint (4) Sepsis: Qualified Codes: A41.02 - Sepsis due to methicillin resistant Staphylococcus aureus Eric Moore MD Jan 22, 2018 10:13
--- NOTE | 2018-01-22 10:37 | PD.CONS ---
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 He was followed off abx x 2 months, got negative nuclear scan and was cleared for a new prosthesis beginning of December. End of December pt developed swelling, redness and then fever up to 102 the weekend before he was admitted, and is now status post removal of prosthesis with placement of permanent antibiotic spacer Started on Vanco by infectious disease Review of Systems Except as stated in HPI: all other systems reviewed are Neg Past Family Social History Allergies: Coded Allergies: No Known Allergies (Verified , 01/09/18) Past Medical History hypertension Past Surgical History as above Active Ordered Medications Medications where reviewed in EMR Antibiotics Include: vancomycin Family History reviewed non contributory Social History No Tobacco. Ever Occ social ETOH. No Illicit Drugs. Very athletic, exercises regularly Past Family Social History Allergies: Coded Allergies: No Known Allergies (Verified , 01/09/18) Physical Exam Vital Signs Vital Signs Date Time Temp Pulse Resp B/P (MAP) Pulse Ox O2 Delivery O2 Flow Rate FiO2 01/22/18 08:00 98.7 96 18 120/70 (87) 97 01/22/18 04:39 98.4 94 18 122/55 (77) 97 01/22/18 00:41 99.8 101 18 126/78 (94) 97 01/21/18 21:00 99.2 110 18 122/73 (89) 95 01/21/18 15:41 98.5 96 19 124/81 (95) 98 01/21/18 11:43 98.3 93 19 122/76 (91) 98 Physical Exam No apparent anxiety moist mucous membranes PERRLA skin without rash respirations nonlabored moves all 4 extremities to command digits warm well perfused Right knee VACd VAC sponge removed Superiorly, adequate coverage with extensor mechanism Inferiorly roughly 4 cm of exposed proximal tibia No adjacent erythema Laboratory Date/Time Source Procedure Growth Status 01/12/18 12:34 Blood Peripheral Aerobic Blood Culture - Final NO GROWTH IN 5 DAYS Complete 01/12/18 12:34 Blood Peripheral Anaerobic Blood Culture - Final NO GROWTH IN 5 DAYS Complete 01/16/18 13:18 Abscess Knee Gram Stain - Final Complete 01/16/18 13:18 Wound Culture - Final S. Aureus Mrsa Complete Result Diagram: 01/20/18 0607 01/20/1807 Assessment and Plan Problem List: (1) Open knee wound ICD Codes: S81.009A - Unspecified open wound, unspecified knee, initial encounter Assessment and Plan 72-year-old male with right knee wound with exposed tibia Risks benefits alternative treatments discussed All questions answered and the patient expressed understanding Offered patient option for a free flap, though not performed here Discussed free flap options for this patient with plastic surgeon at [facility] who felt local options were preferable Patient therefore elected to assume the risks of right pedicled gastrocnemius muscle flap to right knee wound with split-thickness skin graft coverage Informed consent obtained Problem Qualifiers (1) Infection of total right knee replacement: Qualified Codes: T84.53XD - Infection and inflammatory reaction due to internal right knee prosthesis, subsequent encounter Walker Wright MD Jan 22, 2018 10:37
[2018-01-22 11:52] VITALS: BP 138/83; PULSE 99; RESP 20; TEMP 98.5; O2SAT 96
[2018-01-22] MEDS ORDERED: MUPIROCIN 2% OINT 22 GM TUBE ONE (11:54)
[2018-01-22] MEDS ORDERED: BACITRACIN TOP OINT 15 GM TUBE ONE (11:56)
[2018-01-22] MEDS ORDERED: LIDOCAINE HCL 1% PF 5 ML SYRINGE OTHER ONE (12:00)
[2018-01-22] MEDS ORDERED: ONDANSETRON HCL 4 MG/2 ML VIAL IV ONE (12:00)
[2018-01-22] MEDS ORDERED: ceFAZolin INJ 1,000 MG VIAL IV ONE (12:00)
[2018-01-22] MEDS ORDERED: VECURONIUM BROMIDE 20 MG VIAL IV ONE (12:00)
[2018-01-22] MEDS ORDERED: PROPOFOL 200 MG/20 ML AMP IV ONE (12:00)
[2018-01-22] MEDS: BUPIVACAINE/EPINEPHRINE 0.5% 50 ML VIAL ONE (12:46)
[2018-01-22] MEDS ORDERED: ACETAMINOPHEN 1000 MG/100 ML 100 ML IV ONE (13:15)
[2018-01-22] MEDS ORDERED: ceFAZolin INJ 1,000 MG VIAL ONE (15:12)
[2018-01-22] MEDS ORDERED: MIDAZOLAM HCL 2 MG/2 ML VIAL ONE (15:39)
[2018-01-22] MEDS ORDERED: MORPHINE SULFATE 4 MG/ML INJ ONE (15:39)
[2018-01-22] MEDS ORDERED: *morphine SULFATE 8 MG/ML PERIprocedure ONLY ONE (15:54)
[2018-01-22] MEDS ORDERED: DO NOT ADM ANY ANTICOAGULANT DRUGS PRN (16:00)
[2018-01-22 16:25] VITALS: BP 124/72; PULSE 83; RESP 18; TEMP 97.4; O2SAT 95
[2018-01-22 20:40] VITALS: BP 125/77; PULSE 89; RESP 18; TEMP 98.4; O2SAT 97
[2018-01-22 22:05] LABS: ALBUMIN 1.9 GM/DL (3.4-5.0); DIRECT BILIRUBIN ADULT 0.1 MG/DL (0.0-0.2)
[2018-01-22 22:07] LABS: INDIRECT BILIRUBIN 0.2 MG/DL (0.0-0.8); TOTAL BILIRUBIN ADULT 0.3 MG/DL (0.2-1.0); TOTAL PROTEIN 6.6 GM/DL (6.4-8.2)
[2018-01-22] MEDS: DAPTOmycin INJ 1,000 MG in SODIUM CHLORIDE 0.9% INJ 100 ML IV SCH (22:20)
[2018-01-23] MEDS: DEXT 5%-NACL 0.9% 1000 ML INJ 1,000 ML IV SCH ×3 (05:52→23:52)
[2018-01-23 06:07] VITALS: BP 110/70; PULSE 102; RESP 18; TEMP 99.8; O2SAT 93
[2018-01-23 07:23] LABS: AUTOMATED NEUTROPHIL # 7.3 TH/MM3 (1.8-7.7); BASOPHIL # 0.1 TH/MM3 (0-0.2); BASOPHIL % 0.7 % (0.0-2.0); EOSINOPHIL # 0.2 TH/MM3 (0-0.4); EOSINOPHIL % 2.1 % (0.0-4.0); HEMATOCRIT 29.7 % (39.0-51.0); HEMOGLOBIN 9.7 GM/DL (13.0-17.0); LYMPH % 13.4 % (9.0-44.0); LYMPHOCYTE # 1.3 TH/MM3 (1.0-4.8); MEAN CELL VOLUME 85.1 FL (80.0-100.0); MEAN CORPUSCULAR HEMOGLOBIN 27.9 PG (27.0-34.0); MEAN CORPUSCULAR HGB CONC 32.8 % (32.0-36.0); MONOCYTE # 0.7 TH/MM3 (0-0.9); NEUT % 76.8 % (16.0-70.0); PLATELET COUNT 523 TH/MM3 (150-450); RED BLOOD COUNT 3.49 MIL/MM3 (4.50-5.90); RED CELL DISTRIBUTION WIDTH 15.5 % (11.6-17.2); WHITE BLOOD COUNT 9.5 TH/MM3 (4.0-11.0)
[2018-01-23 07:45] LABS: BICARBONATE 25.5 MEQ/L (21.0-32.0); CALCIUM 7.9 MG/DL (8.5-10.1); CREATININE 1.09 MG/DL (0.60-1.30)
[2018-01-23 08:00] VITALS: BP 130/81; PULSE 92; RESP 16; TEMP 99.3; O2SAT 95
[2018-01-23] MEDS: amLODIPine BESYLATE 5 MG TAB PO SCH (08:23)
[2018-01-23] MEDS: DOCUSATE SODIUM 100 MG CAP PO SCH ×2 (08:23→21:00)
[2018-01-23] MEDS: ENOXAPARIN SODIUM 40 MG/0.4 ML SYRINGE SQ SCH (08:23)
[2018-01-23] MEDS: MULTIVITAMINS/MINERALS THERAPEUTIC TAB PO SCH ×2 (08:23→21:33)
[2018-01-23] MEDS: RIFAMPIN 150 MG CAP PO SCH ×2 (08:23→21:33)
--- NOTE | 2018-01-23 11:19 | HHI.PR ---
Subjective Remarks Follow-up infection of her right total knee replacement January 19, 2018-patient seen and examined, patient denies any significant right knee pain. Wound VAC was changed yesterday. Patient is awaiting referral to [facility] for possible skin graft next week January 20, 2018-patient seen and examined, responding well to blood transfusion yesterday. Currently afebrile. Plan for skin graft flap January here at [place] January 21, 2018-patient seen and examined, states he is feeling much better today , vitals stable. No significant pain to right knee January 22, 2018-patient seen and examined, currently n.p.o. pending skin graft flap of his right knee today January 23, 2018-patient seen and examined, he is status post skin graft flap to right lower extremity 01/22/18, and denies any significant right LE pain. Currently afebrile Objective Vitals Vital Signs Date Time Temp Pulse Resp B/P (MAP) Pulse Ox O2 Delivery O2 Flow Rate FiO2 01/23/18 08:00 99.3 92 16 130/81 (97) 95 01/23/18 06:07 99.8 102 18 110/70 (83) 93 01/22/18 20:40 98.4 89 18 125/77 (93) 97 01/22/18 16:25 97.4 83 18 124/72 (89) 95 01/22/18 16:00 82 12 121/75 (90) 94 Room Air 01/22/18 15:45 86 19 130/72 (91) 98 Nasal Cannula 2 01/22/18 15:30 97.8 87 15 124/82 (96) 99 Nasal Cannula 2 01/22/18 15:30 97.8 87 15 118/72 (87) 100 Nasal Cannula 2 01/22/18 11:52 98.5 99 20 138/83 (101) 96 I/O 01/22/18 01/22/18 01/22/18 01/23/18 01/23/18 01/23/18 07:00 15:00 23:00 07:00 15:00 23:00 Intake Total 1000 ml Output Total 700 ml 650 ml Balance -700 ml 350 ml Other 1000 ml Output Urine Total 700 ml 600 ml Estimated Blood Loss 50 ml Result Diagram: 01/23/1846 6/20/18 0646 Objective Remarks GENERAL: NAD SKIN: Warm and dry. HEAD: Normocephalic. EYES: No scleral icterus. No injection or drainage. NECK: Supple, trachea midline. No JVD or lymphadenopathy. CARDIOVASCULAR: Regular rate and rhythm without murmurs, gallops, or rubs. RESPIRATORY: Breath sounds equal bilaterally. No accessory muscle use. GASTROINTESTINAL: Abdomen soft, non-tender, nondistended. MUSCULOSKELETAL: No cyanosis, or edema. dressing over right leg BACK: Nontender without obvious deformity. No CVA tenderness. Procedures Right knee resection arthroplasty of revision knee replacement, with implantation of antibiotic cement spacer and antibiotic beads 01/16 A/P Problem List: (1) Infection of total right knee replacement ICD Code: T84.53XA - Infection and inflammatory reaction due to internal right knee prosthesis, initial encounter (2) HTN (hypertension) ICD Code: I10 - Essential (primary) hypertension (3) Status post revision of total knee ICD Code: Z96.659 - Presence of unspecified artificial knee joint (4) Sepsis ICD Code: A41.9 - Sepsis, unspecified organism (5) Postoperative anemia due to acute blood loss ICD Code: D62 - Acute posthemorrhagic anemia Status: Acute Assessment and Plan 72-year-old man with Sepsis: Secondary to infected right knee replacement Now resolved Infected right knee replacement s/p Right knee arthrotomy with irrigation and debridement and application of antibiotic beads s/p Right knee resection arthroplasty with implantation of antibiotic spacer and antibiotic beads. Status post wound VAC placement Currently on IV Cubicin daily and rifampin 300 mg p.o. every 12 hours per ID Management per plastic and orthopedic surgery s/p skin graft of RLE January 22, 2018 and management per plastic surgery Anemia of acute blood loss H&H improved status post 2 unit packed red blood cell January 19, 2018 Hypertension Continue with Norvasc DVT prophylaxis. Lovenox and aspirin as per orthopedic surgery. Problem Qualifiers (1) Infection of total right knee replacement: Qualified Codes: T84.53XD - Infection and inflammatory reaction due to internal right knee prosthesis, subsequent encounter (2) HTN (hypertension): Qualified Codes: I10 - Essential (primary) hypertension (3) Status post revision of total knee: Qualified Codes: Z96.651 - Presence of right artificial knee joint (4) Sepsis: Qualified Codes: A41.02 - Sepsis due to methicillin resistant Staphylococcus aureus Eric Moore MD Jan 23, 2018 11:19
--- NOTE | 2018-01-23 11:45 | PD.ORT.PN ---
Subjective Subjective Remarks The patient says pain is controlled about the right knee. He has been on and off sleeping. Objective Vitals Vital Signs Date Time Temp Pulse Resp B/P (MAP) Pulse Ox O2 Delivery O2 Flow Rate FiO2 01/23/18 08:00 99.3 92 16 130/81 (97) 95 01/23/18 06:07 99.8 102 18 110/70 (83) 93 01/22/18 20:40 98.4 89 18 125/77 (93) 97 01/22/18 16:25 97.4 83 18 124/72 (89) 95 01/22/18 16:00 82 12 121/75 (90) 94 Room Air 01/22/18 15:45 86 19 130/72 (91) 98 Nasal Cannula 2 01/22/18 15:30 97.8 87 15 124/82 (96) 99 Nasal Cannula 2 01/22/18 15:30 97.8 87 15 118/72 (87) 100 Nasal Cannula 2 01/22/18 11:52 98.5 99 20 138/83 (101) 96 I/O 01/22/18 01/22/18 01/22/18 01/23/18 01/23/18 01/23/18 07:00 15:00 23:00 07:00 15:00 23:00 Intake Total 1000 ml Output Total 700 ml 650 ml Balance -700 ml 350 ml Other 1000 ml Output Urine Total 700 ml 600 ml Estimated Blood Loss 50 ml Result Diagram: 01/23/18 0646 01/23/18 0646 Objective Remarks There is a large bulky dressing to the right lower extremity applied and clean with no drainage on the dressing. The patient can move his toes well. There is no swelling about the foot. Assessment & Plan Assessment and Plan POD #14: Right knee arthrotomy with irrigation and debridement and application of antibiotic beads POD #7: Right knee resection arthroplasty with implantation of antibiotic spacer and antibiotic beads. POD #1: Right leg wound closure with flap and skin graft. Nonweightbearing to the right lower extremity for now. Follow-up with plastic surgeon as far as plan for the wound and length of stay necessary in the hospital. Intravenous antibiotics per infectious disease. Patient will require a PICC line. Lovenox for DVT prophylaxis. Cyrus Gomez MD Jan 23, 2018 11:45
[2018-01-23 12:00] VITALS: BP 125/79; PULSE 100; RESP 16; TEMP 98.9; O2SAT 95
--- NOTE | 2018-01-23 14:21 | PD.OP ---
Operative Report Date of Surgery: Jan 22, 2018 Preoperative Diagnosis: (1) Open knee wound (2) Status post revision of total knee Postoperative Diagnosis: (1) Open knee wound (2) Status post revision of total knee Procedure: Gastrocnemius muscle flap to right anterior knee wound (21162) and split- thickness skin graft from right anterior thigh to muscle flap/wound, 180 cm ( [id number], [id number]) Surgeon: Walker Barry Formula Mixer(s): . Operation and Findings: This is a 72-year-old male who presented with a right open knee wound. Risks benefits alternative treatments discussed. All questions answered and the patient expressed understanding. Patient elected to assume the risks of a muscle flap and split thickness skin graft to close the above wound. Informed consent obtained. The surgical sites were marked in the preoperative holding bay. The patient was on antibiotics already. Patient was taken to the operating room and all pressure points were padded. A surgical timeout was performed. After the smooth induction of general anesthesia, the surgical site was instilled with half percent Marcaine with epinephrine. Surgical site was prepped and draped in the usual sterile fashion. The medial leg incision was made longitudinally extending inferiorly from the incision for the total knee arthroplasty, as well as a superior transverse incision which ended in the popliteal fossa area. Following the incision of skin, blunt dissection was carried down to the fascia. The medial deep fascia was incised longitudinally exposing the interval between the gastrocnemius and soleus muscles. The interval between these 2 muscles was bluntly mobilized. The plantaris was kept free from injury. Attention was then turned to the gastrocnemius. The medial gastroc muscle belly was sharply divided from the calcaneal tendon. It was then freed from the lateral head along the median raphae. The sural nerve and vessels were protected and kept free from injury throughout. After the medial gastroc was freed from the soft tissue attachments it was preliminarily rotated into the wound. It was able to cover the anterior bone, though with some tension. As such further maneuvers were performed to free the proximal origin of the medial gastroc from the adjacent fascia. This allowed for additional centimeter or 2. Following this the intrinsic fascia of the gastroc was excised , allowing for additional centimeter or 2 more of length. It was at this point that the gastroc was deemed able to adequately cover the anterior tibial wound. The gastroc muscle flap was fixed in place using 2-0 nylons placed under the skin edges and tied over red rubber bolsters. The deep fascia of the leg was closed with a running 2-0 PDS. Following this skin was closed with multiple layers of 3-0 Vicryls in a deep dermal fashion followed by interrupted vertical mattress with 2-0 nylons. Lastly two skin grafts were harvested from the right anterior thigh. The skin grafts were meshed in a 1.5-1 fashion and fixed over the wound and muscle using telma. The surgical sites were cleaned. The incisions and skin graft sites were dressed with mupirocin ointment Xeroform gauze dry gauze fluffs and an appropriately padded posterior leg splint. The skin graft donor site hemostasis was ensured and these were dressed with Tegaderms. All needle sponge and instrument counts were correct 2. The patient arrived stable and doing well to the PACU. Walker Barry MD Jan 23, 2018 14:21
[2018-01-23 16:00] VITALS: BP 121/79; PULSE 89; RESP 16; TEMP 98.7; O2SAT 94
[2018-01-23 20:31] VITALS: BP 129/79; PULSE 102; RESP 18; TEMP 99.2; O2SAT 97
[2018-01-23] MEDS: DAPTOmycin INJ 1,000 MG in SODIUM CHLORIDE 0.9% INJ 100 ML IV SCH (21:32)
[2018-01-24 05:45] VITALS: BP 120/76; PULSE 99; RESP 18; TEMP 99.4; O2SAT 94
[2018-01-24 08:00] VITALS: BP 125/87; PULSE 97; RESP 16; TEMP 99.3; O2SAT 95
[2018-01-24] MEDS: DOCUSATE SODIUM 100 MG CAP PO SCH ×2 (09:00→21:16)
[2018-01-24] MEDS: MULTIVITAMINS/MINERALS THERAPEUTIC TAB PO SCH ×2 (09:48→21:16)
[2018-01-24] MEDS: ENOXAPARIN SODIUM 40 MG/0.4 ML SYRINGE SQ SCH ×2 (09:48→18:11)
[2018-01-24] MEDS: amLODIPine BESYLATE 5 MG TAB PO SCH (09:48)
[2018-01-24] MEDS: RIFAMPIN 150 MG CAP PO SCH ×2 (09:48→21:16)
--- NOTE | 2018-01-24 10:53 | HHI.PR ---
Subjective Remarks Follow-up infection of her right total knee replacement January 19, 2018-patient seen and examined, patient denies any significant right knee pain. Wound VAC was changed yesterday. Patient is awaiting referral to [facility] for possible skin graft next week January 20, 2018-patient seen and examined, responding well to blood transfusion yesterday. Currently afebrile. Plan for skin graft flap January here at [place] January 21, 2018-patient seen and examined, states he is feeling much better today , vitals stable. No significant pain to right knee January 22, 2018-patient seen and examined, currently n.p.o. pending skin graft flap of his right knee today January 23, 2018-patient seen and examined, he is status post skin graft flap to right lower extremity 01/22/18, and denies any significant right LE pain. Currently afebrile January 24, 2018-patient seen and examined, afebrile, denies any lower extremity pain. Some drainage out of RLE Objective Vitals Vital Signs Date Time Temp Pulse Resp B/P (MAP) Pulse Ox O2 Delivery O2 Flow Rate FiO2 01/24/18 08:00 99.3 97 16 125/87 (100) 95 01/24/18 05:45 99.4 99 18 120/76 (91) 94 01/23/18 20:31 99.2 102 18 129/79 (96) 97 01/23/18 16:00 98.7 89 16 121/79 (93) 94 01/23/18 12:00 98.9 100 16 125/79 (94) 95 I/O 01/23/18 01/23/18 01/23/18 01/24/18 01/24/18 01/24/18 06:59 14:59 22:59 06:59 14:59 22:59 Intake Total 600 ml Output Total 600 ml 300 ml Balance 0 ml -300 ml IV Total 600 ml Output Urine Total 600 ml 300 ml Result Diagram: 01/23/1864501/23/18645 Objective Remarks GENERAL: NAD SKIN: Warm and dry. HEAD: Normocephalic. EYES: No scleral icterus. No injection or drainage. NECK: Supple, trachea midline. No JVD or lymphadenopathy. CARDIOVASCULAR: Regular rate and rhythm without murmurs, gallops, or rubs. RESPIRATORY: Breath sounds equal bilaterally. No accessory muscle use. GASTROINTESTINAL: Abdomen soft, non-tender, nondistended. MUSCULOSKELETAL: No cyanosis, or edema. dressing over right leg with some serosanguineous drainage BACK: Nontender without obvious deformity. No CVA tenderness. Procedures Right knee resection arthroplasty of revision knee replacement, with implantation of antibiotic cement spacer and antibiotic beads 01/16 A/P Problem List: (1) Infection of total right knee replacement ICD Code: T84.53XA - Infection and inflammatory reaction due to internal right knee prosthesis, initial encounter (2) HTN (hypertension) ICD Code: I10 - Essential (primary) hypertension (3) Status post revision of total knee ICD Code: Z96.659 - Presence of unspecified artificial knee joint (4) Sepsis ICD Code: A41.9 - Sepsis, unspecified organism (5) Postoperative anemia due to acute blood loss ICD Code: D62 - Acute posthemorrhagic anemia Status: Acute Assessment and Plan 72-year-old man with Sepsis: Now resolved Infected right knee replacement s/p Right knee arthrotomy with irrigation and debridement and application of antibiotic beads s/p Right knee resection arthroplasty with implantation of antibiotic spacer and antibiotic beads. Status post wound VAC placement Currently on IV Cubicin daily and rifampin 300 mg p.o. every 12 hours per ID Management per plastic and orthopedic surgery s/p skin graft of RLE January 22, 2018 and management per plastic surgery Anemia of acute blood loss H&H improved status post 2 unit packed red blood cell January 19, 2018 Hypertension Continue with Norvasc DVT prophylaxis. Lovenox and aspirin as per orthopedic surgery. Problem Qualifiers (1) Infection of total right knee replacement: Qualified Codes: T84.53XD - Infection and inflammatory reaction due to internal right knee prosthesis, subsequent encounter (2) HTN (hypertension): Qualified Codes: I10 - Essential (primary) hypertension (3) Status post revision of total knee: Qualified Codes: Z96.651 - Presence of right artificial knee joint (4) Sepsis: Qualified Codes: A41.02 - Sepsis due to methicillin resistant Staphylococcus aureus rEic Moore MD Jan 24, 2018 10:53
[2018-01-24 12:00] VITALS: BP 128/78; PULSE 105; RESP 17; TEMP 99.1; O2SAT 97
[2018-01-24] MEDS ORDERED: MUPIROCIN 2% OINT 22 GM TUBE TOPICAL ONE (13:15)
--- NOTE | 2018-01-24 15:12 | HHI.PR ---
Subjective Remarks Patient denies pain. He reports normal sensation to the right lower extremity. No new complaints. Objective Vital Signs Date Time Temp Pulse Resp B/P (MAP) Pulse Ox O2 Delivery O2 Flow Rate FiO2 01/24/18 08:00 99.3 97 16 125/87 (100) 95 01/24/18 05:45 99.4 99 18 120/76 (91) 94 01/23/18 20:31 99.2 102 18 129/79 (96) 97 01/23/18 16:00 98.7 89 16 121/79 (93) 94 I/O 01/23/18 01/23/18 01/23/18 01/24/18 01/24/18 01/24/18 07:00 15:00 23:00 07:00 15:00 23:00 Intake Total 600 ml Output Total 600 ml 300 ml Balance 0 ml -300 ml IV Total 600 ml Output Urine Total 600 ml 300 ml Result Diagram: 01/23/18 0646 01/23/18 0646 Objective Remarks Patient appears comfortable Alert/appropriate/pleasant Right foot warm, well perfused, with good cap refill Sensation intact light touch distally Dressing removed 100% take of the skin graft Assessment and Plan Problem List: (1) Open knee wound ICD Codes: S81.009A - Unspecified open wound, unspecified knee, initial encounter Assessment and Plan 72-year-old male with right knee wound with exposed tibia postoperative day 2 status post right gastrocnemius muscle flap in skin graft Lovenox SCD to left lower extremity Strict bedrest Walker Wright MD Jan 24, 2018 15:12
[2018-01-24 16:00] VITALS: BP 109/69; PULSE 106; RESP 17; TEMP 99.3; O2SAT 96
--- NOTE | 2018-01-24 18:23 | PD.ORT.PN ---
Subjective Subjective Remarks The patient states he feels he is improving. Patient states he saw his plastics surgeon today and had a dressing change. Was told plan is to keep him hospitalized until next Sunday. Patient reports minimal pain to the right knee. Objective Vitals Vital Signs Date Time Temp Pulse Resp B/P (MAP) Pulse Ox O2 Delivery O2 Flow Rate FiO2 01/24/18 08:00 99.3 97 16 125/87 (100) 95 01/24/18 05:45 99.4 99 18 120/76 (91) 94 01/23/18 20:31 99.2 102 18 129/79 (96) 97 I/O 01/23/18 01/23/18 01/23/18 01/24/18 01/24/18 01/24/18 07:00 15:00 23:00 07:00 15:00 23:00 Intake Total 600 ml Output Total 600 ml 300 ml Balance 0 ml -300 ml IV Total 600 ml Output Urine Total 600 ml 300 ml Result Diagram: 01/23/1846 01/23/18 0646 Objective Remarks There is a large bulky dressing to the right lower extremity applied and clean with no drainage on the dressing. The patient can move his toes well. There is no swelling about the foot. SILT distally. 2+ pedal pulse. BCR X 5. Assessment & Plan Assessment and Plan POD #15: Right knee arthrotomy with irrigation and debridement and application of antibiotic beads POD #8: Right knee resection arthroplasty with implantation of antibiotic spacer and antibiotic beads. POD #2: Right leg wound closure with flap and skin graft. Nonweightbearing to the right lower extremity for now. Plastics to keep patient hospitalized until Sunday01/29/18. Plastics to arrange wound care and dressing changes. Strict bedrest. Intravenous antibiotics per infectious disease. Patient will require a PICC line. Would appreciate IDs input moving forward. Call placed to Dr. Pierce for input. Lovenox for DVT prophylaxis. Rylan Peterson Jan 24, 2018 18:23
[2018-01-24 20:30] VITALS: BP 136/60; PULSE 97; RESP 17; TEMP 100.8; O2SAT 97
[2018-01-24] MEDS: DAPTOmycin INJ 1,000 MG in SODIUM CHLORIDE 0.9% INJ 100 ML IV SCH (21:16)
[2018-01-24] MEDS: DEXT 5%-NACL 0.9% 1000 ML INJ 1,000 ML IV SCH ×2 (22:00→22:33)
[2018-01-25] VITALS (7 sets, daily range): BP systolic 114–130; BP diastolic 63–80; PULSE 99–110; RESP 16–20; TEMP 98.9–99.8; O2SAT 95–98
[2018-01-25] MEDS: DEXT 5%-NACL 0.9% 1000 ML INJ 1,000 ML IV SCH (08:00)
[2018-01-25] MEDS: DOCUSATE SODIUM 100 MG CAP PO SCH ×2 (09:00→20:36)
[2018-01-25] MEDS: ENOXAPARIN SODIUM 40 MG/0.4 ML SYRINGE SQ SCH ×2 (10:01→18:44)
[2018-01-25] MEDS: MULTIVITAMINS/MINERALS THERAPEUTIC TAB PO SCH ×2 (10:01→20:36)
[2018-01-25] MEDS: RIFAMPIN 150 MG CAP PO SCH ×2 (10:01→20:36)
[2018-01-25] MEDS: amLODIPine BESYLATE 5 MG TAB PO SCH (10:02)
--- NOTE | 2018-01-25 10:22 | HHI.PR ---
Subjective Remarks Follow-up infection of her right total knee replacement January 19, 2018-patient seen and examined, patient denies any significant right knee pain. Wound VAC was changed yesterday. Patient is awaiting referral to [facility] for possible skin graft next week January 20, 2018-patient seen and examined, responding well to blood transfusion yesterday. Currently afebrile. Plan for skin graft flap January here at [place] January 21, 2018-patient seen and examined, states he is feeling much better today , vitals stable. No significant pain to right knee January 22, 2018-patient seen and examined, currently n.p.o. pending skin graft flap of his right knee today January 23, 2018-patient seen and examined, he is status post skin graft flap to right lower extremity 01/22/18, and denies any significant right LE pain. Currently afebrile January 24, 2018-patient seen and examined, afebrile, denies any lower extremity pain. Some drainage out of RLE January 25, 2018-patient seen and examined, spiking fevers. Denies any cough. Wound dressing changed yesterday by plastics Objective Vitals Vital Signs Date Time Temp Pulse Resp B/P (MAP) Pulse Ox O2 Delivery O2 Flow Rate FiO2 01/25/18 09:03 99.7 101 20 125/80 (95) 95 01/25/18 06:40 99.0 102 16 130/80 (97) 96 01/25/18 00:30 98.9 100 16 114/63 (80) 96 01/24/18 20:30 100.8 97 17 136/60 (85) 97 01/24/18 16:00 99.3 106 17 109/69 (82) 96 01/24/18 12:00 99.1 105 17 128/78 (95) 97 I/O 01/24/18 01/24/18 01/24/18 01/25/18 01/25/18 01/25/18 07:00 15:00 23:00 07:00 15:00 23:00 Intake Total 900 ml 800 ml Output Total 700 ml 1000 ml Balance 200 ml -200 ml Intake Oral 900 ml 800 ml Output Urine Total 700 ml 1000 ml # Bowel Movements 0 0 Result Diagram: 01/23/1846 01/23/18645 Imaging Last Impressions Knee X-Ray 01/16/18 1319 Signed Impressions: CONCLUSION: Removal total arthroplasty as above. Lower Extremity CT 01/13/18 0000 Signed Impressions: CONCLUSION: 1. There is loculated fluid in the anterior distal thigh predominantly beneath the skin telma that has some rim enhancement and multiple locules of air and could represent a subcutaneous abscess. Similar fluid collection is also prese nt in the anterior pretibial soft tissues also worrisome for infection. There i s previous total knee replacement with antibiotic beads present in the soft tis sues. Objective Remarks GENERAL: NAD SKIN: Warm and dry. HEAD: Normocephalic. EYES: No scleral icterus. No injection or drainage. NECK: Supple, trachea midline. No JVD or lymphadenopathy. CARDIOVASCULAR: Regular rate and rhythm without murmurs, gallops, or rubs. RESPIRATORY: Breath sounds equal bilaterally. No accessory muscle use. GASTROINTESTINAL: Abdomen soft, non-tender, nondistended. MUSCULOSKELETAL: No cyanosis, or edema. dressing over right leg with some serosanguineous drainage BACK: Nontender without obvious deformity. No CVA tenderness. Procedures Right knee resection arthroplasty of revision knee replacement, with implantation of antibiotic cement spacer and antibiotic beads 01/16 A/P Problem List: (1) Infection of total right knee replacement ICD Code: T84.53XA - Infection and inflammatory reaction due to internal right knee prosthesis, initial encounter (2) HTN (hypertension) ICD Code: I10 - Essential (primary) hypertension (3) Status post revision of total knee ICD Code: Z96.659 - Presence of unspecified artificial knee joint (4) Sepsis ICD Code: A41.9 - Sepsis, unspecified organism (5) Postoperative anemia due to acute blood loss ICD Code: D62 - Acute posthemorrhagic anemia Status: Acute Assessment and Plan 72-year-old man with Sepsis: Now resolved Febrile episodes Check blood culture, chest x-ray and UA and treat accordingly Continue with current antibiotic Infected right knee replacement s/p Right knee arthrotomy with irrigation and debridement and application of antibiotic beads s/p Right knee resection arthroplasty with implantation of antibiotic spacer and antibiotic beads. Status post wound VAC placement Currently on IV Cubicin daily and rifampin 300 mg p.o. every 12 hours per ID Management per plastic and orthopedic surgery s/p skin graft of RLE January 22, 2018 and management as well as wound dressing change per plastic surgery Anemia of acute blood loss H&H improved status post 2 unit packed red blood cell January 19, 2018 Hypertension Continue with Norvasc DVT prophylaxis. Lovenox and aspirin as per orthopedic surgery. Problem Qualifiers (1) Infection of total right knee replacement: Qualified Codes: T84.53XD - Infection and inflammatory reaction due to internal right knee prosthesis, subsequent encounter (2) HTN (hypertension): Qualified Codes: I10 - Essential (primary) hypertension (3) Status post revision of total knee: Qualified Codes: Z96.651 - Presence of right artificial knee joint (4) Sepsis: Qualified Codes: A41.02 - Sepsis due to methicillin resistant Staphylococcus aureus Eric Moore MD Jan 25, 2018 10:22
--- NOTE | 2018-01-25 11:37 | RADRPT ---
EXAM DATE: 01/25/2018 11:34 AM EDT AGE/SEX: 72 years / Male INDICATIONS: Fever and shortness of breath. CLINICAL DATA: This is the patient's initial encounter. Patient reports that signs and symptoms have been present for 1 day and indicates a pain score of 0/10. MEDICAL/SURGICAL HISTORY: Hypertension. None. COMPARISON: No prior exams available for comparison. FINDINGS: A single AP view of the chest demonstrates the lungs to be symmetrically aerated without evidence of mass, infiltrate or effusion. The cardiomediastinal contours are unremarkable. Osseous structures a re intact. CONCLUSION: No acute cardiopulmonary process. Electronically signed by: Chris Vick MD 01/25/2018 11:36 AM EDT
--- NOTE | 2018-01-25 14:08 | HHI.IDPN ---
Subjective Subjective Remarks ID Xcover for . 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 He was followed off abx x 2 months , got negative nuclear scan and was cleared for a new prosthesis beginning of December. End of December pt developped swelling, rednees and then fever up to 102 last weekend, admitted to hosp and has his knee I+D with retention of prosthesis yday Started on Vanco. c/o GI issues on rifampin (GERD- like smx) 3/3 op cultures are growing MRSA sp removal of all components of infected prosthesis Plastic surgery flap placed. Overnight events reviewed. Low grade fevers. No rash No diarrhea. Reports plans on changing plastics dressing on 01/29. Primary ordered Blood cultures today. Antibiotics dapto rifampin Lines Lines ok Past Medical History as per HPI Allergies: Coded Allergies: No Known Allergies (Verified , 01/09/18) Objective . Vital Signs Date Time Temp Pulse Resp B/P (MAP) Pulse Ox O2 Delivery O2 Flow Rate FiO2 01/25/18 12:54 99.7 106 20 130/73 (92) 98 01/25/18 09:03 99.7 101 20 125/80 (95) 95 01/25/18 06:40 99.0 102 16 130/80 (97) 96 01/25/18 00:30 98.9 100 16 114/63 (80) 96 01/24/18 20:30 100.8 97 17 136/60 (85) 97 01/24/18 16:00 99.3 106 17 109/69 (82) 96 . Microbiology Date/Time Source Procedure Growth Status 01/25/18 13:06 Blood Peripheral Aerobic Blood Culture Pending Received 01/25/18 13:06 Blood Peripheral Anaerobic Blood Culture Pending Received 01/25/18 12:58 Blood Peripheral Aerobic Blood Culture Pending Received 01/25/18 12:58 Blood Peripheral Anaerobic Blood Culture Pending Received Imaging Last Impressions Chest X-Ray 01/25/18 0000 Signed Impressions: CONCLUSION: No acute cardiopulmonary process. Knee X-Ray 01/16/18 1319 Signed Impressions: CONCLUSION: Removal total arthroplasty as above. Lower Extremity CT 01/13/18 0000 Signed Impressions: CONCLUSION: 1. There is loculated fluid in the anterior distal thigh predominantly beneath the skin telma that has some rim enhancement and multiple locules of air and could represent a subcutaneous abscess. Similar fluid collection is also prese nt in the anterior pretibial soft tissues also worrisome for infection. There i s previous total knee replacement with antibiotic beads present in the soft tis sues. Physical Exam CONSTITUTIONAL/GENERAL: This is an adequately nourished patient, in no apparent distress. TUBES/LINES/DRAINS: SKIN: No jaundice, rashes, or lesions. CARDIOVASCULAR: Regular rate and rhythm without murmurs, gallops, or rubs. No JVD. Peripheral pulses symmetric. RESPIRATORY/CHEST: Symmetric, unlabored respirations. Clear to auscultation. Breath sounds equal bilaterally. No wheezes, rales, or rhonchi. GASTROINTESTINAL: Abdomen soft, non-tender, nondistended. No hepato-splenomegaly , or palpable masses. No guarding. Bowel sounds present. MUSCULOSKELETAL: Extremities without clubbing, cyanosis, or edema. RLE with post op dressings from mid thigh to foot. Skin graft sites look ok. NEUROLOGICAL: Awake and alert. Motor and sensory grossly within normal limits. Follows commands. Cognitively sharp. Moves all extremities. PSYCHIATRIC: No obvious anxiety/depression. no apparent hallucinations or other psychotic thought process. 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 Failed Failed I+D Fever, suspect sepsis from the knee leukocytosis Recs Follow temps Follow blood cultures ordered today dw plan to treat with following regimen and follow up with (Will place infusion orders once fevers resolved, Blood cultures neg for 3 days) Continue daptomycin 10-12 mg/kg + RIFAMPIN fu CBC, CMP, total CKs dw patient and foam charger. to resume care on 01/29/2018. If any changes in the interim please call sooner. Savana Juarez MD Jan 25, 2018 14:08
[2018-01-25 14:19] LABS: BILIRUBIN, URINE NEG (NEG); BLOOD, URINE NEG (NEG); GLUCOSE,URINE NEG (NEG); HYALINE CAST, URINE 3 /lpf (RARE); KETONE, URINE NEG (NEG); MUCUS URINE FEW /lpf (OCC); NITRITE,URINE NEG (NEG); SQUAMOUS EPITHELIAL CELL URINE 1 /hpf (0-5); URINE COLOR Amber (YELLW/STRAW); URINE LEUKOCYTE ESTERASE NEG (NEG)
--- NOTE | 2018-01-25 17:15 | PD.ORT.PN ---
Subjective Subjective Remarks The patient states he continues to feel well. Patient does notes some low grade fevers however states he does not feel bad. Objective Vitals Vital Signs Date Time Temp Pulse Resp B/P (MAP) Pulse Ox O2 Delivery O2 Flow Rate FiO2 01/25/18 17:02 99.1 110 20 130/67 (88) 97 01/25/18 12:54 99.7 106 20 130/73 (92) 98 01/25/18 09:03 99.7 101 20 125/80 (95) 95 01/25/18 06:40 99.0 102 16 130/80 (97) 96 01/25/18 00:30 98.9 100 16 114/63 (80) 96 01/24/18 20:30 100.8 97 17 136/60 (85) 97 I/O 01/24/18 01/24/18 01/24/18 01/25/18 01/25/18 01/25/18 07:00 15:00 23:00 07:00 15:00 23:00 Intake Total 900 ml 800 ml Output Total 700 ml 1000 ml Balance 200 ml -200 ml Intake Oral 900 ml 800 ml Output Urine Total 700 ml 1000 ml # Voids 3 # Bowel Movements 0 0 1 Result Diagram: 01/23/18 0646 01/23/18 0646 Imaging Last 24 hours Impressions Chest X-Ray 01/25/18 0000 Signed Impressions: CONCLUSION: No acute cardiopulmonary process. Objective Remarks There is a large bulky dressing to the right lower extremity applied and clean with no drainage on the dressing. The patient can move his toes well. There is no swelling about the foot. SILT distally. 2+ pedal pulse. BCR X 5. Assessment & Plan Assessment and Plan POD #16: Right knee arthrotomy with irrigation and debridement and application of antibiotic beads POD #9: Right knee resection arthroplasty with implantation of antibiotic spacer and antibiotic beads. POD #3: Right leg wound closure with flap and skin graft. Nonweightbearing to the right lower extremity for now. Strict bed rest per plastics. Plastics to keep patient hospitalized until Sunday01/29/18. Plastics to arrange wound care and dressing changes. Strict bedrest. Intravenous antibiotics per infectious disease. Patient will require a PICC line. ID saw patient and ordered blood cultures for fevers. Will follow x 3 days. Plan is for PICC line placement first of the week if fevers have resolved. CXR ordered. Lovenox for DVT prophylaxis. Recent surgical wound cultures obtained by plastics show no growth in 72 hours. Rylan Peterson Jan 25, 2018 17:15
[2018-01-25] MEDS: DAPTOmycin INJ 1,000 MG in SODIUM CHLORIDE 0.9% INJ 100 ML IV SCH (20:36)
[2018-01-26 00:45] VITALS: BP 107/62; PULSE 100; RESP 18; TEMP 99.7; O2SAT 97
[2018-01-26 04:40] VITALS: BP 110/62; PULSE 81; RESP 16; TEMP 99; O2SAT 98
[2018-01-26 07:26] LABS: AUTOMATED NEUTROPHIL # 4.5 TH/MM3 (1.8-7.7); BASOPHIL # 0.1 TH/MM3 (0-0.2); BASOPHIL % 0.9 % (0.0-2.0); EOSINOPHIL # 0.4 TH/MM3 (0-0.4); EOSINOPHIL % 6.1 % (0.0-4.0); HEMATOCRIT 27.2 % (39.0-51.0); HEMOGLOBIN 9.1 GM/DL (13.0-17.0); LYMPHOCYTE # 1.3 TH/MM3 (1.0-4.8); MEAN CELL VOLUME 84.5 FL (80.0-100.0); MEAN CORPUSCULAR HEMOGLOBIN 28.2 PG (27.0-34.0); MEAN CORPUSCULAR HGB CONC 33.3 % (32.0-36.0); MEAN PLATELET VOLUME 7.3 FL (7.0-11.0); MONO % 9.7 % (0.0-8.0); MONOCYTE # 0.7 TH/MM3 (0-0.9); NEUT % 64.3 % (16.0-70.0); PLATELET COUNT 515 TH/MM3 (150-450); RED BLOOD COUNT 3.22 MIL/MM3 (4.50-5.90); RED CELL DISTRIBUTION WIDTH 15.4 % (11.6-17.2)
[2018-01-26 07:47] LABS: BICARBONATE 27.1 MEQ/L (21.0-32.0); CALCIUM 8.5 MG/DL (8.5-10.1); CREATININE 1.04 MG/DL (0.60-1.30)
[2018-01-26 08:31] VITALS: BP 126/78; PULSE 104; RESP 18; TEMP 98.6; O2SAT 96
[2018-01-26] MEDS: DOCUSATE SODIUM 100 MG CAP PO SCH ×2 (10:07→22:10)
[2018-01-26] MEDS: amLODIPine BESYLATE 5 MG TAB PO SCH (10:07)
[2018-01-26] MEDS: MULTIVITAMINS/MINERALS THERAPEUTIC TAB PO SCH ×2 (10:07→22:09)
[2018-01-26] MEDS: RIFAMPIN 150 MG CAP PO SCH ×2 (10:07→22:09)
[2018-01-26] MEDS: ENOXAPARIN SODIUM 40 MG/0.4 ML SYRINGE SQ SCH ×2 (10:11→17:27)
--- NOTE | 2018-01-26 11:29 | HHI.PR ---
Subjective Remarks Follow-up infection of her right total knee replacement January 19, 2018-patient seen and examined, patient denies any significant right knee pain. Wound VAC was changed yesterday. Patient is awaiting referral to [facility] for possible skin graft next week January 20, 2018-patient seen and examined, responding well to blood transfusion yesterday. Currently afebrile. Plan for skin graft flap January here at [facility] January 21, 2018-patient seen and examined, states he is feeling much better today , vitals stable. No significant pain to right knee January 22, 2018-patient seen and examined, currently n.p.o. pending skin graft flap of his right knee today January 23, 2018-patient seen and examined, he is status post skin graft flap to right lower extremity 01/22/18, and denies any significant right LE pain. Currently afebrile January 24, 2018-patient seen and examined, afebrile, denies any lower extremity pain. Some drainage out of RLE January 25, 2018-patient seen and examined, spiking fevers. Denies any cough. Wound dressing changed yesterday by plastics January 26, 2018-patient seen and examined, continued to spike low-grade temps, denies any shortness of breath Objective Vitals Vital Signs Date Time Temp Pulse Resp B/P (MAP) Pulse Ox O2 Delivery O2 Flow Rate FiO2 01/26/18 08:31 98.6 104 18 126/78 (94) 96 01/26/18 04:40 99.0 81 16 110/62 (78) 98 01/26/18 00:45 99.7 100 18 107/62 (77) 97 01/25/18 20:45 99.8 99 16 122/76 (91) 96 01/25/18 20:30 99.8 99 16 122/76 (91) 96 01/25/18 17:02 99.1 110 20 130/67 (88) 97 01/25/18 12:54 99.7 106 20 130/73 (92) 98 I/O 01/25/18 01/25/18 01/25/18 01/26/18 01/26/18 01/26/18 07:00 15:00 23:00 07:00 15:00 23:00 Intake Total 800 ml 625 ml 800 ml Output Total 1000 ml 200 ml 950 ml 650 ml Balance -200 ml -200 ml -325 ml 150 ml Intake Oral 800 ml 625 ml 800 ml Output Urine Total 1000 ml 200 ml 950 ml 650 ml # Voids 3 # Bowel Movements 0 1 0 Result Diagram: 01/26/18 0622 01/26/18 0622 Imaging Last Impressions Chest X-Ray 01/25/18 0000 Signed Impressions: CONCLUSION: No acute cardiopulmonary process. Knee X-Ray 01/16/18 1319 Signed Impressions: CONCLUSION: Removal total arthroplasty as above. Lower Extremity CT 01/13/18 0000 Signed Impressions: CONCLUSION: 1. There is loculated fluid in the anterior distal thigh predominantly beneath the skin telma that has some rim enhancement and multiple locules of air and could represent a subcutaneous abscess. Similar fluid collection is also prese nt in the anterior pretibial soft tissues also worrisome for infection. There i s previous total knee replacement with antibiotic beads present in the soft tis sues. Objective Remarks GENERAL: NAD SKIN: Warm and dry. HEAD: Normocephalic. EYES: No scleral icterus. No injection or drainage. NECK: Supple, trachea midline. No JVD or lymphadenopathy. CARDIOVASCULAR: Regular rate and rhythm without murmurs, gallops, or rubs. RESPIRATORY: Breath sounds equal bilaterally. No accessory muscle use. GASTROINTESTINAL: Abdomen soft, non-tender, nondistended. MUSCULOSKELETAL: No cyanosis, or edema. dressing over right leg with some serosanguineous drainage BACK: Nontender without obvious deformity. No CVA tenderness. Procedures Right knee resection arthroplasty of revision knee replacement, with implantation of antibiotic cement spacer and antibiotic beads 01/16 A/P Problem List: (1) Infection of total right knee replacement ICD Code: T84.53XA - Infection and inflammatory reaction due to internal right knee prosthesis, initial encounter (2) HTN (hypertension) ICD Code: I10 - Essential (primary) hypertension (3) Status post revision of total knee ICD Code: Z96.659 - Presence of unspecified artificial knee joint (4) Sepsis ICD Code: A41.9 - Sepsis, unspecified organism (5) Postoperative anemia due to acute blood loss ICD Code: D62 - Acute posthemorrhagic anemia Status: Acute Assessment and Plan 72-year-old man with Sepsis: Now resolved Febrile episodes Blood culture negative to date, chest x-ray 01/25/18 without any cardiopulmonary disease and UA negative as well Continue with current antibiotic Infected right knee replacement s/p Right knee arthrotomy with irrigation and debridement and application of antibiotic beads s/p Right knee resection arthroplasty with implantation of antibiotic spacer and antibiotic beads. Status post wound VAC placement Currently on IV Cubicin daily and rifampin 300 mg p.o. every 12 hours per ID Management per plastic and orthopedic surgery s/p skin graft of RLE January 22, 2018 and management as well as wound dressing change per plastic surgery Anemia of acute blood loss H&H improved status post 2 unit packed red blood cell January 19, 2018 Hypertension Continue with Norvasc DVT prophylaxis. Lovenox and aspirin as per orthopedic surgery. Discharge Planning Discharge planning January 29, 2018 Problem Qualifiers (1) Infection of total right knee replacement: Qualified Codes: T84.53XD - Infection and inflammatory reaction due to internal right knee prosthesis, subsequent encounter (2) HTN (hypertension): Qualified Codes: I10 - Essential (primary) hypertension (3) Status post revision of total knee: Qualified Codes: Z96.651 - Presence of right artificial knee joint (4) Sepsis: Qualified Codes: A41.02 - Sepsis due to methicillin resistant Staphylococcus aureus Eric Moore MD Jan 26, 2018 11:29
[2018-01-26 11:36] VITALS: BP 121/77; PULSE 107; RESP 18; TEMP 98.9; O2SAT 95
--- NOTE | 2018-01-26 11:44 | PD.ORT.PN ---
Subjective Subjective Remarks The patient says pain is controlled about the right knee with no new complaints today. He has been on and off sleeping. Objective Vitals Vital Signs Date Time Temp Pulse Resp B/P (MAP) Pulse Ox O2 Delivery O2 Flow Rate FiO2 01/26/18 11:36 98.9 107 18 121/77 (92) 95 01/26/18 08:31 98.6 104 18 126/78 (94) 96 01/26/18 04:40 99.0 81 16 110/62 (78) 98 01/26/18 00:45 99.7 100 18 107/62 (77) 97 01/25/18 20:45 99.8 99 16 122/76 (91) 96 01/25/18 20:30 99.8 99 16 122/76 (91) 96 01/25/18 17:02 99.1 110 20 130/67 (88) 97 01/25/18 12:54 99.7 106 20 130/73 (92) 98 I/O 01/25/18 01/25/18 01/25/18 01/26/18 01/26/18 01/26/18 07:00 15:00 23:00 07:00 15:00 23:00 Intake Total 800 ml 625 ml 800 ml Output Total 1000 ml 200 ml 950 ml 650 ml Balance -200 ml -200 ml -325 ml 150 ml Intake Oral 800 ml 625 ml 800 ml Output Urine Total 1000 ml 200 ml 950 ml 650 ml # Voids 3 # Bowel Movements 0 1 0 Result Diagram: 01/26/18 0622 01/26/18 0622 Imaging Last 24 hours Impressions Chest X-Ray 01/25/18 0000 Signed Impressions: CONCLUSION: No acute cardiopulmonary process. Objective Remarks There is a large bulky dressing to the right lower extremity applied with some mild drainage which was reinforced with clean. No further drainage. There is no swelling about the foot. BCR X 5. Assessment & Plan Assessment and Plan POD #17: Right knee arthrotomy with irrigation and debridement and application of antibiotic beads for MRSA POD #10: Right knee resection arthroplasty with implantation of antibiotic spacer and antibiotic beads for MRSA POD #4: Right leg wound closure with flap and skin graft. -Nonweightbearing to the right lower extremity for now. Strict bed rest per plastics. -Plastics to keep patient hospitalized until Susana 6/26/18. Plastics to arrange wound care and dressing changes. Strict bedrest. -Intravenous antibiotics per infectious disease. Patient will require a PICC line. ID saw patient and ordered blood cultures for fevers (which are negative so far). Plan is for PICC line placement first of the week if fevers have resolved. Note -that the intraoperative cultures from the flap closure have been no growth. He does have history of MRSA. -Lovenox for DVT prophylaxis. Cyrus Gomez MD Jan 26, 2018 11:44
[2018-01-26 16:06] VITALS: BP 110/69; PULSE 100; RESP 18; TEMP 98.7; O2SAT 96
[2018-01-26 20:00] VITALS: BP 98/61; PULSE 108; RESP 18; TEMP 99.1; O2SAT 98
[2018-01-26] MEDS: DAPTOmycin INJ 1,000 MG in SODIUM CHLORIDE 0.9% INJ 100 ML IV SCH (22:10)
[2018-01-26] MEDS: ZOLPIDEM TARTRATE 5 MG TAB PO PRN (23:29)
[2018-01-27] VITALS (7 sets, daily range): BP systolic 122–139; BP diastolic 73–81; PULSE 71–106; RESP 18; TEMP 98.4–99.8; O2SAT 96–98
--- NOTE | 2018-01-27 08:21 | HHI.PR ---
Subjective Remarks no complains of pain afebrile voiding well states good BM good po appetite Objective Vitals Vital Signs Date Time Temp Pulse Resp B/P (MAP) Pulse Ox O2 Delivery O2 Flow Rate FiO2 01/27/18 04:00 98.5 104 18 125/80 (95) 97 01/27/18 00:00 98.9 98 18 122/73 (89) 98 01/26/18 20:00 99.1 108 18 98/61 (73) 98 01/26/18 16:06 98.7 100 18 110/69 (83) 96 01/26/18 11:36 98.9 107 18 121/77 (92) 95 01/26/18 08:31 98.6 104 18 126/78 (94) 96 I/O 01/26/18 01/26/18 01/26/18 01/27/18 01/27/18 01/27/18 07:00 15:00 23:00 07:00 15:00 23:00 Intake Total 800 ml 100 ml Output Total 650 ml 325 ml 300 ml Balance 150 ml -225 ml -300 ml Intake Oral 800 ml IV Total 100 ml Output Urine Total 650 ml 325 ml 300 ml # Voids 4 # Bowel Movements 0 0 Result Diagram: 01/26/18 0622 01/26/18 0622 Imaging Last Impressions Chest X-Ray 01/25/18 0000 Signed Impressions: CONCLUSION: No acute cardiopulmonary process. Knee X-Ray 01/16/18 1319 Signed Impressions: CONCLUSION: Removal total arthroplasty as above. Lower Extremity CT 01/13/18 0000 Signed Impressions: CONCLUSION: 1. There is loculated fluid in the anterior distal thigh predominantly beneath the skin telma that has some rim enhancement and multiple locules of air and could represent a subcutaneous abscess. Similar fluid collection is also prese nt in the anterior pretibial soft tissues also worrisome for infection. There i s previous total knee replacement with antibiotic beads present in the soft tis sues. Objective Remarks awake and alert, oriented x 3, anicteric lungs- no rales regular rhythm abdomen soft right LE - post op dressing in place, moves toes freely , ++ DP Procedures 01/09 Right knee arthrotomy with irrigation and debridement and application of antibiotic beads 01/16 Right knee resection arthroplasty of revision knee replacement, with implantation of antibiotic cement spacer and antibiotic beads 01/22 Gastrocnemius muscle flap to right anterior knee wound (31373) and split- thickness skin graft from right anterior thigh to muscle flap/wound, 180 cm ( [id number], [id number]) A/P Problem List: (1) Infection of total right knee replacement ICD Code: T84.53XA - Infection and inflammatory reaction due to internal right knee prosthesis, initial encounter (2) HTN (hypertension) ICD Code: I10 - Essential (primary) hypertension (3) Status post revision of total knee ICD Code: Z96.659 - Presence of unspecified artificial knee joint (4) Sepsis ICD Code: A41.9 - Sepsis, unspecified organism (5) Postoperative anemia due to acute blood loss ICD Code: D62 - Acute posthemorrhagic anemia Status: Acute Assessment and Plan 72-year-old man with 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 Currently on IV Cubicin daily and rifampin 300 mg p.o. every 12 hours per ID Management per plastic and orthopedic surgery s/p skin graft of RLE January 22, 2018 and management as well as wound dressing change per plastic surgery - pt is currently on his 5th prosthesis since 2001 Multiple treatment failures with vancomycin SARWAT of 2 to vancomycin MRI not possible 2/2 metallic, nuclear scan 2 weeks ago negative, no need to repeat currently of Daptomycin 10-12 mg/kg + Rifampin check hepatic panel and CK in am Anemia of acute blood loss H&H improved status post 2 unit packed red blood cell January 19, 2018 Hypertension Continue with Norvasc DVT prophylaxis. Lovenox d/w patient- encourage Incentive spirometry - Problem Qualifiers (1) Infection of total right knee replacement: Qualified Codes: T84.53XD - Infection and inflammatory reaction due to internal right knee prosthesis, subsequent encounter (2) HTN (hypertension): Qualified Codes: I10 - Essential (primary) hypertension (3) Status post revision of total knee: Qualified Codes: Z96.651 - Presence of right artificial knee joint (4) Sepsis: Qualified Codes: A41.02 - Sepsis due to methicillin resistant Staphylococcus aureus Cornell Stark MD Jan 27, 2018 08:21
--- NOTE | 2018-01-27 09:02 | PD.ORT.PN ---
Subjective Subjective Remarks Patient continues to improve. Patient denies having much pain. Patient requesting dressing change by plastics. Objective Vitals Vital Signs Date Time Temp Pulse Resp B/P (MAP) Pulse Ox O2 Delivery O2 Flow Rate FiO2 01/27/18 08:47 98.4 71 18 127/73 (91) 96 01/27/18 04:00 98.5 104 18 125/80 (95) 97 01/27/18 00:00 98.9 98 18 122/73 (89) 98 01/26/18 20:00 99.1 108 18 98/61 (73) 98 01/26/18 16:06 98.7 100 18 110/69 (83) 96 01/26/18 11:36 98.9 107 18 121/77 (92) 95 I/O 01/26/18 01/26/18 01/26/18 01/27/18 01/27/18 01/27/18 07:00 15:00 23:00 07:00 15:00 23:00 Intake Total 800 ml 100 ml Output Total 650 ml 325 ml 300 ml Balance 150 ml -225 ml -300 ml Intake Oral 800 ml IV Total 100 ml Output Urine Total 650 ml 325 ml 300 ml # Voids 4 # Bowel Movements 0 0 Result Diagram: 01/26/18 0622 01/26/18 0622 Imaging Last 24 hours Impressions Chest X-Ray 01/25/18 0000 Signed Impressions: CONCLUSION: No acute cardiopulmonary process. Objective Remarks There is a large bulky dressing to the right lower extremity applied with some mild drainage to superior aspect of dressing. Dressing reinforced by RN. No further drainage. There is no swelling about the foot. BCR X 5. SILT distally. BCR X 5 Assessment & Plan Assessment and Plan POD #18: Right knee arthrotomy with irrigation and debridement and application of antibiotic beads for MRSA POD #11: Right knee resection arthroplasty with implantation of antibiotic spacer and antibiotic beads for MRSA POD #5: Right leg wound closure with flap and skin graft. -Nonweightbearing to the right lower extremity for now. Strict bed rest per plastics. -Plastics to keep patient hospitalized until Sunday01/29/18. Plastics to arrange wound care and dressing changes. Call placed to plastics for dressing change orders. RN aware and will take call. -Intravenous antibiotics per infectious disease. Patient will require a PICC line. ID saw patient and ordered blood cultures for fevers (which continue to be negative so far). Plan is for PICC line placement first of the week if fevers have resolved. Note -that the intraoperative cultures from the flap closure have been no growth. He does have history of MRSA. -Lovenox for DVT prophylaxis. Rylan Peterson Jan 27, 2018 09:02
[2018-01-27] MEDS: MULTIVITAMINS/MINERALS THERAPEUTIC TAB PO SCH ×2 (09:59→20:59)
[2018-01-27] MEDS: RIFAMPIN 150 MG CAP PO SCH ×2 (09:59→20:59)
[2018-01-27] MEDS: DOCUSATE SODIUM 100 MG CAP PO SCH ×2 (09:59→20:58)
[2018-01-27] MEDS: amLODIPine BESYLATE 5 MG TAB PO SCH (09:59)
[2018-01-27] MEDS: ENOXAPARIN SODIUM 40 MG/0.4 ML SYRINGE SQ SCH (18:24)
[2018-01-27] MEDS: DAPTOmycin INJ 1,000 MG in SODIUM CHLORIDE 0.9% INJ 100 ML IV SCH (20:59)
[2018-01-28] VITALS: BP 118/78; PULSE 101; RESP 18; TEMP 99.3; O2SAT 97
[2018-01-28 04:00] VITALS: BP 118/71; PULSE 98; RESP 18; TEMP 99.1; O2SAT 97
[2018-01-28 07:50] LABS: AUTOMATED NEUTROPHIL # 5.9 TH/MM3 (1.8-7.7); BASOPHIL # 0.1 TH/MM3 (0-0.2); BASOPHIL % 0.7 % (0.0-2.0); EOSINOPHIL # 0.4 TH/MM3 (0-0.4); EOSINOPHIL % 4.6 % (0.0-4.0); HEMATOCRIT 30.3 % (39.0-51.0); LYMPH % 22.5 % (9.0-44.0); LYMPHOCYTE # 2.1 TH/MM3 (1.0-4.8); MEAN CELL VOLUME 83.9 FL (80.0-100.0); MEAN CORPUSCULAR HEMOGLOBIN 27.6 PG (27.0-34.0); MEAN PLATELET VOLUME 7.3 FL (7.0-11.0); MONO % 7.9 % (0.0-8.0); MONOCYTE # 0.7 TH/MM3 (0-0.9); NEUT % 64.3 % (16.0-70.0); PLATELET COUNT 607 TH/MM3 (150-450); RED BLOOD COUNT 3.62 MIL/MM3 (4.50-5.90); RED CELL DISTRIBUTION WIDTH 15.2 % (11.6-17.2); WHITE BLOOD COUNT 9.2 TH/MM3 (4.0-11.0)
[2018-01-28 07:56] VITALS: BP 115/78; PULSE 100; RESP 16; TEMP 98.2; O2SAT 97
[2018-01-28 08:13] LABS: ALT (GPT) 27 U/L (12-78); AST (GOT) 16 U/L (15-37); BICARBONATE 23.1 MEQ/L (21.0-32.0); BLOOD UREA NITROGEN 14 MG/DL (7-18); CHLORIDE 103 MEQ/L (98-107); GLOMERULAR FILTRATION RATE 66 ML/MIN (>89); GLUCOSE,RANDOM 99 MG/DL (74-106); SODIUM (NA) 137 MEQ/L (136-145)
[2018-01-28 08:16] LABS: ALKALINE PHOSPHATASE 95 U/L (45-117); TOTAL BILIRUBIN ADULT 0.3 MG/DL (0.2-1.0); TOTAL PROTEIN 6.9 GM/DL (6.4-8.2)
[2018-01-28] MEDS: SILVER SULFADIAZINE 1% CR 50 GM JAR EXTERNAL SCH (08:43)
[2018-01-28] MEDS: MULTIVITAMINS/MINERALS THERAPEUTIC TAB PO SCH ×2 (08:43→20:46)
[2018-01-28] MEDS: RIFAMPIN 150 MG CAP PO SCH ×2 (08:43→20:46)
[2018-01-28] MEDS: DOCUSATE SODIUM 100 MG CAP PO SCH ×2 (08:43→20:46)
[2018-01-28] MEDS: amLODIPine BESYLATE 5 MG TAB PO SCH (08:43)
--- NOTE | 2018-01-28 09:21 | HHI.PR ---
Subjective Remarks patient feels great clinically- some low grade fever no complains Objective Vitals Vital Signs Date Time Temp Pulse Resp B/P (MAP) Pulse Ox O2 Delivery O2 Flow Rate FiO2 01/28/18 07:56 98.2 100 16 115/78 (90) 97 01/28/18 04:00 99.1 98 18 118/71 (87) 97 01/28/18 00:00 99.3 101 18 118/78 (91) 97 01/27/18 20:00 99.1 103 18 139/81 (100) 98 01/27/18 16:25 99.2 106 18 125/77 (93) 96 01/27/18 12:29 99.8 105 18 132/77 (95) 96 01/27/18 09:42 71 I/O 01/27/18 01/27/18 01/27/18 01/28/18 01/28/18 01/28/18 07:00 15:00 23:00 07:00 15:00 23:00 Output Total 300 ml 360 ml 150 ml Balance -300 ml -360 ml -150 ml Output Urine Total 300 ml 360 ml 150 ml Result Diagram: 01/28/18 0729 01/28/18 0729 Imaging Last Impressions Chest X-Ray 01/25/18 0000 Signed Impressions: CONCLUSION: No acute cardiopulmonary process. Knee X-Ray 01/16/18 1319 Signed Impressions: CONCLUSION: Removal total arthroplasty as above. Lower Extremity CT 01/13/18 0000 Signed Impressions: CONCLUSION: 1. There is loculated fluid in the anterior distal thigh predominantly beneath the skin telma that has some rim enhancement and multiple locules of air and could represent a subcutaneous abscess. Similar fluid collection is also prese nt in the anterior pretibial soft tissues also worrisome for infection. There i s previous total knee replacement with antibiotic beads present in the soft tis sues. Objective Remarks awake and alert, oriented x 3, anicteric lungs- no rales regular rhythm abdomen soft right LE - post op dressing in place, moves toes freely , ++ DP Procedures 01/09 Right knee arthrotomy with irrigation and debridement and application of antibiotic beads 01/16 Right knee resection arthroplasty of revision knee replacement, with implantation of antibiotic cement spacer and antibiotic beads 01/22 Gastrocnemius muscle flap to right anterior knee wound (11768) and split- thickness skin graft from right anterior thigh to muscle flap/wound, 180 cm ( 40246, 29517) A/P Problem List: (1) Infection of total right knee replacement ICD Code: T84.53XA - Infection and inflammatory reaction due to internal right knee prosthesis, initial encounter (2) HTN (hypertension) ICD Code: I10 - Essential (primary) hypertension (3) Status post revision of total knee ICD Code: Z96.659 - Presence of unspecified artificial knee joint (4) Sepsis ICD Code: A41.9 - Sepsis, unspecified organism (5) Postoperative anemia due to acute blood loss ICD Code: D62 - Acute posthemorrhagic anemia Status: Acute Assessment and Plan 72-year-old man with 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 Currently on IV Cubicin daily and rifampin 300 mg p.o. every 12 hours per ID s/p skin graft of RLE January 22, 2018 and management as well as wound dressing change per plastic surgery - pt is currently on his 5th prosthesis since 2001 Multiple treatment failures with vancomycin MRI not possible 2/2 metallic, nuclear scan 2 weeks ago negative, no need to repeat currently of Daptomycin 10-12 mg/kg + Rifampin CBC, BMP, hepatic panel, CK level - good ID ff closely along with us- will d/w them timing for PICC Plastics surgery ff along with us for wound care and dressing changes instructions/regimen Anemia of acute blood loss H&H improved status post 2 unit packed red blood cell January 19, 2018 Hypertension Continue with Norvasc DVT prophylaxis. Lovenox d/w patient- encourage Incentive spirometry - Problem Qualifiers (1) Infection of total right knee replacement: Qualified Codes: T84.53XD - Infection and inflammatory reaction due to internal right knee prosthesis, subsequent encounter (2) HTN (hypertension): Qualified Codes: I10 - Essential (primary) hypertension (3) Status post revision of total knee: Qualified Codes: Z96.651 - Presence of right artificial knee joint (4) Sepsis: Qualified Codes: A41.02 - Sepsis due to methicillin resistant Staphylococcus aureus Cornell Satrk MD Jan 28, 2018 09:21
[2018-01-28] MEDS ORDERED: DAPTOmycin INJ 1,000 MG in SODIUM CHLORIDE 0.9% INJ 100 ML IV SCH (11:00)
[2018-01-28 11:29] VITALS: BP 105/74; PULSE 63; RESP 18; TEMP 96.5; O2SAT 95
[2018-01-28] MEDS: DAPTOmycin INJ 1,000 MG in SODIUM CHLORIDE 0.9% INJ 100 ML IV SCH (11:31)
--- NOTE | 2018-01-28 12:37 | PD.ORT.PN ---
Subjective Subjective Remarks Patient continues to report feeling better with minimal pain. Patient requesting dressing change by plastics. Objective Vitals Vital Signs Date Time Temp Pulse Resp B/P (MAP) Pulse Ox O2 Delivery O2 Flow Rate FiO2 01/28/18 11:29 96.5 63 18 105/74 (84) 95 01/28/18 07:56 98.2 100 16 115/78 (90) 97 01/28/18 04:00 99.1 98 18 118/71 (87) 97 01/28/18 00:00 99.3 101 18 118/78 (91) 97 01/27/18 20:00 99.1 103 18 139/81 (100) 98 01/27/18 16:25 99.2 106 18 125/77 (93) 96 I/O 01/27/18 01/27/18 01/27/18 01/28/18 01/28/18 01/28/18 07:00 15:00 23:00 07:00 15:00 23:00 Intake Total 100 ml Output Total 300 ml 360 ml 150 ml Balance -300 ml -360 ml -150 ml 100 ml IV Total 100 ml Output Urine Total 300 ml 360 ml 150 ml Result Diagram: 01/28/18 0729 01/28/18 0729 Imaging Last 24 hours Impressions Chest X-Ray 01/25/18 0000 Signed Impressions: CONCLUSION: No acute cardiopulmonary process. Objective Remarks There is a large bulky dressing to the right lower extremity applied with some mild drainage to superior aspect of dressing. Dressing recently changed by RN. There is no swelling about the foot. BCR X 5. SILT distally. BCR X 5 Assessment & Plan Assessment and Plan POD #19: Right knee arthrotomy with irrigation and debridement and application of antibiotic beads for MRSA POD #12: Right knee resection arthroplasty with implantation of antibiotic spacer and antibiotic beads for MRSA POD #6: Right leg wound closure with flap and skin graft. -Nonweightbearing to the right lower extremity for now. Strict bed rest per plastics. -Plastics to keep patient hospitalized until Sunday01/29/18. Plastics to arrange wound care and dressing changes. Plastics will change current dressing. -Intravenous antibiotics per infectious disease. Patient will require a PICC line. ID saw patient and ordered blood cultures for fevers (Final blood cultures negative for infection). Patient should be able to proceed with PICC line. Intraoperative cultures from the flap closure show no growth. He does have history of MRSA. -Lovenox for DVT prophylaxis. Rylan Peterson Jan 28, 2018 12:37
[2018-01-28 15:47] VITALS: BP 122/79; PULSE 100; RESP 16; TEMP 98.9; O2SAT 97
[2018-01-28] MEDS: ENOXAPARIN SODIUM 40 MG/0.4 ML SYRINGE SQ SCH (15:48)
[2018-01-28 20:45] VITALS: BP 111/84; PULSE 86; RESP 20; TEMP 98.5; O2SAT 97
[2018-01-29 00:15] VITALS: BP 124/78; PULSE 107; RESP 20; TEMP 98; O2SAT 97
[2018-01-29 04:23] VITALS: BP 146/80; PULSE 103; RESP 20; TEMP 98.4; O2SAT 96
--- NOTE | 2018-01-29 07:42 | HHI.PR ---
Subjective Remarks feels great no complains hoping to get PICC line place today Objective Vitals Vital Signs Date Time Temp Pulse Resp B/P (MAP) Pulse Ox O2 Delivery O2 Flow Rate FiO2 01/29/18 04:23 98.4 103 20 146/80 (102) 96 01/29/18 00:15 98.0 107 20 124/78 (93) 97 01/28/18 20:45 98.5 86 20 111/84 (93) 97 01/28/18 15:47 98.9 100 16 122/79 (93) 97 01/28/18 11:29 96.5 63 18 105/74 (84) 95 01/28/18 07:56 98.2 100 16 115/78 (90) 97 I/O 01/28/18 01/28/18 01/28/18 01/29/18 01/29/18 01/29/18 07:00 15:00 23:00 07:00 15:00 23:00 Intake Total 100 ml Output Total 150 ml 500 ml Balance -150 ml -400 ml IV Total 100 ml Output Urine Total 150 ml 500 ml # Voids 3 # Bowel Movements 1 Result Diagram: 01/28/18 0729 01/28/18 0729 Imaging Last Impressions Chest X-Ray 01/25/18 0000 Signed Impressions: CONCLUSION: No acute cardiopulmonary process. Knee X-Ray 01/16/18 1319 Signed Impressions: CONCLUSION: Removal total arthroplasty as above. Lower Extremity CT 01/13/18 0000 Signed Impressions: CONCLUSION: 1. There is loculated fluid in the anterior distal thigh predominantly beneath the skin telma that has some rim enhancement and multiple locules of air and could represent a subcutaneous abscess. Similar fluid collection is also prese nt in the anterior pretibial soft tissues also worrisome for infection. There i s previous total knee replacement with antibiotic beads present in the soft tis sues. Objective Remarks awake and alert, oriented x 3, anicteric lungs- no rales regular rhythm abdomen soft right LE - post op dressing in place, moves toes freely , ++ DP Procedures 01/09 Right knee arthrotomy with irrigation and debridement and application of antibiotic beads 01/16 Right knee resection arthroplasty of revision knee replacement, with implantation of antibiotic cement spacer and antibiotic beads 01/22 Gastrocnemius muscle flap to right anterior knee wound (72571) and split- thickness skin graft from right anterior thigh to muscle flap/wound, 180 cm ( 61892, 37880) A/P Problem List: (1) Infection of total right knee replacement ICD Code: T84.53XA - Infection and inflammatory reaction due to internal right knee prosthesis, initial encounter (2) HTN (hypertension) ICD Code: I10 - Essential (primary) hypertension (3) Status post revision of total knee ICD Code: Z96.659 - Presence of unspecified artificial knee joint (4) Sepsis ICD Code: A41.9 - Sepsis, unspecified organism (5) Postoperative anemia due to acute blood loss ICD Code: D62 - Acute posthemorrhagic anemia Status: Acute Assessment and Plan 72-year-old man with 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 Currently on IV Cubicin daily and rifampin 300 mg p.o. every 12 hours per ID s/p skin graft of RLE January 22, 2018 and management as well as wound dressing change per plastic surgery - pt is currently on his 5th prosthesis since 2001 Multiple treatment failures with vancomycin MRI not possible 2/2 metallic, nuclear scan 2 weeks ago negative, no need to repeat currently of Daptomycin 10-12 mg/kg + Rifampin CBC, BMP, hepatic panel, CK level - good ID ff closely along with us- - PICC line ordered Plastics surgery ff along with us for wound care and dressing changes instructions/regimen Anemia of acute blood loss H&H improved status post 2 unit packed red blood cell January 19, 2018 Hypertension Continue with Norvasc DVT prophylaxis. Lovenox d/w patient- encourage Incentive spirometry - DC home soon with home health care after PICC place will ask CM for assistance Problem Qualifiers (1) Infection of total right knee replacement: Qualified Codes: T84.53XD - Infection and inflammatory reaction due to internal right knee prosthesis, subsequent encounter (2) HTN (hypertension): Qualified Codes: I10 - Essential (primary) hypertension (3) Status post revision of total knee: Qualified Codes: Z96.651 - Presence of right artificial knee joint (4) Sepsis: Qualified Codes: A41.02 - Sepsis due to methicillin resistant Staphylococcus aureus Cornell Stark MD Jan 29, 2018 07:42
[2018-01-29 08:44] VITALS: BP 121/71; PULSE 103; RESP 20; TEMP 98; O2SAT 95
[2018-01-29] MEDS: SILVER SULFADIAZINE 1% CR 50 GM JAR EXTERNAL SCH (09:50)
[2018-01-29] MEDS: RIFAMPIN 150 MG CAP PO SCH (09:50)
[2018-01-29] MEDS: DOCUSATE SODIUM 100 MG CAP PO SCH (09:50)
[2018-01-29] MEDS: amLODIPine BESYLATE 5 MG TAB PO SCH (09:50)
[2018-01-29] MEDS: MULTIVITAMINS/MINERALS THERAPEUTIC TAB PO SCH (09:50)
[2018-01-29] MEDS ORDERED: SODIUM CHLORIDE 0.9% FLUSH 10 ML FLUSH IV FLUSH PRN (11:00)
[2018-01-29 11:43] VITALS: BP 114/65; PULSE 94; RESP 20; TEMP 98.9; O2SAT 97
[2018-01-29] MEDS: DAPTOmycin INJ 1,000 MG in SODIUM CHLORIDE 0.9% INJ 100 ML IV SCH (12:43)
[2018-01-29] MEDS ORDERED: MUPIROCIN 2% OINT 22 GM TUBE TOPICAL ONE ×2 (12:45)
--- NOTE | 2018-01-29 14:39 | HHI.IDPN ---
Subjective Subjective Remarks chrt reviewed doing well sp Gastrocnemius muscle flap to right anterior knee wound (23694) and split- thickness skin graft from right anterior thigh to muscle flap/wound, 180 cm ( 23865, [address]) by Dr Barry on 01/23 low grade fever 2 days ago, none today Intra-op clx neg 3/3 prominent thrombocytosys denies any new problems CMP, CK - ok Antibiotics dapto rifampin Lines Lines ok Past Medical History as per HPI Allergies: Coded Allergies: No Known Allergies (Verified , 01/09/18) Objective . Vital Signs Date Time Temp Pulse Resp B/P (MAP) Pulse Ox O2 Delivery O2 Flow Rate FiO2 01/29/18 11:43 98.9 94 20 114/65 (81) 97 01/29/18 08:44 98.0 103 20 121/71 (88) 95 01/29/18 04:23 98.4 103 20 146/80 (102) 96 01/29/18 00:15 98.0 107 20 124/78 (93) 97 01/28/18 20:45 98.5 86 20 111/84 (93) 97 01/28/18 15:47 98.9 100 16 122/79 (93) 97 . Laboratory Tests Test 01/28/18 07:29 White Blood Count 9.2 TH/MM3 Red Blood Count 3.62 MIL/MM3 Hemoglobin 10.0 GM/DL Hematocrit 30.3 % Mean Corpuscular Volume 83.9 FL Mean Corpuscular Hemoglobin 27.6 PG Mean Corpuscular Hemoglobin Concent 33.0 % Red Cell Distribution Width 15.2 % Platelet Count 607 TH/MM3 Mean Platelet Volume 7.3 FL Neutrophils (%) (Auto) 64.3 % Lymphocytes (%) (Auto) 22.5 % Monocytes (%) (Auto) 7.9 % Eosinophils (%) (Auto) 4.6 % Basophils (%) (Auto) 0.7 % Neutrophils # (Auto) 5.9 TH/MM3 Lymphocytes # (Auto) 2.1 TH/MM3 Monocytes # (Auto) 0.7 TH/MM3 Eosinophils # (Auto) 0.4 TH/MM3 Basophils # (Auto) 0.1 TH/MM3 CBC Comment DIFF FINAL Differential Comment Laboratory Tests Test 01/28/18 07:29 Blood Urea Nitrogen 14 MG/DL Creatinine 1.10 MG/DL Random Glucose 99 MG/DL Total Protein 6.9 GM/DL Albumin 2.0 GM/DL Calcium Level 9.0 MG/DL Alkaline Phosphatase 95 U/L Aspartate Amino Transf (AST/SGOT) 16 U/L Alanine Aminotransferase (ALT/SGPT) 27 U/L Total Bilirubin 0.3 MG/DL Sodium Level 137 MEQ/L Potassium Level 4.1 MEQ/L Chloride Level 103 MEQ/L Carbon Dioxide Level 23.1 MEQ/L Anion Gap 11 MEQ/L Estimat Glomerular Filtration Rate 66 ML/MIN Total Creatine Kinase 35 U/L Imaging Last Impressions Chest X-Ray 01/25/18 0000 Signed Impressions: CONCLUSION: No acute cardiopulmonary process. Knee X-Ray 01/16/18 1319 Signed Impressions: CONCLUSION: Removal total arthroplasty as above. Lower Extremity CT 01/13/18 0000 Signed Impressions: CONCLUSION: 1. There is loculated fluid in the anterior distal thigh predominantly beneath the skin telma that has some rim enhancement and multiple locules of air and could represent a subcutaneous abscess. Similar fluid collection is also prese nt in the anterior pretibial soft tissues also worrisome for infection. There i s previous total knee replacement with antibiotic beads present in the soft tis sues. Physical Exam CONSTITUTIONAL/GENERAL: This is an adequately nourished patient, in no apparent distress. TUBES/LINES/DRAINS: RUE PICC in place -site [place] SKIN: No jaundice, rashes, or lesions. CARDIOVASCULAR: Regular rate and rhythm without murmurs, gallops, or rubs. No JVD. Peripheral pulses symmetric. RESPIRATORY/CHEST: Symmetric, unlabored respirations. Clear to auscultation. Breath sounds equal bilaterally. No wheezes, rales, or rhonchi. GASTROINTESTINAL: Abdomen soft, non-tender, nondistended. No hepato-splenomegaly , or palpable masses. No guarding. Bowel sounds present. MUSCULOSKELETAL: Extremities without clubbing, cyanosis, or edema. RLE with post op dressings from mid thigh to foot. NEUROLOGICAL: Awake and alert. Motor and sensory grossly within normal limits. Follows commands. Cognitively sharp. Moves all extremities. PSYCHIATRIC: No obvious anxiety/depression. no apparent hallucinations or other psychotic thought process. 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 - pt is currently on his 5th prosthesis since 2001 Multiple treatment failures with vancomycin SARWAT of 2 to vancomycin This is a limb threatening infection sp removal of prosthesis sp Gastrocnemius muscle flap to right anterior knee wound (24634) and split- thickness skin graft from right anterior thigh to muscle flap/wound, Underlying osteomyelitis Multiple revisions of TKA. Failed Failed I+D Fever, suspect sepsis from the knee leukocytosis: resolved Recs Plan to treat with following regimen and follow up with (Will place infusion orders once fevers resolved) Continue daptomycin 10-12 mg/kg + RIFAMPIN fu CBC, CMP, total CKs After completion of IV part of treatment will cont with oral indefinetely - the stop date will be defined by clincial progress and ESR, CRP dw patient dw Dr Souza @ b/s dw case [facility] [place] to tx home from ID standpoint Aixa Pierce MD Jan 29, 2018 14:39
--- NOTE | 2018-01-29 14:47 | HHI.FF ---
Infusion Therapy Location of Infusion Therapy: Home Health Care IV Infusion Order Patient Information Patient Weight 81.9 kg Diagnosis: Coded Allergies: No Known Allergies (Verified , 01/09/18) Administer Medication Daptomycin 1 gram IV q 24 hours Start Treatment: Jan 29, 2018 Stop Treatment: Mar 07, 2018 Additional Information Venous access: PICC Line Additional Instructions [x] Peripheral flush and dressing changes per protocol [x] Implanted port and central dragline operator: * Implanted port: 10 ml Normal Saline followed by 5 ml Heparin 100 units/ml Heparin flush after each use and monthly to maintain. [] May leave port accessed during therapy. [] May leave peripheral site accessed for duration of therapy. [x] If patient has SOB or respiratory distress, check oxygen saturation. If less than 90% or clinical signs of respiratory distress, administer oxygen at 2 L/min. via nasal cannula and notify physician. [x] Anaphylaxis/Reaction orders: * Stop infusion. * Keep IV line open with saline flush. * Notify physician. * Monitor vital signs every 15 minutes until symptoms resolve. * Check Oxygen saturation; Oxygen at 2 L/min. via nasal cannula if less than 90% or clinical signs of respiratory distress. * Administer diphenhydramine (Benadryl) 25 mg IV STAT, (unless patient has received as pre-med). May repeat once, if necessary. * Solu-Cortef 250 mg IVP over 30-60 seconds, use 100 mg vials for each dissolution. * Epinephrine (1mg/1 ml) 0.3 mg subcutaneously or IVP now with any signs of respiratory distress. * Check with physician for new additional pre-med orders if patient is re- challenged or re-treated. [x] May remove PICC line when treatment complete, after confirming with Physician. [x] If the patient is admitted to the hospital, the ED, or transferred via [facility] , complete transfer form including medication reconciliation order sheet. Laboratory Tests Weekly Labs: CBC w/diff, CMP, CRP, SED Rate, Serum CK Levels Additional Information Fu with Dr Carranza: [phone] Aixa Pierce MD Jan 29, 2018 14:47
--- NOTE | 2018-01-29 16:18 | HHI.PR ---
Subjective Remarks Patient denies pain. He reports normal sensation to the right lower extremity. No new complaints. Objective Vital Signs Date Time Temp Pulse Resp B/P (MAP) Pulse Ox O2 Delivery O2 Flow Rate FiO2 01/29/18 11:43 98.9 94 20 114/65 (81) 97 01/29/18 08:44 98.0 103 20 121/71 (88) 95 01/29/18 04:23 98.4 103 20 146/80 (102) 96 01/29/18 00:15 98.0 107 20 124/78 (93) 97 01/28/18 20:45 98.5 86 20 111/84 (93) 97 I/O 01/28/18 01/28/18 01/28/18 01/29/18 01/29/18 01/29/18 07:00 15:00 23:00 07:00 15:00 23:00 Intake Total 100 ml Output Total 150 ml 500 ml Balance -150 ml -400 ml IV Total 100 ml Output Urine Total 150 ml 500 ml # Voids 3 # Bowel Movements 1 Result Diagram: 01/28/18 0729 01/28/18 0729 Objective Remarks Patient appears comfortable Alert/appropriate/pleasant Right foot warm, well perfused, with good cap refill Sensation intact light touch distally Dressing removed 100% take of the skin graft No signs of infection Assessment and Plan Problem List: (1) Open knee wound ICD Codes: S81.009A - Unspecified open wound, unspecified knee, initial encounter Assessment and Plan 72-year-old male with right knee wound with exposed tibia postoperative day 2 status post right gastrocnemius muscle flap in skin graft Lovenox SCD to left lower extremity Patient to wear his right knee immobilizer at all times Patient must leave the central portion of the knee immobilizer open so as not to put any pressure on the skin graft sites Patient may be out of bed, though he should limit the time spent with his right lower leg and dependency to less than 20 minutes at a time Patient must then return to bed rest and elevate his right lower extremity Any feelings of fullness/changes in color/tingling to the right lower extremity should prompt him to immediately return to bed rest and elevate the right lower extremity Patient must keep his right lower extremity elevated while in bed to prevent edema Dressing changes should consist of liberal amounts of mupirocin ointment, followed by Xeroform gauze, followed by many dry 4 x 4's and ABD pads in order to pad the knee area, followed by a light wrap of Jaleesa, Kerlix, or Jefferson wraps This should be done twice daily to the knee wound, his incisions, and the right anterior thigh donor sites Patient should call the plastic surgery clinic as soon as he gets home to make an appointment to be seen by me in 1-2 week Walker rWight MD Jan 29, 2018 16:18
[2018-01-30] MEDS ORDERED: SODIUM CHLORIDE 0.9% FLUSH 10 ML FLUSH IV FLUSH SCH (09:00)
== END 2018-01-29 17:30 | disposition home health service (06) | DRG 463 ==
LOC: HSDC 08:34 → EDSTATUS 11:30 → HSDI 12:21 → N05A 17:37
PROVIDERS: ADMIT Orthopaedic Surgery; ATTEND Orthopaedic Surgery
PROC: 0SJC0ZZ Inspection of Right Knee Joint, Open Approach (ICD-10-PCS; 2018-01-09)
PROC: 0J9N0ZX Drainage of Right Lower Leg Subcutaneous Tissue and Fascia, Open Approach, Diagnostic (ICD-10-PCS; 2018-01-09)
PROC: 3E0U029 Introduction of Other Anti-infective into Joints, Open Approach (ICD-10-PCS; 2018-01-09)
PROC: 0QBB0ZZ Excision of Right Lower Femur, Open Approach (ICD-10-PCS; 2018-01-16)
PROC: 0SPV0JZ Removal of Synthetic Substitute from Right Knee Joint, Tibial Surface, Open Approach (ICD-10-PCS; 2018-01-16)
PROC: 0QBG0ZZ Excision of Right Tibia, Open Approach (ICD-10-PCS; 2018-01-16)
PROC: 30233N1 Transfusion of Nonautologous Red Blood Cells into Peripheral Vein, Percutaneous Approach (ICD-10-PCS; 2018-01-16)
PROC: 0SHC08Z Insertion of Spacer into Right Knee Joint, Open Approach (ICD-10-PCS; 2018-01-16)
PROC: 0SPT0JZ Removal of Synthetic Substitute from Right Knee Joint, Femoral Surface, Open Approach (ICD-10-PCS; principal; 2018-01-16 10:19)
PROC: 0KXS0ZZ Transfer Right Lower Leg Muscle, Open Approach (ICD-10-PCS; 2018-01-22)
PROC: 0HRKX74 Replacement of Right Lower Leg Skin with Autologous Tissue Substitute, Partial Thickness, External Approach (ICD-10-PCS; 2018-01-22)
PROC: 05HY33Z Insertion of Infusion Device into Upper Vein, Percutaneous Approach (ICD-10-PCS; 2018-01-29)
DX: T84.53XA Infection and inflammatory reaction due to internal right knee prosthesis, initial encounter (principal); A41.02 Sepsis due to Methicillin resistant Staphylococcus aureus; M86.9 Osteomyelitis, unspecified; D62 Acute posthemorrhagic anemia; Y83.1 Surgical operation with implant of artificial internal device as the cause of abnormal reaction of the patient, or of later complication, without mention of misadventure at the time of the procedure; I10 Essential (primary) hypertension; R00.0 Tachycardia, unspecified; Z86.14 Personal history of Methicillin resistant Staphylococcus aureus infection
CPT/HCPCS: 36430; 71045; 73560; 73701; 80048; 80053; 80076; 81001; 82550; 82728; 82948; 83540; 83550; 83605; 83735; 84100; 85007; 85014; 85018; 85025; 85027; 85652; 86140; 86403; 86850; 86900; 86901; 86920; 87015; 87040; 87070; 87102; 87116; 87147; 87176; 87186; 87205; 87206; 94150; C1713; C1776; J0131; J0690; J0878; J1100; J1200; J1580; J1650; J1940; J2250; J2270; J2370; J2405; J3010; J3370; J7030; J7042; J7050; J7120; L1830; P9016; Q9967

== ENCOUNTER 2018-03-31 19:25 | Inpatient (IN) ==
--- NOTE | 2018-03-31 19:42 | ED ---
HPI General Chief complaint: Fall Stated complaint: Stroke like sympt Source: patient and family Mode of arrival: ambulatory Limitations: no limitations History of Present Illness HPI narrative: 72-year-old man who presents to the ED with 4 day history of left arm and left leg weakness. He is unable to pinpoint exactly when it started but knows it has been present and progressive for the past 4 days. He has no history of prior stroke. No numbness or tingling in extremities. Has a mild left-sided facial droop but no dysarthria or slurred speech. No loss of vision. No recent head trauma. 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 Most recent procedure was free flap reconstruction of the knee performed by his plastic surgeon. This is healed well and he no longer is taking antibiotics. No chest pain or exertional dyspnea. No lightheadedness or dizziness. No fevers or chills. No unexpected weight loss. MD complaint: Left-sided weakness Onset (ago): day(s) (four) Related Data Allergies Allergy/AdvReac Type Severity Reaction Status Date / Time No Known Allergies Allergy Verified 03/31/18 19:39 Review of Systems ROS: all other systems reviewed are negative PMFSH Medical History Medical History Failed total knee replacement (Acute) Infected hardware in right leg (Acute) Social History Social History Smoking Status: Never smoker How Often Do You Have a Drink Containing Alcohol: Never Recent Travel in [facility] within the Last 8 Weeks: No Recent Out of Country Travel within the Last 8 Weeks: No Exam Narrative Exam Narrative: GENERAL: Well-nourished and well-developed 72-year-old sitting stretcher in no acute distress. His [id number] and her daughter are seated at bedside accompanied the patient. SKIN: Focused skin assessment warm/dry. Healing free flap overlying right knee. HEAD: Atraumatic. Normocephalic. EYES: Pupils equal and round. No scleral icterus. No injection or drainage. ENT: No nasal bleeding or discharge. Mucous membranes pink and moist. NECK: Trachea midline. No JVD. CARDIOVASCULAR: Regular rate and rhythm. No murmur appreciated. RESPIRATORY: No accessory muscle use. Clear to auscultation. Breath sounds equal bilaterally. GASTROINTESTINAL: Abdomen soft, non-tender, nondistended. Hepatic and splenic margins not palpable. MUSCULOSKELETAL: No obvious deformities. No clubbing. No cyanosis. No edema. NEUROLOGICAL: Awake and alert. Mild left-sided facial droop. Normal extraocular motions. 4+ out of 5 left upper extremity and left lower extremity. Sensation to light touch intact in all 4 extremities. Normal gait with no ataxia. Normal speech. PSYCHIATRIC: Appropriate mood and affect; insight and judgment normal. Course Consultations Consultation #1: Spoke with Dr Ricks regarding the patient's case. He requested that I start dexamethasone 4 mg q6hr and mannitol 25 g q6hr. Recommends admission to surgical ICU. Time: 21:07 Consultation #2: Spoke with Dr Farias regarding the patient's brain mass and need for admission to surgical ICU. She will admit the patient for management. 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 Without this care the patient risk further deterioration, permanent neurological injury or . This time was spent at bedside evaluating the patient, directing treatment, ordering treatments and medications, ordering and reviewing laboratory studies, ordering and reviewing radiologic studies, reevaluating the patient, discussing his care with consultants (neurosurgery and critical care medicine), reviewing past history and documenting care. Medical Decision Making MDM Narrative Medical decision making narrative: 72-year-old man with 4 day history of left- sided weakness. My concern was initially for a acute ischemic stroke but CT had revealed a large cerebral mass with midline shift. Patient was treated emergently with mannitol and dexamethasone in an attempt to prevent further deterioration. I consulted with neurosurgery and critical care the patient was [place] [facility]. I broke the bad news to patient and family and he took it remarkably well. Medical Screen Exam Complete: Yes Emergency Medical Condition: Yes Differential Diagnosis Differential Diagnosis: Ischemic stroke, brain mass, brain bleed, aneurysm Medical Records Medical records reviewed: Yes I reviewed the patient's medical records. Lab Data Lab results reviewed: Yes I reviewed the patient's lab results. Result diagrams: 04/01/18 03:41 04/01/18 03:44 Lab Results 03/31/18 03/31/18 03/31/18 Range/Units 19:29 20:31 20:31 CBC w Diff Auto diff final WBC 9.5 (4.0-11.0) th/mm3 RBC 3.96 L (4.50-5.90) mil/mm3 Hgb 10.9 L (13.0-17.0) gm/dL Hct 33.3 L (39.0-51.0) % MCV 84.2 (80.0-100.0) fL MCH 27.6 (27.0-34.0) pg MCHC 32.8 (32.0-36.0) % RDW 16.6 (11.6-17.2) % Plt Count 368 (150-450) th/mm3 MPV 8.0 (7.0-11.0) fL Neut % (Auto) 75.3 H (16.0-70.0) % Lymph % (Auto) 12.1 (9.0-44.0) % Cataño % (Auto) 7.2 (0.0-8.0) % Eos % (Auto) 4.8 H (0.0-4.0) % Baso % (Auto) 0.6 (0.0-2.0) % Neut # (Auto) 7.1 (1.8-7.7) th/mm3 Lymph # (Auto) 1.1 (1.0-4.8) th/mm3 Cataño # (Auto) 0.7 (0.0-0.9) th/mm3 Eos # (Auto) 0.5 H (0.0-0.4) th/mm3 Baso # (Auto) 0.1 (0.0-0.2) th/mm3 WBC Differential . Differential Comment . PT 10.7 (9.8-11.6) sec INR 1.1 Ratio APTT 27.8 (24.3-30.1) sec Sodium (136-145) meq/L Potassium (3.5-5.1) meq/L Chloride (98-107) meq/L Carbon Dioxide (21.0-32.0) meq/L Anion Gap (5-15) meq/L BUN (7-18) mg/dL Creatinine (0.60-1.30) mg/dL Estimated GFR (>89) mL/min POC Glucose 121 H (68-110) mg/dl Random Glucose (74-106) mg/dL Osmolality (275-295) mosm/kg Calcium (8.5-10.1) mg/dL Phosphorus (2.5-4.9) mg/dL Magnesium (1.5-2.5) mg/dL Total Bilirubin (0.2-1.0) mg/dL AST (15-37) U/L ALT (12-78) U/L Alkaline Phosphatase (45-117) U/L Total Creatine Kinase (39-308) U/L Troponin I (0.02-0.05) ng/mL Total Protein (6.4-8.2) g/dL Albumin (3.4-5.0) g/dL Urine Color (Yellw/Straw) Urine Clarity (Clear) Urine pH (5.0-8.5) Ur Specific Williams (1.002-1.035) Urine Protein (Neg-Trace) mg/dL Urine Glucose (UA) (Negative) mg/dL Urine Ketones (Negative) mg/dL Urine Occult Blood (Negative) Urine Nitrate (Negative) Urine Bilirubin (Negative) Urine Urobilinogen (Less than 2) mg/dL Ur Leukocyte Esterase (Negative) Urine RBC (0-3) /hpf Urine WBC (0-5) /hpf Ur Squamous Epith Cells (0-5) /hpf Micro UA Comment Ur Microscopic Review Urine Culture Comments Urine Opiates Screen (Neg) Ur Barbiturates Screen (Neg) Ur Amphetamines Screen (Neg) U Benzodiazepines Scrn (Neg) Urine Cocaine Screen (Neg) U Cannabinoids Screen (Neg) 03/31/18 03/31/18 03/31/18 Range/Units 20:31 21:00 21:00 CBC w Diff WBC (4.0-11.0) th/mm3 RBC (4.50-5.90) mil/mm3 Hgb (13.0-17.0) gm/dL Hct (39.0-51.0) % MCV (80.0-100.0) fL MCH (27.0-34.0) pg MCHC (32.0-36.0) % RDW (11.6-17.2) % Plt Count (150-450) th/mm3 MPV (7.0-11.0) fL Neut % (Auto) (16.0-70.0) % Lymph % (Auto) (9.0-44.0) % Cata[place] % (Auto) (0.0-8.0) % Eos % (Auto) (0.0-4.0) % Baso % (Auto) (0.0-2.0) % Neut # (Auto) (1.8-7.7) th/mm3 Lymph # (Auto) (1.0-4.8) th/mm3 Cata[place] # (Auto) (0.0-0.9) th/mm3 Eos # (Auto) (0.0-0.4) th/mm3 Baso # (Auto) (0.0-0.2) th/mm3 WBC Differential Differential Comment PT (9.8-11.6) sec INR Ratio APTT (24.3-30.1) sec Sodium 139 (136-145) meq/L Potassium 3.6 (3.5-5.1) meq/L Chloride 104 (98-107) meq/L Carbon Dioxide 27.4 (21.0-32.0) meq/L Anion Gap 8 (5-15) meq/L BUN 20 H (7-18) mg/dL Creatinine 1.10 (0.60-1.30) mg/dL Estimated GFR 66 L (>89) mL/min POC Glucose (68-110) mg/dl Random Glucose 112 H (74-106) mg/dL Osmolality (275-295) mosm/kg Calcium 8.5 (8.5-10.1) mg/dL Phosphorus (2.5-4.9) mg/dL Magnesium (1.5-2.5) mg/dL Total Bilirubin 0.3 (0.2-1.0) mg/dL AST 13 L (15-37) U/L ALT 17 (12-78) U/L Alkaline Phosphatase 100 (45-117) U/L Total Creatine Kinase 142 (39-308) U/L Troponin I Less than 0.02 L (0.02-0.05) ng/mL Total Protein 7.8 (6.4-8.2) g/dL Albumin 3.2 L (3.4-5.0) g/dL Urine Color Yellow (Yellw/Straw) Urine Clarity Clear (Clear) Urine pH 6.0 (5.0-8.5) Ur Specific Williams 1.015 (1.002-1.035) Urine Protein Negative (Neg-Trace) mg/dL Urine Glucose (UA) Negative (Negative) mg/dL Urine Ketones Negative (Negative) mg/dL Urine Occult Blood Negative (Negative) Urine Nitrate Negative (Negative) Urine Bilirubin Negative (Negative) Urine Urobilinogen 0.2 (Less than 2) mg/dL Ur Leukocyte Esterase Negative (Negative) Urine RBC 0-3 (0-3) /hpf Urine WBC 0-5 (0-5) /hpf Ur Squamous Epith Cells 0-5 (0-5) /hpf Micro UA Comment Culture not ind Ur Microscopic Review Microscopic reviewed Urine Culture Comments Culture not ind Urine Opiates Screen Neg (Neg) Ur Barbiturates Screen Neg (Neg) Ur Amphetamines Screen Neg (Neg) U Benzodiazepines Scrn Neg (Neg) Urine Cocaine Screen Neg (Neg) U Cannabinoids Screen Neg (Neg) 04/01/18 04/01/18 04/01/18 Range/Units 02:02 03:41 03:44 CBC w Diff WBC 8.0 (4.0-11.0) th/mm3 RBC 4.03 L (4.50-5.90) mil/mm3 Hgb 11.0 L (13.0-17.0) gm/dL Hct 34.1 L (39.0-51.0) % MCV 84.5 (80.0-100.0) fL MCH 27.1 (27.0-34.0) pg MCHC 32.1 (32.0-36.0) % RDW 17.0 (11.6-17.2) % Plt Count 353 (150-450) th/mm3 MPV 8.2 (7.0-11.0) fL Neut % (Auto) 92.0 H (16.0-70.0) % Lymph % (Auto) 6.8 L (9.0-44.0) % Cata[place] % (Auto) 0.9 (0.0-8.0) % Eos % (Auto) 0.0 (0.0-4.0) % Baso % (Auto) 0.3 (0.0-2.0) % Neut # (Auto) 7.4 (1.8-7.7) th/mm3 Lymph # (Auto) 0.5 L (1.0-4.8) th/mm3 Cata[place] # (Auto) 0.1 (0.0-0.9) th/mm3 Eos # (Auto) 0.0 (0.0-0.4) th/mm3 Baso # (Auto) 0.0 (0.0-0.2) th/mm3 WBC Differential . Differential Comment Auto diff final PT (9.8-11.6) sec INR Ratio APTT (24.3-30.1) sec Sodium 142 Cancelled (136-145) meq/L Potassium (3.5-5.1) meq/L Chloride (98-107) meq/L Carbon Dioxide (21.0-32.0) meq/L Anion Gap (5-15) meq/L BUN (7-18) mg/dL Creatinine (0.60-1.30) mg/dL Estimated GFR (>89) mL/min POC Glucose (68-110) mg/dl Random Glucose (74-106) mg/dL Osmolality 303 H Cancelled (275-295) mosm/kg Calcium (8.5-10.1) mg/dL Phosphorus (2.5-4.9) mg/dL Magnesium (1.5-2.5) mg/dL Total Bilirubin (0.2-1.0) mg/dL AST (15-37) U/L ALT (12-78) U/L Alkaline Phosphatase (45-117) U/L Total Creatine Kinase (39-308) U/L Troponin I (0.02-0.05) ng/mL Total Protein (6.4-8.2) g/dL Albumin (3.4-5.0) g/dL Urine Color (Yellw/Straw) Urine Clarity (Clear) Urine pH (5.0-8.5) Ur Specific Williams (1.002-1.035) Urine Protein (Neg-Trace) mg/dL Urine Glucose (UA) (Negative) mg/dL Urine Ketones (Negative) mg/dL Urine Occult Blood (Negative) Urine Nitrate (Negative) Urine Bilirubin (Negative) Urine Urobilinogen (Less than 2) mg/dL Ur Leukocyte Esterase (Negative) Urine RBC (0-3) /hpf Urine WBC (0-5) /hpf Ur Squamous Epith Cells (0-5) /hpf Micro UA Comment Ur Microscopic Review Urine Culture Comments Urine Opiates Screen (Neg) Ur Barbiturates Screen (Neg) Ur Amphetamines Screen (Neg) U Benzodiazepines Scrn (Neg) Urine Cocaine Screen (Neg) U Cannabinoids Screen (Neg) 04/01/18 Range/Units 03:44 CBC w Diff WBC (4.0-11.0) th/mm3 RBC (4.50-5.90) mil/mm3 Hgb (13.0-17.0) gm/dL Hct (39.0-51.0) % MCV (80.0-100.0) fL MCH (27.0-34.0) pg MCHC (32.0-36.0) % RDW (11.6-17.2) % Plt Count (150-450) th/mm3 MPV (7.0-11.0) fL Neut % (Auto) (16.0-70.0) % Lymph % (Auto) (9.0-44.0) % [place]ata[place] % (Auto) (0.0-8.0) % Eos % (Auto) (0.0-4.0) % Baso % (Auto) (0.0-2.0) % Neut # (Auto) (1.8-7.7) th/mm3 Lymph # (Auto) (1.0-4.8) th/mm3 [place]ata[place] # (Auto) (0.0-0.9) th/mm3 Eos # (Auto) (0.0-0.4) th/mm3 Baso # (Auto) (0.0-0.2) th/mm3 WBC Differential Differential Comment PT (9.8-11.6) sec INR Ratio APTT (24.3-30.1) sec Sodium 142 (136-145) meq/L Potassium 4.0 (3.5-5.1) meq/L Chloride 108 H (98-107) meq/L Carbon Dioxide 24.4 (21.0-32.0) meq/L Anion Gap 10 (5-15) meq/L BUN 14 (7-18) mg/dL Creatinine 0.98 (0.60-1.30) mg/dL Estimated GFR 75 L (>89) mL/min POC Glucose (68-110) mg/dl Random Glucose 144 H (74-106) mg/dL Osmolality (275-295) mosm/kg Calcium 8.4 L (8.5-10.1) mg/dL Phosphorus 2.3 L (2.5-4.9) mg/dL Magnesium 2.0 (1.5-2.5) mg/dL Total Bilirubin 0.4 (0.2-1.0) mg/dL AST 12 L (15-37) U/L ALT 14 (12-78) U/L Alkaline Phosphatase 99 (45-117) U/L Total Creatine Kinase (39-308) U/L Troponin I (0.02-0.05) ng/mL Total Protein 7.7 (6.4-8.2) g/dL Albumin 3.2 L (3.4-5.0) g/dL Urine Color (Yellw/Straw) Urine Clarity (Clear) Urine pH (5.0-8.5) Ur Specific Williams (1.002-1.035) Urine Protein (Neg-Trace) mg/dL Urine Glucose (UA) (Negative) mg/dL Urine Ketones (Negative) mg/dL Urine Occult Blood (Negative) Urine Nitrate (Negative) Urine Bilirubin (Negative) Urine Urobilinogen (Less than 2) mg/dL Ur Leukocyte Esterase (Negative) Urine RBC (0-3) /hpf Urine WBC (0-5) /hpf Ur Squamous Epith Cells (0-5) /hpf Micro UA Comment Ur Microscopic Review Urine Culture Comments Urine Opiates Screen (Neg) Ur Barbiturates Screen (Neg) Ur Amphetamines Screen (Neg) U Benzodiazepines Scrn (Neg) Urine Cocaine Screen (Neg) U Cannabinoids Screen (Neg) Imaging Data Radiologist's impression: Chest X-Ray 03/31/18 19:40 CONCLUSION: No evidence of acute cardiopulmonary process. Head CT 03/31/18 19:40 CONCLUSION: 1. 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 2. Significant midline shift with early entrapment of the left lateral ventricle 3. No evidence of acute hemorrhage. . ECG Data Attestation: I personally reviewed and interpreted this ECG as follows: Interpretation: Rate 92 bpm rhythm normal sinus, right bundle branch block, MI interval 171 ms, QRS interval 149 ms, QTc interval 443 ms, ST changes associated with right bundle branch block, no STEMI. Discharge Plan Discharge Disposition Patient Disposition: 30 Still Patient Discharge Condition Condition: Critical Discharge Details Diagnosis: Brain mass, Midline shift of brain Physicians Team ED Provider: Beau Boo Primary Care Provider: Nereyda Cheung Attending Provider: Valentine Farias Other Providers: Tre Ricks ; Alan Redding Status ED Status: Left Department Discharge Information Discharge Date/Time: 03/31/18 23:22
[2018-03-31] MEDS ORDERED: Sod Chloride 0.9% Inj 1,000 ML IV.CONT SCH (19:45)
--- NOTE | 2018-03-31 20:15 | XR ---
EXAM DATE: 03/31/2018 8:05 PM EDT AGE/SEX: 72 years / Male INDICATIONS: Shortness of breath. CLINICAL DATA: This is the patient's initial encounter. Patient reports that signs and symptoms have been present for 1 day and indicates a pain score of 0/10. MEDICAL/SURGICAL HISTORY: Hypertension. None. COMPARISON: [facility] [place] S[place] AP, 01/25/2018. . FINDINGS: A single AP view of the chest demonstrates the lungs to be symmetrically aerated without evidence of mass, infiltrate or effusion. The cardiomediastinal contours are unremarkable. Osseous structures a re intact. CONCLUSION: No evidence of acute cardiopulmonary process. Electronically signed by: Phu Serrano MD 03/31/2018 8:13 PM EDT
--- NOTE | 2018-03-31 20:34 | CT ---
EXAM DATE: 03/31/2018 8:20 PM EDT AGE/SEX: 72 years / Male INDICATIONS: Weakness. Patient fell twice in the past two days. CLINICAL DATA: This is the patient's initial encounter. Patient reports that signs and symptoms have been present for 1 day and indicates a pain score of 0/10. MEDICAL/SURGICAL HISTORY: . . Multiple knee surgeries on right knee. RADIATION DOSE: 49.57 CTDI (mGy) COMPARISON: No prior exams available for comparison. TECHNIQUE: CT of the head without contrast. Using automated exposure control and adjustment of the mA and/or kV according to patient size, radiation dose was kept as low as reasonably achievable to ob tain optimal diagnostic quality images. DICOM format image data is available electronically for revi ew and comparison. FINDINGS: Cerebrum: A large hypodense lesion is identified in the right cerebral hemisphere involving the temp oral, frontal and parietal lobes. There is marked mass effect with significant right to left shift of midline structures measuring 1.5 cm. There is no evidence of acute hemorrhage. The left lateral ventricle is mildly distended suggesting early entrapment. The left cerebral hemisphere appears unremarkable. Posterior Fossa: The cerebellum and brainstem are intact. The 4th ventricle is midline. The cerebe llopontine angle is unremarkable. Extracranial: The visualized portion of the orbits is intact. Skull: The calvaria is intact. No evidence of skull fracture. CONCLUSION: 1. 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 2. Significant midline shift with early entrapment of the left lateral ventricle 3. No evidence of acute hemorrhage. . Electronically signed by: Phu Serrano MD 03/31/2018 8:33 PM EDT
[2018-03-31 20:47] LABS: Baso # (Auto) 0.1 th/mm3 (0.0-0.2); Baso % (Auto) 0.6 % (0.0-2.0); Eos # (Auto) 0.5 th/mm3 (0.0-0.4); Eos % (Auto) 4.8 % (0.0-4.0); Hematocrit 33.3 % (39.0-51.0); Hemoglobin 10.9 gm/dL (13.0-17.0); Lymph # (Auto) 1.1 th/mm3 (1.0-4.8); Lymph % (Auto) 12.1 % (9.0-44.0); Mean Corpuscular HGB Conc 32.8 % (32.0-36.0); Mean Corpuscular Hemoglobin 27.6 pg (27.0-34.0); Mean Corpuscular Volume 84.2 fL (80.0-100.0); Mono # (Auto) 0.7 th/mm3 (0.0-0.9); Mono % (Auto) 7.2 % (0.0-8.0); Neut # (Auto) 7.1 th/mm3 (1.8-7.7); Neut % (Auto) 75.3 % (16.0-70.0); Platelet Count 368 th/mm3 (150-450); Red Blood Count 3.96 mil/mm3 (4.50-5.90); Red Cell Distribution Width 16.6 % (11.6-17.2); White Blood Count 9.5 th/mm3 (4.0-11.0)
[2018-03-31 20:54] LABS: Chloride 104 meq/L (98-107); Potassium 3.6 meq/L (3.5-5.1); Sodium 139 meq/L (136-145)
[2018-03-31 20:58] LABS: Albumin 3.2 g/dL (3.4-5.0); Anion Gap 8 meq/L (5-15); Calcium 8.5 mg/dL (8.5-10.1); Carbon Dioxide 27.4 meq/L (21.0-32.0); Glucose,Random 112 mg/dL (74-106)
[2018-03-31 20:59] LABS: Activated Partial Thrombo Time 27.8 sec (24.3-30.1); Blood Urea Nitrogen 20 mg/dL (7-18); INR 1.1 Ratio; Prothrombin Time 10.7 sec (9.8-11.6)
[2018-03-31 21:01] LABS: Alanine Aminotransferase 17 U/L (12-78); Aspartate Aminotransferase 13 U/L (15-37)
[2018-03-31 21:02] LABS: Glomerular Filtration Rate 66 mL/min (>89)
[2018-03-31 21:03] LABS: Total Protein 7.8 g/dL (6.4-8.2)
[2018-03-31 21:04] LABS: Alkaline Phosphatase 100 U/L (45-117); Creatine Kinase 142 U/L (39-308)
[2018-03-31 21:07] LABS: Bilirubin,Urine Negative (Negative); Clarity,Urine Clear (Clear); Color,Urine Yellow (Yellw/Straw); Glucose,Urine (UA) Negative (Negative); Leukocyte Esterase,Urine Negative (Negative); Nitrite,Urine Negative (Negative); Specific Gravity,Urine 1.015 (1.002-1.035); Urobilinogen,Urine 0.2 mg/dL (Less than 2)
--- NOTE | 2018-03-31 21:08 | P.CONNS ---
History of Present Illness Service: neurosurgery Consult date: 03/31/18 Requesting Physician: Saniya Jackson Reason for Consult: Brain mass Chief Complaint: Left armm weakness History of Present Illness: This is a 72-year-old male with with past medical history of hypertension who presented to [facility] emergency department with left arm weakness. He says for approximately 5 days he has had headache overlying his right eye, occasional slurred speech, vision change, and decreased dexterity of his left hand resulting in difficulty with writing and tying his shoes. He he has had 2 falls in the last 2 days. He also noted a mild left facial droop. He denies any headache or visual changes. No seizure activity noted. No tongue bitting. no incontinence of sotol or urine. His stepdaughter, who is a [employer], also noticed he had left facial droop and urged him to seek medical attention. Has lost about 20 pounds since January 29. Poor appetite, he attributed to antibiotics he was on (infected knee arthoplasty with MRSA, hardware removed and antibiotic spacers placed, skin graft and muscle flap by Dr. Barry. On course of abx with daptomycin and rifampin via PICC line. PICC removed 03/07. Now only on doxycycline 100 bid. He has mild slurred speech. Denies any neck pain or back pain. Denies any chest pain or palpitation. No shortness of breath or cough. He denies any nauseas or vomiting. He denies abdominal pain, change in bowel habit. No dysuria, hematuria. CT of the head showed a very large right cerebral mass causing a midline shift of 1.5 cm with significant vasogenic edema. Neurosurgical consultation was requested. Review of Systems Constitutional: Reports weight loss, Denies anorexia, Denies body ache(s), Denies chills, Denies daytime sleepiness, Denies excessive sweating, Denies fatigue, Denies fever(s), Denies headache(s), Denies increased appetite, Denies lack of energy, Denies malaise, Denies night sweats, Denies weakness, Denies weight gain, Denies other Ears, Nose, Mouth, and Throat: Denies abnormal hearing, Denies bleeding gums, Denies bad breath, Denies change in voice, Denies dental pain, Denies difficulty swallowing, Denies dizziness, Denies dry mouth, Denies ear discharge , Denies ear pain, Denies facial pain, Denies headache(s), Denies hearing loss, Denies hoarseness, Denies lip swelling, Denies nosebleed, Denies mouth lesions, Denies mouth pain, Denies nasal congestion, Denies nasal discharge, Denies nasal obstruction, Denies nasal trauma, Denies neck lump, Denies neck pain, Denies nose pain, Denies pain with swallowing, Denies poor balance, Denies post nasal drip, Denies ringing in the ears, Denies sinus pain, Denies sinus pressure , Denies sore throat, Denies throat swelling, Denies tongue swelling, Denies other Cardiovascular: Denies chest pain, Denies chest pain at rest, Denies chest pain with activity, Denies excessive sweating, Denies fainting, Denies fast heart rate, Denies foot swelling, Denies generalized swelling, Denies irregular heart rhythm, Denies leg pain with activity, Denies leg sores, Denies leg swelling, Denies lightheadedness, Denies radiating jaw, neck or arm pain, Denies rapid, pounding, or irregular heartbeat, Denies shortness of breath, Denies shortness of breath with activity, Denies shortness of breath when lying down, Denies shortness of breath causing sudden awakening, Denies slow heart rate, Denies other Respiratory: Denies change in phlegm color, Denies chest congestion, Denies cough, Denies coughing up blood, Denies excessive phlegm production, Denies pain on inspiration, Denies pain with cough, Denies shortness of breath, Denies shortness of breath with activity, Denies snoring, Denies stridor, Denies wheezing, Denies other Gastrointestinal: Denies abdominal pain, Denies belching, Denies black, tarry stools, Denies bloating, Denies bright, red blood in stools, Denies change in bowel habits, Denies constant urge to pass stool, Denies change in stools, Denies coffee ground vomit, Denies constipation, Denies cramping, Denies difficulty swallowing, Denies excessive passing of gas, Denies feeling full early, Denies heartburn, Denies incontinent of stools, Denies loose stools, Denies nausea, Denies pain with swallowing, Denies vomiting, Denies vomiting blood, Denies other Genitourinary: Denies blood in semen, Denies blood in urine, Denies decreased urination, Denies difficulty urinating, Denies difficulty with ejaculations, Denies erectile dysfunction, Denies genital lesions, Denies genital pain, Denies painful urination, Denies side pain, Denies frequent nighttime urination , Denies painful ejaculations, Denies penile discharge, Denies scrotal swelling , Denies testicle lump, Denies testicle pain, Denies urinary frequency, Denies urinary hesitancy, Denies urinary incontinence, Denies urinary urgency, Denies other Musculoskeletal: Reports abnormal walking, Denies back pain, Denies body aches, Denies decreased muscle mass, Denies deformity, Denies joint pain, Denies joint swelling, Denies limited joint movement, Denies loss of height, Denies muscle cramps, Denies muscle weakness, Denies neck pain, Denies numbness, Denies radiating pain into limb, Denies stiffness, Denies tingling, Denies other Skin/Breast: Denies acne, Denies bleeding lesions, Denies boil, Denies breast swelling, Denies breast skin changes, Denies breast pain, Denies breast lump, Denies change in breast shape, Denies change in hair, Denies change in skin color, Denies changing lesions, Denies dry skin, Denies excessive hair growth, Denies hair loss, Denies itching, Denies lesions, Denies nail changes, Denies new lesions, Denies nipple discharge, Denies non-healing lesions, Denies redness , Denies sensitivity to light, Denies rash, Denies skin pain, Denies skin ulcer , Denies sores, Denies stretch ramsey, Denies unusual bruising, Denies wounds, Denies yellowing of the skin, Denies other Neurologic: Reports abnormal speech, Reports localized weakness, Reports numbness, Reports sensory deficit, Reports weakness, Denies abnormal hearing, Denies abnormal movements, Denies abnormal walking, Denies behavioral changes, Denies burning sensations, Denies confusion, Denies dizziness, Denies fainting, Denies frequent falls, Denies headache(s), Denies lack of coordination, Denies loss of vision, Denies memory loss, Denies other visual disturbances, Denies radiating pain, Denies restless legs, Denies convulsions, Denies seizure-like activity, Denies tingling, Denies tingling/numbness/burning sensations, Denies tremor(s), Denies unsteadiness, Denies other Psychiatric: Denies abnormal sleep pattern, Denies anxiety, Denies behavioral changes, Denies change in appetite, Denies change in sex drive, Denies confusion , Denies depression, Denies difficulty concentrating, Denies hearing things others do not hear, Denies hopelessness, Denies irritability, Denies lack of enjoyment, Denies memory loss, Denies mood swings, Denies panic attacks, Denies paranoia, Denies seeing things others do not see, Denies sensing things others do not sense, Denies tactile hallucinations, Denies thoughts of hurting/killing others, Denies thoughts of hurting/killing yourself, Denies other Endocrine: Denies cold intolerance, Denies excessive sweating, Denies flushing, Denies heat intolerance, Denies increased hunger, Denies increased thirst, Denies increased urination, Denies rapid, pounding, or irregular heartbeat, Denies other Hematologic/Lymphatic: Denies easy bleeding, Denies easy bruising, Denies enlarged lymph nodes, Denies other Allergic/Immunologic: Denies GI upset with certain foods, Denies hives, Denies itchy eyes, Denies lip swelling, Denies seasonal runny nose, Denies throat swelling, Denies tongue swelling, Denies wheezing, Denies other PMFSH - History History Provided By: Patient - Medical History Medical History: Medical History (Last Reviewed 04/01/18 @ 20:48 by Tre Ricks MD) Infected hardware in right leg (Acute) Failed total knee replacement (Acute) HTN (hypertension) - Surgical History Surgical History: Surgical History (Last Reviewed 04/01/18 @ 20:48 by Tre Ricks MD) Hx of plastic surgery Hx of total knee arthroplasty S/P rotator cuff repair - Family History Family History: Family History (Last Reviewed 04/01/18 @ 20:48 by Tre Ricks MD) Father CAD (coronary artery disease) Stroke Mother No significant medical problems - Tobacco History Smoking Status: Never smoker - Alcohol History How Often Do You Have a Drink Containing Alcohol: Never - Travel History Recent Travel Out of the Country Within the Last 8 Weeks: No - Immunization History Tetanus Immunization: <5 Years Medications and Allergies Active Medications: Active Medications Sodium Chloride (Ns Inj) 1,000 mls @ 70 mls/hr IV.CONT .[id number] ROSA Allergies Allergy/AdvReac Type Severity Reaction Status Date / Time No Known Allergies Allergy Verified 03/31/18 19:39 Home Medications Medication Instructions Recorded Confirmed Type clobetasol 1 applic TOPICAL QAM AND QPM 04/01/18 04/01/18 History doxycycline hyclate 100 mg PO BID 04/01/18 04/01/18 History mineral oil-hydrophil petrolat 1 applic TOPICAL QAM AND QPM 04/01/18 04/01/18 History [Aquaphor] vitamin E 1 applic TOPICAL QAM AND QHS PRN 04/01/18 04/01/18 History Exam Vital signs: Vital Signs 03/31/18 19:35 03/31/18 20:52 Temperature 98.4 F Pulse Rate 95 H Respiratory Rate 18 Blood Pressure 143/83 H Pulse Oximetry 97 Intake & Output 03/31/18 03/31/18 04/01/18 06:59 18:59 06:59 Weight 92.986 kg Narrative: GENERAL: Well-nourished, well-developed patient who is alert and extremely talkative. SKIN: Warm and dry. Skin graft harvest site right thigh. Incision from prior muscle flap and skin graft on right knee is healing well. No drainage. No erythema. HEAD: Atraumatic. Normocephalic. EYES: Pupils equal and round, 4 mm and reactive to 2 mm bilaterally. No scleral icterus. No injection or drainage. ENT: No nasal bleeding or discharge. Mucous membranes pink and moist. NECK: Trachea midline. No JVD. CARDIOVASCULAR: Regular rate and rhythm. No murmurs rubs or gallops. RESPIRATORY: No accessory muscle use. Clear to auscultation. Breath sounds equal bilaterally. GASTROINTESTINAL: Abdomen soft, non-tender, nondistended. MUSCULOSKELETAL: Extremities without clubbing, cyanosis, or edema. No obvious deformities. NEUROLOGICAL: Awake and alert. Left lower facial droop. No obvious cranial nerve deficits. Normal tongue protrusion. Extraocular movements intact. Strength 5 out of 5 throughout the right side. Sensation is intact throughout. Left upper extremity 4+/5 biceps, 4-/5 triceps, 4+ hand intrinsics. Left lower 4+/5 hip flexor, 5/5 ankle plantar and dorsiflexion. Results - Laboratory Findings CBC and BMP: 04/01/18 03:41 04/01/18 12:59 Abnormal lab findings: Abnormal Labs 03/31/18 03/31/18 03/31/18 19:29 20:31 20:31 RBC 3.96 L Hgb 10.9 L Hct 33.3 L Neut % (Auto) 75.3 H Eos % (Auto) 4.8 H Eos # (Auto) 0.5 H BUN 20 H Estimated GFR 66 L POC Glucose 121 H Random Glucose 112 H AST 13 L Albumin 3.2 L Assessment and Plan - Plan - Problem List (1) Brain mass Code(s): G93.9 - Disorder of brain, unspecified Status: Acute (2) Midline shift of brain Code(s): G93.9 - Disorder of brain, unspecified Status: Acute (3) HTN (hypertension) Code(s): I10 - Essential (primary) hypertension Status: Chronic Large right cerebral mass. CT of the head showed a very large right cerebral lesion with significant mass effect and midline shift of 1.5 cm to the left. There was a vasogenic edema, but no acute hemorrhage noted. This is worrisome for primary [employer] neoplasm like a glioma. Neuro: neuro checks in a serial fashion. Recommend MRI brain with Stealth protocol for further evaluation. He is likely to require a surgical decompression Chest X-Ray 03/31/18 19:40 CONCLUSION: No evidence of acute cardiopulmonary process. Head CT 03/31/18 19:40 CONCLUSION: 1. 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 2. Significant midline shift with early entrapment of the left lateral ventricle 3. No evidence of acute hemorrhage. Please start decadron 4mg IV every 6 hrs. Mannitol 25 gm every 6 hrs, hold if serum osmo greater than [address] of the chest, abdomen, and pelvis Recent infected right total knee prosthesis. Hypertension Pulmonary: aggressive pulmonary toilette, nasotracheal suction, and breathing treatments with nebulizers. Daily PT and OT Renal: Continue to monitor closely urine output, BUN and creatinine Endocrine: Continue to Monitor serial Acu checks and SSI as needed in detail ID monitor for signs of infection Protonix for stress ulcer prophylaxis Mike hose and SCD's for DVT prophylaxis Further recommendations will be provided depending on the patient's clinical evaluation and follow up studies. Caprini VTE Risk Assessment Caprini VTE Risk Assessment: Moderate/High Risk (score >= 2) VTE Pharmacological Exception Reason: Intracranial lesions Caprini Risk Assessment Model: Point Value = 1 Point Value = 2 Point Value = 3 Point Value = 5 Age 41-60 Minor surgery BMI > 25 kg/m2 Swollen legs Varicose veins or History of unexplained or recurrent spontaneous Oral contraceptives or hormone replacement Sepsis (< 1 month) Serious lung disease, including pneumonia (< 1 month) Abnormal pulmonary function Acute myocardial infarction Congestive heart failure (< 1 month) History of inflammatory bowel disease Medical patient at bed rest Age 61-74 Arthroscopic surgery Major open surgery (> 45 min) Laparoscopic surgery (> 45 min) Malignancy Confined to bed (> 72 hours) Immobilizing plaster cast Central venous access Age >= 75 History of VTE Family history of VTE Factor V Leiden Prothrombin [id number] Lupus anticoagulant Anticardiolipin antibodies Elevated serum homocysteine Heparin-induced thrombocytopenia Other congenital or acquired thrombophilia Stroke (< 1 month) Elective arthroplasty Hip, pelvis, or leg fracture Acute spinal cord injury (< 1 month) Prophylaxis Regimen: Total Risk Factor Score Risk Level Prophylaxis Regimen 0-1 Low Early ambulation 2 Moderate Order ONE of the following: *Sequential Compression Device (SCD) *Heparin 5000 units SQ BID 3-4 Higher Order ONE of the following medications: *Heparin 5000 units SQ TID *Enoxaparin/Lovenox 40 mg SQ daily (WT < 150 kg, CrCl > 30 mL/min) *Enoxaparin/Lovenox 30 mg SQ daily (WT < 150 kg, CrCl > 10-29 mL/min) *Enoxaparin/Lovenox 30 mg SQ BID (WT < 150 kg, CrCl > 30 mL/min) AND/OR *Sequential Compression Device (SCD) 5 or more Highest Order ONE of the following medications: *Heparin 5000 units SQ TID (Preferred with Epidurals) *Enoxaparin/Lovenox 40 mg SQ daily (WT < 150 kg, CrCl > 30 mL/min) *Enoxaparin/Lovenox 30 mg SQ daily (WT < 150 kg, CrCl > 10-29 mL/min) *Enoxaparin/Lovenox 30 mg SQ BID (WT < 150 kg, CrCl > 30 mL/min) AND *Sequential Compression Device (SCD) Patient is critically ill with large mass with midline shift. He is at risk for further decompensation. He is in need of emergent management of cerebral edema to prevent progressive neurologic deterioration, herniation and .
[2018-03-31 21:15] LABS: Amphetamine Screen,Urine Neg (Neg); Barbiturate Screen,Urine Neg (Neg); RBC,Urine 0-3 /hpf (0-3); Squamous Epithelial Cell,Urine 0-5 /hpf (0-5); WBC,Urine 0-5 /hpf (0-5)
[2018-03-31 21:16] LABS: Cannabinoid Screen,Urine Neg (Neg); Cocaine Screen,Urine Neg (Neg)
[2018-03-31] MEDS ORDERED: Dexamethasone Inj 20 MG/5 ML Vial IV.PUSH ONE (21:20)
[2018-03-31] MEDS ORDERED: levETIRAcetam 1000mg/100mL Inj 100 ML IV.SIG ONE (21:21)
[2018-03-31] MEDS ORDERED: Dextrose 50% in Water 50 ML Vial IV.PUSH PRN (21:24)
[2018-03-31 21:26] LABS: Opiate Screen,Urine Neg (Neg)
[2018-03-31] MEDS ORDERED: Magnesium Sulfate Inj 4 GM in Sodium Chlor 0.9% Inj 92 ML IV.SIG PRN (21:26)
[2018-03-31] MEDS ORDERED: Sodium Phosphate Inj 30 MMOL in Sodium Chlor 0.9% Inj 250 ML IV.SIG PRN (21:26)
[2018-03-31] MEDS ORDERED: Potassium Chloride 25 MEQ Effervescent Tablet PO PRN (21:26)
[2018-03-31] MEDS ORDERED: Potassium Phosphate 500 MG Soluble Tablet PO PRN ×2 (21:26)
[2018-03-31] MEDS ORDERED: Potassium Chlor 20 mEq Premix 20 MEQ/100 ML PIGGYBACK IV.SIG PRN ×2 (21:26)
[2018-03-31] MEDS ORDERED: Potassium Chlor 40 mEq Premix 40 MEQ/100 ML PIGGYBACK IV.SIG PRN ×2 (21:26)
[2018-03-31] MEDS ORDERED: Potassium Phosphate Inj 30 MMOL in Sodium Chlor 0.9% Inj 250 ML IV.SIG PRN (21:26)
[2018-03-31] MEDS ORDERED: Magnesium Sulfate Inj 2 GM in Sodium Chlor 0.9% Inj 96 ML IV.SIG PRN (21:26)
[2018-03-31] MEDS ORDERED: Magnesium Oxide 400 MG Tablet PO PRN (21:26)
[2018-03-31] MEDS ORDERED: Bisacodyl 10 MG Supp RECTAL PRN (21:28)
[2018-03-31] MEDS ORDERED: Morphine Sulfate Inj 2 MG/ML Vial IV.PUSH PRN (21:28)
[2018-03-31] MEDS ORDERED: Acetaminophen 325 MG Tablet PO PRN (21:28)
--- NOTE | 2018-03-31 21:36 | ECG ---
Date Performed: 03/31/2018 Time Performed: 19:51:11 PTAGE: 72 years EKG: Sinus rhythm WITH OCCASIONAL SUPRAVENTRICULAR PREMATURE COMPLEXES RIGHT BUNDLE BRANCH BLOCK ABNORMAL ECG PREVIOUS TRACING : 12/13/2017 15.54 Compared to previous tracing, no PVCs present DOCTOR: Dom Collazo Interpretating Date/Time 03/31/2018 21:35:25
--- NOTE | 2018-04-01 01:33 | P.HPCC ---
History of Present Illness Service: Critical care medicine Primary Care Physician: Nereyda Cheung Chief Complaint: Left arm weakness History of Present Illness: 72 year old left hand dominant male with past medical history of hypertension who presented to [facility] emergency department with left arm weakness. He says for approximately 5 days he has had headache overlying his right eye, occasional slurred speech, vision change, and decreased dexterity of his left hand resulting in difficulty with writing and tying his shoes. He he has had 2 falls in the last 2 days. His stepdaughter, who is a [employer], also noticed he had left facial droop and urged him to seek medical attention. CT brain shows large frontal/parietal temporal mass with edema and 1.5 cm of right to left midline shift. Neurosurgical consultation has been obtained. He is transferred to [facility] for admission by transportation attendant service. Denies seizure, paresthesias, sensory deficits. Has lost about 20 pounds since January 29. Poor appetite, he attributed to antibiotics he was on (infected knee arthoplasty with MRSA, hardware removed and antibiotic spacers placed, skin graft and muscle flap by Dr. Barry. On course of abx with daptomycin and rifampin via PICC line. PICC removed 03/07. Now only on doxycycline 100 bid. ) - Diagnosis (1) Brain mass (2) Midline shift of brain (3) HTN (hypertension) Inpatient Certification: I certify that the inpatient services were ordered in accordance with Medicare regulations governing the order. This includes certification that hospital inpatient services are reasonable and necessary and in the case of services not specified as inpatient-only under 42 CFR 419.22(n), that they are appropriately provided as inpatient services in accordance to with the 2-midnight benchmark under 43 CFR 412.3(e) Estimated Total Length of Stay (Days): 10 Plans for Post Hospital Care: Not yet determined Review of Systems All other systems reviewed negative except as stated in HPI PMFSH - History History Provided By: Patient - Medical History Medical History: Medical History (Last Updated 04/01/18 @ 08:44 by Valentine Farias MD) Infected hardware in right leg (Acute) Failed total knee replacement (Acute) HTN (hypertension) - Surgical History Surgical History: Surgical History (Last Updated 04/01/18 @ 08:44 by Valentine Farias MD) Hx of plastic surgery Hx of total knee arthroplasty S/P rotator cuff repair - Family History Family History: Family History (Last Updated 04/01/18 @ 08:45 by Valentine Farias MD) Father CAD (coronary artery disease) Stroke Mother No significant medical problems - Tobacco History Tobacco Use In Past 30 Days: 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) Smoking Status: Never smoker - Alcohol History How Often Do You Have a Drink Containing Alcohol: Monthly or less - Substance Use History Substance History: No History of Abuse - Travel History Recent Travel in the [place] Within the Last 8 Weeks: No Recent Travel Out of the Country Within the Last 8 Weeks: No - Immunization History Tetanus Immunization: <5 Years Medications and Allergies Active Medications: Active Medications Acetaminophen (Tylenol) 650 mg PO Q6H PRN PRN Reason: Pain 1-10 And/Or temp >100.4 Hydrocodone Bitart/Acetaminophen ([place]umberland 5/325) 1 tab PO Q4H PRN PRN Reason: pain 4-10 Al Hydroxide/Mg Hydroxide (Milk Of Magnesia Liq) 30 ml PO Q12H PRN PRN Reason: Mild Constipation Albuterol (Duoneb Neb (Prn)) 1 ampul INH Q2HR NEB PRN PRN Reason: SOB/WHEEZING Bisacodyl (Dulcolax Supp) 10 mg RECTAL DAILY PRN PRN Reason: SEVERE CONSITIPATION Dexamethasone Sodium Phosphate (Decadron Inj) 4 mg IV.PUSH Q6HR ROSA Dexamethasone Sodium Phosphate (Decadron Inj) 4 mg IV.PUSH ONCE ONE Stop: 04/01/18 21:23 Dextrose (D50w Vial) 50 ml IV.PUSH UNSCH PRN PRN Reason: PER HYPOGLYCEMIA PROTOCOL Glucagon (Glucagon Inj) 1 mg OTHER PRN PRN PRN Reason: for Hypoglycemia Protocol Levetiracetam 500 mg/ Sodium (Chloride) 105 mls @ 400 mls/hr IV.SIG Q12H ROSA Potassium Chloride (Kcl 40 Meq Premix Inj) 40 meq in 100 mls @ 25 mls/hr IV.SIG Q2H PRN PRN Reason: For Potassium 2.8 - 3.2 mEq/L Potassium Chloride (Kcl 20 Meq Premix Inj) 20 meq in 100 mls @ 50 mls/hr IV.SIG Q2H PRN PRN Reason: For Potassium 3.3 - 3.5 mEq/L Potassium Chloride (Kcl 40 Meq Premix Inj) 40 meq in 100 mls @ 25 mls/hr IV.SIG UNSCH PRN PRN Reason: For Potassium 3.3 - 3.5 mEq/L Potassium Phosphate 30 mmol/ (Sodium Chloride) 260 mls @ 42 mls/hr IV.SIG UNSCH PRN PRN Reason: SEE LABEL COMMENTS Sodium Phosphate 30 mmol/ (Sodium Chloride) 260 mls @ 42 mls/hr IV.SIG UNSCH PRN PRN Reason: For Phosphorus < 2.5 mg/dL Potassium Chloride (Kcl 20 Meq Premix Inj) 20 meq in 100 mls @ 50 mls/hr IV.SIG Q2H PRN PRN Reason: For Potassium 2.8 - 3.2 mEq/L Magnesium Sulfate Inj 4 gm/ (Sodium Chloride) 100 mls @ 50 mls/hr IV.SIG UNSCH PRN PRN Reason: For Magnesium 0.9 - 1.1 mg/dL Magnesium Sulfate Inj 2 gm/ (Sodium Chloride) 100 mls @ 50 mls/hr IV.SIG UNSCH PRN PRN Reason: For Magnesium 1.2 - 1.6 mg/dL Sodium Chloride 188 meq/ (Sodium Chloride) 1,047 mls @ 30 mls/hr IV.CONT .Q24H ROSA Insulin Aspart (Novolog Insulin Correctional Sugar Inj) 0 unit SQ ACHS ROSA; Protocol Lactulose (Lactulose Liq) 30 ml PO DAILY PRN PRN Reason: SEVERE CONSITIPATION Lorazepam (Ativan Inj) 1 mg IV.PUSH Q5M PRN PRN Reason: seizure Magnesium Oxide (Mag-Ox) 800 mg PO UNSCH PRN PRN Reason: For Magnesium 1.2 - 1.6 mg/dL Mannitol (Mannitol Inj) 25 gm IV.PUSH Q6H [facility] Last Admin: 03/31/18 21:38 Dose: 25 gm Morphine Sulfate (Morphine Inj) 2 mg IV.PUSH Q2H PRN PRN Reason: breakthrough pain Ondansetron HCl (Zofran Inj) 4 mg IV.PUSH Q6H PRN PRN Reason: NAUSEA OR VOMITING Pantoprazole Sodium (Protonix Inj) 40 mg IV.PUSH DAILY ROSA Potassium Bicarb/Potassium Chloride (K-Lyte Cl Eff) 50 meq PO UNSCH PRN PRN Reason: For Potassium 3.3 - 3.5 mEq/L Potassium Phosphate (K-Phos Original) 2,000 mg PO Q4H PRN PRN Reason: Phosphorus Less Than 2.5 mg/dL Potassium Phosphate (K-Phos Original) 2,000 mg PO UNSCH PRN PRN Reason: SEE LABEL COMMENTS Senna/Docusate Sodium (Heather-Colace) 1 tab PO BID [facility] Sennosides (Senokot) 17.2 mg PO Q12H PRN PRN Reason: Moderate Constipation Sodium Chloride (Ns Flush) 2 ml IV.FLUSH PRN PRN PRN Reason: FLUSH AFTER USING IV ACCESS Sodium Chloride (Ns Flush) 2 ml IV.FLUSH BID [facility] Allergies Allergy/AdvReac Type Severity Reaction Status Date / Time No Known Allergies Allergy Verified 03/31/18 19:39 Results - Labs CBC & Chem 7: 04/01/18 03:41 04/01/18 03:44 Labs: Short CBC 03/31/18 Range/Units 20:31 WBC 9.5 (4.0-11.0) th/mm3 Hgb 10.9 L (13.0-17.0) gm/dL Hct 33.3 L (39.0-51.0) % Plt Count 368 (150-450) th/mm3 BMP 03/31/18 20:31 Sodium 139 Potassium 3.6 Chloride 104 Carbon Dioxide 27.4 BUN 20 H Creatinine 1.10 Calcium 8.5 Cardiac Enzymes 03/31/18 Range/Units 20:31 Total Creatine Kinase 142 (39-308) U/L Troponin I Less than 0.02 L (0.02-0.05) ng/mL Liver Function 03/31/18 Range/Units 20:31 Total Bilirubin 0.3 (0.2-1.0) mg/dL AST 13 L (15-37) U/L ALT 17 (12-78) U/L Alkaline Phosphatase 100 (45-117) U/L Albumin 3.2 L (3.4-5.0) g/dL Urine 03/31/18 Range/Units 21:00 Urine Color Yellow (Yellw/Straw) Urine Clarity Clear (Clear) Urine pH 6.0 (5.0-8.5) Ur Specific Keiser 1.015 (1.002-1.035) Urine Protein Negative (Neg-Trace) mg/dL Urine Glucose (UA) Negative (Negative) mg/dL - Imaging Impressions Chest X-Ray 03/31/18 19:40 CONCLUSION: No evidence of acute cardiopulmonary process. Head CT 03/31/18 19:40 CONCLUSION: 1. 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 2. Significant midline shift with early entrapment of the left lateral ventricle 3. No evidence of acute hemorrhage. . Exam Vital signs: Vital Signs 03/31/18 19:35 03/31/18 20:52 03/31/18 21:50 Temperature 98.4 F Pulse Rate 95 H 109 H Respiratory Rate 18 18 Blood Pressure 143/83 H 138/63 Pulse Oximetry 97 100 03/31/18 23:01 Temperature Pulse Rate 96 H Respiratory Rate Blood Pressure 138/69 Pulse Oximetry 100 Intake & Output 03/31/18 03/31/18 04/01/18 06:59 18:59 06:59 Weight 92.986 kg Narrative: GENERAL: Well-nourished, well-developed patient who is alert and extremely talkative. SKIN: Warm and dry. Skin graft harvest site right thigh. Incision from prior muscle flap and skin graft on right knee is healing well. No drainage. No erythema. HEAD: Atraumatic. Normocephalic. EYES: Pupils equal and round, 4 mm and reactive to 2 mm bilaterally. No scleral icterus. No injection or drainage. ENT: No nasal bleeding or discharge. Mucous membranes pink and moist. NECK: Trachea midline. No JVD. CARDIOVASCULAR: Regular rate and rhythm. No murmurs rubs or gallops. RESPIRATORY: No accessory muscle use. Clear to auscultation. Breath sounds equal bilaterally. GASTROINTESTINAL: Abdomen soft, non-tender, nondistended. MUSCULOSKELETAL: Extremities without clubbing, cyanosis, or edema. No obvious deformities. NEUROLOGICAL: Awake and alert. Left lower facial droop. No obvious cranial nerve deficits. Normal tongue protrusion. Extraocular movements intact. Strength 5 out of 5 throughout the right side. Sensation is intact throughout. Left upper extremity 4+/5 biceps, 4-/5 triceps, 4+ hand intrinsics. Left lower 4+/5 hip flexor, 5/5 ankle plantar and dorsiflexion. Caprini VTE Risk Assessment Caprini VTE Risk Assessment: Moderate/High Risk (score >= 2) VTE Pharmacological Exception Reason: Intracranial lesions Caprini Risk Assessment Model: Point Value = 1 Point Value = 2 Point Value = 3 Point Value = 5 Age 41-60 Minor surgery BMI > 25 kg/m2 Swollen legs Varicose veins or History of unexplained or recurrent spontaneous Oral contraceptives or hormone replacement Sepsis (< 1 month) Serious lung disease, including pneumonia (< 1 month) Abnormal pulmonary function Acute myocardial infarction Congestive heart failure (< 1 month) History of inflammatory bowel disease Medical patient at bed rest Age 61-74 Arthroscopic surgery Major open surgery (> 45 min) Laparoscopic surgery (> 45 min) Malignancy Confined to bed (> 72 hours) Immobilizing plaster cast Central venous access Age >= 75 History of VTE Family history of VTE Factor V Leiden Prothrombin [id number] Lupus anticoagulant Anticardiolipin antibodies Elevated serum homocysteine Heparin-induced thrombocytopenia Other congenital or acquired thrombophilia Stroke (< 1 month) Elective arthroplasty Hip, pelvis, or leg fracture Acute spinal cord injury (< 1 month) Prophylaxis Regimen: Total Risk Factor Score Risk Level Prophylaxis Regimen 0-1 Low Early ambulation 2 Moderate Order ONE of the following: *Sequential Compression Device (SCD) *Heparin 5000 units SQ BID 3-4 Higher Order ONE of the following medications: *Heparin 5000 units SQ TID *Enoxaparin/Lovenox 40 mg SQ daily (WT < 150 kg, CrCl > 30 mL/min) *Enoxaparin/Lovenox 30 mg SQ daily (WT < 150 kg, CrCl > 10-29 mL/min) *Enoxaparin/Lovenox 30 mg SQ BID (WT < 150 kg, CrCl > 30 mL/min) AND/OR *Sequential Compression Device (SCD) 5 or more Highest Order ONE of the following medications: *Heparin 5000 units SQ TID (Preferred with Epidurals) *Enoxaparin/Lovenox 40 mg SQ daily (WT < 150 kg, CrCl > 30 mL/min) *Enoxaparin/Lovenox 30 mg SQ daily (WT < 150 kg, CrCl > 10-29 mL/min) *Enoxaparin/Lovenox 30 mg SQ BID (WT < 150 kg, CrCl > 30 mL/min) AND *Sequential Compression Device (SCD) Assessment and Plan - Problem List (1) Brain mass Code(s): G93.9 - Disorder of brain, unspecified Status: Acute (2) Midline shift of brain Code(s): G93.9 - Disorder of brain, unspecified Status: Acute (3) HTN (hypertension) Code(s): I10 - Essential (primary) hypertension Status: Chronic - Assessment and Plan Plan: NEURO: Mass R frontal/parietal/temporal lobes, edema, 1.5 cm midline shift Decadron 10 mg IV load. Decadron 4 mg IV every 6 hours. Mannitol 25 mg IV every 6 hours. 2% NaCl at 30 mL/h. Serial sodium every 6 hours target 150-155. Monitor serum osmolality. . Keppra 1 g IV then 500 IV every 12 hours for seizure prophylaxis. Neurocheck q1hour. MRI Brain stealth protocol Tylenol/Lortab as needed for pain Neurosurgery consult, Dr. Ricks RESP: Room air CV: Essential hypertension Norvasc 5 mg p.o. daily GI: GERD NPO. Swallow evaluation On home omeprazole. Protonix 40 daily. FEN/RENAL: Creatinine normal. Monitor BMP. Monitor electrolytes and replace as indicated per ICU electrolyte replacement protocol. ID: MRSA infection R knee arthroplasty. Now s/p hardware removal, antibiotic spacer. Muscle flap and skin graft. Continue doxycycline 100 mg twice daily for recent infected hardware as per above discussion. He is followed as an outpatient by Dr. Freitas. HEME: Normal platelet count and coags. No home anticoagulant or antiplatelet therapy Oncology consultation ENDO: Monitor bedside glucose AC/at bedtime while on steroids and administer low -dose insulin sliding scale as indicated. SKIN/MSK: Ordered home medication regimen to continue right upper extremity. Vitamin E to skin harvest site and aquaphor/clobetasol 0.5 % to knee area.. PROPH: SCDs for DVT prophylaxis. Avoid pharmacologic DVT prophylaxis due to large intracerebral lesion. Protonix 40 mg IV daily for stress ulcer prophylaxis. ACCESS: Peripheral IV providing adequate access at this time. Patient is critically ill with large mass with midline shift. He is at risk for further decompensation. He is in need of emergent management of cerebral edema to prevent progressive neurologic deterioration, herniation and . CCT 40 minutes exclusive of separately billable procedures per
[2018-04-01] MEDS: Sodium Chloride 23.4% Inj 188 MEQ in Sod Chloride 0.9% Inj 1,000 ML IV.CONT SCH (01:53)
[2018-04-01 02:39] LABS: Sodium 142 meq/L (136-145)
[2018-04-01 04:33] LABS: Baso % (Auto) 0.3 % (0.0-2.0); Hematocrit 34.1 % (39.0-51.0); Lymph # (Auto) 0.5 th/mm3 (1.0-4.8); Lymph % (Auto) 6.8 % (9.0-44.0); Mean Corpuscular HGB Conc 32.1 % (32.0-36.0); Mean Corpuscular Hemoglobin 27.1 pg (27.0-34.0); Mean Corpuscular Volume 84.5 fL (80.0-100.0); Mean Platelet Volume 8.2 fL (7.0-11.0); Mono # (Auto) 0.1 th/mm3 (0.0-0.9); Mono % (Auto) 0.9 % (0.0-8.0); Neut # (Auto) 7.4 th/mm3 (1.8-7.7); Platelet Count 353 th/mm3 (150-450); Red Blood Count 4.03 mil/mm3 (4.50-5.90)
[2018-04-01 05:26] LABS: Albumin 3.2 g/dL (3.4-5.0); Anion Gap 10 meq/L (5-15); Aspartate Aminotransferase 12 U/L (15-37); Blood Urea Nitrogen 14 mg/dL (7-18); Calcium 8.4 mg/dL (8.5-10.1); Carbon Dioxide 24.4 meq/L (21.0-32.0); Chloride 108 meq/L (98-107); Glomerular Filtration Rate 75 mL/min (>89); Glucose,Random 144 mg/dL (74-106); Sodium 142 meq/L (136-145)
[2018-04-01 05:27] LABS: Alanine Aminotransferase 14 U/L (12-78); Phosphorus 2.3 mg/dL (2.5-4.9)
[2018-04-01 05:29] LABS: Alkaline Phosphatase 99 U/L (45-117); Total Protein 7.7 g/dL (6.4-8.2)
[2018-04-01] MEDS: Insulin NovoLOG Aspart Correctional Sugar Inj SQ SCH ×4 (08:00→23:27)
--- NOTE | 2018-04-01 08:35 | MB ---
cc: Alan Redding MD DATE: 04/01/2018 REASON FOR CONSULTATION: Oncology consult. The patient with newly discovered brain mass. HISTORY OF PRESENT ILLNESS: The patient is a 72-year-old male with no significant past medical history who presented to the hospital complaining of increased left arm and leg weakness for the last 5 days. He also noted a mild left facial droop. He denies any headache or visual changes. He has some mild slurred speech. Denies any back pain. Denies any chest pain or palpitation. No shortness of breath or cough. He denies any nausea, vomiting, abdominal pain, change in bowel habit. No dysuria, hematuria. On presentation, CT of the head showed a very large right cerebral mass causing a midline shift of 1.5 cm with significant vasogenic edema. PAST MEDICAL HISTORY: Infected right knee prosthesis, hypertension. PAST SURGICAL HISTORY: Right total knee arthroplasty, which failed due to infection. FAMILY HISTORY: Four sisters and 2 brothers are healthy. He has 2 sons and daughter, also healthy. SOCIAL HISTORY: He never smoked or drank alcohol. He is a retired healthcare executive. ALLERGIES: NO KNOWN DRUG ALLERGIES. CURRENT MEDICATIONS: 1. Dexamethasone. 2. Doxycycline. 3. Keppra. 4. Mannitol. 5. Protonix. 6. Heather-Colace. REVIEW OF SYSTEMS: CONSTITUTIONAL: Denies any fever, chill, weight loss. EYES: Negative. ENT: Negative. CARDIOVASCULAR: No chest pressure or palpitation. RESPIRATORY: No shortness of breath or cough. GASTROINTESTINAL: Denies any nausea, vomiting, abdominal pain. GENITOURINARY: No dysuria or hematuria. MUSCULOSKELETAL: Negative. ENDOCRINE: Negative. DERMATOLOGIC: Negative. HEMATOLOGIC: Negative. PSYCHIATRIC: Negative. NEUROLOGIC: As above. PHYSICAL EXAMINATION: VITAL SIGNS: Temperature 98.7, blood pressure 121/70. GENERAL: He is alert, oriented x3, no acute distress. HEENT: Atraumatic, normocephalic. Pupils are equal, round, reactive to light. Extraocular muscles are intact. No scleral icterus. Oropharynx has dry mucosa. No lesions. NECK: No thyromegaly or palpable mass. LYMPHATIC: No palpable cervical, clavicular, axillary, or groin lymphadenopathy. CARDIOVASCULAR: Regular S1, S2. No murmur. LUNGS: Clear to auscultation bilaterally. No wheeze or rhonchi. ABDOMEN: Soft, nontender. Cannot palpate liver or spleen. EXTREMITIES: No cyanosis, clubbing, or edema. BACK: No paravertebral tenderness. SKIN: No rash. NEUROLOGIC: Mild left facial droop, slight decreased strength on the left side. LABORATORY DATA: WBC 8, hemoglobin 11, platelet count of 353, creatinine is 0.98. Liver transaminase within normal limits. ASSESSMENT: 1. Large right cerebral mass. He presented with left arm and leg weakness. He also had mild left facial droop and mild trouble with speech for 5 days. This happened acutely. On presentation, CT of the head showed a very large right cerebral lesion with significant mass effect and midline shift of 1.5 cm to the left. There was a vasogenic edema, but no acute hemorrhage noted. He otherwise has no constitutional symptoms or any other focal symptoms. This is worrisome for primary [employer] neoplasm like a glioma. It is less likely to be metastatic disease with this single large brain mass. He was started on Decadron and mannitol. His symptoms are slightly better. He is awaiting an MRI of the brain for further evaluation. Would also recommend getting CT of the chest, abdomen and pelvis when he is more stable, to see if there is any other possible primary site, but I think it is less likely given his lack of symptoms. 2. Recent infected right total knee prosthesis. 3. Hypertension. RECOMMENDATIONS: 1. Await MRI of the brain. 2. Await neurosurgical evaluation. Given the significant mass effect, he likely is going to need neurosurgical decompression. A tissue diagnosis could be obtained if he has the surgery. 2. We will get a CT of the chest, abdomen and pelvis to look for other primary sites when he is stable. Thank you Dr. Farias for asking me to see this patient. MD HELGA Engle/dick , 08:04 AM , 08:18 AM CODIE
[2018-04-01] MEDS: Senna/Docusate Sodium 8.6/50 MG Tablet PO SCH ×2 (10:52→23:29)
[2018-04-01] MEDS: Pantoprazole Inj 40 MG Vial IV.PUSH SCH (10:53)
[2018-04-01] MEDS: amLODIPine 5 MG Tablet PO SCH (10:54)
[2018-04-01] MEDS ORDERED: Gadobutrol PF 7.5 MMOL/7.5 ML Vial (for RAD) IV.SIG ONE (12:20)
--- NOTE | 2018-04-01 13:45 | MR ---
EXAM DATE: 04/01/2018 12:39 PM EDT AGE/SEX: 72 years / Male INDICATIONS: Mass. CLINICAL DATA: This is the patient's subsequent encounter. Patient reports that signs and symptoms h ave been present for 2 days and indicates a pain score of 3/10. MEDICAL/SURGICAL HISTORY: Hypertension. . ORIF wrist COMPARISON: No prior exams available for comparison. TECHNIQUE: Multiplanar, multisequence examination of the brain was performed without and with 7.5 ml Gadavist (gadobutrol) contrast as a single exam dose. FINDINGS: Large 7 cm right temporal lobe mass with intense contrast enhancement. This is associated with signif icant edema in the right hemisphere with effacement right lateral ventricle and 1 cm right to left mi dline shift There is edema and extends down into the right cerebellar peduncle with some very subtle enhancement. This could represent extension along white matter tracts. 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 The left hemisphere is unremarkable. The cerebellar hemispheres are unremarkable. CONCLUSION: 1. 7 cm right temporal mass with intense peripheral contrast enhancement. There is significant mass effect and midline shift. 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 2. Minimal edema and enhancement in the right cerebral peduncle that could be direct extension. Electronically signed by: Gustabo Garay MD 04/01/2018 1:43 PM EDT
[2018-04-01 13:58] LABS: Sodium 141 meq/L (136-145)
--- NOTE | 2018-04-01 20:59 | P.PNNS ---
Subjective Interval history: This is a 72-year-old male with with past medical history of hypertension who presented to [facility] emergency department with left arm weakness. He says for approximately 5 days he has had headache overlying his right eye, occasional slurred speech, vision change, and decreased dexterity of his left hand resulting in difficulty with writing and tying his shoes. He he has had 2 falls in the last 2 days. He also noted a mild left facial droop. He denies any headache or visual changes. No seizure activity noted. No tongue bitting. no incontinence of sotol or urine. His stepdaughter, who is a RECREATION INSTRUCTOR, also noticed he had left facial droop and urged him to seek medical attention. Has lost about 20 pounds since January 29. Poor appetite, he attributed to antibiotics he was on (infected knee arthoplasty with MRSA, hardware removed and antibiotic spacers placed, skin graft and muscle flap by Dr. Barry. On course of abx with daptomycin and rifampin via PICC line. PICC removed 03/07. Now only on doxycycline 100 bid. He has mild slurred speech. Denies any neck pain or back pain. Denies any chest pain or palpitation. No shortness of breath or cough. He denies any nauseas or vomiting. He denies abdominal pain, change in bowel habit. No dysuria, hematuria. CT of the head showed a very large right cerebral mass causing a midline shift of 1.5 cm with significant vasogenic edema. Neurosurgical consultation was requested. 04/01. Receiving IV steroids, milld improvement in upper extremity. MRI brain completed Physical Exam Vital signs: Vital Signs 03/31/18 21:50 03/31/18 23:01 04/01/18 00:00 Temperature 98.1 F Pulse Rate 109 H 96 H 89 Respiratory Rate 18 17 Blood Pressure 138/63 138/69 144/95 H Pulse Oximetry 100 100 100 04/01/18 01:00 04/01/18 02:00 04/01/18 03:00 Temperature Pulse Rate 92 H 89 89 Respiratory Rate 18 17 18 Blood Pressure 129/85 121/83 133/87 Pulse Oximetry 04/01/18 04:00 04/01/18 05:00 04/01/18 06:00 Temperature 98.7 F Pulse Rate 92 H 87 88 Respiratory Rate 20 13 14 Blood Pressure 114/69 144/71 H 121/70 Pulse Oximetry 04/01/18 07:00 04/01/18 08:00 04/01/18 09:00 Temperature 97.6 F Pulse Rate 90 94 H 94 H Respiratory Rate 14 19 21 Blood Pressure 132/87 136/94 H 135/81 Pulse Oximetry 98 98 99 04/01/18 10:00 04/01/18 11:00 04/01/18 12:00 Temperature 97.9 F Pulse Rate 90 106 H 102 H Respiratory Rate 20 23 19 Blood Pressure 122/84 127/76 142/83 H Pulse Oximetry 99 95 98 04/01/18 13:00 04/01/18 14:00 04/01/18 15:00 Temperature Pulse Rate 92 H 100 H 96 H Respiratory Rate 23 20 21 Blood Pressure 127/69 126/82 138/76 Pulse Oximetry 94 L 97 98 04/01/18 16:00 04/01/18 17:00 04/01/18 18:00 Temperature 97.6 F Pulse Rate 96 H 97 H 96 H Respiratory Rate 21 22 17 Blood Pressure 132/76 118/85 134/72 Pulse Oximetry 100 96 94 L Intake & Output 04/01/18 04/01/18 04/02/18 06:59 18:59 06:59 Intake Total 400 / 400 585 / 585 Output Total 1600 / 1600 950 / 950 Balance -1200 / -1200 -365 / -365 Weight 77.6 kg Intake: IV 400 / 400 105 / 105 NS Inj 1,000 ML @ 70 mls/hr IV. 400 / 400 CONT .[id number] ROSA Rx#: [id number] Keppra Inj 500 MG In NS Inj 100 105 / 105 ML @ 400 mls/hr IV.SIG Q12H ROSA Rx#:[id number] Oral 480 / 480 Output: Urine 1600 / 1600 Urine Amount (Catheter) 950 / 950 Condom 950 / 950 Other: # Voids 8 Date of Last Bowel Movement 04/01/18 # Bowel Movements 3 Weight On Admission 77.6 kg Narrative: GENERAL: Mr Thapa is well-nourished, well-developed patient who is alert and extremely talkative. SKIN: Warm and dry. Skin graft harvest site right thigh. Incision from prior muscle flap and skin graft on right knee is healing well. No drainage. No erythema. HEAD: Atraumatic. Normocephalic. EYES: Pupils equal and round, 4 mm and reactive to 2 mm bilaterally. No scleral icterus. No injection or drainage. ENT: No nasal bleeding or discharge. Mucous membranes pink and moist. NECK: Trachea midline. No JVD. CARDIOVASCULAR: Regular rate and rhythm. No murmurs rubs or gallops. RESPIRATORY: No accessory muscle use. Clear to auscultation. Breath sounds equal bilaterally. GASTROINTESTINAL: Abdomen soft, non-tender, nondistended. MUSCULOSKELETAL: Extremities without clubbing, cyanosis, or edema. No obvious deformities. NEUROLOGICAL: Awake and alert. Left lower facial droop. No obvious cranial nerve deficits. Normal tongue protrusion. Extraocular movements intact. Strength 5 out of 5 throughout the right side. Sensation is intact throughout. Left upper extremity 4+/5 biceps, 4-/5 triceps, 4+ hand intrinsics. Left lower 4+/5 hip flexor, 5/5 ankle plantar and dorsiflexion. - Urinary Catheter Management Condom Cath placed during this visit: no Assessment and Plan - Plan - Problem List (1) Brain mass Code(s): G93.9 - Disorder of brain, unspecified Status: Acute (2) Midline shift of brain Code(s): G93.9 - Disorder of brain, unspecified Status: Acute (3) HTN (hypertension) Code(s): I10 - Essential (primary) hypertension Status: Chronic Chest X-Ray 03/31/18 19:40 CONCLUSION: No evidence of acute cardiopulmonary process. Head CT 03/31/18 19:40 CONCLUSION: 1. 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 2. Significant midline shift with early entrapment of the left lateral ventricle 3. No evidence of acute hemorrhage. . Head MRI 04/01/18 00:00 CONCLUSION: 1. 7 cm right temporal mass with intense peripheral contrast enhancement. There is significant mass effect and midline shift. 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 2. Minimal edema and enhancement in the right cerebral peduncle that could be direct extension. Large right cerebral mass. I reviewed his MRI of the brain, showed a very large right cerebral lesion with significant mass and evidence of an aggressive neoplasm. I recommend a surgical ressection via a stereotactic image-guided craniotomy with ressection of the mass. I recommend a surgical decompression. Mariposa discussed the [id number] details of the surgical procedure, its indications, alternatives, risks, and potential complications. Risks and potential complications include, but are not limited to, infection, blood loss, CSF leak, partial or complete loss of sight in one or both eyes, paresis, paralysis, permanent pain or difficulty swallowing, loss of bowel or bladder function, complications from anesthesia, blood clot, stroke, myocardial infarction, or even . The possibility of nonoperative treatment has been offered. Continue decadron 4mg IV every 6 hrs. Mannitol 25 gm every 6 hrs, hold if serum osmo greater than [address] of the chest, abdomen, and pelvis Recent infected right total knee prosthesis. Hypertension Pulmonary: aggressive pulmonary toilette, nasotracheal suction, and breathing treatments with nebulizers. Daily PT and OT Renal: Continue to monitor closely urine output, BUN and creatinine Endocrine: Continue to Monitor serial Acu checks and SSI as needed in detail ID monitor for signs of infection Protonix for stress ulcer prophylaxis Mike hose and SCD's for DVT prophylaxis Further recommendations will be provided depending on the patient's clinical evaluation and follow up studies. Caprini VTE Risk Assessment Caprini VTE Risk Assessment: Moderate/High Risk (score >= 2) VTE Pharmacological Exception Reason: Intracranial lesions Caprini Risk Assessment Model: Point Value = 1 Point Value = 2 Point Value = 3 Point Value = 5 Age 41-60 Minor surgery BMI > 25 kg/m2 Swollen legs Varicose veins or History of unexplained or recurrent spontaneous Oral contraceptives or hormone replacement Sepsis (< 1 month) Serious lung disease, including pneumonia (< 1 month) Abnormal pulmonary function Acute myocardial infarction Congestive heart failure (< 1 month) History of inflammatory bowel disease Medical patient at bed rest Age 61-74 Arthroscopic surgery Major open surgery (> 45 min) Laparoscopic surgery (> 45 min) Malignancy Confined to bed (> 72 hours) Immobilizing plaster cast Central venous access Age >= 75 History of VTE Family history of VTE Factor V Leiden Prothrombin [id number] Lupus anticoagulant Anticardiolipin antibodies Elevated serum homocysteine Heparin-induced thrombocytopenia Other congenital or acquired thrombophilia Stroke (< 1 month) Elective arthroplasty Hip, pelvis, or leg fracture Acute spinal cord injury (< 1 month) Prophylaxis Regimen: Total Risk Factor Score Risk Level Prophylaxis Regimen 0-1 Low Early ambulation 2 Moderate Order ONE of the following: *Sequential Compression Device (SCD) *Heparin 5000 units SQ BID 3-4 Higher Order ONE of the following medications: *Heparin 5000 units SQ TID *Enoxaparin/Lovenox 40 mg SQ daily (WT < 150 kg, CrCl > 30 mL/min) *Enoxaparin/Lovenox 30 mg SQ daily (WT < 150 kg, CrCl > 10-29 mL/min) *Enoxaparin/Lovenox 30 mg SQ BID (WT < 150 kg, CrCl > 30 mL/min) AND/OR *Sequential Compression Device (SCD) 5 or more Highest Order ONE of the following medications: *Heparin 5000 units SQ TID (Preferred with Epidurals) *Enoxaparin/Lovenox 40 mg SQ daily (WT < 150 kg, CrCl > 30 mL/min) *Enoxaparin/Lovenox 30 mg SQ daily (WT < 150 kg, CrCl > 10-29 mL/min) *Enoxaparin/Lovenox 30 mg SQ BID (WT < 150 kg, CrCl > 30 mL/min) AND *Sequential Compression Device (SCD) Patient is critically ill with large mass with midline shift. He is at risk for further decompensation. He is in need of emergent management of cerebral edema to prevent progressive neurologic deterioration, herniation and .
[2018-04-02 01:55] LABS: Sodium 144 meq/L (136-145)
[2018-04-02] MEDS: Sodium Chloride 23.4% Inj 188 MEQ in Sod Chloride 0.9% Inj 1,000 ML IV.CONT SCH ×2 (05:24→16:07)
[2018-04-02 06:45] LABS: Hematocrit 32.5 % (39.0-51.0); Hemoglobin 10.5 gm/dL (13.0-17.0); Lymph # (Auto) 0.9 th/mm3 (1.0-4.8); Mean Corpuscular HGB Conc 32.2 % (32.0-36.0); Mean Corpuscular Hemoglobin 26.8 pg (27.0-34.0); Mean Corpuscular Volume 83.2 fL (80.0-100.0); Mono # (Auto) 0.2 th/mm3 (0.0-0.9); Mono % (Auto) 1.2 % (0.0-8.0); Neut # (Auto) 17.5 th/mm3 (1.8-7.7); Neut % (Auto) 93.8 % (16.0-70.0); Platelet Count 366 th/mm3 (150-450); Red Cell Distribution Width 17.3 % (11.6-17.2); White Blood Count 18.6 th/mm3 (4.0-11.0)
[2018-04-02 07:00] LABS: Sodium 142 meq/L (136-145)
--- NOTE | 2018-04-02 08:02 | P.PNONC ---
Subjective Interval history: Feeling better. He denies any headache. He feels little stronger this morning. He denies any visual changes. Is anxious to go for surgery today. Objective Vital Signs/Intake & Output: Vital Signs 04/01/18 08:00 04/01/18 09:00 04/01/18 10:00 Temperature 97.6 F Pulse Rate 94 H 94 H 90 Respiratory Rate 19 21 20 Blood Pressure 136/94 H 135/81 122/84 Pulse Oximetry 98 99 99 04/01/18 11:00 04/01/18 12:00 04/01/18 13:00 Temperature 97.9 F Pulse Rate 106 H 102 H 92 H Respiratory Rate 23 19 23 Blood Pressure 127/76 142/83 H 127/69 Pulse Oximetry 95 98 94 L 04/01/18 14:00 04/01/18 15:00 04/01/18 16:00 Temperature 97.6 F Pulse Rate 100 H 96 H 96 H Respiratory Rate 20 21 21 Blood Pressure 126/82 138/76 132/76 Pulse Oximetry 97 98 100 04/01/18 17:00 04/01/18 18:00 04/01/18 20:00 Temperature 98.7 F Pulse Rate 97 H 96 H 101 H Respiratory Rate 22 17 27 H Blood Pressure 118/85 134/72 117/81 Pulse Oximetry 96 94 L 97 04/01/18 22:00 04/02/18 00:00 04/02/18 02:00 Temperature 98 F Pulse Rate 86 88 79 Respiratory Rate 18 Blood Pressure 127/76 Pulse Oximetry 100 04/02/18 04:00 04/02/18 06:00 04/02/18 07:00 Temperature 97.7 F Pulse Rate 90 95 H 93 H Respiratory Rate 19 19 Blood Pressure 123/68 139/87 Pulse Oximetry 97 95 Intake & Output 04/01/18 04/02/18 04/02/18 18:59 06:59 18:59 Intake Total 585 / 585 345 / 345 Output Total 950 / 950 1200 / 1200 Balance -365 / -365 -855 / -855 Weight 76.4 kg Intake: IV 105 / 105 105 / 105 Keppra Inj 500 MG In NS Inj 100 105 / 105 105 / 105 ML @ 400 mls/hr IV.SIG Q12H ROSA Rx#:[id number] Oral 480 / 480 240 / 240 Output: Urine 1200 / 1200 Urine Amount (Catheter) 950 / 950 Condom 950 / 950 Other: Date of Last Bowel Movement 04/01/18 04/01/18 # Bowel Movements 3 0 Result Diagrams: 04/02/18 06:14 04/02/18 06:14 Laboratory Results: Laboratory Results - last 24 hr 04/01/18 04/01/18 04/01/18 06:10 11:26 12:59 WBC RBC Hgb Hct MCV MCH MCHC RDW Plt Count MPV Neut % (Auto) Lymph % (Auto) Sully % (Auto) Eos % (Auto) Baso % (Auto) Neut # (Auto) Lymph # (Auto) Sully # (Auto) Eos # (Auto) Baso # (Auto) WBC Differential Differential Comment Sodium 141 POC Glucose 232 H Osmolality 314 H Nasal Screen MRSA (PCR) Not detected Blood Type Antibody Screen 04/01/18 04/01/18 04/01/18 16:59 19:17 21:37 WBC RBC Hgb Hct MCV MCH MCHC RDW Plt Count MPV Neut % (Auto) Lymph % (Auto) Sully % (Auto) Eos % (Auto) Baso % (Auto) Neut # (Auto) Lymph # (Auto) Sully # (Auto) Eos # (Auto) Baso # (Auto) WBC Differential Differential Comment Sodium POC Glucose 192 H 166 H Osmolality 311 H Nasal Screen MRSA (PCR) Blood Type Antibody Screen 04/02/18 04/02/18 04/02/18 01:09 06:14 06:14 WBC 18.6 H RBC 3.90 L Hgb 10.5 L Hct 32.5 L MCV 83.2 MCH 26.8 L MCHC 32.2 RDW 17.3 H Plt Count 366 MPV 8.0 Neut % (Auto) 93.8 H Lymph % (Auto) 5.0 L Sully % (Auto) 1.2 Eos % (Auto) 0.0 Baso % (Auto) 0.0 Neut # (Auto) 17.5 H Lymph # (Auto) 0.9 L Sully # (Auto) 0.2 Eos # (Auto) 0.0 Baso # (Auto) 0.0 WBC Differential . Differential Comment Auto diff final Sodium 144 142 POC Glucose Osmolality 310 H 314 H Nasal Screen MRSA (PCR) Blood Type Antibody Screen 04/02/18 06:14 WBC RBC Hgb Hct MCV MCH MCHC RDW Plt Count MPV Neut % (Auto) Lymph % (Auto) Sully % (Auto) Eos % (Auto) Baso % (Auto) Neut # (Auto) Lymph # (Auto) Sully # (Auto) Eos # (Auto) Baso # (Auto) WBC Differential Differential Comment Sodium POC Glucose Osmolality Nasal Screen MRSA (PCR) Blood Type O Positive Antibody Screen Positive H Imaging Studies: Impressions Head MRI 04/01/18 00:00 CONCLUSION: 1. 7 cm right temporal mass with intense peripheral contrast enhancement. There is significant mass effect and midline shift. 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 2. Minimal edema and enhancement in the right cerebral peduncle that could be direct extension. Medications: Active Medications Generic Name Dose Route Start Last Admin Trade Name Freq PRN Reason Stop Dose Admin Amlodipine Besylate 5 mg 04/01/18 09:00 04/01/18 10:54 Norvasc PO 5 mg DAILY ROSA Administration Betamethasone Dipropionate 1 applicatio 04/01/18 09:00 04/01/18 23:26 Diprosone 0.05% Cream TOPICAL Not Given BID [facility] Dexamethasone Sodium Phosphate 4 mg 04/01/18 00:00 04/02/18 06:12 Decadron Inj IV.PUSH 4 mg Q6HR ROSA Administration Doxycycline Hyclate 100 mg 04/01/18 09:00 04/01/18 23:29 Vibramycin PO 100 mg Q12HR ROSA Administration Hydrophilic Ointment 1 applicatio 04/01/18 03:00 04/01/18 23:26 Aquaphor Oint TOPICAL Not Given BID [facility] Levetiracetam 500 mg/ Sodium 105 mls @ 400 mls/hr 04/01/18 09:00 04/01/18 23: 33 Chloride IV.SIG Infused Q12H ROSA Infusion Sodium Chloride 188 meq/ 1,047 mls @ 30 mls/hr 04/01/18 01:21 04/02/18 05:24 Sodium Chloride IV.CONT Not Given .Q24H [facility] Insulin Aspart 0 unit 04/01/18 08:00 04/01/18 23:27 Novolog Insulin Correctional Sugar Inj SQ 1 unit ACHS ROSA Administration Protocol Mannitol 25 gm 03/31/18 22:00 04/02/18 03:47 Mannitol Inj IV.PUSH 25 gm Q6H ROSA Administration Pantoprazole Sodium 40 mg 04/01/18 09:00 04/01/18 10:53 Protonix Inj IV.PUSH 40 mg DAILY ROSA Administration Senna/Docusate Sodium 1 tab 04/01/18 09:00 04/01/18 23:29 Heather-Colace PO 1 tab BID ROSA Administration Sodium Chloride 2 ml 04/01/18 09:00 04/01/18 23:28 Ns Flush IV.FLUSH 2 ml BID ROSA Administration Objective Remarks: GENERAL: Well-nourished, well-developed patient. SKIN: Warm and dry. HEAD: Normocephalic. EYES: No scleral icterus. No injection or drainage. NECK: Supple, trachea midline. No JVD or lymphadenopathy. LYMPHATIC: No adenopathy. CARDIOVASCULAR: Regular rate and rhythm without murmurs. RESPIRATORY: Breath sounds equal bilaterally. No accessory muscle use. GASTROINTESTINAL: Abdomen soft, non-tender, nondistended. EXTREMITIES: No cyanosis, or edema. MUSCULOSKELETAL: Adequate muscle tone. NEUROLOGICAL: Mild left facial droop, slight decrease strength left upper extremities and left lower extremities. Awake, alert, and oriented x3. PSYCHIATRIC: Appropriate mood and affect; insight and judgment normal. Assessment/Plan (1) Brain mass Code(s): G93.9 - Disorder of brain, unspecified Status: Acute - Plan 1. Large right cerebral mass. He presented with left arm and leg weakness. He also had mild left facial droop and mild trouble with speech for [address] of the head showed a very large right cerebral lesion with significant mass effect and midline shift of 1.5 cm to the left. MRI showed 7 cm mass with significant mass-effect. He otherwise has no constitutional symptoms or any other focal symptoms. This is worrisome for primary [employer] neoplasm like a glioma. It is less likely to be metastatic disease with this single large brain mass. He was started on Decadron and mannitol. His symptoms have improved 04/02/18 review MRI with patient. His question was answered. He is going to have surgery with attempted resection of the mass this afternoon. His symptom has improved with Decadron and mannitol. 2. Recent infected right total knee prosthesis. 3. Hypertension. RECOMMENDATIONS: 1. Await surgical resection. 2. Further treatment recommendation will depend on tissue diagnosis.
[2018-04-02] MEDS: Senna/Docusate Sodium 8.6/50 MG Tablet PO SCH ×2 (10:46→20:41)
[2018-04-02] MEDS: amLODIPine 5 MG Tablet PO SCH (10:46)
[2018-04-02] MEDS: Pantoprazole Inj 40 MG Vial IV.PUSH SCH (10:46)
[2018-04-02] MEDS: Insulin NovoLOG Aspart Correctional Sugar Inj SQ SCH ×4 (10:47→20:56)
[2018-04-02 11:54] LABS: Sodium 142 meq/L (136-145)
--- NOTE | 2018-04-02 11:56 | P.PNCC ---
Subjective Subjective Remarks/Hospital Course: Hospital Course: 72 year old left hand dominant male with past medical history of hypertension who presented to [facility] emergency department with left arm weakness. He says for approximately 5 days he has had headache overlying his right eye, occasional slurred speech, vision change, and decreased dexterity of his left hand resulting in difficulty with writing and tying his shoes. He he has had 2 falls in the last 2 days. His stepdaughter, who is a SUPPLY CHAIN BUYER, also noticed he had left facial droop and urged him to seek medical attention. CT brain shows large frontal/parietal temporal mass with edema and 1.5 cm of right to left midline shift. Neurosurgical consultation has been obtained. He is transferred to [facility] for admission by pharmacogeneticist service. Denies seizure, paresthesias, sensory deficits. Has lost about 20 pounds since January 29. Poor appetite, he attributed to antibiotics he was on (infected knee arthoplasty with MRSA, hardware removed and antibiotic spacers placed, skin graft and muscle flap by Dr. Barry. On course of abx with daptomycin and rifampin via PICC line. PICC removed 03/07. Now only on doxycycline 100 bid. ) Subjective: 04/02: no changes to neurologic function. plan for OR today. discussed with patient risk of returning intubated with additional central access. Objective Vital Signs / I&O: Vital Signs 04/01/18 12:00 04/01/18 13:00 04/01/18 14:00 Temperature 36.6 C Pulse Rate 102 H 92 H 100 H Respiratory Rate 19 23 20 Blood Pressure 142/83 H 127/69 126/82 Pulse Oximetry 98 94 L 97 04/01/18 15:00 04/01/18 16:00 04/01/18 17:00 Temperature 36.4 C Pulse Rate 96 H 96 H 97 H Respiratory Rate 21 21 22 Blood Pressure 138/76 132/76 118/85 Pulse Oximetry 98 100 96 04/01/18 18:00 04/01/18 20:00 04/01/18 22:00 Temperature 37.1 C Pulse Rate 96 H 101 H 86 Respiratory Rate 17 27 H Blood Pressure 134/72 117/81 Pulse Oximetry 94 L 97 04/02/18 00:00 04/02/18 02:00 04/02/18 04:00 Temperature 36.6 C 36.5 C Pulse Rate 88 79 90 Respiratory Rate 18 19 Blood Pressure 127/76 123/68 Pulse Oximetry 100 97 04/02/18 06:00 04/02/18 07:00 04/02/18 08:00 Temperature 36.6 C Pulse Rate 95 H 93 H 71 Respiratory Rate 19 17 Blood Pressure 139/87 131/89 Pulse Oximetry 95 96 04/02/18 09:00 04/02/18 10:00 04/02/18 11:00 Temperature Pulse Rate 76 78 80 Respiratory Rate 15 13 20 Blood Pressure 123/74 130/87 137/82 Pulse Oximetry 99 99 95 Intake & Output 04/01/18 04/02/18 04/02/18 18:59 06:59 18:59 Intake Total 585 / 585 345 / 345 105 / 105 Output Total 950 / 950 1200 / 1200 Balance -365 / -365 -855 / -855 105 / 105 Weight 76.4 kg Intake: IV 105 / 105 105 / 105 105 / 105 Keppra Inj 500 MG In NS Inj 100 105 / 105 105 / 105 105 / 105 ML @ 400 mls/hr IV.SIG Q12H ROSA Rx#:[id number] Oral 480 / 480 240 / 240 Output: Urine 1200 / 1200 Urine Amount (Catheter) 950 / 950 Condom 950 / 950 Other: Date of Last Bowel Movement 04/01/18 04/01/18 04/01/18 # Bowel Movements 3 0 Result Diagrams: 04/02/18 06:14 04/02/18 06:14 Objective Remarks: gen: elderly male, sitting in bed. heent: nc. at. perrl. mmm. left facial droop persists. neck: no jvd. trachea midline. chest: unlabored. equal chest rise. room air. cv: normal rate, regular rhythm. sinus. abd: soft, nontender, nondistended. no guarding. extr: no edema. distal pulses 2+. neuro: stable left-sided weakness. stable facial droop. no neuro changes. 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 to OR for resection. NEURO: Mass R frontal/parietal/temporal lobes, edema, 1.5 cm midline shift Decadron 4 mg IV every 6 hours. Mannitol 25 mg IV every 6 hours. 2% NaCl at 30 mL/h. Serial sodium every 6 hours target 150-155. Monitor serum osmolality. . Keppra 500 IV every 12 hours for seizure prophylaxis. Neurocheck q1hour. MRI Brain stealth protocol Tylenol/Lortab as needed for pain Neurosurgery consult, Dr. Ricks RESP: Room air CV: Essential hypertension Norvasc 5 mg p.o. daily GI: GERD NPO for OR. On home omeprazole. Protonix 40 daily. FEN/RENAL: Creatinine normal. Monitor BMP. Monitor electrolytes and replace as indicated per ICU electrolyte replacement protocol. ID: MRSA infection R knee arthroplasty. Now s/p hardware removal, antibiotic spacer. Muscle flap and skin graft. Continue doxycycline 100 mg twice daily for recent infected hardware as per above discussion. He is followed as an outpatient by Dr. Freitas. HEME: Normal platelet count and coags. No home anticoagulant or antiplatelet therapy Oncology consultation ENDO: Monitor bedside glucose AC/at bedtime while on steroids and administer low -dose insulin sliding scale as indicated. SKIN/MSK: Ordered home medication regimen to continue right upper extremity. Vitamin E to skin harvest site and aquaphor/clobetasol 0.5 % to knee area.. PROPH: SCDs for DVT prophylaxis. Avoid pharmacologic DVT prophylaxis due to large intracerebral lesion. Protonix 40 mg IV daily for stress ulcer prophylaxis. ACCESS: Peripheral IV providing adequate access at this time.
--- NOTE | 2018-05-01 15:00 | P.DS ---
Date of admission: 03/31/18 21:35 Primary care physician: Nereyda Cheung Attending physician on discharge: Liang Moe Brief History from admission: 72 year old left hand dominant male with past medical history of hypertension who presented to [facility] emergency department with left arm weakness. He says for approximately 5 days he has had headache overlying his right eye, occasional slurred speech, vision change, and decreased dexterity of his left hand resulting in difficulty with writing and tying his shoes. He he has had 2 falls in the last 2 days. His stepdaughter, who is a DISPATCHER SERVICE CHIEF, also noticed he had left facial droop and urged him to seek medical attention. CT brain shows large frontal/parietal temporal mass with edema and 1.5 cm of right to left midline shift. Neurosurgical consultation has been obtained. He is transferred to [facility] for admission by closing supervisor service. Denies seizure, paresthesias, sensory deficits. Has lost about 20 pounds since January 29. Poor appetite, he attributed to antibiotics he was on (infected knee arthoplasty with MRSA, hardware removed and antibiotic spacers placed, skin graft and muscle flap by Dr. Barry. On course of abx with daptomycin and rifampin via PICC line. PICC removed 03/07. Now only on doxycycline 100 bid. ) DS: Diagnosis - Discharge Diagnosis (1) Brain mass Status: Acute (2) Midline shift of brain Status: Acute (3) HTN (hypertension) Status: Chronic DS: Summary Hospital Course: 72 year old left hand dominant male with past medical history of hypertension who presented to [facility] emergency department with left arm weakness. He says for approximately 5 days he has had headache overlying his right eye, occasional slurred speech, vision change, and decreased dexterity of his left hand resulting in difficulty with writing and tying his shoes. He he has had 2 falls in the last 2 days. His stepdaughter, who is a DISPATCHER SERVICE CHIEF, also noticed he had left facial droop and urged him to seek medical attention. CT brain shows large frontal/parietal temporal mass with edema and 1.5 cm of right to left midline shift. Neurosurgical consultation has been obtained. He is transferred to [facility] for admission by closing supervisor service. Denies seizure, paresthesias, sensory deficits. Has lost about 20 pounds since January 29. Poor appetite, he attributed to antibiotics he was on (infected knee arthoplasty with MRSA, hardware removed and antibiotic spacers placed, skin graft and muscle flap by Dr. Barry. On course of abx with daptomycin and rifampin via PICC line. PICC removed 03/07. Now only on doxycycline 100 bid. ) 04/02: no changes to neurologic function. plan for OR today. discussed with patient risk of returning intubated with additional central access. - Time Spent with Patient Total time spent providing and/or coordinating discharge services: Greater than 30 minutes - Quality: VTE Deep Vein Thrombosis/Pulmonary Embolism Present on Admission: No Results Procedures completed during hospitalization: MRI - Impressions ITS Impressions Chest X-Ray 03/31/18 19:40 CONCLUSION: No evidence of acute cardiopulmonary process. Head CT 03/31/18 19:40 CONCLUSION: 1. 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 2. Significant midline shift with early entrapment of the left lateral ventricle 3. No evidence of acute hemorrhage. . Head MRI 04/01/18 00:00 CONCLUSION: 1. 7 cm right temporal mass with intense peripheral contrast enhancement. There is significant mass effect and midline shift. 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 2. Minimal edema and enhancement in the right cerebral peduncle that could be direct extension. Discharge Plan - Discharge Disposition Patient Disposition: 02 Disch To Another Hospital - Discharge Condition Condition: Critical - Physicians Team Primary Care Provider: Nereyda Cheung Attending Provider: Valentine Farias Other Providers: Alan Redding MD ; Tre Ricks MD
== END 2018-04-03 00:26 | disposition short-term general hospital (02) ==
LOC: PHED 19:25 → PHEDA 21:35 → N03 23:48
PROVIDERS: ADMIT Emergency Medicine; ATTEND Emergency Medicine